=== PATIENT | male | born 1960 | race Caucasian/White ===

== ENCOUNTER 2023-08-28 08:30 | Outpatient (RCR) | payer BC, SELFPAY ==
[2023-08-14 09:05] VITALS: BP 148/92; PULSE 94; RESP 16; TEMP 36.1; O2SAT 99
[2023-08-14 10:28] VITALS: TEMP 36.2
[2023-08-14 10:45] VITALS: BP 153/85; PULSE 72; RESP 14; TEMP 36.6; O2SAT 98
[2023-08-14 11:30] VITALS: BP 147/88; PULSE 92; RESP 14; TEMP 35.9; O2SAT 100
[2023-08-14 12:30] VITALS: BP 153/84; PULSE 84; RESP 14; TEMP 36.3; O2SAT 99
[2023-08-14 12:59] VITALS: BP 150/93; PULSE 81; RESP 14; TEMP 36.5; O2SAT 98
[2023-08-28 08:48] VITALS: BP 155/91; PULSE 75; RESP 16; TEMP 36.2; O2SAT 100
[2023-08-28 09:29] VITALS: BP 155/91; PULSE 75; RESP 16; TEMP 36.2; O2SAT 100
[2023-08-28 09:49] VITALS: BP 133/73; PULSE 64; RESP 16; TEMP 36.6; O2SAT 98
[2023-08-28 10:34] VITALS: BP 147/75; PULSE 83; RESP 16; TEMP 36.4; O2SAT 98
[2023-08-28 11:00] VITALS: BP 130/80; PULSE 61; RESP 16; TEMP 36.4; O2SAT 99
[2023-08-28 11:34] VITALS: BP 159/78; PULSE 78; TEMP 36.3; O2SAT 99
== END 2024-02-09 23:59 | disposition home or self-care (01) ==
LOC: CCIC 08:30
PROVIDERS: PCP Family Medicine; Referring Provider Family Medicine; Visit Provider Clinical Nurse Specialist
DX: C18.7 Malignant neoplasm of sigmoid colon (principal)
CPT/HCPCS: 36415; 36430; 36591; 86850; 86900; 86901; 86922; 99211; P9016

== ENCOUNTER 2025-02-23 10:08 | Outpatient (RCR) | payer MEDICARE, MEDICAID, SELFPAY ==
[2025-02-17 11:07] VITALS: BP 118/74; PULSE 95; RESP 16; TEMP 36.8; O2SAT 99
[2025-02-17] MEDS: SODIUM CHLORIDE 0.9 % (FLUSH) 10 ML SYRINGE IVF (11:10)
[2025-02-17] MEDS: 0.9 % SODIUM CHLORIDE 250 ml IV (11:15)
[2025-02-17 11:29] VITALS: BP 113/75; PULSE 88; RESP 16; TEMP 36.8; O2SAT 99
[2025-02-17 11:59] VITALS: BP 114/73; PULSE 93; RESP 16; TEMP 36.6; O2SAT 99
[2025-02-17 12:37] VITALS: BP 128/77; PULSE 94; RESP 16; TEMP 36.2; O2SAT 98
[2025-02-17 13:15] VITALS: BP 118/75; PULSE 85; RESP 16; TEMP 36.9; O2SAT 99
[2025-02-17] MEDS: FUROSEMIDE 10 MG/ML inj 20 MG IV (14:07)
[2025-02-17 15:05] VITALS: BP 129/80; PULSE 85; RESP 16; TEMP 36.9; O2SAT 99
--- NOTE | 2025-02-21 11:15 | ONC.NURNOTE ---
Orders received from [facility] for patient to have peripheral blood cultures x2. Spoke with lab and they are able to do this for the patient. Written orders given to Mariah. RN called patient's SO Kim and advised her that they did not need an appointment for the lab, told her to check in at the main desk and tell them they are here for labs. Called Odalis HUERTAS at [facility] and updated her. Both Kim and Odalis agreeable to the plan.
== END 2025-05-09 23:59 | disposition home or self-care (01) ==
LOC: CCIC 10:08
PROVIDERS: PCP Family Medicine; Visit Provider Internal Medicine Hematology & Oncology
DX: C18.7 Malignant neoplasm of sigmoid colon (principal); D64.9 Anemia, unspecified
CPT/HCPCS: 36415; 36430; 86850; 86900; 86901; 86922; 87040; 96374; J1940; J7050; P9016

== ENCOUNTER 2025-04-09 11:58 | Emergency (ER) | payer MEDICARE, SELFPAY ==
[2025-04-09] VITALS (30 sets, daily range): BP systolic 105–119; BP diastolic 64–85; PULSE 78–95; RESP 14–24; TEMP 36.1; O2SAT 97–100; BMI 26.6
--- NOTE | 2025-04-09 12:00 | ED_ITS ---
HPI - General Adult General Date Seen: 04/09/25 Chief complaint: Weakness Stated complaint: diarrhea, dehydrated Time Seen by Provider: 04/09/25 12:00 History of Present Illness HPI narrative: 65-year-old male history of stage IV metastatic colon cancer (low records indicate liver and lung metastases) , ascites, history of C diff colitis in November 2024, chronic kidney disease, insomnia, and also multiple recent infections and episodes of bacteremia. He presents to the ER today by private car from home with his . He has confusion so history is obtained almost entirely from his and from a small extent from the patient. reports that he has known metastatic colon cancer with known Mets to his liver and lungs. He follows with [facility] in [place] for that care. He had been on multiple rounds of chemo. However since November he has had multiple hospitalizations and multiple infections. It sounds like at least 2 episodes of bacteremia which were thought to have been related to his ports (had 1 port removed and then had recurrent bacteremia so had a 2nd port removed). He has also developed ascites from his liver Mets and gets therapeutic paracenteses every couple of weeks. says that last time they took off 1.7 L and prior to that they took off 2.1 L. She is not aware of any history of SBP. He has not been on any antibiotics recently. It sounds like his oncologist has given him the advice that he probably has incurable colon cancer and oncology has advised against further rounds of chemo because his system is so weak and they have advised comfort care. However the patient and his children are not ready for him to pass away. They have sought alternative treatments and he is currently on ivermectin to treat his colon cancer. thinks that his last dose of chemo was in December, 3 months ago reports that he has had slowly progressive generalized weakness and sleep risk rest of confusion for about the past 5-7 days. He has not had any sweats or fevers. He does have a chronic cough but if anything his cough has been better this week than normal. No trouble breathing. No sore throat. He does have a generally poor appetite but has not been vomiting. thinks he has been having diarrhea this week but he generally does not show her his stools. He is able to tell me that he had, 2 small bits? of stool this morning. He says he does not think he is having diarrhea. He has not had any blood in his stool but does have a history of hemorrhoids with dry blood in the past. Patient thinks he has been urinating normally. notes that he has been eating and drinking less. He has been getting slowly weaker and more confused all week. This morning she was in the other room preparing some things when he got up out of his easy chair. He seemed disoriented and walked the wrong direction while he thought he was going to the bathroom. He then tripped and fell and landed with his right side against the foot rest of the easy chair. It sounds like he struck his right lateral rib cage. His does not think he hit his head. He is having right-sided pain since the fall. No trouble breathing. The patient is able to tell me that the pain is ?pretty bad? when I touch the area or when he moves but does not bother him when he holds still. He no anterior abdominal pain. No hip pain or leg pain. The patient is not on any anticoagulants. He had been on Xarelto in the past, apparently around the time when he had an operation for a perforated sigmoid mass. Unclear what the indication for the Xarelto was. Patient current med list includes venlafaxine, trazodone, potassium, iron supplements. He apparently had lab checks a few days ago at the [facility] because of his weakness and his hemoglobin was 9 which is around his baseline. He is not on any diuretics. He does have a history of poor kidney function apparently his recent creatinine was 1.6. He thinks his urination has been normal lately Related Data Home Medications ?Medication ?Instructions ?Recorded ?Confirmed potassium chloride 20 mEq 20 meq PO QDAY 06/05/22 02/17/25 tablet,extended release venlafaxine 75 mg capsule,extended 75 mg PO QAM 06/05/22 02/17/25 release 24 hr diphenoxylate-atropine 2.5 1 tab PO Q12H PRN 08/28/23 02/17/25 mg-0.025 mg tablet loperamide 2 mg capsule 2 - 4 mg PO Q3H PRN 08/28/23 02/17/25 iron,carbonyl 65 mg-vitamin C 125 1 tab PO QDAY 01/15/25 02/17/25 mg tablet,delayed release (Vitron-C) morphine 15 mg immediate release 15 mg PO Q3H PRN pain 01/15/25 02/17/25 tablet sodium bicarbonate 325 mg tablet 650 mg PO DAILY 01/15/25 02/17/25 trazodone 50 mg tablet 50 mg PO QHS 01/15/25 02/17/25 vancomycin 125 mg capsule 125 mg PO BID 01/15/25 02/17/25 ivermectin 6 mg tablet 60 mg PO 04/09/25 naltrexone 1.5 mg capsule 0.5 mg PO BID 04/09/25 04/09/25 Allergies Allergy/AdvReac Type Severity Reaction Status Date / Time No Known Drug Allergies [facility] Ver[facility] 02[facility]17[facility]25 10:32 [facility] Social History Smoking Status: Never smoker Do you use any of these nicotine containing products: None Second hand tobacco smoke exposure: No Exam Narrative: Exam Narrative: Constitutional: Appears well-developed and well-nourished. He is awake but his eyes are closed. He opens them when requested. GCS is 14. He follows simple commands appropriately and answer simple questions appropriately but seems a little bit confused with details of his history. HENT: Head: Atraumatic. Nose: Nose normal. Mouth/Throat: Oral mucosa is clear and moist not desiccated or cracked. no trismus. Poor dentition. Pharynx normal. Tonsils symmetric. No tonsillar enlargement, erythema, or exudate. Eyes: Conjunctivae pale. EOM normal. Pupils equal, round, and reactive to light. No scleral icterus. Neck: Normal range of motion. Neck supple. No tracheal deviation present. Cardiovascular: Normal rate, regular rhythm. No gallop. No friction rub. No murmur heard. Symmetric radial artery pulses Pulmonary/Chest: Effort normal. No stridor. No respiratory distress. No wheezes. No rales. No rhonchi . Right lateral tenderness. No chest wall crepitus. No bruising. Abdominal: Soft. Bowel sounds normal. Distended and dull to percussion with fluid wave. He has distended cutaneous vein superior to his umbilicus, likely related to portal hypertension. No mass. No tenderness. No rebound. No guarding. Musculoskeletal: RUE: Normal range of motion. No tenderness. No deformity LUE: Normal range of motion. No tenderness. No deformity RLE: Normal range of motion. 3+ pitting edema. No tenderness. No deformity LLE: Normal range of motion. 3+ pitting edema. No tenderness. No deformity Neurological: GCS is 14. He is awake but his eyes are closed unless he spoken to. He follows commands appropriately. No focal deficits.. Generalized weakness. CN II-VII intact. No sensory deficit. GCS eye subscore is 3. GCS verbal subscore is 5. GCS motor subscore is 6. Normal coordination Skin: Skin is warm and dry. Pale but not mottled or diaphoretic. No rash noted. No pallor. Normal capillary refill. Psychiatric: Drowsy. Limited Const: Vital Signs, click to edit/add: Vital Signs - 24 hr 04/09/25 12:07 04/09/25 12:10 04/09/25 12:30 Temperature 97.0 F L Pulse Rate 88 87 Pulse Rate [Right Pulse Oximeter] 78 Respiratory Rate 16 Blood Pressure 119/85 Blood Pressure [Ri ght Upper Arm] 119/85 Pulse Oximetry 98 97 98 [facility] 04/09/25 13:03 04/09/25 13:31 04/09/25 13:50 Temperature Pulse Rate 84 78 Pulse Rate [Right Pulse Oximeter] Respiratory Rate 14 Blood Pressure 118/68 118/69 Blood Pressure [Ri ght Upper Arm] Pulse Oximetry 99 100 [facility] 04/09/25 14:00 04/09/25 14:01 04/09/25 14:31 Temperature Pulse Rate 80 79 95 Pulse Rate [Right Pulse Oximeter] Respiratory Rate 24 24 Blood Pressure 110/66 119/73 Blood Pressure [Ri ght Upper Arm] Pulse Oximetry 99 99 99 [facility] 04/09/25 15:14 04/09/25 15:31 04/09/25 16:01 Temperature Pulse Rate 89 90 90 Pulse Rate [Right Pulse Oximeter] Respiratory Rate 23 22 23 Blood Pressure 107/65 108/64 113/68 Blood Pressure [Ri ght Upper Arm] Pulse Oximetry 99 98 99 [facility] Air 04/09/25 16:15 04/09/25 16:30 04/09/25 16:31 Temperature Pulse Rate 88 88 85 Pulse Rate [Right Pulse Oximeter] Respiratory Rate 24 22 Blood Pressure 106/74 Blood Pressure [Ri ght Upper Arm] Pulse Oximetry 99 98 99 Oxygen Delivery Me thod 04/09/25 16:45 04/09/25 17:00 04/09/25 17:01 Temperature Pulse Rate 86 85 84 Pulse Rate [Right Pulse Oximeter] Respiratory Rate 20 Blood Pressure 107/70 Blood Pressure [Ri ght Upper Arm] Pulse Oximetry 98 98 99 Oxygen Delivery Me thod 04/09/25 17:02 04/09/25 17:15 04/09/25 17:30 Temperature Pulse Rate 85 85 85 Pulse Rate [Right Pulse Oximeter] Respiratory Rate Blood Pressure Blood Pressure [Ri ght Upper Arm] Pulse Oximetry 98 98 99 Oxygen Delivery Me thod 04/09/25 17:31 04/09/25 17:45 04/09/25 18:00 Temperature Pulse Rate 83 85 82 Pulse Rate [Right Pulse Oximeter] Respiratory Rate Blood Pressure 105/68 Blood Pressure [Ri ght Upper Arm] Pulse Oximetry 99 98 99 Oxygen Delivery Me thod 04/09/25 18:01 04/09/25 18:02 04/09/25 18:15 Temperature Pulse Rate 85 84 83 Pulse Rate [Right Pulse Oximeter] Respiratory Rate 22 23 Blood Pressure 111/66 Blood Pressure [Ri ght Upper Arm] Pulse Oximetry 98 98 99 Oxygen Delivery Me thod 04/09/25 19:05 Temperature Pulse Rate 88 Pulse Rate [Right Pulse Oximeter] Respiratory Rate 20 Blood Pressure 113/71 Blood Pressure [Ri ght Upper Arm] Pulse Oximetry 100 Oxygen Delivery Me thod Course Course ED Course: Multiple bedside rechecks. Remains hemodynamically stable. Still pleasantly confused and drowsy but arousable. Reevaluation(s) Reevaluation #1: Recheck -[id number]. Updated patient and family. Finally discussed with hospitalist service at [facility] and they accepted the patient. Patient was able to get to the bathroom to urinate and may also be able to give us a stool sample. Remains hemodynamically stable. Reevaluation #2: Recheck -[id number]. Patient been assigned a bed at [facility]. EMS is arriving to transport. Remains hemodynamically stable. Vital Signs Vital signs: Initial Vital Signs Pulse Rate 88 04/09/25 12:07 Blood Pressure 119/85 04/09/25 12:07 Blood Pressure Mean 96 04/09/25 12:07 Pulse Oximetry 98 04/09/25 12:07 Vital Signs Pulse Rate 88 04/09/25 12:07 Blood Pressure 119/85 04/09/25 12:07 Pulse Oximetry 98 04/09/25 12:07 Temperature 97.0 F L 04/09/25 12:10 Pulse Rate 88 04/09/25 19:05 Respiratory Rate 20 04/09/25 19:05 Blood Pressure 113/71 04/09/25 19:05 Pulse Oximetry 100 04/09/25 19:05 Oxygen Delivery Method Room Air 04/09/25 16:01 Medications Administered Medications: Generic Name Dose Route Start Last Admin Trade Name Freq PRN Reason Stop Dose Admin Piperacillin Sod/Tazobactam 100 mls @ 200 mls/hr 04/09/25 13:30 04/09/25 14:25 Sod 4.5 gm/ Sodium Chloride IVPB Infused Q6H ANTHONY Infusion Discontinued Medications Generic Name Dose Route Start Last Admin Trade Name Freq PRN Reason Stop Dose Admin Sodium Chloride 1,000 mls @ 1,000 mls/hr 04/09/25 12:45 04/09/25 13:51 0.9 % Sodium Chloride 1000 Ml IV 04/09/25 13:44 Infused .Q1H ANTHONY Infusion Vancomycin/PEG/NADA/Lysine/Water 2 gm in 400 mls @ 200 mls/hr 04/09/25 13:28 04/09/25 16:45 Vancomycin 2 Gm/400 Ml IVPB 04/09/25 15:27 Infused ONCE ONE Infusion Protocol Lactated Ringer's 1,000 mls @ 1,000 mls/hr 04/09/25 13:31 04/09/25 14:55 Lactated Ringers 1000 Ml IV 04/09/25 14:30 Infused .Q1H ONE Infusion Lidocaine/Epinephrine 20 ml 04/09/25 16:46 04/09/25 17:34 Lidocaine 1%-Epi 1:100,000 INFILTRATI 04/09/25 16:47 20 ml ONCE ONE Administration Medical Decision Making MDM Narrative Medical decision making narrative: 65-year-old gentleman with a history of metastatic colon cancer. He has had previous surgery for perforated sigmoid tumor, has known Mets to his liver and lungs with known ascites. He has also had multiple episodes recently of infections and what describes as being possible bacteremia so currently has all of his IV access ports removed and is on on alternative treatment for his cancer (ivermectin). He is not on chemo since December. He presents with about a one-week history of progressive generalized weakness and progressive slow worsening confusion that got so bad to the point this morning that he was disoriented when he got up out of his chair, walked the wrong way and then had a ground level fall. 1. Trauma. Initially he described mostly having pain in his right lateral ribs and right flank from the fall. No hypoxia. Lung sounds were clear. No exam evidence for pneumothorax or hemothorax or tension pneumo. I ordered CT scan of his chest/abdomen/pelvis. However because of the patient's acute kidney injury and baseline chronic renal insufficiency, with the change that or to a noncontrast CT chest/abdomen/pelvis. By my review those images I do not see any acute traumatic injury such as rib fracture. He does have fluid around the liver and in the abdomen just which I think is more likely his chronic ascites rather than acute hemoperitoneum. Radiology concurs that there is no definite acute change. Because of the patient's confusion, I ordered head CT and C-spine CT. He initially denied hitting his head and then actually after CT does say that he thinks he probably did hit his head. CT imaging of the head ultimately is normal. C-spine CT is normal. He has confusion but no focal deficits to suggest a spinal cord injury. Blood pressure and pulse rate and hemodynamics are stable. 2. ID: Patient is not febrile and has no reported fever or sweating at home but does have a history of recent infections including a couple episodes of what sound like bacteremia and may be C diff. White count is 10.2. Does not meet clear SIRS criteria however given his medical complexity, we will start antibiotics for sepsis of unknown etiology. Zosyn and vancomycin administered here in the ER. Blood cultures are pending prior to antibiotics. Chest CT shows no evidence for pneumonia. Consider SBP. He is not having any abdominal pain or fever but with known ascites and acute altered sensorium, it is on the differential. After verbal and written consent we did perform a diagnostic paracentesis. Initial ascitic fluid cell counts are reassuring. PMN count less than 500 suggestive of the absence of SBP. 3. Hepatic. Has known liver Mets. LFTs today are abnormal with a total bilirubin of 2.4 and direct bilirubin of 1.9. Alkaline phosphatase is 553, AST 117, ALT 32. I do not have recent baseline LFTs. Most recent labs I can find were from . -three in the [facility] system. At that time alk-phos was 2 a 5, ALT 40, AST 49, and total bilirubin was 0.4. Suspect these are probably related to his known liver Mets. Lipase is abnormal at 3:38 a.m.. He has gallstones on the CT. These are apparently previously known. No evidence for acute cholecystitis based on his noncontrast CT. Ammonia level is 53. I do not have a baseline for comparison but certainly his nonfocal confusion and drowsiness could reflect hepatic encephalopathy. Will require lactulose, will hold off for now because inducing diarrhea during transport could makes EMS transport substantially more difficult.. 4. Renal. He does have an acute kidney injury. reports that his recent baseline creatinine was around 1.6. Today it is up to 2.2 with a BUN of 34. I do not see any evidence on CT scan of any obstructing kidney stones or post renal cause of kidney failure. Suspect this might be related to dehydration. 1 L IV saline and 1 L IV lactated Ringer's administer here in the ER. He does have a non-anion gap metabolic acidosis with a pH of 7.23 and a pCO2 of 29. Unclear etiology. Serum bicarb is low at 11. Is it possible this could reflect GI losses from diarrhea? Venous lactic is mildly elevated at 2.1. In discussion with the act tutor from the [facility] system he advises that we check on the patient's ivermectin dose because sometimes ivermectin can cause altered mental status and metabolic acidosis. It turns out that the patient is on ivermectin 40 mg every morning and 20 mg every evening 60mg po daily. This is a fairly high dose compared to typical treatment doses for parasitic infections. I had nursing discussed with [facility], who advised that there is no specific antidote for ivermectin toxicity. Supportive care and cessation of the medication for to wash out of his system would be the treatment. They have no specific knowledge about this current dose (60 mg per day for several weeks ) and whether not it would specifically cause the patient's symptoms. 5. Heme. He is not currently on chemo. White count is 10.1. Differential shows 87% neutrophils, 3% lymphocytes which could reflect a bacterial infection. Hemoglobin is 10.2 which actually is up from 's reported measurement of 9.0 in the [facility] a couple of days ago. Likely reflects hemoconcentration from dehydration. D/w intensivits at [facility] and they feel that the patient would be safe to go to the medical floor rather than in ICU. They would feel comfortable the patient going to [facility] After couple of hour delay discussed with Dhara BACH from [facility]. She accepts this patient to the hospitalist service on behalf of hospitalist Dr. Mcgee. Lab Data Labs: Lab Results 04/09/25 04/09/25 04/09/25 Range/Units 12:18 12:32 14:35 WBC 10.12 (4.50-11.00) K/uL RBC 3.43 L (4.30-5.90) m/uL Hgb 10.2 L (13.5-17.5) gm/dL Hct 32.2 L (37.0-53.0) % MCV 94 (80-100) fL MCH 30 (26-34) pg MCHC 32 (32-36) gm/dL RDW Coeff of Aiden 17.7 H (11.5-15.5) % Plt Count 137 L (140-440) K/uL Neut % (Auto) 87.0 H (42.0-72.0) % Lymph % (Auto) 3.7 L (20-44) % Mora % (Auto) 7.1 (0.0-11.0) % Eos % (Auto) 0.7 (0.0-7.0) % Baso % (Auto) 0.5 (0.0-3.0) % Neut # (Auto) 8.80 H (1.7-7.0) K/uL Lymph # (Auto) 0.40 L (0.90-2.90) K/uL Mora # (Auto) 0.70 (0.00-0.90) K/UL Eos # (Auto) 0.07 (0.00-0.50) K/uL Baso # (Auto) 0.05 (0.00-0.30) K/uL Abs Immat Gran (auto) 0.10 (0.00-0.30) K/uL Imm/Tot Granulo (auto) 1.0 % INR 1.51 H (0.91-1.10) VBG pH 7.238 L* (7.32-7.43) VBG pCO2 29 L (40-50) mmHG VBG pO2 35.6 (25-47) mmHG VBG HCO3 12 L (21-28) mmol/L Sodium 137 (135-149) mmol/L Potassium 4.0 (3.6-5.1) mmol/L Chloride 112 (96-114) mmol/L Carbon Dioxide 11 L (20-32) mmol/L Anion Gap 14 (7-15) mEq/L BUN 34 H (7-30) mg/dL Creatinine 2.2 H (0.5-1.5) mg/dL Estimated Creat Clear 30.21 Estimated GFR 32 ml/min Glucose 85 (60-115) mg/dL Lactate 2.1 H (0.5-1.9) mmol/L Calcium 8.8 (8.4-10.6) mg/dL Total Bilirubin 2.4 H (0.1-1.5) mg/dL Direct Bilirubin 1.9 H (0.0-0.5) mg/dL AST 117 H (12-35) U/L ALT 32 (4-50) U/L Alkaline Phosphatase 553 H (40-150) U/L Ammonia 53.0 H (13.1-30.0) umol/L Troponin I < 0.01 (0.01-0.04) ng/mL Total Protein 7.4 (6.0-8.3) g/dL Albumin 3.1 L (3.3-5.0) g/dL Lipase 338 H (23-300) U/L Urine Color Yellow (Yellow) Urine Appearance Clear (Clear) Urine pH 5.5 (5.0-8.5) Ur Specific Tabor 1.020 (1.000-1.030) Urine Protein 2+ A (Negative) Urine Glucose (UA) Negative (Negative) Urine Ketones Trace A (Negative) Urine Blood 2+ A (Negative) Urine Nitrite Negative (Negative) Urine Bilirubin 1+ A (Negative) Urine Urobilinogen 0.2 (0.2-1.0) Ur Leukocyte Esterase Negative (Negative) Urine RBC 10-25 A (0-2) Urine WBC 0-2 (0-5) Ur Squamous Epith Cells None (None-Few) Urine Bacteria None (None) Fluid Volume Fluid Color Fluid Appearance Fluid WBC Cells/uL Fluid RBC Cells/uL Fluid Polynuclear WBCs % Fluid Mononuclear WBCs % POC Creatinine 2.4 H (0.6-1.3) mg/dl Blood Type B Positive Antibody Screen NEGATIVE 04/09/25 Range/Units 15:00 WBC (4.50-11.00) K/uL RBC (4.30-5.90) m/uL Hgb (13.5-17.5) gm/dL Hct (37.0-53.0) % MCV (80-100) fL MCH (26-34) pg MCHC (32-36) gm/dL RDW Coeff of Aiden (11.5-15.5) % Plt Count (140-440) K/uL Neut % (Auto) (42.0-72.0) % Lymph % (Auto) (20-44) % Mora % (Auto) (0.0-11.0) % Eos % (Auto) (0.0-7.0) % Baso % (Auto) (0.0-3.0) % Neut # (Auto) (1.7-7.0) K/uL Lymph # (Auto) (0.90-2.90) K/uL Mora # (Auto) (0.00-0.90) K/UL Eos # (Auto) (0.00-0.50) K/uL Baso # (Auto) (0.00-0.30) K/uL Abs Immat Gran (auto) (0.00-0.30) K/uL Imm/Tot Granulo (auto) % INR (0.91-1.10) VBG pH (7.32-7.43) VBG pCO2 (40-50) mmHG VBG pO2 (25-47) mmHG VBG HCO3 (21-28) mmol/L Sodium (135-149) mmol/L Potassium (3.6-5.1) mmol/L Chloride (96-114) mmol/L Carbon Dioxide (20-32) mmol/L Anion Gap (7-15) mEq/L BUN (7-30) mg/dL Creatinine (0.5-1.5) mg/dL Estimated Creat Clear Estimated GFR ml/min Glucose (60-115) mg/dL Lactate (0.5-1.9) mmol/L Calcium (8.4-10.6) mg/dL Total Bilirubin (0.1-1.5) mg/dL Direct Bilirubin (0.0-0.5) mg/dL AST (12-35) U/L ALT (4-50) U/L Alkaline Phosphatase (40-150) U/L Ammonia (13.1-30.0) umol/L Troponin I (0.01-0.04) ng/mL Total Protein (6.0-8.3) g/dL Albumin (3.3-5.0) g/dL Lipase (23-300) U/L Urine Color (Yellow) Urine Appearance (Clear) Urine pH (5.0-8.5) Ur Specific Tabor (1.000-1.030) Urine Protein (Negative) Urine Glucose (UA) (Negative) Urine Ketones (Negative) Urine Blood (Negative) Urine Nitrite (Negative) Urine Bilirubin (Negative) Urine Urobilinogen (0.2-1.0) Ur Leukocyte Esterase (Negative) Urine RBC (0-2) Urine WBC (0-5) Ur Squamous Epith Cells (None-Few) Urine Bacteria (None) Fluid Volume 12 Fluid Color Colorless Fluid Appearance Clear Fluid WBC 106 Cells/uL Fluid RBC 1000 Cells/uL Fluid Polynuclear WBCs 13 % Fluid Mononuclear WBCs 87 % POC Creatinine (0.6-1.3) mg/dl Blood Type Antibody Screen Imaging Data CT scan - head: Attestation: I have reviewed the pertinent imaging results. My impression: No acute intracranial hemorrhage per my read Radiologist's impression: IMPRESSION: 1. No convincing evidence of acute intracranial hemorrhage. 2. Subtle 13 millimeter lesion right inferior medial cerebellum. A small mass lesion is suspected. Contrast-enhanced brain MRI would be useful for more complete evaluation. CT C spine: Attestation: I have reviewed the pertinent imaging results. Radiologist's impression: IMPRESSION: 1. No acute fracture or traumatic malalignment of the cervical spine. CT Chest/Ab/Pelvis: Attestation: I have reviewed the pertinent imaging results. My impression: No acute traumatic injury per my read Radiologist's impression: IMPRESSION: 1. No acute findings in the chest abdomen or pelvis. No acute fracture seen. 2. Extensive pulmonary metastatic disease and Liver disease without significant change 3. Small amount of ascites without significant change. 4. Portal Recanalized umbilical vein with splenomegaly probably reflecting hypertension. ECG Data Attestation: I personally reviewed and interpreted this ECG as follows: Interpretation: Normal sinus rhythm with some PVCs Rate: 85 NE: 144 QRS axis: Normal axis. No pathologic Q-waves. ST segment/T wave: No ST segment elevation or depression. QTc: 511. Prolonged QT Discharge Plan Discharge Clinical Impression: Acute alteration in mental status, Generalized weakness, Metabolic acidosis, Abnormal LFTs, Increased ammonia level, Acute kidney injury, Metastatic colon cancer to liver Patient Disposition: Xfer Other Prescriptions: No Action venlafaxine 75 mg capsule,extended release 24hr 75 mg PO QAM potassium chloride 20 mEq tablet extended release 20 meq PO QDAY morphine 15 mg tablet 15 mg PO Q3H PRN (Reason: pain) sodium bicarbonate 325 mg tablet 650 mg PO DAILY vancomycin 125 mg capsule 125 mg PO BID Vitron-C 65 mg iron- 125 mg tablet,delayed release (DR/EC) 1 tab PO QDAY trazodone 50 mg tablet 50 mg PO QHS loperamide 2 mg capsule 2 - 4 mg PO Q3H PRN diphenoxylate-atropine 2.5-0.025 mg tablet 1 tab PO Q12H PRN ivermectin 6 mg tablet 60 mg PO Rx Instructions: Pt states pt takes 40 mg in AM and 20 mg in PM. naltrexone 1.5 mg capsule 0.5 mg PO BID Rx Instructions: Pt states pt takes 0.5 mg in AM and 0.5 mg in PM. Stand Alone Forms: [facility] Info Instructions Procedures Paracentesis Pre procedure diagnosis: Altered mental status, ascites, eval for SBP Written consent by: guardian Site marking: site marked Verification/time out: correct patient Indication: Ascites Imaging guidance used?: Yes Procedure: diagnostic paracentesis Location: RLQ Bedside Ultrasound Used: yes, Ascites confirmed and location marked Preparation: sterile prep and drape Anesthesia: lidocaine 1% and with Epi Amount of anesthesia used (mL): 5 Amount of fluid obtained (mL): 50 Fluid: clear (Yellow transparent) Size of Needle Used: 18 (After sterile prep and drape we attempted the procedure using a thoracentesis catheter over needle. I managed to get into the peritoneal cavity by aspiration of fluid through the needle and then when we advanced the catheter were not able to get any further fluid. I think catheter became occluded) Post Procedure Exam: awake, alert (Awake but drowsy, similar to pre procedure.), normal BP, normal HR and normal SpO2 Estimated blood loss (if any): none Complications: none Patient Tolerated Procedure: well
--- NOTE | 2025-04-09 12:31 | CRLHL7_ITS ---
For Patients: As a result of the Cures Act, medical imaging exams and procedure reports are released immediately into your electronic medical record. You may view this report before your referring provider. If you have questions, please contact your health care provider. INDICATION: Ground level fall. TECHNIQUE: CT of the cervical spine without contrast. Coronal and sagittal reformats are included. COMPARISON: MRA neck from 11/30/2023. FINDINGS: Fractures and other acute findings: None. Hardware: None. Spinal alignment: Within normal limits. Significant cervical spondylosis: Scattered cervical spondylosis without CT visualized high-grade spinal canal/neural foraminal stenosis. Paraspinal soft tissues and imaged lungs: Within normal limits. IMPRESSION: 1. No acute fracture or traumatic malalignment of the cervical spine. Please note that all CT scans at this facility use dose modulation, iterative reconstruction, and/or weight-based dosing when appropriate to reduce radiation dose to as low as reasonably achievable. Dictated by Wes Todd MD @ 04/09/2025 2:12:59 PM (Electronically Signed)
--- NOTE | 2025-04-09 12:31 | CRLHL7_ITS ---
For Patients: As a result of the Century Cures Act, medical imaging exams and procedure reports are released immediately into your electronic medical record. You may view this report before your referring provider. If you have questions, please contact your health care provider. INDICATION: Ground level fall. Confusion. TECHNIQUE: CT of the head without contrast. Coronal and sagittal reformats are included. COMPARISON: Head CT from 11/29/2023. FINDINGS: Subtle 13 millimeter mildly hyperdense lesion within the right inferior medial cerebellar region, series 2, image 26. No significant mass effect. No hydrocephalus or extra-axial collections. White matter is within normal limits for age. No acute osseous abnormalities. Mastoid air cells and paranasal sinuses are clear. Normal soft tissues. IMPRESSION: 1. No convincing evidence of acute intracranial hemorrhage. 2. Subtle 13 millimeter lesion right inferior medial cerebellum. A small mass lesion is suspected. Contrast-enhanced brain MRI would be useful for more complete evaluation. Please note that all CT scans at this facility use dose modulation, iterative reconstruction, and/or weight-based dosing when appropriate to reduce radiation dose to as low as reasonably achievable. Dictated by Wes Todd MD @ 04/09/2025 2:09:06 PM (Electronically Signed)
[2025-04-09 12:41] LABS: Creatinine, Point-of-Care* 2.4 mg/dl (0.6-1.3)
[2025-04-09 12:45] LABS: Basophils Absolute Auto 0.05 K/uL (0.00-0.30); Basophils Percent Auto 0.5 % (0.0-3.0); Eosinophils Absolute Auto 0.07 K/uL (0.00-0.50); Eosinophils Percent Auto 0.7 % (0.0-7.0); Hematocrit* 32.2 % (37.0-53.0); Hemoglobin* 10.2 gm/dL (13.5-17.5); Lymphocytes Percent Auto 3.7 % (20-44); Mean Corpuscular HGB Conc 32 gm/dL (32-36); Mean Corpuscular Hemoglobin 30 pg (26-34); Mean Corpuscular Volume 94 fL (80-100); Monocytes Percent Auto 7.1 % (0.0-11.0); Platelet Count* 137 K/uL (140-440); RDW Coefficient of Variation % 17.7 % (11.5-15.5); Red Blood Count* 3.43 m/uL (4.30-5.90); White Blood Count* 10.12 K/uL (4.50-11.00)
[2025-04-09 12:48] LABS: Albumin* 3.1 g/dL (3.3-5.0); Chloride* 112 mmol/L (96-114); Lactate* 2.1 mmol/L (0.5-1.9); PCO2 VBG 29 mmHG (40-50); Slide Review Reflex No; Sodium* 137 mmol/L (135-149)
[2025-04-09 12:49] LABS: HCO3 VBG 12 mmol/L (21-28); PO2 VBG 35.6 mmHG (25-47)
[2025-04-09 12:50] LABS: Blood Urea Nitrogen* 34 mg/dL (7-30); Creatinine* 2.2 mg/dL (0.5-1.5); Est. Creatinine Clearance* 30.21; Estimated Glomerular Filt Rate 32 ml/min; pH VBG 7.238 (7.32-7.43)
[2025-04-09 12:51] LABS: Alanine Aminotransferase* 32 U/L (4-50); Alkaline Phosphatase* 553 U/L (40-150); Anion Gap 14 mEq/L (7-15); Aspartate Amino Transferase* 117 U/L (12-35); Bilirubin Direct* 1.9 mg/dL (0.0-0.5); Bilirubin Total* 2.4 mg/dL (0.1-1.5); Calcium* 8.8 mg/dL (8.4-10.6); Carbon Dioxide* 11 mmol/L (20-32); Glucose* 85 mg/dL (60-115); Lipase* 338 U/L (23-300); Total Protein* 7.4 g/dL (6.0-8.3)
[2025-04-09 12:53] LABS: INR 1.51 (0.91-1.10); Prothrombin Time 19.1 Seconds
[2025-04-09] MEDS: 0.9 % SODIUM CHLORIDE 1000 ml 1,000 ML IV (12:59)
[2025-04-09 13:08] LABS: Troponin I* < 0.01 ng/mL (0.01-0.04)
--- NOTE | 2025-04-09 13:26 | CRLHL7_ITS ---
For Patients: As a result of the Century Cures Act, medical imaging exams and procedure reports are released immediately into your electronic medical record. You may view this report before your referring provider. If you have questions, please contact your health care provider. INDICATION: Fall trauma TECHNIQUE: CT chest, abdomen and pelvis acquired without contrast. Multiplanar axial, coronal, and sagittal reformats are included. MIP images COMPARISON: CT 03/21/2025 FINDINGS: CHEST: Cardiovascular structures: Heart is enlarged. Coronary artery calcification. Mediastinum and coni: No mass or adenopathy. Lungs and pleura: Widespread pulmonary metastasis is not significantly changed no effusion seen. Chest wall and axilla: No mass or adenopathy. ABDOMEN AND PELVIS: Liver: Limited noncontrast assessment of the liver with diffuse liver lesions throughout suboptimally visualized no biliary dilatation is seen. Cholelithiasis. Pancreas: Unremarkable. Spleen: Mild splenomegaly measuring 14.5 cm. Adrenal glands: Right adrenal nodule unchanged Kidneys: Unremarkable. GI tract: Rectosigmoid anastomosis no bowel obstruction. Bowel anastomosis right lower quadrant Vascular structures: Abdominal aorta is normal in caliber. Recanalized umbilical vein. Lymph nodes: Unremarkable. Miscellaneous: Mild ascites Pelvic Organs: Enlarged prostate gland wall thickening urinary bladder incompletely distended. Bones: No suspicious bone lesions. No acute fracture seen. IMPRESSION: 1. No acute findings in the chest abdomen or pelvis. No acute fracture seen. 2. Extensive pulmonary metastatic disease and Liver disease without significant change 3. Small amount of ascites without significant change. 4. Portal Recanalized umbilical vein with splenomegaly probably reflecting hypertension. Please note that all CT scans at this facility use dose modulation, iterative reconstruction, and/or weight-based dosing when appropriate to reduce radiation dose to as low as reasonably achievable. Dictated by Selma Urbina MD @ 04/09/2025 2:49:34 PM (Electronically Signed)
[2025-04-09] MEDS: PIPERACILLIN/TAZOBACTAM 4.5 GM in 0.9 % SODIUM CHLORIDE Mini-bag 100 ML IVPB (13:51)
[2025-04-09] MEDS: LACTATED RINGERS 1000 ML 1,000 ML IV (13:52)
[2025-04-09] MEDS: VANCOMYCIN 2 GM/400 ML 2 GM/400 ML PIGGYBACK IVPB (14:41)
[2025-04-09 14:43] LABS: Appearance Urine Clear (Clear); Bilirubin Urine 1+ (Negative); Blood Urine 2+ (Negative); Color Urine Yellow (Yellow); Glucose Urine Negative (Negative); Ketones Urine Trace (Negative); Leukocyte Esterase Urine Negative (Negative); Nitrite Urine Negative (Negative); Protein Urine 2+ (Negative); Urobilinogen Urine 0.2 (0.2-1.0); pH Urine 5.5 (5.0-8.5)
[2025-04-09 15:12] LABS: WBC Urine 0-2 (0-5)
[2025-04-09 15:28] LABS: Mononuclear WBC Body Fluid* 87 %; Polynuclear WBC Body Fluid* 13 %; RBC, Body Fluid* 1000 Cells/uL; WBC, Body Fluid* 106 Cells/uL
[2025-04-09 15:32] LABS: BF Clarity* Clear; BF Color Colorless; BF Total Volume* 12
[2025-04-09] MEDS: LIDOCAINE 1%-EPI 1:100,000 20 ML INFILTRATI (17:34)
[2025-04-09 20:00] LABS: CDIFFEPI 027 PRESUMPTIVE NEGATIVE (Negative)
[2025-04-09 20:02] LABS: C.Difficile POSITIVE (Negative)
--- OUTSIDE RECORDS SUMMARY | 2025-04-10 17:25 | XMS_ITS ---
Author Name Interface, [id number] lity Address [address] [address] [facility] Address [address] [facility] [address] [address] Care Team Providers Care Tax Auditor Name Role Phone Dustin Jeffers Unavailable Unavailable Allergies and Adverse Reactions Medication/Group Name Reaction Severity Date No known allergies Plan Date Type Value 04/13/2025 APPOINTMENT LAB 15 MIN 04/13/2025 APPOINTMENT OV 20 MIN 04/06/2025 APPOINTMENT LAB 15 MIN 04/04/2025 APPOINTMENT OUTSIDE TEST 5 M IN 03/23/2025 APPOINTMENT OV 20 MIN 03/23/2025 APPOINTMENT LAB 15 MIN 03/21/2025 APPOINTMENT OUTSIDE TEST 5 M IN 02/25/2025 APPOINTMENT PUMP DISCONNECT 15 MIN 02/23/2025 APPOINTMENT LAB 15 MIN 02/23/2025 APPOINTMENT OV 20 MIN 02/23/2025 APPOINTMENT TREATMENT 3 HR 02/23/2025 APPOINTMENT PORT DRAW 15 MIN 02/18/2025 APPOINTMENT OV 20 MIN 02/07/2025 APPOINTMENT OUTSIDE TEST 5 M IN 02/04/2025 APPOINTMENT OUTSIDE TEST 5 M IN 02/04/2025 APPOINTMENT PUMP DISCONNECT 15 MIN 02/04/2025 APPOINTMENT OUTSIDE TEST 5 M IN 02/02/2025 APPOINTMENT TREATMENT 3 HR 02/02/2025 APPOINTMENT OV 30 MIN 02/02/2025 APPOINTMENT PORT DRAW 15 MIN 02/02/2025 APPOINTMENT OUTSIDE TEST 5 M IN 01/21/2025 APPOINTMENT OUTSIDE TEST 5 M IN 01/14/2025 APPOINTMENT PUMP DISCONNECT 15 MIN 01/12/2025 APPOINTMENT PORT DRAW 15 MIN 01/12/2025 APPOINTMENT TREATMENT 3 HR 01/12/2025 APPOINTMENT OV 30 MIN 01/03/2025 APPOINTMENT PORT DRAW 15 MIN 01/03/2025 APPOINTMENT OV 20 MIN 01/03/2025 APPOINTMENT PORT DRAW 15 MIN 12/31/2024 APPOINTMENT PUMP DISCONNECT 15 MIN 12/29/2024 APPOINTMENT HYDRATION 2 HR 12/29/2024 APPOINTMENT PORT DRAW 15 MIN 12/29/2024 APPOINTMENT OV 30 MIN 12/29/2024 APPOINTMENT PORT DRAW 15 MIN 12/29/2024 APPOINTMENT TREATMENT 4 HR 12/29/2024 APPOINTMENT OV 30 MIN 12/29/2024 APPOINTMENT PORT DRAW 15 MIN 12/28/2024 APPOINTMENT OUTSIDE TEST 5 M IN 12/22/2024 APPOINTMENT PORT DRAW 15 MIN 12/17/2024 APPOINTMENT PUMP DISCONNECT 15 MIN 12/15/2024 APPOINTMENT PORT DRAW 15 MIN 12/15/2024 APPOINTMENT OV 20 MIN 12/15/2024 APPOINTMENT TREATMENT 4 HR 12/03/2024 APPOINTMENT PUMP DISCONNECT 15 MIN 12/01/2024 APPOINTMENT TREATMENT 4 HR 12/01/2024 APPOINTMENT OV 30 MIN 12/01/2024 APPOINTMENT PORT DRAW 15 MIN 11/25/2024 APPOINTMENT PORT DRAW 15 MIN 11/25/2024 APPOINTMENT OV 30 MIN 11/25/2024 APPOINTMENT TREATMENT 2 HR 11/18/2024 APPOINTMENT PUMP DISCONNECT 15 MIN 11/16/2024 APPOINTMENT PORT DRAW 15 MIN 11/16/2024 APPOINTMENT TREATMENT 4 HR 11/16/2024 APPOINTMENT OV 30 MIN 11/11/2024 APPOINTMENT OV 20 MIN 11/11/2024 APPOINTMENT PORT DRAW 15 MIN 11/05/2024 APPOINTMENT INJECTION 15 MIN 11/03/2024 APPOINTMENT TREATMENT 4 HR 11/03/2024 APPOINTMENT OV 20 MIN 11/03/2024 APPOINTMENT PORT DRAW 15 MIN 10/29/2024 APPOINTMENT OUTSIDE TEST 5 M IN 10/22/2024 APPOINTMENT PUMP DISCONNECT 15 MIN 10/29/[address] chest w/o con trast 11/03/2024 LABORDER CBC w/ auto diff 11/03/2024 LABORDER CMP 11/03/2024 LABORDER CEA panel 11/03/2024 LABORDER Protein (dipstic k) panel 11/11/2024 LABORDER CBC w/ auto diff 11/11/2024 LABORDER CEA panel 11/11/2024 LABORDER CMP 11/16/2024 LABORDER Protein (dipstic k) panel 11/16/2024 LABORDER CBC w/ auto diff 11/16/2024 LABORDER CEA panel 11/16/2024 LABORDER CMP 11/25/2024 LABORDER CBC w/ auto diff 12/01/2024 LABORDER CBC w/ auto diff 12/01/2024 LABORDER CMP 12/01/2024 LABORDER CBC w/ auto diff 12/01/2024 LABORDER CMP 12/01/2024 LABORDER Protein (dipstic k) panel 12/01/2024 LABORDER Ferritin panel 12/01/2024 LABORDER Iron profile 12/01/2024 LABORDER CEA panel 12/15/2024 LABORDER CBC w/ auto diff 12/15/2024 LABORDER CMP 12/15/2024 LABORDER Protein (dipstic k) panel 12/15/2024 LABORDER CEA panel 12/17/2024 LABORDER Blood culture pa elis 12/17/2024 LABORDER Blood culture pa elis 12/17/2024 LABORDER Blood culture pa elis 12/17/2024 LABORDER Blood culture pa elis 12/22/2024 LABORDER CMP 12/22/2024 LABORDER CBC w/ auto diff 12/22/2024 LABORDER Urinalysis with Reflex Panel 12/27/[address] chest/abdomen /pelvis w/o contrast 12/29/2024 LABORDER CEA panel 12/29/2024 LABORDER Magnesium Panel 12/29/2024 LABORDER CMP 12/29/2024 LABORDER Urine culture pa elis 12/29/2024 LABORDER CBC w/ auto diff 12/29/2024 LABORDER CBC w/ auto diff 12/29/2024 LABORDER iSTAT Na+/K+/Cl- panel 12/29/2024 LABORDER Ferritin panel 12/29/2024 LABORDER Iron profile 01/03/2025 LABORDER CMP 01/03/2025 LABORDER CEA panel 01/03/2025 LABORDER CBC w/ auto diff 01/12/2025 LABORDER CBC w/ auto diff 01/12/2025 LABORDER Protein (dipstic k) panel 01/12/2025 LABORDER CEA panel 01/12/2025 LABORDER CMP 02/02/2025 LABORDER CBC w/ auto diff 02/02/2025 LABORDER Magnesium Panel 02/02/2025 LABORDER CMP 02/02/2025 LABORDER Protein (dipstic k) panel 02/02/2025 LABORDER CEA panel 02/07/2025 LABORDER Venous doppler u ltrasound of lower extremity, LT 02/18/2025 LABORDER MRI lumbar spine w/o contrast 02/23/2025 LABORDER Blood culture pa elis 02/23/2025 LABORDER CBC w/ auto diff 02/23/2025 LABORDER Magnesium Panel 02/23/2025 LABORDER CMP 02/23/2025 LABORDER Blood culture pa elis 02/23/2025 LABORDER Protein (dipstic k) panel 03/21/[address] chest/abdomen /pelvis w/ contrast 03/23/2025 LABORDER CEA panel 03/23/2025 LABORDER CBC w/ auto diff 03/23/2025 LABORDER Renal function p jeannine 03/23/2025 LABORDER CMP 04/06/2025 LABORDER Hgb Panel 04/13/2025 LABORDER CEA panel 04/13/2025 LABORDER CBC w/ auto diff 04/13/2025 LABORDER CMP Reason for Visit LAB 15 MIN Encounters Date Name 10/22/2024 Ascites 10/22/2024 Bacteremia 10/22/2024 Bleeding hemorrhoids (disorder) 10/22/2024 Bony pelvic pain (fi nding) 10/22/2024 Dehydration 10/22/2024 Low back pain 10/22/2024 Lower extremity larissa a 10/22/2024 Urinary frequency 10/22/2024 Weakness Immunizations Date Name Route Dose Instructions Refusal Reason Stat us Covid-19 vaccine (Moderna) Patient declined/rejected Not Administered Other Patient declined/rejected Not Administered Diagnostic Results Date Type Test Units Lower Limit Upper Limit Result Flag Comments Status Ordered By Specimen Source Lab Address 10/28 [facility] other lab See financial compliance officer d 11/01 [facility] other lab See financial compliance officer d 11/01 [facility] other lab See financial compliance officer d 11/01 [facility] other lab See financial compliance officer d 11/11 CMP Album in g/dL 3.5 5.0 2.8 Low FINAL Sekou Avalos * [facility] , [address] [facility] [id number] 0 11/11 CMP Alkal ine phosp hatas e U/L 36.0 125.0 268 High FINAL Sekou Avalos * [facility] , [address] [facility] [id number] 0 11/11 CMP ALT/S GPT U/L 0.0 49.0 18 FINAL Sekuo Avalos * [facility] , [address] [facility] [id number] 0 11/11 CMP AST/S GOT U/L 17.0 59.0 45 FINAL Sekou Avalos * [facility] , [address] [facility] [id number] 0 11/11 CMP BUN mg/dL 9.0 20.0 14.0 FINAL Sekou Avalos * [facility] , [address] [facility] [id number] 0 11/11 CMP Calci um mg/dL 8.4 10.2 8.1 Low FINAL Sekou Avalos * [facility] , [address] [facility] [id number] 0 11/11 CMP Chlor oj mmol/L 96.0 107.0 114 High FINAL Sekou Avalos * [facility] , [address] [facility] [id number] 0 11/11 CMP CO2 mmol/L 22.0 30.0 23 The expected total allowable error for CO2 is 5.6%. We have seen up to 10% differenc e in values if reported at the end of the 96 hour stability window. Please consider the clinical significa nce of a 2.0-2.5 mmol/L lower reported CO2 value if reported at the end of the 96 hour stability window. FINAL Sekou Avalos * [facility] , [address] [facility] [id number] 0 11/11 CMP Creat inine mg/dL 0.66 1.25 1.50 High FINAL Sekou Avalos * [facility] , [address] [facility] [id number] 0 11/11 CMP GFR estim ate ml/min /1.73m ^2 51.4 Low GFR is calculate d using the CKD-EPI equation. FINAL Sekou Avalos * [facility] , [address] [facility] [id number] 0 11/11 CMP Gluco se mg/dL 74.0 100.0 104 High FINAL Sekou Avalos * [facility] , [address] [facility] [id number] 0 11/11 CMP Potas sium mmol/L 3.5 5.1 3.6 FINAL Sekou Avalos * [facility] , [address] [facility] [id number] 0 11/11 CMP Sodiu m mmol/L 137.0 145.0 141 FINAL Sekou Avalos * [facility] , [address] [facility] [id number] 0 11/11 CMP Bilir ubin, total mg/dL 0.2 1.3 0.7 FINAL Sekou Avalos * [facility] , [address] [facility] [id number] 0 11/11 CMP Total prote in g/dL 6.3 8.2 6.5 FINAL Sekou Avalos * [facility] , [address] [facility] [id number] 0 11/11 CBC w/ auto diff WBC K/uL 3.0 8.9 6.3 FINAL [facility] , [address] [facility] [id number] 0 11/11 CBC w/ auto diff HGB g/dL 12.5 16.6 8.8 Low FINAL Sekou Avalos [place] [facility] [place] [facility] , [address] [place] [id number] 0 11/11 CBC w/ auto diff PLT K/uL 113.0 364.0 133 FINAL Sekou Avalos [place] [facility] [place] [facility] , [address] [place] [id number] 0 11/11 CBC w/ auto diff Samantha # (ANC) K/uL 1.6 6.6 4.6 FINAL Sekou Avalos [place] [facility] [place] [facility] , [address] [place] [id number] 0 11/11 CBC w/ auto diff Samantha % % 43.0 74.0 74.1 High FINAL Sekou Avalos [place] [facility] [place] [facility] , [address] [place] [id number] 0 11/11 CBC w/ auto diff IG % % 0.0 0.5 2.6 High FINAL Sekou Avalos [place] [facility] [place] [facility] , [address] [place] [id number] 0 11/11 CBC w/ auto diff IG # K/uL 0.0 0.03 0.16 High FINAL Sekou Avalos [place] [facility] [place] [facility] , [address] [place] [id number] 0 11/11 CBC w/ auto diff LY % % 14.0 41.0 7.7 Low FINAL Sekou Robbie [place] [facility] [place] [facility] , [address] [place] [id number] 0 11/11 CBC w/ auto diff MO % % 6.0 15.0 12.9 FINAL Sekou Robbie [place] [facility] [place] [facility] , [address] [place] [id number] 0 11/11 CBC w/ auto diff EO % % 0.0 7.0 0.5 FINAL Sekou Avalos [place] [facility] [place] [facility] , [address] [place] [id number] 0 11/11 CBC w/ auto diff BA % % 0.0 2.0 2.2 High FINAL Sekou Avalos [place] [facility] [place] [facility] , [address] [place] [id number] 0 11/11 CBC w/ auto diff LY # K/uL 0.4 3.6 0.5 FINAL Sekou Avalos [place] [facility] [place] [facility] , [address] [place] [id number] 0 11/11 CBC w/ auto diff MO # K/uL 0.2 1.3 0.8 FINAL Sekou Avalos [place] [facility] [place] [facility] , [address] [place] [id number] 0 11/11 CBC w/ auto diff EO # K/uL 0.0 0.6 0.0 FINAL Sekou Avalos [place] [facility] [place] [facility] , [address] [place] [id number] 0 11/11 CBC w/ auto diff BA # K/uL 0.0 0.2 0.1 FINAL Sekou Avalos [place] [facility] [place] [facility] , [address] [place] [id number] 0 11/11 CBC w/ auto diff NRBC % #/100W BC 0.0 0.2 0.0 FINAL Sekou Avalos [place] [facility] [place] [facility] , [address] [place] [id number] 0 11/11 CBC w/ auto diff RBC M/uL 4.2 5.6 2.86 Low FINAL Sekou Avalos [place] [facility] [place] [facility] , [address] [place] [id number] 0 11/11 CBC w/ auto diff HCT % 39.0 49.0 28.5 Low FINAL Sekou Avalos [place] [facility] [place] [facility] , [address] [place] [id number] 0 11/11 CBC w/ auto diff MCV fL 80.0 104.0 99.7 FINAL Sekou Avalos [place] [facility] [place] [facility] , [address] [place] [id number] 0 11/11 CBC w/ auto diff MCH pg 26.0 35.0 30.8 FINAL Sekou Avalos [place] [facility] [place] [facility] , [address] [place] [id number] 0 11/11 CBC w/ auto diff MCHC g/dL 30.0 35.0 30.9 FINAL Sekou Avalos [place] [facility] [place] [facility] , [address] [place] [id number] 0 11/11 CBC w/ auto diff MPV fL 9.5 13.4 10.2 FINAL Sekou Avalos [place] [facility] [place] [facility] , [address] [place] [id number] 0 11/11 CBC w/ auto diff RDW % 11.3 15.6 18.40 High FINAL Sekou Avalos [place] [facility] [place] [facility] , [address] [place] [id number] 0 11/11 CEA panel CEA ng/mL 0.0 3.0 951.00 Resulte d with diluted sample High Test performed at [facility] on a [facility] Immunoass ay Analyzer that uses an immunomet carroll immunoass ay technique . Patient testing should not be performed using multiple fritz burden due to analytica l variation seen between test fritz burden. FINAL Sekou Avalos * [facility] , [facility] [address] [id number] 0 11/16 CMP Album in g/dL 3.5 5.0 3.0 Low FINAL Pauline Philip * [facility] , [address] [facility] [address] [id number] 0 11/16 CMP Alkal ine phosp hatas e U/L 36.0 125.0 282 High FINAL Pauline Philip * [facility] , [address] [facility] [address] [id number] 0 11/16 CMP ALT/S GPT U/L 0.0 49.0 18 FINAL Pauline Cedrick * [facility] , [address] [id number] 0 11/16 CMP AST/S GOT U/L 17.0 59.0 51 FINAL Pauline Philip * [facility] , [address] [facility] [address] [id number] 0 11/16 CMP BUN mg/dL 9.0 20.0 14.0 FINAL Pauline Cedrick * [facility] , [address] [id number] 0 11/16 CMP Calci um mg/dL 8.4 10.2 8.1 Low FINAL Pauline Cedrick * [facility] , [address] [facility] [address] [id number] 0 11/16 CMP Chlor oj mmol/L 96.0 107.0 111 High FINAL Pauline Cedrick * [facility] , [facility] [address] [id number] 0 11/16 CMP CO2 mmol/L 22.0 30.0 23 The expected total allowable error for CO2 is 5.6%. We have seen up to 10% differenc e in values if reported at the end of the 96 hour stability window. Please consider the clinical significa nce of a 2.0-2.5 mmol/L lower reported CO2 value if reported at the end of the 96 hour stability window. FINAL Pauline Cedrick * [facility] , [address] [facility] [address] [facility] [id number] 0 11/16 CMP Creat inine mg/dL 0.66 1.25 1.60 High FINAL Pauline Cedrick * [facility] , [address] [id number] 0 11/16 CMP GFR estim ate ml/min /1.73m ^2 47.6 Low GFR is calculate d using the CKD-EPI equation. FINAL Pauline Cedrick * [facility] , [address] [facility] [address] [facility] [id number] 0 11/16 CMP Gluco se mg/dL 74.0 100.0 102 High FINAL Pauline Philip * [facility] , [address] [facility] [address] [id number] 0 11/16 CMP Potas sium mmol/L 3.5 5.1 3.5 FINAL Pauline Cedrick * [facility] , [address] [facility] [address] [facility] [id number] 0 11/16 CMP Sodiu m mmol/L 137.0 145.0 139 FINAL Pauline Cedrick * [facility] , [address] [facility] [address] [id number] 0 11/16 CMP Bilir ubin, total mg/dL 0.2 1.3 1.0 FINAL Pauline Cedrick * [place] [facility] [place] [facility] , [address] [place] [id number] 0 11/16 CMP Total prote in g/dL 6.3 8.2 6.8 FINAL Pauline Cedrick * [place] [facility] [place] [facility] , [address] [place] [id number] 0 11/16 CBC w/ auto diff WBC K/uL 3.0 8.9 6.4 FINAL Pauline Cedrick [place] [facility] [place] [facility] , [address] [place] [id number] 0 11/16 CBC w/ auto diff HGB g/dL 12.5 16.6 9.3 Low FINAL Pauline Cedrick [place] [facility] [place] [facility] , [address] [place] [id number] 0 11/16 CBC w/ auto diff PLT K/uL 113.0 364.0 105 Low FINAL Pauline Cedrick [place] [facility] [place] [facility] , [address] [place] [id number] 0 11/16 CBC w/ auto diff Samantha # (ANC) K/uL 1.6 6.6 4.8 FINAL Pauline Cedrick [place] [facility] [place] [facility] , [address] [place] [id number] 0 11/16 CBC w/ auto diff Samantha % % 43.0 74.0 74.5 High FINAL Pauline Cedrick [place] [facility] [place] [facility] , [address] [place] [id number] 0 11/16 CBC w/ auto diff IG % % 0.0 0.5 0.9 High FINAL Pauline Cedrick [place] [facility] [place] [facility] , [address] [place] [id number] 0 11/16 CBC w/ auto diff IG # K/uL 0.0 0.03 0.06 High FINAL Pauline Cedrick [place] [facility] [place] [facility] , [address] [address] [place] [id number] 0 11/16 CBC w/ auto diff LY % % 14.0 41.0 8.8 Low FINAL Pauline Cedrick [place] [facility] [place] [facility] , [address] [facility] [address] [place] [id number] 0 11/16 CBC w/ auto diff MO % % 6.0 15.0 13.3 FINAL Pauline Cedrick [place] [facility] [place] [facility] , [address] [facility] [address] [place] [id number] 0 11/16 CBC w/ auto diff EO % % 0.0 7.0 0.5 FINAL Pauline Cedrick [place] [facility] [place] [facility] , [address] [facility] [address] [place] [id number] 0 11/16 CBC w/ auto diff BA % % 0.0 2.0 2.0 FINAL Pauline Philip [place] [facility] [place] [facility] , [address] [facility] [address] [place] [id number] 0 11/16 CBC w/ auto diff LY # K/uL 0.4 3.6 0.6 FINAL Pauline Philip [place] [facility] [place] [facility] , [address] [place] [id number] 0 11/16 CBC w/ auto diff MO # K/uL 0.2 1.3 0.9 FINAL Pauline Cedrick [place] [facility] [place] [facility] , [address] [place] [id number] 0 11/16 CBC w/ auto diff EO # K/uL 0.0 0.6 0.0 FINAL Pauline Philip [place] [facility] [place] [facility] , [address] [place] [id number] 0 11/16 CBC w/ auto diff BA # K/uL 0.0 0.2 0.1 FINAL Pauline Philip [place] [facility] [place] [facility] , [address] [place] [id number] 0 11/16 CBC w/ auto diff NRBC % #/100W BC 0.0 0.2 0.0 FINAL Pauline Cedrick [place] [facility] [place] [facility] , [address] [place] [id number] 0 11/16 CBC w/ auto diff RBC M/uL 4.2 5.6 2.97 Low FINAL Pauline hPilip [place] [facility] [place] [facility] , [address] [place] [id number] 0 11/16 CBC w/ auto diff HCT % 39.0 49.0 29.4 Low FINAL Pauline Philip [place] [facility] [place] [facility] , [address] [place] [id number] 0 11/16 CBC w/ auto diff MCV fL 80.0 104.0 99.0 FINAL Pauline Philip [place] [facility] [place] [facility] , [address] [place] [id number] 0 11/16 CBC w/ auto diff MCH pg 26.0 35.0 31.3 FINAL Pauline Cedrick [place] [facility] [place] [facility] , [address] [place] [id number] 0 11/16 CBC w/ auto diff MCHC g/dL 30.0 35.0 31.6 FINAL Pauline Cedrick [place] [facility] [place] [facility] , [address] [place] [id number] 0 11/16 CBC w/ auto diff MPV fL 9.5 13.4 10.1 FINAL Pauline Philip [place] [facility] [place] [facility] , [address] [place] [id number] 0 11/16 CBC w/ auto diff RDW % 11.3 15.6 17.70 High FINAL Pauline Philip [place] [facility] [place] [facility] , [address] [place] [id number] 0 11/16 Prote in (dips tick) panel Prote in (ua) 1+ Abnor mal FINAL Sekou Avalos [place] [facility] [place] [facility] , [address] [place] [id number] 0 11/25 CBC WBC K/uL 3.0 8.9 0.4 Critica l hematol ogy result obtaine d Criti reginald Low FINAL Sekou Avalos [place] [facility] [place] [facility] , [address] [place] [id number] 0 11/25 CBC HGB g/dL 12.5 16.6 8.5 Low FINAL Sekou Avalos [place] [facility] [place] [facility] , [address] [place] [id number] 0 11/25 CBC PLT K/uL 113.0 364.0 27 Critica l hematol ogy result obtaine d Criti reginald Low FINAL Sekou Avalos [place] [facility] [place] [facility] , [address] [place] [id number] 0 11/25 CBC Plate let, immat ure, fract ion % 0.9 11.2 4.9 FINAL Sekou Avalos [place] [facility] [place] [facility] , [address] [place] [id number] 0 11/25 CBC RBC M/uL 4.2 5.6 2.74 Low FINAL Sekou Avalos [place] [facility] [place] [facility] , [address] [place] [id number] 0 11/25 CBC HCT % 39.0 49.0 25.9 Low FINAL Sekou Avalos [place] [facility] [place] [facility] , [address] [place] [id number] 0 11/25 CBC MCV fL 80.0 104.0 94.5 FINAL Sekou Avalos [place] [facility] [place] [facility] , [address] [place] [id number] 0 11/25 CBC MCH pg 26.0 35.0 31.0 FINAL Sekou Avalos [place] [facility] [place] [facility] , [address] [place] [id number] 0 11/25 CBC MCHC g/dL 30.0 35.0 32.8 FINAL Sekou Avalos [place] [facility] [place] [facility] , [address] [place] [id number] 0 11/25 CBC RDW % 11.3 15.6 15.60 FINAL Sekou Avalos [place] [facility] [place] [facility] , [address] [place] [id number] 0 11/25 CBC NRBC % #/100W BC 0.0 0.2 0.0 FINAL Sekou Avalos [place] [facility] [place] [facility] , [address] [place] [id number] 0 11/25 CBC Auto CBC comme nts Differe ntial cancell ed due to WBC count < 0.5 x 10^3/uL ; Slide review to follow FINAL Sekou Avalos [place] [facility] [place] [facility] , [address] [place] [id number] 0 11/25 CBC w/ auto diff WBC K/uL 3.0 8.9 0.4 Critica l hematol ogy result obtaine d Criti reginald Low FINAL Sekou Avalos [place] [facility] [place] [facility] , [address] [place] [id number] 0 11/25 CBC w/ auto diff HGB g/dL 12.5 16.6 8.5 Low FINAL Sekou Avalos [place] [facility] [place] [facility] , [address] [place] [id number] 0 11/25 CBC w/ auto diff PLT K/uL 113.0 364.0 27 Critica l hematol ogy result obtaine d Criti reginald Low FINAL Sekou Avalos [place] [facility] [place] [facility] , [address] [facility] [address] [place] [id number] 0 11/25 CBC w/ auto diff Plate let, immat ure, fract ion % 0.9 11.2 4.9 FINAL Sekou Avalos [place] [facility] [place] [facility] , [address] [place] [id number] 0 11/25 CBC w/ auto diff Samantha # (ANC) K/uL 1.6 6.6 0.1 Critica l hematol ogy result obtaine d Criti reginald Low FINAL Sekou Avalos [place] [facility] [place] [facility] , [address] [place] [id number] 0 11/25 CBC w/ auto diff Samantha % % 43.0 74.0 12.2 Low FINAL Sekou Avalos [place] [facility] [place] [facility] , [address] [place] [id number] 0 11/25 CBC w/ auto diff IG % % 0.0 0.5 0.0 FINAL Sekou Avalos [place] [facility] [place] [facility] , [address] [place] [id number] 0 11/25 CBC w/ auto diff IG # K/uL 0.0 0.03 0.00 FINAL Sekou Avalos [place] [place] [facility] , [address] [place] [id number] 0 11/25 CBC w/ auto diff LY % % 14.0 41.0 65.9 High FINAL Sek[facility] Avalos [place] [facility] , [address] [place] [id number] 0 11/25 CBC w/ auto diff MO % % 6.0 15.0 14.6 FINAL Sek[facility] Avalos [place] [facility] , [address] [place] [id number] 0 11/25 CBC w/ auto diff EO % % 0.0 7.0 4.9 FINAL Se[facility] Avalos [place] [facility] , [address] [place] [id number] 0 11/25 CBC w/ auto diff BA % % 0.0 2.0 2.4 High FINAL Se[facility] Avalos [place] [facility] , [address] [place] [id number] 0 11/25 CBC w/ auto diff LY # K/uL 0.4 3.6 0.3 Low FINAL Sek[facility] Avalos [place] [facility] , [address] [place] [id number] 0 11/25 CBC w/ auto diff MO # K/uL 0.2 1.3 0.1 Low FINAL Sek[facility] Avalos [place] [facility] , [address] [place] [id number] 0 11/25 CBC w/ auto diff EO # K/uL 0.0 0.6 0.0 FINAL Sek[facility] Avalos [place] [facility] , [address] [place] [id number] 0 11/25 CBC w/ auto diff BA # K/uL 0.0 0.2 0.0 FINAL Sek[facility] Avalos [place] [facility] , [address] [place] [id number] 0 11/25 CBC w/ auto diff NRBC % #/100W BC 0.0 0.2 0.0 FINAL Sek[facility] Avalos [place] [facility] , [address] [place] [id number] 0 11/25 CBC w/ auto diff RBC M/uL 4.2 5.6 2.74 Low FINAL Se[facility] Avalos [place] [facility] , [address] [place] [id number] 0 11/25 CBC w/ auto diff HCT % 39.0 49.0 25.9 Low FINAL Se[facility] Avalos [place] [facility] , [address] [place] [id number] 0 11/25 CBC w/ auto diff MCV fL 80.0 104.0 94.5 FINAL Sek[facility] Avalos [place] [facility] , [address] [place] [id number] 0 11/25 CBC w/ auto diff MCH pg 26.0 35.0 31.0 FINAL Sek[facility] Avalos [place] [facility] , [address] [place] [id number] 0 11/25 CBC w/ auto diff MCHC g/dL 30.0 35.0 32.8 FINAL Sek[facility] Avalos [place] [facility] , [address] [place] [id number] 0 11/25 CBC w/ auto diff MPV fL 9.5 13.4 ---- FINAL [facility] [place] [facility] , [address] [place] [id number] 0 11/25 CBC w/ auto diff RDW % 11.3 15.6 15.60 [facility] , [address] [place] [id number] 0 11/25 CBC w/ auto diff Auto CBC comme nts Slide review to follow [facility] , [address] [place] [facility] [id number] 0 11/25 Smear revie w panel CBC Smear revie w comme nts WBC <0.5 and blasts seen- no differe ntial perform edReact hair and Abnorma l Lymphs present Basophi lic Stippli ng Present Abnor mal [facility] , [address] [place] [id number] 0 11/25 [facility] other lab See financial compliance officer d 12/07 [facility] other lab See financial compliance officer d 12/15 CEA panel CEA ng/mL 0.0 3.0 1280.00 Resulte d with diluted sample High Test performed at [facility] on a [facility] Immunoass ay Analyzer that uses an immunomet carroll immunoass ay technique . Patient testing should not be performed using multiple fritz burden due to analytica l variation seen between test fritz burden. FINAL Pauline Philip * [facility] , [address] [facility] [id number] 0 12/15 CBC w/ auto diff WBC K/uL 3.0 8.9 15.2 High FINAL Pauline Cedrick [place] [facility] , [address] [place] [id number] 0 12/15 CBC w/ auto diff HGB g/dL 12.5 16.6 9.6 Low FINAL Pauline Cedrick [place] [facility] , [address] [place] [id number] 0 12/15 CBC w/ auto diff PLT K/uL 113.0 364.0 81 Low FINAL Pauline Cedrick [place] [facility] , [address] [place] [id number] 0 12/15 CBC w/ auto diff Samantha # (ANC) K/uL 1.6 6.6 12.5 High FINAL Pauline Cedrick [place] [facility] , [address] [place] [id number] 0 12/15 CBC w/ auto diff Samantha % % 43.0 74.0 82.6 High FINAL Pauline Cedrick [place] [facility] , [address] [place] [id number] 0 12/15 CBC w/ auto diff IG % % 0.0 0.5 0.7 High FINAL Pauline Cedrick [place] [facility] , [address] [place] [id number] 0 12/15 CBC w/ auto diff IG # K/uL 0.0 0.03 0.11 High FINAL Pauline Cedrick [place] [facility] , [address] [place] [id number] 0 12/15 CBC w/ auto diff LY % % 14.0 41.0 3.1 Low FINAL Pauline Cedrick [place] [facility] , [address] [place] [id number] 0 12/15 CBC w/ auto diff MO % % 6.0 15.0 12.9 FINAL Pauline Cedrick [place] [facility] , [address] [place] [id number] 0 12/15 CBC w/ auto diff EO % % 0.0 7.0 0.1 FINAL Pauline Cedrick [place] [facility] , [address] [place] [id number] 0 12/15 CBC w/ auto diff BA % % 0.0 2.0 0.6 FINAL Pauline Cedrick [place] [facility] , [address] [place] [id number] 0 12/15 CBC w/ auto diff LY # K/uL 0.4 3.6 0.5 FINAL Pauline Cedrick [place] [facility] , [address] [place] [id number] 0 12/15 CBC w/ auto diff MO # K/uL 0.2 1.3 2.0 High FINAL Pauline Cedrick [place] [facility] , [address] [place] [id number] 0 12/15 CBC w/ auto diff EO # K/uL 0.0 0.6 0.0 FINAL Pauline Cedrick [place] [facility] , [address] [place] [id number] 0 12/15 CBC w/ auto diff BA # K/uL 0.0 0.2 0.1 FINAL Pauline Cedrick [place] [facility] , [address] [place] [id number] 0 12/15 CBC w/ auto diff NRBC % #/100W BC 0.0 0.2 0.0 FINAL [facility] [place] [facility] , [address] [facility] [address] [place] [id number] 0 12/15 CBC w/ auto diff RBC M/uL 4.2 5.6 3.02 Low FINAL Pauline Cedrick [place] [facility] , [address] [facility] [address] [place] [id number] 0 12/15 CBC w/ auto diff HCT % 39.0 49.0 30.1 Low [facility] [place] [facility] , [address] [facility] [address] [place] [id number] 0 12/15 CBC w/ auto diff MCV fL 80.0 104.0 99.7 FINAL [facility] [place] [facility] , [address] [facility] [address] [place] [id number] 0 12/15 CBC w/ auto diff MCH pg 26.0 35.0 31.8 FINAL [facility] [place] [facility] , [address] [facility] [address] [place] [id number] 0 12/15 CBC w/ auto diff MCHC g/dL 30.0 35.0 31.9 FINAL Pauline Cedrick [place] [facility] , [address] [facility] [address] [place] [id number] 0 12/15 CBC w/ auto diff MPV fL 9.5 13.4 11.7 FINAL Pauline Cedrick [place] [facility] , [address] [facility] [address] [place] [id number] 0 12/15 CBC w/ auto diff RDW % 11.3 15.6 17.60 High FINAL Pauline Cedrick [place] [facility] , [address] [facility] [address] [place] [facility] [id number] 0 12/15 CMP Album in g/dL 3.5 5.0 2.9 Low FINAL Pauline Cedrick * [facility] , [address] [facility] [id number] 0 12/15 CMP Alkal ine phosp hatas e U/L 36.0 125.0 695 High FINAL Pauline Cedrick * [facility] , [address] [facility] [id number] 0 12/15 CMP ALT/S GPT U/L 0.0 49.0 19 FINAL Pauline Cedrick * [facility] , [address] [facility] [id number] 0 12/15 CMP AST/S GOT U/L 17.0 59.0 87 High FINAL Pauline Cedrick * [facility] , [address] [facility] [id number] 0 12/15 CMP BUN mg/dL 9.0 20.0 12.0 FINAL Pauline Cedrick * [facility] , [address] [facility] [id number] 0 12/15 CMP Calci um mg/dL 8.4 10.2 8.0 Low FINAL Pauline Cedrick * [facility] , [address] [facility] [id number] 0 12/15 CMP Chlor oj mmol/L 96.0 107.0 107 FINAL Pauline Cedrick * [facility] , [address] [facility] [id number] 0 12/15 CMP CO2 mmol/L 22.0 30.0 23 The expected total allowable error for CO2 is 5.6%. We have seen up to 10% differenc e in values if reported at the end of the 96 hour stability window. Please consider the clinical significa nce of a 2.0-2.5 mmol/L lower reported CO2 value if reported at the end of the 96 hour stability window. FINAL Pauline Philip * [facility] , [address] [facility] [id number] 0 12/15 CMP Creat inine mg/dL 0.66 1.25 1.20 FINAL Pauline Philip * [facility] , [address] [facility] [id number] 0 12/15 CMP GFR estim ate ml/min /1.73m ^2 67.1 GFR is calculate d using the CKD-EPI equation. FINAL Pauline Philip * [facility] , [address] [facility] [id number] 0 12/15 CMP Gluco se mg/dL 74.0 100.0 114 High FINAL Pauline Cedrick * [facility] , [address] [facility] [id number] 0 12/15 CMP Potas sium mmol/L 3.5 5.1 3.2 Low FINAL Pauline Cedrick * [facility] , [address] [facility] [id number] 0 12/15 CMP Sodiu m mmol/L 137.0 145.0 134 Low FINAL Pauline Cedrick * [facility] , [address] [facility] [id number] 0 12/15 CMP Bilir ubin, total mg/dL 0.2 1.3 2.0 High FINAL Pauline Cedrick * [facility] , [address] [facility] [id number] 0 12/15 CMP Total prote in g/dL 6.3 8.2 6.6 FINAL Pauline Philip * [facility] , [address] [facility] [id number] 0 12/17 Blood cultu re panel CULTU RE, BLOOD SEE NOTE CULTURE, BLOODMicr o Number: [id number] est Status: FinalSpec imen Source: BloodSpec imen Quality: AdequateR esult: No growth after 5 daysTRANS PORT MEDIA: Aerobic and anaerobic bottle received. FINAL Sekou BRUCEBBC [employer] [facility] [address] [place] [id number] 4 12/17 Blood cultu re panel CULTU RE, BLOOD SEE NOTE CULTURE, BLOODMicr o Number: [id number] est Status: FinalSpec imen Source: BloodSpec imen Quality: AdequateR esult: No growth after 5 daysTRANS PORT MEDIA: Aerobic and anaerobic bottle received. FINAL Sekou BRUCE, [employer] [facility] [address] [place] [id number] 4 12/22 Smear revie w panel CBC Smear revie w comme nts WBC <0.5 and blasts seen- no differe ntial perform edAbnor mal and Reactiv e Lymphs present Basophi lic Stippli ng Present Abnor mal [facility]AL [facility] , [address] [facility] [address] [facility] [id number] 0 12/22 CBC w/ auto diff WBC K/uL 3.0 8.9 0.2 Critica l hematol ogy result obtaine d Criti reginald Low FINAL Sekou Avalos [facility] , [address] [facility] [address] [facility] [id number] 0 12/22 CBC w/ auto diff HGB g/dL 12.5 16.6 6.9 Critica l hematol ogy result obtaine d Criti reginald Low FINAL Se[facility] Avalos [place] [facility] , [address] [place] [id number] 0 12/22 CBC w/ auto diff PLT K/uL 113.0 364.0 12 Critica l hematol ogy result obtaine d Criti reginald Low FINAL Sek[facility] Robbie [place] [facility] , [address] [place] [id number] 0 12/22 CBC w/ auto diff Plate let, immat ure, fract ion % 0.9 11.2 2.5 FINAL Sek[facility] Avalos [place] [facility] , [address] [place] [id number] 0 12/22 CBC w/ auto diff Samantha # (ANC) K/uL 1.6 6.6 0.0 Critica l hematol ogy result obtaine d Criti reginald Low FINAL [facility] Avalos [place] [facility] , [address] [place] [id number] 0 12/22 CBC w/ auto diff Samantha % % 43.0 74.0 10.0 Low FINAL Se[facility] Avalos [place] [facility] , [address] [place] [id number] 0 12/22 CBC w/ auto diff IG % % 0.0 0.5 0.0 FINAL Sek[facility] Avalos [place] [facility] , [address] [place] [id number] 0 12/22 CBC w/ auto diff IG # K/uL 0.0 0.03 0.00 FINAL Sek[facility] Avalos [place] [facility] , [address] [place] [id number] 0 12/22 CBC w/ auto diff LY % % 14.0 41.0 75.0 High FINAL Sek[facility] Robbie [place] [facility] , [address] [place] [id number] 0 12/22 CBC w/ auto diff MO % % 6.0 15.0 5.0 Low FINAL Se[facility] Avalos [place] [facility] , [address] [place] [id number] 0 12/22 CBC w/ auto diff EO % % 0.0 7.0 5.0 FINAL [facility] Avalos [place] [facility] , [address] [place] [id number] 0 12/22 CBC w/ auto diff BA % % 0.0 2.0 5.0 High FINAL Se[facility] Avalos [place] [facility] , [address] [place] [id number] 0 12/22 CBC w/ auto diff LY # K/uL 0.4 3.6 0.2 Low FINAL Sek[facility] Avalos [place] [facility] , [address] [place] [id number] 0 12/22 CBC w/ auto diff MO # K/uL 0.2 1.3 0.0 Low FINAL Sek[facility] Avalos [place] [facility] , [address] [place] [id number] 0 12/22 CBC w/ auto diff EO # K/uL 0.0 0.6 0.0 FINAL Sek[facility] Avalos [place] [facility] , [address] [place] [id number] 0 12/22 CBC w/ auto diff BA # K/uL 0.0 0.2 0.0 FINAL Sek[facility] Avalos [place] [facility] , [address] [place] [id number] 0 12/22 CBC w/ auto diff NRBC % #/100W BC 0.0 0.2 0.0 FINAL Sek[facility] Avalos [place] [facility] , [address] [place] [id number] 0 12/22 CBC w/ auto diff RBC M/uL 4.2 5.6 2.18 Low FINAL Sek[facility] Avalos [place] [facility] , [address] [place] [id number] 0 12/22 CBC w/ auto diff HCT % 39.0 49.0 22.0 Low FINAL Sek[facility] Avalos [place] [facility] , [address] [place] [id number] 0 12/22 CBC w/ auto diff MCV fL 80.0 104.0 100.9 FINAL Sek[facility] Avalos [place] [facility] , [address] [place] [id number] 0 12/22 CBC w/ auto diff MCH pg 26.0 35.0 31.7 FINAL Sek[facility] Avalos [place] [facility] , [address] [place] [id number] 0 12/22 CBC w/ auto diff MCHC g/dL 30.0 35.0 31.4 FINAL Sek[facility] Avalos [place] [facility] , [address] [place] [id number] 0 12/22 CBC w/ auto diff MPV fL 9.5 13.4 ---- FINAL Sekou Avalos [place] [facility] , [address] [place] [id number] 0 12/22 CBC w/ auto diff RDW % 11.3 15.6 16.50 High FINAL Sek[facility] Avalos [place] [facility] , [address] [place] [id number] 0 12/22 CBC w/ auto diff Auto CBC comme nts Slide review to follow FINAL [facility] , [address] [facility] [address] [place] [id number] 0 12/22 CMP Album in g/dL 3.5 5.0 2.6 Low FINAL Sekou Avalos * [facility] , [address] [facility] [id number] 0 12/22 CMP Alkal ine phosp hatas e U/L 36.0 125.0 402 High FINAL Sekou Avalos * [facility] , [address] [facility] [id number] 0 12/22 CMP ALT/S GPT U/L 0.0 49.0 29 FINAL Sekou Avalos * [facility] , [address] [facility] [id number] 0 12/22 CMP AST/S GOT U/L 17.0 59.0 40 FINAL Sekou Avalos * [facility] , [address] [facility] [id number] 0 12/22 CMP BUN mg/dL 9.0 20.0 32.0 High FINAL Sekou Avalos * [facility] , [address] [facility] [id number] 0 12/22 CMP Calci um mg/dL 8.4 10.2 8.1 Low FINAL Sekou Avalos * [facility] , [address] [facility] [id number] 0 12/22 CMP Chlor oj mmol/L 96.0 107.0 109 High FINAL Sekou Robbie * [facility] , [address] [facility] [id number] 0 12/22 CMP CO2 mmol/L 22.0 30.0 18 Low The expected total allowable error for CO2 is 5.6%. We have seen up to 10% differenc e in values if reported at the end of the 96 hour stability window. Please consider the clinical significa nce of a 2.0-2.5 mmol/L lower reported CO2 value if reported at the end of the 96 hour stability window. FINAL Sekou Avalos * [facility] , [address] [address] [facility] [facility] [address] [facility] [id number] 0 12/22 CMP Creat inine mg/dL 0.66 1.25 1.70 High FINAL Sekou Avalos * [facility] , [address] [facility] [facility] [address] [facility] [id number] 0 12/22 CMP GFR estim ate ml/min /1.73m ^2 44.2 Low GFR is calculate d using the CKD-EPI equation. FINAL Sekou Avalos * [facility] , [address] [facility] [facility] [address] [facility] [id number] 0 12/22 CMP Gluco se mg/dL 74.0 100.0 112 High FINAL Sekou Avalos * [facility] , [address] [facility] [id number] 0 12/22 CMP Potas sium mmol/L 3.5 5.1 4.5 FINAL Sekou Avalos * [facility] , [address] [facility] [id number] 0 12/22 CMP Sodiu m mmol/L 137.0 145.0 134 Low FINAL Sekou Avalos * [facility] , [address] [facility] [id number] 0 12/22 CMP Bilir ubin, total mg/dL 0.2 1.3 1.2 FINAL Sekou Avalos * [place] [facility] [place] [facility] , [address] [facility] [id number] 0 12/22 CMP Total prote in g/dL 6.3 8.2 5.8 Low FINAL Sekou Avalos * [place] [facility] [place] [facility] , [address] [facility] [id number] 0 12/22 UA Micro scopi c WBC (ua) 0.0 2.0 3-5 Abnor mal FINAL Pauline Cedrick [place] [facility] , [address] [facility] [id number] 0 12/22 UA Micro scopi c RBC (ua) 0.0 2.0 3-5 Abnor mal FINAL [facility] [place] [facility] , [address] [facility] [id number] 0 12/22 UA Micro scopi c Epith elial cells (ua) Moderat e 6-10 Abnor mal FINAL [facility] [place] [facility] , [address] [facility] [id number] 0 12/22 UA Micro scopi c Mucus (ua) Few Abnor mal FINAL Pauline Cedrick [place] [facility] , [address] [facility] [id number] 0 12/22 UA Micro scopi c Casts , urine 3-5 Abnor mal FINAL Pauline Cedrick [place] [facility] , [address] [facility] [id number] 0 12/22 UA Micro scopi c Cryst als (ua) None [facility]AL [facility] [place] [facility] , [address] [facility] [id number] 0 12/22 UA Micro scopi c UA comme nt 1 Micro Positiv e-Cultu re Ordered FINAL Pauline Cedrick [place] [facility] , [address] [place] [id number] 0 12/22 UA Micro scopi c Bacte milana (ua) Moderat e Abnor mal FINAL Pauline Cedrick [place] [facility] , [address] [place] [id number] 0 12/22 UA Micro scopi c Cast type, urine Hyaline Abnor mal FINAL Pauline Cedrick [place] [facility] , [address] [place] [id number] 0 12/22 Leuko cyte pam ase (ua), qual Negativ e FINAL Pauline Cedrick [place] [facility] , [address] [place] [id number] 0 12/22 UA comme nt 1 Dipstic k Positiv e-Micro scopic Ordered FINAL Pauline Cedrick [place] [facility] , [address] [place] [id number] 0 12/22 Color (ua) Yellow FINAL Pauline Cedrick [place] [facility] , [address] [place] [id number] 0 12/22 Appea alem (ua) Clear FINAL Pauline Cedrick [place] [facility] , [address] [place] [id number] 0 12/22 Gluco se (ua), qual Negativ e FINAL Pauline Cedrick [place] [facility] , [address] [place] [id number] 0 12/22 Bilir ubin (ua) Negativ e FINAL Pauline Cedrick [place] [facility] , [address] [place] [id number] 0 12/22 Urina lysis , aceto ne or keton e mónica s measu remen t Negativ e FINAL Pauline Cedrick [place] [facility] , [address] [place] [id number] 0 12/22 Speci fic gravi ty (ua) 1.005 1.02 1.020 FINAL Pauline Cedrick [place] [facility] , [address] [place] [id number] 0 12/22 Blood (ua) 2+-Mode rate Abnor mal FINAL Pauline Cedrick [place] [facility] , [address] [place] [id number] 0 12/22 pH (ua) 5.0 8.0 5.0 FINAL Pauline Cedrick [place] [facility] , [address] [place] [id number] 0 12/22 Prote in (ua) Trace FINAL Pauline Cedrick [place] [facility] , [address] [place] [id number] 0 12/22 Urobi linog en (ua) 0.2 1.0 0.2 FINAL Pauline Cedrick [place] [facility] , [address] [place] [id number] 0 12/22 Nitri te (ua) Negativ e FINAL Pauline Cedrick [place] [facility] , [address] [place] [id number] 0 12/22 Urine cultu re panel CULTU RE, URINE , ROUTI NE SEE NOTE Abnor mal CULTURE, URINE, 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 Number: [id number] est Status: FinalSpec imen Source: UrineSpec imen Quality: AdequateR esult: 10,000-49 ,000 CFU/mL of Enterobac ter ltuetsr52 ,000-49,0 00 CFU/mL of Escherich ia coliE.manav acae E.coli--- --------- ---- --------- -------IN T MARKIE INT MICAMOX/C LAVULANAT E R >=32 S <=2AMP/ARNETT LBACTAM * S <=2CEFAZO KRISTEN R >=64 1 NR <=4 2CEFEPI ME S <=0.12 S <=0.12CEF TAZIDIME S 4 S <=1CEFTRI AXONE * S <=0.25CIP ROFLOXACI N S <=0.06 S <=0.06GEN TAMICIN S <=1 S <=1IMIPEN EM S 0.5 S <=0.25LEV OFLOXACIN S <=0.12 S <=0.12MER OPENEM S <=0.25 S <=0.25NIT ROFURANTO IN I 64 S <=16PIP/T AZOBACTAM S 16 S <=4TRIMET HOPRIM/ARNETT LFA S <=20 S <=20S = Susceptib le I = Intermedi ate R = Resistant NS = Not susceptib leSDD = Susceptib le Dose Dependent * = Not Tested NR = Not Reported* *NN = See Therapy CommentsT HERAPY COMMENTSN ote 1:For uncomplic ated UTI caused by E. coli,K. pneumonia e or P. mirabilis : Cefazolin issuscept ible if MAKRIE <32 mcg/mL and predictss usceptibl e to the oral agents cefaclor, cefdinir, cefpodoxi me, cefprozil , cefuroxim e, cephalexi nand loracarbe f.Note 2:For infection s other than uncomplic ated UTIcaused by E. coli, K. pneumonia e or P. mirabilis :Cefazoli n is resistant if MARKIE >or = 8 mcg/mL.(D istinguis dorie susceptib le versus intermedi atefor isolates with MARKIE < or = 4 mcg/mL requiresa dditional testing.) FINAL Pauline BRUCE, [facility] [address] [facility] [id number] 12/22 [facility] other lab See financial compliance officer d 12/29 Maribel tin panel Maribel tin ng/mL 17.9 464.0 479.00 High FINAL Sekou Avalos * [facility] , [address] [facility] [address] [facility] [id number] 0 12/29 Magne sium, mg/dL mg/dL 1.6 2.3 1.8 FINAL Sekou Avalos * [facility] , [address] [facility] [address] [facility] [id number] 0 12/29 iSTAT Na+/K +/Cl- panel Sodiu m, iSTAT mmol/L 138.0 146.0 139 Reference range adjusted 0 with implement ation of I-Stat 8+ cartridge . FINAL Sekou Avalos [facility] , [address] [facility] [address] [facility] [id number] 0 12/29 iSTAT Na+/K +/Cl- panel Potas sium, iSTAT mmol/L 3.5 4.9 3.4 Low Reference range adjusted 0 with implement ation of I-Stat 8+ cartridge . FINAL Sekou Avalos [facility] , [address] [facility] [address] [facility] [id number] 0 12/29 iSTAT Na+/K +/Cl- panel Chlor oj, iSTAT mmol/L 98.0 109.0 109 Reference range adjusted 0 with implement ation of I-Stat 8+ cartridge . FINAL Sekou Avalos [place] [facility] [place] [facility] , [address] [place] [id number] 0 12/29 CBC w/ auto diff WBC K/uL 3.0 8.9 4.9 FINAL Sekou Avalos [place] [facility] [place] [facility] , [address] [place] [id number] 0 12/29 CBC w/ auto diff HGB g/dL 12.5 16.6 8.4 Low FINAL Sekou Avalos [place] [facility] [place] [facility] , [address] [place] [id number] 0 12/29 CBC w/ auto diff PLT K/uL 113.0 364.0 94 Low FINAL Sekou Avalos [place] [facility] [place] [facility] , [address] [place] [id number] 0 12/29 CBC w/ auto diff Samantha # (ANC) K/uL 1.6 6.6 3.2 FINAL Sekou Avalos [place] [facility] [place] [facility] , [address] [place] [id number] 0 12/29 CBC w/ auto diff Samantha % % 43.0 74.0 66.7 FINAL Sekou Avalos [place] [facility] [place] [facility] , [address] [place] [id number] 0 12/29 CBC w/ auto diff IG % % 0.0 0.5 9.0 High FINAL Sekou Avalos [place] [facility] [place] [facility] , [address] [place] [id number] 0 12/29 CBC w/ auto diff IG # K/uL 0.0 0.03 0.44 High FINAL Sekou Avalos [place] [facility] [place] [facility] , [address] [place] [id number] 0 12/29 CBC w/ auto diff LY % % 14.0 41.0 9.4 Low FINAL Sekou Avalos [place] [facility] [place] [facility] , [address] [place] [id number] 0 12/29 CBC w/ auto diff MO % % 6.0 15.0 12.7 FINAL Sekou Avalos [place] [facility] [place] [facility] , [address] [place] [id number] 0 12/29 CBC w/ auto diff EO % % 0.0 7.0 1.8 FINAL Sekou Avalos [place] [facility] [place] [facility] , [address] [place] [id number] 0 12/29 CBC w/ auto diff BA % % 0.0 2.0 0.4 FINAL Sekou Avalos [place] [facility] [place] [facility] , [address] [place] [id number] 0 12/29 CBC w/ auto diff LY # K/uL 0.4 3.6 0.5 FINAL Sekou Avalos [place] [facility] [place] [facility] , [address] [place] [id number] 0 12/29 CBC w/ auto diff MO # K/uL 0.2 1.3 0.6 FINAL Sekou Avalos [place] [facility] [place] [facility] , [address] [place] [id number] 0 12/29 CBC w/ auto diff EO # K/uL 0.0 0.6 0.1 FINAL Sekou Avalos [place] [facility] [place] [facility] , [address] [place] [id number] 0 12/29 CBC w/ auto diff BA # K/uL 0.0 0.2 0.0 FINAL Sekou Avalos [place] [facility] [place] [facility] , [address] [place] [id number] 0 12/29 CBC w/ auto diff NRBC % #/100W BC 0.0 0.2 0.0 FINAL Sekou Avalos [place] [facility] [place] [facility] , [address] [place] [id number] 0 12/29 CBC w/ auto diff RBC M/uL 4.2 5.6 2.64 Low FINAL Sekou Avalos [place] [facility] [place] [facility] , [address] [place] [id number] 0 12/29 CBC w/ auto diff HCT % 39.0 49.0 25.6 Low FINAL Sekou Avalos [place] [facility] [place] [facility] , [address] [place] [id number] 0 12/29 CBC w/ auto diff MCV fL 80.0 104.0 97.0 FINAL Sekou Avalos [place] [facility] [place] [facility] , [address] [place] [id number] 0 12/29 CBC w/ auto diff MCH pg 26.0 35.0 31.8 FINAL Sekou Avalos [place] [facility] [place] [facility] , [address] [place] [id number] 0 12/29 CBC w/ auto diff MCHC g/dL 30.0 35.0 32.8 FINAL Sekou Avalos [place] [facility] [place] [facility] , [address] [place] [id number] 0 12/29 CBC w/ auto diff MPV fL 9.5 13.4 11.2 FINAL Sekou Avalos [place] [facility] [place] [facility] , [address] [place] [id number] 0 12/29 CBC w/ auto diff RDW % 11.3 15.6 16.30 High FINAL [facility] , [address] [facility] [id number] 0 12/29 Iron profi le TIBC ug/dL 261.0 462.0 196 Low FINAL Sekou Robbie * [facility] , [address] [facility] [id number] 0 12/29 Iron profi le Iron ug/dL 49.0 181.0 47 Low FINAL Sekou Robbie * [facility] , [address] [id number] 0 12/29 Iron profi le Unbou nd iron capac ity ug/dL 75.0 410.0 149 FINAL Sekou Avalos * [facility] , [address] [id number] 0 12/29 Iron profi le Iron, % satur ation % 20.0 55.0 24 FINAL Sekou Avalos * [facility] , [address] [id number] 0 12/29 CMP Album in g/dL 3.5 5.0 2.6 Low FINAL Sekou Avalos * [facility] , [address] [facility] [id number] 0 12/29 CMP Alkal ine phosp hatas e U/L 36.0 125.0 387 High FINAL Sekou Avalos * [facility] , [address] [id number] 0 12/29 CMP ALT/S GPT U/L 0.0 49.0 16 FINAL Sekou Avalos * [facility] , [address] [id number] 0 12/29 CMP AST/S GOT U/L 17.0 59.0 25 FINAL Sekou Avalos * [facility] , [address] [facility] [address] [facility] [id number] 0 12/29 CMP BUN mg/dL 9.0 20.0 15.0 FINAL Sekou Avalos * [facility] , [address] [facility] [address] [facility] [id number] 0 12/29 CMP Calci um mg/dL 8.4 10.2 7.8 Low FINAL Sekou Avalos * [facility] , [facility]0 [facility] [address] [id number] 0 12/29 CMP Chlor oj mmol/L 96.0 107.0 114 High FINAL Sekou Avalos * [facility] , [facility]0 [facility] [address] [id number] 0 12/29 CMP CO2 mmol/L 22.0 30.0 16 Low The expected total allowable error for CO2 is 5.6%. We have seen up to 10% differenc e in values if reported at the end of the 96 hour stability window. Please consider the clinical significa nce of a 2.0-2.5 mmol/L lower reported CO2 value if reported at the end of the 96 hour stability window. FINAL Sekou Avalos * [facility] , [address] [facility] [address] [facility] [id number] 0 12/29 CMP Creat inine mg/dL 0.66 1.25 1.50 High FINAL Sekou Avalos * [facility] , [facility] [address] [id number] 0 12/29 CMP GFR estim ate ml/min /1.73m ^2 51.4 Low GFR is calculate d using the CKD-EPI equation. FINAL Sekou Avalos * [facility] , [facility] [address] [id number] 0 12/29 CMP Gluco se mg/dL 74.0 100.0 141 High FINAL Sekou Avalos * [facility] , [facility] [address] [id number] 0 12/29 CMP Potas sium mmol/L 3.5 5.1 3.3 Low FINAL Sekou Avalos * [facility] , [facility] [address] [id number] 0 12/29 CMP Sodiu m mmol/L 137.0 145.0 133 Low FINAL Sekou Avalos * [facility] , [facility] [address] [id number] 0 12/29 CMP Bilir ubin, total mg/dL 0.2 1.3 1.0 FINAL Sekou Avalos * [facility] , [address] [facility] [address] [id number] 0 12/29 CMP Total prote in g/dL 6.3 8.2 5.9 Low FINAL Sekou Avalos * [facility] , [facility] [address] [id number] 0 12/29 CEA panel CEA ng/mL 0.0 3.0 324.00 High Test performed at [facility] on a [facility] Immunoass ay Analyzer that uses an immunomet carroll immunoass ay technique . Patient testing should not be performed using multiple fritz burden due to analytica l variation seen between test fritz burden. FINAL Sekou Avalos * [facility] , [facility]0 [facility] 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 No further testing will beperform ed. If clinicall y indicated , recollect ionusing a method to minimize contamina tion, withpromp t transfer to Urine Culture Transport Tube,is recommend ed. FINAL Sekou Avalos [facility], [facility] [address] [facility] [id number] 4 01/03 CBC w/ auto diff WBC K/uL 3.0 8.9 11.4 High FINAL Sekou Avalos [place] [facility] [place] [facility] , [address] [place] [id number] 0 01/03 CBC w/ auto diff HGB g/dL 12.5 16.6 8.4 Low FINAL Sekou Avalos [place] [facility] [place] [facility] , [address] [place] [id number] 0 01/03 CBC w/ auto diff PLT K/uL 113.0 364.0 193 FINAL Sekou Avalos [place] [facility] [place] [facility] , [address] [place] [id number] 0 01/03 CBC w/ auto diff Samantha # (ANC) K/uL 1.6 6.6 8.8 High FINAL Sekou Avalos [place] [facility] [place] [facility] , [address] [place] [id number] 0 01/03 CBC w/ auto diff Samantha % % 43.0 74.0 77.7 High FINAL Sekou Avalos [place] [facility] [place] [facility] , [address] [place] [id number] 0 01/03 CBC w/ auto diff IG % % 0.0 0.5 7.6 High FINAL Sekou Avalos [place] [facility] [place] [facility] , [address] [place] [id number] 0 01/03 CBC w/ auto diff IG # K/uL 0.0 0.03 0.86 High FINAL Sekou Avalos [place] [facility] [place] [facility] , [address] [place] [id number] 0 01/03 CBC w/ auto diff LY % % 14.0 41.0 3.3 Low FINAL Sekou Avalos [place] [facility] [place] [facility] , [address] [place] [id number] 0 01/03 CBC w/ auto diff MO % % 6.0 15.0 10.2 FINAL Sekou Avalos [place] [facility] [place] [facility] , [address] [place] [id number] 0 01/03 CBC w/ auto diff EO % % 0.0 7.0 0.7 FINAL Sekou Avalos [place] [facility] [place] [facility] , [address] [place] [id number] 0 01/03 CBC w/ auto diff BA % % 0.0 2.0 0.5 FINAL Sekou Avalos [place] [facility] [place] [facility] , [address] [place] [id number] 0 01/03 CBC w/ auto diff LY # K/uL 0.4 3.6 0.4 FINAL Sekou Avalos [place] [facility] [place] [facility] , [address] [place] [id number] 0 01/03 CBC w/ auto diff MO # K/uL 0.2 1.3 1.2 FINAL Sekou Avalos [place] [facility] [place] [facility] , [address] [place] [id number] 0 01/03 CBC w/ auto diff EO # K/uL 0.0 0.6 0.1 FINAL Sekou Avalos [place] [facility] [place] [facility] , [address] [place] [id number] 0 01/03 CBC w/ auto diff BA # K/uL 0.0 0.2 0.1 FINAL Sekou Avalos [place] [facility] [place] [facility] , [address] [place] [id number] 0 01/03 CBC w/ auto diff NRBC % #/100W BC 0.0 0.2 0.0 FINAL Sekou Avalos [place] [facility] [place] [facility] , [address] [place] [id number] 0 01/03 CBC w/ auto diff RBC M/uL 4.2 5.6 2.72 Low FINAL Sekou Avalos [place] [facility] [place] [facility] , [address] [place] [id number] 0 01/03 CBC w/ auto diff HCT % 39.0 49.0 25.9 Low FINAL Sekou Avalos [place] [facility] [place] [facility] , [address] [place] [id number] 0 01/03 CBC w/ auto diff MCV fL 80.0 104.0 95.2 FINAL Sekou Avalos [place] [facility] [place] [facility] , [address] [place] [id number] 0 01/03 CBC w/ auto diff MCH pg 26.0 35.0 30.9 FINAL Sekou Avalos [place] [facility] [place] [facility] , [address] [place] [id number] 0 01/03 CBC w/ auto diff MCHC g/dL 30.0 35.0 32.4 FINAL Sekou Avalos [place] [facility] [place] [facility] , [address] [place] [id number] 0 01/03 CBC w/ auto diff MPV fL 9.5 13.4 9.6 FINAL Sekou Avalos [facility] , [address] [facility] [address] [facility] [id number] 0 01/03 CBC w/ auto diff RDW % 11.3 15.6 16.80 High FINAL Sekou Avalos [facility] , [address] [facility] [address] [facility] [id number] 0 01/03 CMP Album in g/dL 3.5 5.0 2.6 Low FINAL Sekou Avalos * [facility] , [address] [facility] [id number] 0 01/03 CMP Alkal ine phosp hatas e U/L 36.0 125.0 406 High FINAL Sekou Avalos * [facility] , [address] [facility] [id number] 0 01/03 CMP ALT/S GPT U/L 0.0 49.0 17 FINAL Sekou Avalos * [facility] , [address] [facility] [id number] 0 01/03 CMP AST/S GOT U/L 17.0 59.0 35 FINAL Sekou Avalos * [facility] , [address] [facility] [id number] 0 01/03 CMP BUN mg/dL 9.0 20.0 14.0 FINAL Sekou Avalos * [facility] , [address] [id number] 0 01/03 CMP Calci um mg/dL 8.4 10.2 7.9 Low FINAL Sekou Avalos * [facility] , [address] [facility] [id number] 0 01/03 CMP Chlor oj mmol/L 96.0 107.0 107 FINAL Sekou Avalos * [facility] , [facility]0 [facility] [address] [facility] [id number] 0 01/03 CMP CO2 mmol/L 22.0 30.0 17 Low The expected total allowable error for CO2 is 5.6%. We have seen up to 10% differenc e in values if reported at the end of the 96 hour stability window. Please consider the clinical significa nce of a 2.0-2.5 mmol/L lower reported CO2 value if reported at the end of the 96 hour stability window. FINAL Sekou Avalos * [facility] , [facility]0 [facility] [address] [id number] 0 01/03 CMP Creat inine mg/dL 0.66 1.25 1.30 High FINAL Sekou [facility] , [facility]0 [facility] [address] [id number] 0 01/03 CMP GFR estim ate ml/min /1.73m ^2 61.0 GFR is calculate d using the CKD-EPI equation. FINAL Sekou Avalos * [facility] , [facility]0 [facility] [address] [facility] [id number] 0 01/03 CMP Gluco se mg/dL 74.0 100.0 110 High FINAL Sekou Avalos * [facility] , [address] [facility] [address] [facility] [id number] 01/03 CMP Potas sium mmol/L 3.5 5.1 3.4 Low FINAL Sekou Avalos * [facility] , [facility] [address] [facility] [id number] 0 01/03 CMP Sodiu m mmol/L 137.0 145.0 135 Low FINAL Sekou Avalos * [place] [facility] [place] [facility] , [address] [facility] [id number] 0 01/03 CMP Bilir ubin, total mg/dL 0.2 1.3 1.1 FINAL Sekou Avalos * [facility] , [address] [facility] [id number] 0 01/03 CMP Total prote in g/dL 6.3 8.2 6.1 Low FINAL Sekou Robbie * [facility] , [address] [facility] [id number] 0 01/03 CEA panel CEA ng/mL 0.0 3.0 469.00 High Test performed at [facility] on a [facility] Immunoass ay Analyzer that uses an immunomet carroll immunoass ay technique . Patient testing should not be performed using multiple methodmalik burden due to analytica l variation seen between test methodmalik burden. FINAL Sekou Avalos * [facility] , [address] [facility] [address] [facility] [id number] 0 01/12 CMP Album in g/dL 3.5 5.0 2.7 Low FINAL Sekou Avalos * [facility] , [address] [facility] [address] [facility] [id number] 0 01/12 CMP Alkal ine phosp hatas e U/L 36.0 125.0 571 High FINAL Sekou Avalos * [facility] , [address] [facility] [id number] 0 01/12 CMP ALT/S GPT U/L 0.0 49.0 23 FINAL Sekou Avalos * [facility] , [address] [facility] [id number] 0 01/12 CMP AST/S GOT U/L 17.0 59.0 58 FINAL Sekou Avalos * [facility] , [address] [facility] [id number] 0 01/12 CMP BUN mg/dL 9.0 20.0 16.0 FINAL Sekou Avalos * [facility] , [address] [facility] [address] [facility] [id number] 0 01/12 CMP Calci um mg/dL 8.4 10.2 7.9 Low FINAL Sekou Avalos * [facility] , [address] [facility] [address] [facility] [id number] 0 01/12 CMP Chlor oj mmol/L 96.0 107.0 105 FINAL Sekou Avalos * [facility] , [address] [facility] [address] [facility] [id number] 0 01/12 CMP CO2 mmol/L 22.0 30.0 22 The expected total allowable error for CO2 is 5.6%. We have seen up to 10% differenc e in values if reported at the end of the 96 hour stability window. Please consider the clinical significa nce of a 2.0-2.5 mmol/L lower reported CO2 value if reported at the end of the 96 hour stability window. FINAL Sekou Avalos * [facility] , [address] [facility] [address] [facility] [id number] 0 01/12 CMP Creat inine mg/dL 0.66 1.25 1.70 High FINAL Sekou Avalos * [facility] , [address] [facility] [address] [facility] [id number] 0 01/12 CMP GFR estim ate ml/min /1.73m ^2 44.2 Low GFR is calculate d using the CKD-EPI equation. FINAL Sekou Avalos * [facility] , [address] [facility] [address] [facility] [id number] 0 01/12 CMP Gluco se mg/dL 74.0 100.0 123 High FINAL Sekou Avalos * [facility] , [address] [facility] [id number] 0 01/12 CMP Potas sium mmol/L 3.5 5.1 4.1 FINAL Sekou Avalos * [facility] , [address] [facility] [id number] 0 01/12 CMP Sodiu m mmol/L 137.0 145.0 135 Low FINAL Sekou Avalos * [facility] , [address] [facility] [id number] 0 01/12 CMP Bilir ubin, total mg/dL 0.2 1.3 1.1 FINAL Sekou Avalos * [facility] , [address] [facility] [id number] 0 01/12 CMP Total prote in g/dL 6.3 8.2 7.0 FINAL Sekou Avalos * [facility] , [address] [facility] [id number] 0 01/12 CBC w/ auto diff WBC K/uL 3.0 8.9 17.8 High FINAL Sekou Avalos [place] [facility] [place] [facility] , [address] [place] [id number] 0 01/12 CBC w/ auto diff HGB g/dL 12.5 16.6 8.8 Low FINAL Sekou Avalos [place] [facility] [place] [facility] , [address] [place] [id number] 0 01/12 CBC w/ auto diff PLT K/uL 113.0 364.0 140 FINAL Sekou Avalos [place] [facility] [place] [facility] , [address] [place] [id number] 0 01/12 CBC w/ auto diff Samantha # (ANC) K/uL 1.6 6.6 14.2 High FINAL Sekou Avalos [place] [facility] [place] [facility] , [address] [place] [id number] 0 01/12 CBC w/ auto diff Samantha % % 43.0 74.0 79.5 High FINAL Sekou Avalos [place] [facility] [place] [facility] , [address] [place] [id number] 0 01/12 CBC w/ auto diff IG % % 0.0 0.5 3.0 High FINAL Sekou Avalos [place] [facility] [place] [facility] , [address] [place] [id number] 0 01/12 CBC w/ auto diff IG # K/uL 0.0 0.03 0.53 High FINAL Sekou Avalos [place] [facility] [place] [facility] , [address] [place] [id number] 0 01/12 CBC w/ auto diff LY % % 14.0 41.0 4.4 Low FINAL Sekou Avalos [place] [facility] [place] [facility] , [address] [place] [id number] 0 01/12 CBC w/ auto diff MO % % 6.0 15.0 11.9 FINAL Sekou Avalos [place] [facility] [place] [facility] , [address] [place] [id number] 0 01/12 CBC w/ auto diff EO % % 0.0 7.0 0.1 FINAL Sekou Avalos [place] [facility] [place] [facility] , [address] [place] [id number] 0 01/12 CBC w/ auto diff BA % % 0.0 2.0 1.1 FINAL Sekou Avalos [place] [facility] [place] [facility] , [address] [place] [id number] 0 01/12 CBC w/ auto diff LY # K/uL 0.4 3.6 0.8 FINAL Sekou Avalos [place] [facility] [place] [facility] , [address] [place] [id number] 0 01/12 CBC w/ auto diff MO # K/uL 0.2 1.3 2.1 High FINAL Sekou Avalos [place] [facility] [place] [facility] , [address] [place] [id number] 0 01/12 CBC w/ auto diff EO # K/uL 0.0 0.6 0.0 FINAL Sekou Avalos [place] [facility] [place] [facility] , [address] [place] [id number] 0 01/12 CBC w/ auto diff BA # K/uL 0.0 0.2 0.2 FINAL Sekou Avalos [place] [facility] [place] [facility] , [address] [place] [id number] 0 01/12 CBC w/ auto diff NRBC % #/100W BC 0.0 0.2 0.0 FINAL Sekou Avalos [place] [facility] [place] [facility] , [address] [place] [id number] 0 01/12 CBC w/ auto diff RBC M/uL 4.2 5.6 2.96 Low FINAL Sekou Avalos [place] [facility] [place] [facility] , [address] [place] [id number] 0 01/12 CBC w/ auto diff HCT % 39.0 49.0 28.8 Low FINAL Sekou Avalos [place] [facility] [place] [facility] , [address] [place] [id number] 0 01/12 CBC w/ auto diff MCV fL 80.0 104.0 97.3 FINAL Sekou Avalos [place] [facility] [place] [facility] , [address] [place] [id number] 0 01/12 CBC w/ auto diff MCH pg 26.0 35.0 29.7 FINAL Sekou Avalos [place] Oncology , [address] [place] [id number] 0 01/12 CBC w/ auto diff MCHC g/dL 30.0 35.0 30.6 FINAL Sekou Avalos [place] [facility] , [address] [place] [id number] 0 01/12 CBC w/ auto diff MPV fL 9.5 13.4 11.0 FINAL Sekou Avalos [place] [facility] , [address] [place] [facility] [id number] 0 01/12 CBC w/ auto diff RDW % 11.3 15.6 16.00 High FINAL Sekou Avalos [place] [facility] , [address] [place] [facility] [id number] 0 01/12 CEA panel CEA ng/mL 0.0 3.0 928.00 Resulte d with diluted sample High Test performed at [facility] on a [facility] Immunoass ay Analyzer that uses an immunomet carroll immunoass ay technique . Patient testing should not be performed using multiple methodmalik burden due to analytica l variation seen between test methodmalik burden. FINAL Sekou Avalos * [facility] , [address] [facility] [id number] 0 01/12 Prote in (dips tick) panel Prote in (ua) 1+ Abnor mal FINAL Sekou Avalos [place] [facility] , [address] [place] [facility] [id number] 0 [facility] See financial compliance officer d 01/22 Misc other lab See financial compliance officer d 02/02 CMP Album in g/dL 3.5 5.0 2.6 Low FINAL Pauline Cedrick * [facility] , [address] [facility] [id number] 0 02/02 CMP Alkal ine phosp hatas e U/L 36.0 125.0 475 High FINAL Pauline Cedrick * [facility] , [address] [facility] [id number] 0 02/02 CMP ALT/S GPT U/L 0.0 49.0 17 FINAL Pauline Cedrick * [facility] , [address] [facility] [id number] 0 02/02 CMP AST/S GOT U/L 17.0 59.0 100 High FINAL Pauline Cedrick * [facility] , [address] [facility] [id number] 0 02/02 CMP BUN mg/dL 9.0 20.0 35.0 High FINAL Pauline Cedrick * [facility] , [address] [facility] [id number] 0 02/02 CMP Calci um mg/dL 8.4 10.2 7.7 Low FINAL Pauline Cedrick * [facility] , [address] [facility] [id number] 0 02/02 CMP Chlor oj mmol/L 96.0 107.0 105 FINAL Pauline Cedrick * [facility] , [address] [facility] [id number] 0 02/02 CMP CO2 mmol/L 22.0 30.0 22 The expected total allowable error for CO2 is 5.6%. We have seen up to 10% differenc e in values if reported at the end of the 96 hour stability window. Please consider the clinical significa nce of a 2.0-2.5 mmol/L lower reported CO2 value if reported at the end of the 96 hour stability window. FINAL Pauline Philip * [facility] , [address] [facility] [id number] 0 02/02 CMP Creat inine mg/dL 0.66 1.25 1.70 High FINAL Pauline Philip * [facility] , [address] [facility] [id number] 0 02/02 CMP GFR estim ate ml/min /1.73m ^2 44.2 Low GFR is calculate d using the CKD-EPI equation. FINAL Pauline Philip * [facility] , [address] [facility] [id number] 0 02/02 CMP Gluco se mg/dL 74.0 100.0 153 High FINAL Pauline Philip * [facility] , [address] [facility] [id number] 0 02/02 CMP Potas sium mmol/L 3.5 5.1 4.3 FINAL Pauline Philip * [facility] , [address] [facility] [id number] 0 02/02 CMP Sodiu m mmol/L 137.0 145.0 137 FINAL Pauline Philip * [facility] , [address] [facility] [id number] 0 02/02 CMP Bilir ubin, total mg/dL 0.2 1.3 0.6 FINAL Pauline Philip * [facility] , [address] [facility] [id number] 0 02/02 CMP Total prote in g/dL 6.3 8.2 6.6 FINAL Pauline Cedrick * [place] [facility] [place] [facility] , [address] [facility] [id number] 0 02/02 Magne sium, mg/dL mg/dL 1.6 2.3 1.9 FINAL Pauline Cedrick * [place] [facility] [place] [facility] , [address] [facility] [id number] 0 02/02 CBC w/ auto diff WBC K/uL 3.0 8.9 10.5 High FINAL Pauline Cedrick [place] [facility] , [address] [place] [id number] 0 02/02 CBC w/ auto diff HGB g/dL 12.5 16.6 8.8 Low FINAL Pauline Cedrick [place] [facility] , [address] [place] [id number] 0 02/02 CBC w/ auto diff PLT K/uL 113.0 364.0 146 FINAL Pauline Cedrick [place] [facility] , [address] [place] [id number] 0 02/02 CBC w/ auto diff Samantha # (ANC) K/uL 1.6 6.6 8.7 High FINAL Pauline Cedrick [place] [facility] , [address] [place] [id number] 0 02/02 CBC w/ auto diff Samantha % % 43.0 74.0 82.8 High FINAL Pauline Cedrick [place] [facility] , [address] [place] [id number] 0 02/02 CBC w/ auto diff IG % % 0.0 0.5 2.2 High FINAL Pauline Cedrick [place] [facility] , [address] [place] [id number] 0 02/02 CBC w/ auto diff IG # K/uL 0.0 0.03 0.23 High FINAL Pauline Cedrick [place] [facility] , [address] [place] [id number] 0 02/02 CBC w/ auto diff LY % % 14.0 41.0 3.9 Low FINAL Pauline Cedrick [place] [facility] , [address] [place] [id number] 0 02/02 CBC w/ auto diff MO % % 6.0 15.0 8.7 FINAL Pauline Cedrick [place] [facility] , [address] [place] [id number] 0 02/02 CBC w/ auto diff EO % % 0.0 7.0 1.7 FINAL Pauline Cedrick [place] [facility] , [address] [place] [id number] 0 02/02 CBC w/ auto diff BA % % 0.0 2.0 0.7 FINAL Pauline Cedrick [place] [facility] , [address] [place] [id number] 0 02/02 CBC w/ auto diff LY # K/uL 0.4 3.6 0.4 FINAL Pauline Cedrick [place] [facility] , [address] [place] [id number] 0 02/02 CBC w/ auto diff MO # K/uL 0.2 1.3 0.9 FINAL Pauline Cedrick [place] [facility] , [address] [place] [id number] 0 02/02 CBC w/ auto diff EO # K/uL 0.0 0.6 0.2 FINAL Pauline Cedrick [place] [facility] , [address] [facility] [address] [place] [id number] 0 02/02 CBC w/ auto diff BA # K/uL 0.0 0.2 0.1 FINAL Pauline Cedrick [place] [facility] , [address] [facility] [address] [place] [id number] 0 02/02 CBC w/ auto diff NRBC % #/100W BC 0.0 0.2 0.0 FINAL Pauline Cedrick [place] [facility] , [address] [facility] [address] [place] [id number] 0 02/02 CBC w/ auto diff RBC M/uL 4.2 5.6 2.81 Low FINAL Pauline Cedrick [place] [facility] , [address] [facility] [address] [place] [id number] 0 02/02 CBC w/ auto diff HCT % 39.0 49.0 28.4 Low FINAL Pauline Cedrick [place] [facility] , [address] [facility] [address] [place] [id number] 0 02/02 CBC w/ auto diff MCV fL 80.0 104.0 101.1 FINAL Pauline Cedrick [place] [facility] , [address] [facility] [address] [place] [id number] 0 02/02 CBC w/ auto diff MCH pg 26.0 35.0 31.3 FINAL Pauline Cedrick [place] [facility] , [address] [facility] [address] [place] [id number] 0 02/02 CBC w/ auto diff MCHC g/dL 30.0 35.0 31.0 FINAL Pauline Cedrick [place] [facility] , [address] [place] [id number] 0 02/02 CBC w/ auto diff MPV fL 9.5 13.4 10.6 [facility] , [address] [place] [id number] 0 02/02 CBC w/ auto diff RDW % 11.3 15.6 19.90 High [facility] , [address] [place] [id number] 0 02/02 CEA panel CEA ng/mL 0.0 3.0 1280.00 Resulte d with diluted sample High Test performed at [facility] on a [facility] Immunoass ay Analyzer that uses an immunomet carroll immunoass ay technique . Patient testing should not be performed using multiple methodmalik burden due to analytica l variation seen between test methodmalik burden. FINAL Pauline Philip * [facility] , [address] [facility] [id number] 0 02/02 Prote in (dips tick) panel Prote in (ua) 2+ Abnor mal FINAL Pauline Philip [facility] , [address] [place] [id number] 0 02/09 [facility] other lab See financial compliance officer d 02/15 [facility] other lab See financial compliance officer d 02/16 [facility] other lab See financial compliance officer d 02/23 [facility] other lab See financial compliance officer d 02/23 [facility] other lab See financial compliance officer d 02/23 [facility] other lab See financial compliance officer d 02/23 [facility] other lab See financial compliance officer d 02/23 [facility] other lab See financial compliance officer d 03/23 CEA panel CEA ng/mL 0.0 3.0 2640.00 Resulte d with diluted sample High Test performed at [facility] on a [employer]600 Immunoass ay Analyzer that uses an immunomet carroll immunoass ay technique . Patient testing should not be performed using multiple fritz burden due to analytica l variation seen between test fritz burden. FINAL Sekou Avalos * [facility] , [address] [facility] [id number] 0 03/23 Phosp horus panel Phosp horus mg/dL 2.5 4.5 4.4 FINAL Sekou Avalos * [facility] , [address] [facility] [id number] 0 03/23 CMP Album in g/dL 3.5 5.0 3.2 Low FINAL Sekou Avalos * [facility] , [address] [id number] 0 03/23 CMP Alkal ine phosp hatas e U/L 36.0 125.0 442 High FINAL Sekou Avalos * [facility] , [address] [facility] [id number] 0 03/23 CMP ALT/S GPT U/L 0.0 49.0 24 FINAL Sekou Avalos * [facility] , [address] [facility] [id number] 0 03/23 CMP AST/S GOT U/L 17.0 59.0 76 High FINAL Sekou Avalos * [facility] , [address] [facility] [id number] 0 03/23 CMP BUN mg/dL 9.0 20.0 28.0 High FINAL Sekou Avalos * [facility] , [address] [id number] 0 03/23 CMP Calci um mg/dL 8.4 10.2 8.3 Low FINAL Sekou Avalos * [facility] , [address] [facility] [id number] 0 03/23 CMP Chlor oj mmol/L 96.0 107.0 104 FINAL Sekou Avalos * [facility] , [address] [facility] [address] [facility] [id number] 0 03/23 CMP CO2 mmol/L 22.0 30.0 18 Low The expected total allowable error for CO2 is 5.6%. We have seen up to 10% differenc e in values if reported at the end of the 96 hour stability window. Please consider the clinical significa nce of a 2.0-2.5 mmol/L lower reported CO2 value if reported at the end of the 96 hour stability window. FINAL Sekou Avalos * [facility] , [address] [facility] [address] [facility] [id number] 0 03/23 CMP Creat inine mg/dL 0.66 1.25 2.00 High FINAL Sekou Avalos * [facility] , [address] [facility] [address] [facility] [id number] 0 03/23 CMP GFR estim ate ml/min /1.73m ^2 36.3 Low GFR is calculate d using the CKD-EPI equation. FINAL Sekou Avalos * [facility] , [address] [facility] [address] [id number] 0 03/23 CMP Gluco se mg/dL 74.0 100.0 160 High FINAL Sekou Avalos * [facility] , [address] [address] [facility] [id number] 0 03/23 CMP Potas sium mmol/L 3.5 5.1 4.2 FINAL Sekou Avalos * [facility] , [address] [facility] [address] [facility] [id number] 0 03/23 CMP Sodiu m mmol/L 137.0 145.0 136 Low FINAL Sekou Avalos * [place] [facility] [place] [facility] , [address] [facility] [place] [id number] 0 03/23 CMP Bilir ubin, total mg/dL 0.2 1.3 2.1 High FINAL Sekou Avalos * [place] [facility] [place] [facility] , [address] [facility] [place] [id number] 0 03/23 CMP Total prote in g/dL 6.3 8.2 7.4 FINAL Sekou Avalos * [place] [facility] [place] [facility] , [address] [facility] [place] [id number] 0 03/23 CBC w/ auto diff WBC K/uL 3.0 8.9 10.3 High FINAL Sekou Avalos [place] [facility] , [address] [place] [id number] 0 03/23 CBC w/ auto diff HGB g/dL 12.5 16.6 9.0 Low FINAL Sekou Avalos [place] [facility] , [address] [place] [id number] 0 03/23 CBC w/ auto diff PLT K/uL 113.0 364.0 120 FINAL Sekou Avalos [place] [facility] , [address] [place] [id number] 0 03/23 CBC w/ auto diff Samantha # (ANC) K/uL 1.6 6.6 9.0 High FINAL Sekou Avalos [place] [facility] , [address] [place] [id number] 0 03/23 CBC w/ auto diff Samantha % % 43.0 74.0 86.8 High FINAL Sekou Avalos [place] [facility] , [address] [place] [id number] 0 03/23 CBC w/ auto diff IG % % 0.0 0.5 0.9 High FINAL Sekou Avalos [place] [facility] , [address] [place] [id number] 0 03/23 CBC w/ auto diff IG # K/uL 0.0 0.03 0.09 High FINAL Sekou Avalos [place] [facility] , [address] [place] [id number] 0 03/23 CBC w/ auto diff LY % % 14.0 41.0 3.1 Low FINAL Sekou Avalos [place] [facility] , [address] [place] [id number] 0 03/23 CBC w/ auto diff MO % % 6.0 15.0 8.4 FINAL Sekou Avalos [place] [facility] , [address] [place] [id number] 0 03/23 CBC w/ auto diff EO % % 0.0 7.0 0.4 FINAL Sekou Avalos [place] [facility] , [address] [place] [id number] 0 03/23 CBC w/ auto diff BA % % 0.0 2.0 0.4 FINAL Sekou Avalos [place] [facility] , [address] [place] [id number] 0 03/23 CBC w/ auto diff LY # K/uL 0.4 3.6 0.3 Low FINAL Sekou Avalos [place] [facility] , [address] [place] [id number] 0 03/23 CBC w/ auto diff MO # K/uL 0.2 1.3 0.9 FINAL Sekou Avalos [place] [facility] , [address] [place] [id number] 0 03/23 CBC w/ auto diff EO # K/uL 0.0 0.6 0.0 FINAL Sekou Avalos [place] [facility] , [address] [place] [id number] 0 03/23 CBC w/ auto diff BA # K/uL 0.0 0.2 0.0 FINAL Sekou Avalos [place] [facility] , [address] [place] [id number] 0 03/23 CBC w/ auto diff NRBC % #/100W BC 0.0 0.2 0.0 FINAL Sekou Avalos [place] [facility] , [address] [place] [id number] 0 03/23 CBC w/ auto diff RBC M/uL 4.2 5.6 3.02 Low FINAL Sekou Avalos [place] [facility] , [address] [place] [id number] 0 03/23 CBC w/ auto diff HCT % 39.0 49.0 28.7 Low FINAL Sekou Avalos [place] [facility] , [address] [place] [id number] 0 03/23 CBC w/ auto diff MCV fL 80.0 104.0 95.0 FINAL Sekou Avalos [place] [facility] , [address] [place] [id number] 0 03/23 CBC w/ auto diff MCH pg 26.0 35.0 29.8 FINAL Sekou Avalos [place] [facility] , [address] [place] [id number] 0 04/30 /2025 CBC w/ auto diff MCHC g/dL 30.0 35.0 31.4 FINAL Sekou Avalos [place] [facility] , [address] [place] [id number] 0 03/23 CBC w/ auto diff MPV fL 9.5 13.4 10.8 FINAL Sekou Avalos [place] [facility] , [address] [place] [id number] 0 03/23 CBC w/ auto diff RDW % 11.3 15.6 17.00 High FINAL Sekou Avalos [place] [facility] , [address] [place] [id number] 0 04/06 HGB g/dL 12.5 16.6 9.6 Low FINAL Pauline Philip [place] [facility] , [address] [place] [id number] 0 Medications Date Name Route Dose Frequency Instructions Start Date End Date Status Sodium Bicarbonate Oral po 2.0 tablet Daily active Loperamide Oral PRN active 07/22 0.6 ML pegfilgrastim -apgf 10 MG/ML Prefilled Syringe [[employer]] subcutaneousl y 6.0 mg once Administer once per cycle at least 24 hours after and 14 days before chemotherapy. NOTE: This is [employer]. 2024 active 07/20 famotidine 10 MG/ML Injectable Solution intravenously 20.0 mg Re-initiate treatment only upon physician approval. 2024 active 07/20 leucovorin 50 MG Injection intravenously 800.0 mg once Dilute in NS or D5W. 2024 active 07/20 Palonosetron IV intravenously 0.25 mg once 2024 active 07/20 methylprednis olone 2000 MG Injection intravenously 125.0 mg Re-initiate treatment only upon physician approval. 2024 active 07/20 fluorouracil 50 MG/ML Injectable Solution via continuous infusion 3570.0 mg once TOTAL CIV CYCLE DOSE = 2400 mg/m2 CIV over 46 hours. Patient to be seen for a pump disconnect on Day 3. Refer to drug stability guidelines. 2024 active 07/20 atropine sulfate intravenously 0.4 mg once as needed for treatment of acute cholinergic reaction. Dosage not to exceed 1 mg in 24 hours. 2024 active 07/20 hydrocortison e 100 MG Injection intravenously 100.0 mg Re-initiate treatment only upon physician approval. 2024 active 07/20 diphenhydrami ne hydrochloride 0.5 MG/ML Injectable Solution intravenously 50.0 mg Re-initiate treatment only upon physician approval. 2024 active 07/20 18 ML aprepitant 7.2 MG/ML Injection intravenously 130.0 mg once Administer 30 minutes prior to chemotherapy. Do NOT dilute. Flush with NS before and after administration . 2024 active 07/20 dexamethasone phosphate 4 MG/ML Injectable Solution intravenously 10.0 mg once 2024 active 07/20 15 ML irinotecan hydrochloride 20 MG/ML Injection intravenously 170.0 mg once Dilute with 250 to 500 mL D5W or NS to a final concentration of 0.12 to 2.8 mg/mL. Irinotecan is an irritant. 2024 active 07/20 1 ML epinephrine 1 MG/ML Injection intramuscular ly 0.3 mg once Re-initiate treatment only upon physician approval. 2024 active 07/20 4 ML bevacizumab-b vzr 25 MG/ML Injection [Zirabev] intravenously 400.0 mg once Dilute with NS to a total volume of 100 mL. NOTE: This is [employer]. 2024 active 07/01 0.6 ML pegfilgrastim -apgf 10 MG/ML Prefilled Syringe [[employer]] subcutaneousl y 6.0 mg once Administer once per cycle at least 24 hours after and 14 days before chemotherapy. NOTE: This is [employer]. 2024 active 06/29 methylprednis olone 2000 MG Injection intravenously 125.0 mg Re-initiate treatment only upon physician approval. 2024 active 08/06 /2025 18 ML aprepitant 7.2 MG/ML Injection intravenously 130.0 mg once Administer 30 minutes prior to chemotherapy. Do NOT dilute. Flush with NS before and after administration . 2024 active 06/29 15 ML irinotecan hydrochloride 20 MG/ML Injection intravenously 170.0 mg once Dilute with 250 to 500 mL D5W or NS to a final concentration of 0.12 to 2.8 mg/mL. Irinotecan is an irritant. 2024 active 06/29 dexamethasone phosphate 4 MG/ML Injectable Solution intravenously 10.0 mg once 2024 active 06/29 4 ML bevacizumab-b vzr 25 MG/ML Injection [Zirabev] intravenously 400.0 mg once Dilute with NS to a total volume of 100 mL. NOTE: This is [employer]. 2024 active 06/29 fluorouracil 50 MG/ML Injectable Solution via continuous infusion 3570.0 mg once TOTAL CIV CYCLE DOSE = 2400 mg/m2 CIV over 46 hours. Patient to be seen for a pump disconnect on Day 3. Refer to drug stability guidelines. 2024 active 06/29 leucovorin 50 MG Injection intravenously 800.0 mg once Dilute in NS or D5W. 2024 active 06/29 1 ML epinephrine 1 MG/ML Injection intramuscular ly 0.3 mg once Re-initiate treatment only upon physician approval. 2024 active 06/29 Palonosetron IV intravenously 0.25 mg once 2024 active 06/29 famotidine 10 MG/ML Injectable Solution intravenously 20.0 mg Re-initiate treatment only upon physician approval. 2024 active 06/29 atropine sulfate intravenously 0.4 mg once as needed for treatment of acute cholinergic reaction. Dosage not to exceed 1 mg in 24 hours. 2024 active 06/29 diphenhydrami ne hydrochloride 0.5 MG/ML Injectable Solution intravenously 50.0 mg Re-initiate treatment only upon physician approval. 2024 active 06/29 hydrocortison e 100 MG Injection intravenously 100.0 mg Re-initiate treatment only upon physician approval. 2024 active 06/10 0.6 ML pegfilgrastim -apgf 10 MG/ML Prefilled Syringe [[employer]] subcutaneousl y 6.0 mg once Administer once per cycle at least 24 hours after and 14 days before chemotherapy. NOTE: This is [employer]. 2024 active 06/08 fluorouracil 50 MG/ML Injectable Solution via continuous infusion 3570.0 mg once TOTAL CIV CYCLE DOSE = 2400 mg/m2 CIV over 46 hours. Patient to be seen for a pump disconnect on Day 3. Refer to drug stability guidelines. 2024 active 06/08 Palonosetron IV intravenously 0.25 mg once 2024 active 06/08 dexamethasone phosphate 4 MG/ML Injectable Solution intravenously 10.0 mg once 2024 active 06/08 famotidine 10 MG/ML Injectable Solution intravenously 20.0 mg Re-initiate treatment only upon physician approval. 2024 active 06/08 leucovorin 50 MG Injection intravenously 800.0 mg once Dilute in NS or D5W. 2024 active 06/08 methylprednis olone 2000 MG Injection intravenously 125.0 mg Re-initiate treatment only upon physician approval. 2024 active 06/08 18 ML aprepitant 7.2 MG/ML Injection intravenously 130.0 mg once Administer 30 minutes prior to chemotherapy. Do NOT dilute. Flush with NS before and after administration . 2024 active 06/08 atropine sulfate intravenously 0.4 mg once as needed for treatment of acute cholinergic reaction. Dosage not to exceed 1 mg in 24 hours. 2024 active 06/08 4 ML bevacizumab-b vzr 25 MG/ML Injection [Zirabev] intravenously 400.0 mg once Dilute with NS to a total volume of 100 mL. NOTE: This is [employer]. 2024 active 06/08 diphenhydrami ne hydrochloride 0.5 MG/ML Injectable Solution intravenously 50.0 mg Re-initiate treatment only upon physician approval. 2024 active 06/08 15 ML irinotecan hydrochloride 20 MG/ML Injection intravenously 170.0 mg once Dilute with 250 to 500 mL D5W or NS to a final concentration of 0.12 to 2.8 mg/mL. Irinotecan is an irritant. 2024 active 06/08 1 ML epinephrine 1 MG/ML Injection intramuscular ly 0.3 mg once Re-initiate treatment only upon physician approval. 2024 active 06/08 hydrocortison e 100 MG Injection intravenously 100.0 mg Re-initiate treatment only upon physician approval. 2024 active 05/20 0.6 ML pegfilgrastim -apgf 10 MG/ML Prefilled Syringe [[employer]] subcutaneousl y 6.0 mg once Administer once per cycle at least 24 hours after and 14 days before chemotherapy. NOTE: This is [employer]. 2024 active 05/18 methylprednis olone 2000 MG Injection intravenously 125.0 mg Re-initiate treatment only upon physician approval. 2024 active 05/18 dexamethasone phosphate 4 MG/ML Injectable Solution intravenously 10.0 mg once 2024 active 05/18 hydrocortison e 100 MG Injection intravenously 100.0 mg Re-initiate treatment only upon physician approval. 2024 active 05/18 4 ML bevacizumab-b vzr 25 MG/ML Injection [Zirabev] intravenously 400.0 mg once Dilute with NS to a total volume of 100 mL. NOTE: This is Zirabev. 2024 active 05/18 leucovorin 50 MG Injection intravenously 800.0 mg once Dilute in NS or D5W. 2024 active 05/18 18 ML aprepitant 7.2 MG/ML Injection intravenously 130.0 mg once Administer 30 minutes prior to chemotherapy. Do NOT dilute. Flush with NS before and after administration . 2024 active 05/18 famotidine 10 MG/ML Injectable Solution intravenously 20.0 mg Re-initiate treatment only upon physician approval. 2024 active 05/18 Palonosetron IV intravenously 0.25 mg once 2024 active 05/18 15 ML irinotecan hydrochloride 20 MG/ML Injection intravenously 170.0 mg once Dilute with 250 to 500 mL D5W or NS to a final concentration of 0.12 to 2.8 mg/mL. Irinotecan is an irritant. 2024 active 05/18 atropine sulfate intravenously 0.4 mg once as needed for treatment of acute cholinergic reaction. Dosage not to exceed 1 mg in 24 hours. 2024 active 05/18 diphenhydrami ne hydrochloride 0.5 MG/ML Injectable Solution intravenously 50.0 mg Re-initiate treatment only upon physician approval. 2024 active 05/18 fluorouracil 50 MG/ML Injectable Solution via continuous infusion 3570.0 mg once TOTAL CIV CYCLE DOSE = 2400 mg/m2 CIV over 46 hours. Patient to be seen for a pump disconnect on Day 3. Refer to drug stability guidelines. 2024 active 05/18 1 ML epinephrine 1 MG/ML Injection intramuscular ly 0.3 mg once Re-initiate treatment only upon physician approval. 2024 active 04/29 0.6 ML pegfilgrastim -apgf 10 MG/ML Prefilled Syringe [[employer]] subcutaneousl y 6.0 mg once Administer once per cycle at least 24 hours after and 14 days before chemotherapy. NOTE: This is [employer]. 2024 active 04/27 diphenhydrami ne hydrochloride 0.5 MG/ML Injectable Solution intravenously 50.0 mg Re-initiate treatment only upon physician approval. 2024 active 04/27 18 ML aprepitant 7.2 MG/ML Injection intravenously 130.0 mg once Administer 30 minutes prior to chemotherapy. Do NOT dilute. Flush with NS before and after administration . 2024 active 04/27 atropine sulfate intravenously 0.4 mg once as needed for treatment of acute cholinergic reaction. Dosage not to exceed 1 mg in 24 hours. 2024 active 04/27 Palonosetron IV intravenously 0.25 mg once 2024 active 04/27 leucovorin 50 MG Injection intravenously 800.0 mg once Dilute in NS or D5W. 2024 active 04/27 1 ML epinephrine 1 MG/ML Injection intramuscular ly 0.3 mg once Re-initiate treatment only upon physician approval. 2024 active 04/27 15 ML irinotecan hydrochloride 20 MG/ML Injection intravenously 170.0 mg once Dilute with 250 to 500 mL D5W or NS to a final concentration of 0.12 to 2.8 mg/mL. Irinotecan is an irritant. 2024 active 04/27 famotidine 10 MG/ML Injectable Solution intravenously 20.0 mg Re-initiate treatment only upon physician approval. 2024 active 04/27 methylprednis olone 2000 MG Injection intravenously 125.0 mg Re-initiate treatment only upon physician approval. 2024 active 04/27 fluorouracil 50 MG/ML Injectable Solution via continuous infusion 3570.0 mg once TOTAL CIV CYCLE DOSE = 2400 mg/m2 CIV over 46 hours. Patient to be seen for a pump disconnect on Day 3. Refer to drug stability guidelines. 2024 active 04/27 hydrocortison e 100 MG Injection intravenously 100.0 mg Re-initiate treatment only upon physician approval. 2024 active 04/27 dexamethasone phosphate 4 MG/ML Injectable Solution intravenously 10.0 mg once 2024 active 04/27 4 ML bevacizumab-b vzr 25 MG/ML Injection [Zirabev] intravenously 400.0 mg once Dilute with NS to a total volume of 100 mL. NOTE: This is Zirabev. 2024 active 04/10 24 HR venlafaxine 150 MG Extended Release Oral Capsule 2024 active 04/08 0.6 ML pegfilgrastim -apgf 10 MG/ML Prefilled Syringe [[employer]] subcutaneousl y 6.0 mg once Administer once per cycle at least 24 hours after and 14 days before chemotherapy. NOTE: This is [employer]. 2024 active 04/06 fluorouracil 50 MG/ML Injectable Solution via continuous infusion 3570.0 mg once TOTAL CIV CYCLE DOSE = 2400 mg/m2 CIV over 46 hours. Patient to be seen for a pump disconnect on Day 3. Refer to drug stability guidelines. 2024 active 04/06 famotidine 10 MG/ML Injectable Solution intravenously 20.0 mg Re-initiate treatment only upon physician approval. 2024 active 04/06 15 ML irinotecan hydrochloride 20 MG/ML Injection intravenously 170.0 mg once Dilute with 250 to 500 mL D5W or NS to a final concentration of 0.12 to 2.8 mg/mL. Irinotecan is an irritant. 2024 active 04/06 methylprednis olone 2000 MG Injection intravenously 125.0 mg Re-initiate treatment only upon physician approval. 2024 active 04/06 leucovorin 50 MG Injection intravenously 800.0 mg once Dilute in NS or D5W. 2024 active 04/06 18 ML aprepitant 7.2 MG/ML Injection intravenously 130.0 mg once Administer 30 minutes prior to chemotherapy. Do NOT dilute. Flush with NS before and after administration . 2024 active 04/06 hydrocortison e 100 MG Injection intravenously 100.0 mg Re-initiate treatment only upon physician approval. 2024 active 04/06 Palonosetron IV intravenously 0.25 mg once 2024 active 04/06 dexamethasone phosphate 4 MG/ML Injectable Solution intravenously 10.0 mg once 2024 active 04/06 atropine sulfate intravenously 0.4 mg once as needed for treatment of acute cholinergic reaction. Dosage not to exceed 1 mg in 24 hours. 2024 active 04/06 diphenhydrami ne hydrochloride 0.5 MG/ML Injectable Solution intravenously 50.0 mg Re-initiate treatment only upon physician approval. 2024 active 04/06 4 ML bevacizumab-b vzr 25 MG/ML Injection [Zirabev] intravenously 400.0 mg once Dilute with NS to a total volume of 100 mL. NOTE: This is Zirabev. 2024 active 04/06 1 ML epinephrine 1 MG/ML Injection intramuscular ly 0.3 mg once Re-initiate treatment only upon physician approval. 2024 active 03/23 benzonatate 100 MG Oral Capsule orally 1.0 capsule 3 times per day 2024 active 03/23 codeine phosphate 2 MG/ML / guaifenesin 20 MG/ML Oral Solution orally 10.0 mL every 4 to 6 hours 2024 active 03/18 0.6 ML pegfilgrastim -apgf 10 MG/ML Prefilled Syringe [[employer]] subcutaneousl y 6.0 mg once Administer once per cycle at least 24 hours after and 14 days before chemotherapy. NOTE: This is [employer]. 2024 active 03/17 trazodone hydrochloride 50 MG Oral Tablet 2024 active 03/16 diphenhydrami ne hydrochloride 0.5 MG/ML Injectable Solution intravenously 50.0 mg Re-initiate treatment only upon physician approval. 2024 active 03/16 atropine sulfate intravenously 0.4 mg once as needed for treatment of acute cholinergic reaction. Dosage not to exceed 1 mg in 24 hours. 2024 active 03/16 dexamethasone phosphate 4 MG/ML Injectable Solution intravenously 10.0 mg once 2024 active 03/16 famotidine 10 MG/ML Injectable Solution intravenously 20.0 mg Re-initiate treatment only upon physician approval. 2024 active 03/16 leucovorin 50 MG Injection intravenously 800.0 mg once Dilute in NS or D5W. 2024 active 03/16 hydrocortison e 100 MG Injection intravenously 100.0 mg Re-initiate treatment only upon physician approval. 2024 active 03/16 1 ML epinephrine 1 MG/ML Injection intramuscular ly 0.3 mg once Re-initiate treatment only upon physician approval. 2024 active 03/16 fluorouracil 50 MG/ML Injectable Solution via continuous infusion 3570.0 mg once TOTAL CIV CYCLE DOSE = 2400 mg/m2 CIV over 46 hours. Patient to be seen for a pump disconnect on Day 3. Refer to drug stability guidelines. 2024 active 03/16 15 ML irinotecan hydrochloride 20 MG/ML Injection intravenously 170.0 mg once Dilute with 250 to 500 mL D5W or NS to a final concentration of 0.12 to 2.8 mg/mL. Irinotecan is an irritant. 2024 active 03/16 4 ML bevacizumab-b vzr 25 MG/ML Injection [Zirabev] intravenously 400.0 mg once Dilute with NS to a total volume of 100 mL. NOTE: This is Zirabev. 2024 active 03/16 methylprednis olone 2000 MG Injection intravenously 125.0 mg Re-initiate treatment only upon physician approval. 2024 active 03/16 Palonosetron IV intravenously 0.25 mg once 2024 active 03/16 18 ML aprepitant 7.2 MG/ML Injection intravenously 130.0 mg once Administer 30 minutes prior to chemotherapy. Do NOT dilute. Flush with NS before and after administration . 2024 active 03/09 furosemide 20 MG Oral Tablet 2024 active 03/09 potassium chloride 20 MEQ Extended Release Oral Tablet 2024 active 02/25 0.6 ML pegfilgrastim -apgf 10 MG/ML Prefilled Syringe [[employer]] subcutaneousl y 6.0 mg once Administer once per cycle at least 24 hours after and 14 days before chemotherapy. NOTE: This is [employer]. 2024 active 02/23 dexamethasone phosphate 4 MG/ML Injectable Solution intravenously 10.0 mg once 2024 active 02/23 Palonosetron IV intravenously 0.25 mg once 2024 active 02/23 18 ML aprepitant 7.2 MG/ML Injection intravenously 130.0 mg once Administer 30 minutes prior to chemotherapy. Do NOT dilute. Flush with NS before and after administration . 2024 active 02/23 methylprednis olone 2000 MG Injection intravenously 125.0 mg Re-initiate treatment only upon physician approval. 2024 active 02/23 15 ML irinotecan hydrochloride 20 MG/ML Injection intravenously 170.0 mg once Dilute with 250 to 500 mL D5W or NS to a final concentration of 0.12 to 2.8 mg/mL. Irinotecan is an irritant. 2024 active 02/23 leucovorin 50 MG Injection intravenously 800.0 mg once Dilute in NS or D5W. 2024 active 02/23 fluorouracil 50 MG/ML Injectable Solution via continuous infusion 3570.0 mg once TOTAL CIV CYCLE DOSE = 2400 mg/m2 CIV over 46 hours. Patient to be seen for a pump disconnect on Day 3. Refer to drug stability guidelines. 2024 active 02/23 1 ML epinephrine 1 MG/ML Injection intramuscular ly 0.3 mg once Re-initiate treatment only upon physician approval. 2024 active 02/23 4 ML bevacizumab-b vzr 25 MG/ML Injection [Zirabev] intravenously 400.0 mg once Dilute with NS to a total volume of 100 mL. NOTE: This is Zirabev. 2024 active 02/23 hydrocortison e 100 MG Injection intravenously 100.0 mg Re-initiate treatment only upon physician approval. 2024 active 02/23 diphenhydrami ne hydrochloride 0.5 MG/ML Injectable Solution intravenously 50.0 mg Re-initiate treatment only upon physician approval. 2024 active 02/23 famotidine 10 MG/ML Injectable Solution intravenously 20.0 mg Re-initiate treatment only upon physician approval. 2024 active 02/23 atropine sulfate intravenously 0.4 mg once as needed for treatment of acute cholinergic reaction. Dosage not to exceed 1 mg in 24 hours. 2024 active 02/18 atropine sulfate 0.025 MG / diphenoxylate hydrochloride 2.5 MG Oral Tablet orally 1.0 tablet Use as Directed 2024 active 02/07 furosemide 40 MG Oral Tablet [Lasix] orally 1.0 tablet daily 2024 active 02/04 furosemide 20 MG Oral Tablet [Lasix] orally 1.0 tablet daily 2024 active 01/14 lorazepam 1 MG Oral Tablet 2024 active 01/12 diphenhydrami ne hydrochloride 0.5 MG/ML Injectable Solution intravenously 50.0 mg Re-initiate treatment only upon physician approval. 2024 active 01/12 methylprednis olone 2000 MG Injection intravenously 125.0 mg Re-initiate treatment only upon physician approval. 2024 active 01/12 1 ML epinephrine 1 MG/ML Injection intramuscular ly 0.3 mg once Re-initiate treatment only upon physician approval. 2024 active 01/12 famotidine 10 MG/ML Injectable Solution intravenously 20.0 mg Re-initiate treatment only upon physician approval. 2024 active 01/12 hydrocortison e 100 MG Injection intravenously 100.0 mg Re-initiate treatment only upon physician approval. 2024 active 01/12 vancomycin 125 MG Oral Capsule orally 1.0 capsule 2 times per day 2024 active 01/12 potassium chloride 20 MEQ Extended Release Oral Tablet orally 1.0 tablet extended release every day 2024 active 01/10 trazodone hydrochloride 50 MG Oral Tablet 2024 active 01/07 morphine sulfate 15 MG Oral Tablet 2024 active 01/04 cyclobenzapri ne hydrochloride 5 MG Oral Tablet 2024 active 12/16 potassium chloride 20 MEQ Extended Release Oral Tablet orally 1.0 tablet extended release every day 2024 active 12/15 diphenhydrami ne hydrochloride 0.5 MG/ML Injectable Solution intravenously 50.0 mg Re-initiate treatment only upon physician approval. 2024 active 12/15 famotidine 10 MG/ML Injectable Solution intravenously 20.0 mg Re-initiate treatment only upon physician approval. 2024 active 12/15 hydrocortison e 100 MG Injection intravenously 100.0 mg Re-initiate treatment only upon physician approval. 2024 active 12/15 4 ML bevacizumab-b vzr 25 MG/ML Injection [Zirabev] intravenously 400.0 mg once Dilute with NS to a total volume of 100 mL. NOTE: This is Zirabev. 12/15 on hold 12/15 methylprednis olone 2000 MG Injection intravenously 125.0 mg Re-initiate treatment only upon physician approval. 2024 active 12/15 1 ML epinephrine 1 MG/ML Injection intramuscular ly 0.3 mg once Re-initiate treatment only upon physician approval. 2024 active 11/16 methylprednis olone 2000 MG Injection intravenously 125.0 mg Re-initiate treatment only upon physician approval. 2023 active 11/16 diphenhydrami ne hydrochloride 0.5 MG/ML Injectable Solution intravenously 50.0 mg Re-initiate treatment only upon physician approval. 2023 active 11/16 hydrocortison e 100 MG Injection intravenously 100.0 mg Re-initiate treatment only upon physician approval. 2023 active 11/16 1 ML epinephrine 1 MG/ML Injection intramuscular ly 0.3 mg once Re-initiate treatment only upon physician approval. 2023 active 11/16 atropine sulfate 0.025 MG / diphenoxylate hydrochloride 2.5 MG Oral Tablet orally 1.0 tablet Use as Directed 2023 active 11/16 famotidine 10 MG/ML Injectable Solution intravenously 20.0 mg Re-initiate treatment only upon physician approval. 2023 active 11/15 trazodone hydrochloride 50 MG Oral Tablet 2023 active 11/11 trazodone hydrochloride 50 MG Oral Tablet 2023 active 10/27 benzonatate 100 MG Oral Capsule orally 1.0 capsule 3 times per day 2023 active 10/20 famotidine 10 MG/ML Injectable Solution intravenously 20.0 mg Re-initiate treatment only upon physician approval. 2023 active 10/20 methylprednis olone 2000 MG Injection intravenously 125.0 mg Re-initiate treatment only upon physician approval. 2023 active 10/20 diphenhydrami ne hydrochloride 0.5 MG/ML Injectable Solution intravenously 50.0 mg Re-initiate treatment only upon physician approval. 2023 active 10/20 1 ML epinephrine 1 MG/ML Injection intramuscular ly 0.3 mg once Re-initiate treatment only upon physician approval. 2023 active 10/20 benzonatate 100 MG Oral Capsule orally 1.0 capsule 3 times per day 2023 active 10/20 hydrocortison e 100 MG Injection intravenously 100.0 mg Re-initiate treatment only upon physician approval. 2023 active 10/06 hydrocortison e 100 MG Injection intravenously 100.0 mg Re-initiate treatment only upon physician approval. 2023 active 10/06 diphenhydrami ne hydrochloride 0.5 MG/ML Injectable Solution intravenously 50.0 mg Re-initiate treatment only upon physician approval. 2023 active 10/06 methylprednis olone 2000 MG Injection intravenously 125.0 mg Re-initiate treatment only upon physician approval. 2023 active 10/06 famotidine 10 MG/ML Injectable Solution intravenously 20.0 mg Re-initiate treatment only upon physician approval. 2023 active 10/06 1 ML epinephrine 1 MG/ML Injection intramuscular ly 0.3 mg once Re-initiate treatment only upon physician approval. 2023 active 09/22 hydrocortison e 100 MG Injection intravenously 100.0 mg Re-initiate treatment only upon physician approval. 2023 active 09/22 methylprednis olone 2000 MG Injection intravenously 125.0 mg Re-initiate treatment only upon physician approval. 2023 active 09/22 1 ML epinephrine 1 MG/ML Injection intramuscular ly 0.3 mg once Re-initiate treatment only upon physician approval. 2023 active 09/22 famotidine 10 MG/ML Injectable Solution intravenously 20.0 mg Re-initiate treatment only upon physician approval. 2023 active 09/22 diphenhydrami ne hydrochloride 0.5 MG/ML Injectable Solution intravenously 50.0 mg Re-initiate treatment only upon physician approval. 2023 active 09/08 methylprednis olone 2000 MG Injection intravenously 125.0 mg Re-initiate treatment only upon physician approval. 2023 active 09/08 famotidine 10 MG/ML Injectable Solution intravenously 20.0 mg Re-initiate treatment only upon physician approval. 2023 active 09/08 codeine phosphate 2 MG/ML / guaifenesin 20 MG/ML Oral Solution orally 10.0 mL every 4 to 6 hours 2023 active 09/08 1 ML epinephrine 1 MG/ML Injection intramuscular ly 0.3 mg once Re-initiate treatment only upon physician approval. 2023 active 09/08 hydrocortison e 100 MG Injection intravenously 100.0 mg Re-initiate treatment only upon physician approval. 2023 active 09/08 diphenhydrami ne hydrochloride 0.5 MG/ML Injectable Solution intravenously 50.0 mg Re-initiate treatment only upon physician approval. 2023 active 09/06 trazodone hydrochloride 50 MG Oral Tablet 2023 active 08/25 hydrocortison e 100 MG Injection intravenously 100.0 mg Re-initiate treatment only upon physician approval. 2023 active 08/25 1 ML epinephrine 1 MG/ML Injection intramuscular ly 0.3 mg once Re-initiate treatment only upon physician approval. 2023 active 08/25 diphenhydrami ne hydrochloride 0.5 MG/ML Injectable Solution intravenously 50.0 mg Re-initiate treatment only upon physician approval. 2023 active 08/25 methylprednis olone 2000 MG Injection intravenously 125.0 mg Re-initiate treatment only upon physician approval. 2023 active 08/25 famotidine 10 MG/ML Injectable Solution intravenously 20.0 mg Re-initiate treatment only upon physician approval. 2023 active 08/11 famotidine 10 MG/ML Injectable Solution intravenously 20.0 mg Re-initiate treatment only upon physician approval. 2023 active 08/11 diphenhydrami ne hydrochloride 0.5 MG/ML Injectable Solution intravenously 50.0 mg Re-initiate treatment only upon physician approval. 2023 active 08/11 1 ML epinephrine 1 MG/ML Injection intramuscular ly 0.3 mg once Re-initiate treatment only upon physician approval. 2023 active 08/11 hydrocortison e 100 MG Injection intravenously 100.0 mg Re-initiate treatment only upon physician approval. 2023 active 08/11 methylprednis olone 2000 MG Injection intravenously 125.0 mg Re-initiate treatment only upon physician approval. 2023 active 07/28 diphenhydrami ne hydrochloride 0.5 MG/ML Injectable Solution intravenously 50.0 mg Re-initiate treatment only upon physician approval. 2023 active 07/28 hydrocortison e 100 MG Injection intravenously 100.0 mg Re-initiate treatment only upon physician approval. 2023 active 07/28 1 ML epinephrine 1 MG/ML Injection intramuscular ly 0.3 mg once Re-initiate treatment only upon physician approval. 2023 active 07/28 methylprednis olone 2000 MG Injection intravenously 125.0 mg Re-initiate treatment only upon physician approval. 2023 active 07/28 famotidine 10 MG/ML Injectable Solution intravenously 20.0 mg Re-initiate treatment only upon physician approval. 2023 active 07/14 1 ML epinephrine 1 MG/ML Injection intramuscular ly 0.3 mg once Re-initiate treatment only upon physician approval. 2023 active 07/14 hydrocortison e 100 MG Injection intravenously 100.0 mg Re-initiate treatment only upon physician approval. 2023 active 07/14 famotidine 10 MG/ML Injectable Solution intravenously 20.0 mg Re-initiate treatment only upon physician approval. 2023 active 07/14 methylprednis olone 2000 MG Injection intravenously 125.0 mg Re-initiate treatment only upon physician approval. 2023 active 07/14 diphenhydrami ne hydrochloride 0.5 MG/ML Injectable Solution intravenously 50.0 mg Re-initiate treatment only upon physician approval. 2023 active 06/30 hydrocortison e 100 MG Injection intravenously 100.0 mg Re-initiate treatment only upon physician approval. 2023 active 06/30 methylprednis olone 2000 MG Injection intravenously 125.0 mg Re-initiate treatment only upon physician approval. 2023 active 06/30 1 ML epinephrine 1 MG/ML Injection intramuscular ly 0.3 mg once Re-initiate treatment only upon physician approval. 2023 active 06/30 diphenhydrami ne hydrochloride 0.5 MG/ML Injectable Solution intravenously 50.0 mg Re-initiate treatment only upon physician approval. 2023 active 06/30 famotidine 10 MG/ML Injectable Solution intravenously 20.0 mg Re-initiate treatment only upon physician approval. 2023 active 06/16 hydrocortison e 100 MG Injection intravenously 100.0 mg Re-initiate treatment only upon physician approval. 2023 active 06/16 famotidine 10 MG/ML Injectable Solution intravenously 20.0 mg Re-initiate treatment only upon physician approval. 2023 active 06/16 1 ML epinephrine 1 MG/ML Injection intramuscular ly 0.3 mg once Re-initiate treatment only upon physician approval. 2023 active 06/16 methylprednis olone 2000 MG Injection intravenously 125.0 mg Re-initiate treatment only upon physician approval. 2023 active 06/16 diphenhydrami ne hydrochloride 0.5 MG/ML Injectable Solution intravenously 50.0 mg Re-initiate treatment only upon physician approval. 2023 active 06/02 famotidine 10 MG/ML Injectable Solution intravenously 20.0 mg Re-initiate treatment only upon physician approval. 2023 active 06/02 1 ML epinephrine 1 MG/ML Injection intramuscular ly 0.3 mg once Re-initiate treatment only upon physician approval. 2023 active 06/02 diphenhydrami ne hydrochloride 0.5 MG/ML Injectable Solution intravenously 50.0 mg Re-initiate treatment only upon physician approval. 2023 active 06/02 methylprednis olone 2000 MG Injection intravenously 125.0 mg Re-initiate treatment only upon physician approval. 2023 active 06/02 hydrocortison e 100 MG Injection intravenously 100.0 mg Re-initiate treatment only upon physician approval. 2023 active 05/19 1 ML epinephrine 1 MG/ML Injection intramuscular ly 0.3 mg once Re-initiate treatment only upon physician approval. 2023 active 05/19 diphenhydrami ne hydrochloride 0.5 MG/ML Injectable Solution intravenously 50.0 mg Re-initiate treatment only upon physician approval. 2023 active 05/19 famotidine 10 MG/ML Injectable Solution intravenously 20.0 mg Re-initiate treatment only upon physician approval. 2023 active 05/19 methylprednis olone 2000 MG Injection intravenously 125.0 mg Re-initiate treatment only upon physician approval. 2023 active 05/19 hydrocortison e 100 MG Injection intravenously 100.0 mg Re-initiate treatment only upon physician approval. 2023 active 05/05 hydrocortison e 100 MG Injection intravenously 100.0 mg Re-initiate treatment only upon physician approval. 2023 active 05/05 1 ML epinephrine 1 MG/ML Injection intramuscular ly 0.3 mg once Re-initiate treatment only upon physician approval. 2023 active 05/05 famotidine 10 MG/ML Injectable Solution intravenously 20.0 mg Re-initiate treatment only upon physician approval. 2023 active 05/05 4 ML bevacizumab-b vzr 25 MG/ML Injection [Zirabev] intravenously 400.0 mg once Dilute with NS to a total volume of 100 mL. NOTE: This is Zirabev. 2023 active 05/05 methylprednis olone 2000 MG Injection intravenously 125.0 mg Re-initiate treatment only upon physician approval. 2023 active 05/05 diphenhydrami ne hydrochloride 0.5 MG/ML Injectable Solution intravenously 50.0 mg Re-initiate treatment only upon physician approval. 2023 active 04/21 hydrocortison e 100 MG Injection intravenously 100.0 mg Re-initiate treatment only upon physician approval. 2023 active 04/21 diphenhydrami ne hydrochloride 0.5 MG/ML Injectable Solution intravenously 50.0 mg Re-initiate treatment only upon physician approval. 2023 active 04/21 famotidine 10 MG/ML Injectable Solution intravenously 20.0 mg Re-initiate treatment only upon physician approval. 2023 active 04/21 1 ML epinephrine 1 MG/ML Injection intramuscular ly 0.3 mg once Re-initiate treatment only upon physician approval. 2023 active 04/21 methylprednis olone 2000 MG Injection intravenously 125.0 mg Re-initiate treatment only upon physician approval. 2023 active 04/09 trazodone hydrochloride 50 MG Oral Tablet 2023 active 04/07 24 HR venlafaxine 150 MG Extended Release Oral Capsule 2023 active 04/07 hydrocortison e 100 MG Injection intravenously 100.0 mg Re-initiate treatment only upon physician approval. 2023 active 04/07 diphenhydrami ne hydrochloride 0.5 MG/ML Injectable Solution intravenously 50.0 mg Re-initiate treatment only upon physician approval. 2023 active 04/07 methylprednis olone 2000 MG Injection intravenously 125.0 mg Re-initiate treatment only upon physician approval. 2023 active 04/07 famotidine 10 MG/ML Injectable Solution intravenously 20.0 mg Re-initiate treatment only upon physician approval. 2023 active 04/07 1 ML epinephrine 1 MG/ML Injection intramuscular ly 0.3 mg once Re-initiate treatment only upon physician approval. 2023 active 03/24 1 ML epinephrine 1 MG/ML Injection intramuscular ly 0.3 mg once Re-initiate treatment only upon physician approval. 2023 active 03/24 diphenhydrami ne hydrochloride 0.5 MG/ML Injectable Solution intravenously 50.0 mg Re-initiate treatment only upon physician approval. 2023 active 03/24 hydrocortison e 100 MG Injection intravenously 100.0 mg Re-initiate treatment only upon physician approval. 2023 active 03/24 methylprednis olone 2000 MG Injection intravenously 125.0 mg Re-initiate treatment only upon physician approval. 2023 active 03/24 famotidine 10 MG/ML Injectable Solution intravenously 20.0 mg Re-initiate treatment only upon physician approval. 2023 active 03/10 diphenhydrami ne hydrochloride 0.5 MG/ML Injectable Solution intravenously 50.0 mg Re-initiate treatment only upon physician approval. 2023 active 03/10 methylprednis olone 2000 MG Injection intravenously 125.0 mg Re-initiate treatment only upon physician approval. 2023 active 03/10 1 ML epinephrine 1 MG/ML Injection intramuscular ly 0.3 mg once Re-initiate treatment only upon physician approval. 2023 active 03/10 4 ML bevacizumab-b vzr 25 MG/ML Injection [Zirabev] intravenously 400.0 mg once Dilute with NS to a total volume of 100 mL. NOTE: This is Zirabev. 03/10 on hold 03/10 famotidine 10 MG/ML Injectable Solution intravenously 20.0 mg Re-initiate treatment only upon physician approval. 2023 active 03/10 hydrocortison e 100 MG Injection intravenously 100.0 mg Re-initiate treatment only upon physician approval. 2023 active 02/17 methylprednis olone 2000 MG Injection intravenously 125.0 mg Re-initiate treatment only upon physician approval. 2023 active 02/17 1 ML epinephrine 1 MG/ML Injection intramuscular ly 0.3 mg once Re-initiate treatment only upon physician approval. 2023 active 02/17 famotidine 10 MG/ML Injectable Solution intravenously 20.0 mg Re-initiate treatment only upon physician approval. 2023 active 02/17 hydrocortison e 100 MG Injection intravenously 100.0 mg Re-initiate treatment only upon physician approval. 2023 active 02/17 diphenhydrami ne hydrochloride 0.5 MG/ML Injectable Solution intravenously 50.0 mg Re-initiate treatment only upon physician approval. 2023 active 02/03 methylprednis olone 2000 MG Injection intravenously 125.0 mg Re-initiate treatment only upon physician approval. 2023 active 02/03 diphenhydrami ne hydrochloride 0.5 MG/ML Injectable Solution intravenously 50.0 mg Re-initiate treatment only upon physician approval. 2023 active 02/03 hydrocortison e 100 MG Injection intravenously 100.0 mg Re-initiate treatment only upon physician approval. 2023 active 02/03 1 ML epinephrine 1 MG/ML Injection intramuscular ly 0.3 mg once Re-initiate treatment only upon physician approval. 2023 active 02/03 famotidine 10 MG/ML Injectable Solution intravenously 20.0 mg Re-initiate treatment only upon physician approval. 2023 active 01/21 methylprednis olone 2000 MG Injection intravenously 125.0 mg Re-initiate treatment only upon physician approval. 2023 active 01/21 1 ML epinephrine 1 MG/ML Injection intramuscular ly 0.3 mg once Re-initiate treatment only upon physician approval. 2023 active 01/21 hydrocortison e 100 MG Injection intravenously 100.0 mg Re-initiate treatment only upon physician approval. 2023 active 01/21 famotidine 10 MG/ML Injectable Solution intravenously 20.0 mg Re-initiate treatment only upon physician approval. 2023 active 01/21 diphenhydrami ne hydrochloride 0.5 MG/ML Injectable Solution intravenously 50.0 mg Re-initiate treatment only upon physician approval. 2023 active 01/07 methylprednis olone 2000 MG Injection intravenously 125.0 mg Re-initiate treatment only upon physician approval. 2023 active 01/07 hydrocortison e 100 MG Injection intravenously 100.0 mg Re-initiate treatment only upon physician approval. 2023 active 01/07 diphenhydrami ne hydrochloride 0.5 MG/ML Injectable Solution intravenously 50.0 mg Re-initiate treatment only upon physician approval. 2023 active 01/07 1 ML epinephrine 1 MG/ML Injection intramuscular ly 0.3 mg once Re-initiate treatment only upon physician approval. 2023 active 01/07 famotidine 10 MG/ML Injectable Solution intravenously 20.0 mg Re-initiate treatment only upon physician approval. 2023 active 12/17 famotidine 10 MG/ML Injectable Solution intravenously 20.0 mg Re-initiate treatment only upon physician approval. 2023 active 12/17 diphenhydrami ne hydrochloride 0.5 MG/ML Injectable Solution intravenously 50.0 mg Re-initiate treatment only upon physician approval. 2023 active 12/17 1 ML epinephrine 1 MG/ML Injection intramuscular ly 0.3 mg once Re-initiate treatment only upon physician approval. 2023 active 12/17 methylprednis olone 2000 MG Injection intravenously 125.0 mg Re-initiate treatment only upon physician approval. 2023 active 12/17 hydrocortison e 100 MG Injection intravenously 100.0 mg Re-initiate treatment only upon physician approval. 2023 active 12/03 diphenhydrami ne hydrochloride 0.5 MG/ML Injectable Solution intravenously 50.0 mg Re-initiate treatment only upon physician approval. 2023 active 12/03 1 ML epinephrine 1 MG/ML Injection intramuscular ly 0.3 mg once Re-initiate treatment only upon physician approval. 2023 active 12/03 methylprednis olone 2000 MG Injection intravenously 125.0 mg Re-initiate treatment only upon physician approval. 2023 active 12/03 hydrocortison e 100 MG Injection intravenously 100.0 mg Re-initiate treatment only upon physician approval. 2023 active 12/03 famotidine 10 MG/ML Injectable Solution intravenously 20.0 mg Re-initiate treatment only upon physician approval. 2023 active 11/19 methylprednis olone 2000 MG Injection intravenously 125.0 mg Re-initiate treatment only upon physician approval. 2022 active 11/19 famotidine 10 MG/ML Injectable Solution intravenously 20.0 mg Re-initiate treatment only upon physician approval. 2022 active 11/19 diphenhydrami ne hydrochloride 0.5 MG/ML Injectable Solution intravenously 50.0 mg Re-initiate treatment only upon physician approval. 2022 active 11/19 hydrocortison e 100 MG Injection intravenously 100.0 mg Re-initiate treatment only upon physician approval. 2022 active 11/19 1 ML epinephrine 1 MG/ML Injection intramuscular ly 0.3 mg once Re-initiate treatment only upon physician approval. 2022 active 11/05 diphenhydrami ne hydrochloride 0.5 MG/ML Injectable Solution intravenously 50.0 mg Re-initiate treatment only upon physician approval. 2022 active 11/05 famotidine 10 MG/ML Injectable Solution intravenously 20.0 mg Re-initiate treatment only upon physician approval. 2022 active 11/05 1 ML epinephrine 1 MG/ML Injection intramuscular ly 0.3 mg once Re-initiate treatment only upon physician approval. 2022 active 11/05 hydrocortison e 100 MG Injection intravenously 100.0 mg Re-initiate treatment only upon physician approval. 2022 active 11/05 methylprednis olone 2000 MG Injection intravenously 125.0 mg Re-initiate treatment only upon physician approval. 2022 active 10/31 atropine sulfate 0.025 MG / diphenoxylate hydrochloride 2.5 MG Oral Tablet orally 1.0 tablet Use as Directed 2022 active 10/22 hydrocortison e 100 MG Injection intravenously 100.0 mg Re-initiate treatment only upon physician approval. 2022 active 10/22 diphenhydrami ne hydrochloride 0.5 MG/ML Injectable Solution intravenously 50.0 mg Re-initiate treatment only upon physician approval. 2022 active 10/22 methylprednis olone 2000 MG Injection intravenously 125.0 mg Re-initiate treatment only upon physician approval. 2022 active 10/22 famotidine 10 MG/ML Injectable Solution intravenously 20.0 mg Re-initiate treatment only upon physician approval. 2022 active 10/22 1 ML epinephrine 1 MG/ML Injection intramuscular ly 0.3 mg once Re-initiate treatment only upon physician approval. 2022 active 10/08 methylprednis olone 2000 MG Injection intravenously 125.0 mg Re-initiate treatment only upon physician approval. 2022 active 10/08 1 ML epinephrine 1 MG/ML Injection intramuscular ly 0.3 mg once Re-initiate treatment only upon physician approval. 2022 active 10/08 hydrocortison e 100 MG Injection intravenously 100.0 mg Re-initiate treatment only upon physician approval. 2022 active 10/08 diphenhydrami ne hydrochloride 0.5 MG/ML Injectable Solution intravenously 50.0 mg Re-initiate treatment only upon physician approval. 2022 active 10/08 famotidine 10 MG/ML Injectable Solution intravenously 20.0 mg Re-initiate treatment only upon physician approval. 2022 active 09/24 famotidine 10 MG/ML Injectable Solution intravenously 20.0 mg Re-initiate treatment only upon physician approval. 2022 active 09/24 diphenhydrami ne hydrochloride 0.5 MG/ML Injectable Solution intravenously 50.0 mg Re-initiate treatment only upon physician approval. 2022 active 09/24 1 ML epinephrine 1 MG/ML Injection intramuscular ly 0.3 mg once Re-initiate treatment only upon physician approval. 2022 active 09/24 hydrocortison e 100 MG Injection intravenously 100.0 mg Re-initiate treatment only upon physician approval. 2022 active 09/24 methylprednis olone 2000 MG Injection intravenously 125.0 mg Re-initiate treatment only upon physician approval. 2022 active 09/10 methylprednis olone 2000 MG Injection intravenously 125.0 mg Re-initiate treatment only upon physician approval. 2022 active 09/10 diphenhydrami ne hydrochloride 0.5 MG/ML Injectable Solution intravenously 50.0 mg Re-initiate treatment only upon physician approval. 2022 active 09/10 1 ML epinephrine 1 MG/ML Injection intramuscular ly 0.3 mg once Re-initiate treatment only upon physician approval. 2022 active 09/10 hydrocortison e 100 MG Injection intravenously 100.0 mg Re-initiate treatment only upon physician approval. 2022 active 09/10 famotidine 10 MG/ML Injectable Solution intravenously 20.0 mg Re-initiate treatment only upon physician approval. 2022 active 08/28 ascorbic acid 125 MG / iron carbonyl 65 MG Delayed Release Oral Tablet [Vitron-C Reformulated May 2016] orally 1.0 tab daily 2022 active 08/27 atropine sulfate 0.025 MG / diphenoxylate hydrochloride 2.5 MG Oral Tablet orally 1.0 tablet Use as Directed 2022 active 08/27 methylprednis olone 2000 MG Injection intravenously 125.0 mg Re-initiate treatment only upon physician approval. 2022 active 08/27 diphenhydrami ne hydrochloride 0.5 MG/ML Injectable Solution intravenously 50.0 mg Re-initiate treatment only upon physician approval. 2022 active 08/27 hydrocortison e 100 MG Injection intravenously 100.0 mg Re-initiate treatment only upon physician approval. 2022 active 08/27 1 ML epinephrine 1 MG/ML Injection intramuscular ly 0.3 mg once Re-initiate treatment only upon physician approval. 2022 active 08/27 famotidine 10 MG/ML Injectable Solution intravenously 20.0 mg Re-initiate treatment only upon physician approval. 2022 active 08/22 atropine sulfate 0.025 MG / diphenoxylate hydrochloride 2.5 MG Oral Tablet orally 1.0 tablet Use as Directed 2022 active 08/08 famotidine 10 MG/ML Injectable Solution intravenously 20.0 mg Re-initiate treatment only upon physician approval. 2022 active 08/08 1 ML epinephrine 1 MG/ML Injection intramuscular ly 0.3 mg once Re-initiate treatment only upon physician approval. 2022 active 08/08 hydrocortison e 100 MG Injection intravenously 100.0 mg Re-initiate treatment only upon physician approval. 2022 active 08/08 methylprednis olone 2000 MG Injection intravenously 125.0 mg Re-initiate treatment only upon physician approval. 2022 active 08/08 diphenhydrami ne hydrochloride 0.5 MG/ML Injectable Solution intravenously 50.0 mg Re-initiate treatment only upon physician approval. 2022 active 06/25 methylprednis olone 2000 MG Injection intravenously 125.0 mg Re-initiate treatment only upon physician approval. 2022 active 06/25 diphenhydrami ne hydrochloride 0.5 MG/ML Injectable Solution intravenously 50.0 mg Re-initiate treatment only upon physician approval. 2022 active 06/25 hydrocortison e 100 MG Injection intravenously 100.0 mg Re-initiate treatment only upon physician approval. 2022 active 06/25 1 ML epinephrine 1 MG/ML Injection intramuscular ly 0.3 mg once Re-initiate treatment only upon physician approval. 2022 active 06/25 famotidine 10 MG/ML Injectable Solution intravenously 20.0 mg Re-initiate treatment only upon physician approval. 2022 active 06/16 atropine sulfate 0.025 MG / diphenoxylate hydrochloride 2.5 MG Oral Tablet orally 1.0 tablet Use as Directed 2022 active 06/04 hydrocortison e 100 MG Injection intravenously 100.0 mg Re-initiate treatment only upon physician approval. 2022 active 06/04 diphenhydrami ne hydrochloride 0.5 MG/ML Injectable Solution intravenously 50.0 mg Re-initiate treatment only upon physician approval. 2022 active 06/04 methylprednis olone 2000 MG Injection intravenously 125.0 mg Re-initiate treatment only upon physician approval. 2022 active 06/04 famotidine 10 MG/ML Injectable Solution intravenously 20.0 mg Re-initiate treatment only upon physician approval. 2022 active 06/04 1 ML epinephrine 1 MG/ML Injection intramuscular ly 0.3 mg once Re-initiate treatment only upon physician approval. 2022 active 05/14 hydrocortison e 100 MG Injection intravenously 100.0 mg Re-initiate treatment only upon physician approval. 2022 active 05/14 diphenhydrami ne hydrochloride 0.5 MG/ML Injectable Solution intravenously 50.0 mg Re-initiate treatment only upon physician approval. 2022 active 05/14 famotidine 10 MG/ML Injectable Solution intravenously 20.0 mg Re-initiate treatment only upon physician approval. 2022 active 05/14 1 ML epinephrine 1 MG/ML Injection intramuscular ly 0.3 mg once Re-initiate treatment only upon physician approval. 2022 active 05/14 methylprednis olone 2000 MG Injection intravenously 125.0 mg Re-initiate treatment only upon physician approval. 2022 active 04/25 0.6 ML pegfilgrastim -apgf 10 MG/ML Prefilled Syringe [Nyvepria] subcutaneousl y 6.0 mg once Administer once per cycle at least 24 hours after and 14 days before chemotherapy. NOTE: This is [employer]ve[employer]. 2022 active 04/24 hydrocortison e 100 MG Injection intravenously 100.0 mg Re-initiate treatment only upon physician approval. 2022 active 04/24 methylprednis olone 2000 MG Injection intravenously 125.0 mg Re-initiate treatment only upon physician approval. 2022 active 04/24 1 ML epinephrine 1 MG/ML Injection intramuscular ly 0.3 mg once Re-initiate treatment only upon physician approval. 2022 active 04/24 famotidine 10 MG/ML Injectable Solution intravenously 20.0 mg Re-initiate treatment only upon physician approval. 2022 active 04/24 diphenhydrami ne hydrochloride 0.5 MG/ML Injectable Solution intravenously 50.0 mg Re-initiate treatment only upon physician approval. 2022 active 04/02 1 ML epinephrine 1 MG/ML Injection intramuscular ly 0.3 mg once Re-initiate treatment only upon physician approval. 2022 active 04/02 methylprednis olone 2000 MG Injection intravenously 125.0 mg Re-initiate treatment only upon physician approval. 2022 active 04/02 hydrocortison e 100 MG Injection intravenously 100.0 mg Re-initiate treatment only upon physician approval. 2022 active 04/02 diphenhydrami ne hydrochloride 0.5 MG/ML Injectable Solution intravenously 50.0 mg Re-initiate treatment only upon physician approval. 2022 active 04/02 famotidine 10 MG/ML Injectable Solution intravenously 20.0 mg Re-initiate treatment only upon physician approval. 2022 active 03/19 hydrocortison e 25 MG/ML Topical Cream rectally 1.0 application 1 to 2 times per day 2022 active 03/05 methylprednis olone 2000 MG Injection intravenously 125.0 mg Re-initiate treatment only upon physician approval. 2022 active 03/05 leucovorin 50 MG Injection intravenously 800.0 mg once Mix in NS or D5W. Infuse concurrently via [employer]-site with Irinotecan. 03/05 on hold 03/05 hydrocortison e 100 MG Injection intravenously 100.0 mg Re-initiate treatment only upon physician approval. 2022 active 03/05 1 ML epinephrine 1 MG/ML Injection intramuscular ly 0.3 mg once Re-initiate treatment only upon physician approval. 2022 active 03/05 famotidine 10 MG/ML Injectable Solution intravenously 20.0 mg Re-initiate treatment only upon physician approval. 2022 active 03/05 diphenhydrami ne hydrochloride 0.5 MG/ML Injectable Solution intravenously 50.0 mg Re-initiate treatment only upon physician approval. 2022 active 02/19 1 ML epinephrine 1 MG/ML Injection intramuscular ly 0.3 mg once Re-initiate treatment only upon physician approval. 2022 active 02/19 methylprednis olone 2000 MG Injection intravenously 125.0 mg Re-initiate treatment only upon physician approval. 2022 active 02/19 diphenhydrami ne hydrochloride 0.5 MG/ML Injectable Solution intravenously 50.0 mg Re-initiate treatment only upon physician approval. 2022 active 02/19 famotidine 10 MG/ML Injectable Solution intravenously 20.0 mg Re-initiate treatment only upon physician approval. 2022 active 02/19 hydrocortison e 100 MG Injection intravenously 100.0 mg Re-initiate treatment only upon physician approval. 2022 active 02/05 1 ML epinephrine 1 MG/ML Injection intramuscular ly 0.3 mg once Re-initiate treatment only upon physician approval. 2022 active 02/05 diphenhydrami ne hydrochloride 0.5 MG/ML Injectable Solution intravenously 50.0 mg Re-initiate treatment only upon physician approval. 2022 active 02/05 famotidine 10 MG/ML Injectable Solution intravenously 20.0 mg Re-initiate treatment only upon physician approval. 2022 active 02/05 hydrocortison e 100 MG Injection intravenously 100.0 mg Re-initiate treatment only upon physician approval. 2022 active 02/05 methylprednis olone 2000 MG Injection intravenously 125.0 mg Re-initiate treatment only upon physician approval. 2022 active 01/22 famotidine 10 MG/ML Injectable Solution intravenously 20.0 mg Re-initiate treatment only upon physician approval. 2022 active 01/22 diphenhydrami ne hydrochloride 0.5 MG/ML Injectable Solution intravenously 50.0 mg Re-initiate treatment only upon physician approval. 2022 active 01/22 methylprednis olone 2000 MG Injection intravenously 125.0 mg Re-initiate treatment only upon physician approval. 2022 active 01/22 1 ML epinephrine 1 MG/ML Injection intramuscular ly 0.3 mg once Re-initiate treatment only upon physician approval. 2022 active 01/22 hydrocortison e 100 MG Injection intravenously 100.0 mg Re-initiate treatment only upon physician approval. 2022 active 01/08 diphenhydrami ne hydrochloride 0.5 MG/ML Injectable Solution intravenously 50.0 mg Re-initiate treatment only upon physician approval. 2022 active 01/08 1 ML epinephrine 1 MG/ML Injection intramuscular ly 0.3 mg once Re-initiate treatment only upon physician approval. 2022 active 01/08 methylprednis olone 2000 MG Injection intravenously 125.0 mg Re-initiate treatment only upon physician approval. 2022 active 01/08 famotidine 10 MG/ML Injectable Solution intravenously 20.0 mg Re-initiate treatment only upon physician approval. 2022 active 01/08 hydrocortison e 100 MG Injection intravenously 100.0 mg Re-initiate treatment only upon physician approval. 2022 active 12/11 hydrocortison e 100 MG Injection intravenously 100.0 mg Re-initiate treatment only upon physician approval. 2022 active 12/11 diphenhydrami ne hydrochloride 0.5 MG/ML Injectable Solution intravenously 50.0 mg Re-initiate treatment only upon physician approval. 2022 active 12/11 famotidine 10 MG/ML Injectable Solution intravenously 20.0 mg Re-initiate treatment only upon physician approval. 2022 active 12/11 1 ML epinephrine 1 MG/ML Injection intramuscular ly 0.3 mg once Re-initiate treatment only upon physician approval. 2022 active 12/11 methylprednis olone 2000 MG Injection intravenously 125.0 mg Re-initiate treatment only upon physician approval. 2022 active 12/11 atropine sulfate intravenously 0.4 mg once as needed for treatment of acute cholinergic reaction. Dosage not to exceed 1 mg in 24 hours. 2022 active 11/27 hydrocortison e 100 MG Injection intravenously 100.0 mg Re-initiate treatment only upon physician approval. 2022 active 11/27 methylprednis olone 2000 MG Injection intravenously 125.0 mg Re-initiate treatment only upon physician approval. 2022 active 11/27 famotidine 10 MG/ML Injectable Solution intravenously 20.0 mg Re-initiate treatment only upon physician approval. 2022 active 11/27 diphenhydrami ne hydrochloride 0.5 MG/ML Injectable Solution intravenously 50.0 mg Re-initiate treatment only upon physician approval. 2022 active 11/27 1 ML epinephrine 1 MG/ML Injection intramuscular ly 0.3 mg once Re-initiate treatment only upon physician approval. 2022 active 11/13 famotidine 10 MG/ML Injectable Solution intravenously 20.0 mg Re-initiate treatment only upon physician approval. 2021 active 11/13 diphenhydrami ne hydrochloride 0.5 MG/ML Injectable Solution intravenously 50.0 mg Re-initiate treatment only upon physician approval. 2021 active 11/13 methylprednis olone 2000 MG Injection intravenously 125.0 mg Re-initiate treatment only upon physician approval. 2021 active 11/13 1 ML epinephrine 1 MG/ML Injection intramuscular ly 0.3 mg once Re-initiate treatment only upon physician approval. 2021 active 11/13 hydrocortison e 100 MG Injection intravenously 100.0 mg Re-initiate treatment only upon physician approval. 2021 active 10/23 famotidine 10 MG/ML Injectable Solution intravenously 20.0 mg Re-initiate treatment only upon physician approval. 2021 active 10/23 1 ML epinephrine 1 MG/ML Injection intramuscular ly 0.3 mg once Re-initiate treatment only upon physician approval. 2021 active 10/23 methylprednis olone 2000 MG Injection intravenously 125.0 mg Re-initiate treatment only upon physician approval. 2021 active 10/23 diphenhydrami ne hydrochloride 0.5 MG/ML Injectable Solution intravenously 50.0 mg Re-initiate treatment only upon physician approval. 2021 active 10/23 hydrocortison e 100 MG Injection intravenously 100.0 mg Re-initiate treatment only upon physician approval. 2021 active 10/02 hydrocortison e 100 MG Injection intravenously 100.0 mg Re-initiate treatment only upon physician approval. 2021 active 10/02 diphenhydrami ne hydrochloride 0.5 MG/ML Injectable Solution intravenously 50.0 mg Re-initiate treatment only upon physician approval. 2021 active 10/02 famotidine 10 MG/ML Injectable Solution intravenously 20.0 mg Re-initiate treatment only upon physician approval. 2021 active 10/02 methylprednis olone 2000 MG Injection intravenously 125.0 mg Re-initiate treatment only upon physician approval. 2021 active 10/02 1 ML epinephrine 1 MG/ML Injection intramuscular ly 0.3 mg once Re-initiate treatment only upon physician approval. 2021 active 09/18 hydrocortison e 100 MG Injection intravenously 100.0 mg Re-initiate treatment only upon physician approval. 2021 active 09/18 diphenhydrami ne hydrochloride 0.5 MG/ML Injectable Solution intravenously 50.0 mg Re-initiate treatment only upon physician approval. 2021 active 09/18 1 ML epinephrine 1 MG/ML Injection intramuscular ly 0.3 mg once Re-initiate treatment only upon physician approval. 2021 active 09/18 famotidine 10 MG/ML Injectable Solution intravenously 20.0 mg Re-initiate treatment only upon physician approval. 2021 active 09/18 methylprednis olone 2000 MG Injection intravenously 125.0 mg Re-initiate treatment only upon physician approval. 2021 active 09/04 1 ML epinephrine 1 MG/ML Injection intramuscular ly 0.3 mg once Re-initiate treatment only upon physician approval. 2021 active 09/04 diphenhydrami ne hydrochloride 0.5 MG/ML Injectable Solution intravenously 50.0 mg Re-initiate treatment only upon physician approval. 2021 active 09/04 famotidine 10 MG/ML Injectable Solution intravenously 20.0 mg Re-initiate treatment only upon physician approval. 2021 active 09/04 hydrocortison e 100 MG Injection intravenously 100.0 mg Re-initiate treatment only upon physician approval. 2021 active 09/04 methylprednis olone 2000 MG Injection intravenously 125.0 mg Re-initiate treatment only upon physician approval. 2021 active 08/21 famotidine 10 MG/ML Injectable Solution intravenously 20.0 mg Re-initiate treatment only upon physician approval. 2021 active 08/21 methylprednis olone 2000 MG Injection intravenously 125.0 mg Re-initiate treatment only upon physician approval. 2021 active 08/21 diphenhydrami ne hydrochloride 0.5 MG/ML Injectable Solution intravenously 50.0 mg Re-initiate treatment only upon physician approval. 2021 active 08/21 hydrocortison e 100 MG Injection intravenously 100.0 mg Re-initiate treatment only upon physician approval. 2021 active 08/21 1 ML epinephrine 1 MG/ML Injection intramuscular ly 0.3 mg once Re-initiate treatment only upon physician approval. 2021 active 08/07 1 ML epinephrine 1 MG/ML Injection intramuscular ly 0.3 mg once Re-initiate treatment only upon physician approval. 2021 active 08/07 methylprednis olone 2000 MG Injection intravenously 125.0 mg Re-initiate treatment only upon physician approval. 2021 active 08/07 famotidine 10 MG/ML Injectable Solution intravenously 20.0 mg Re-initiate treatment only upon physician approval. 2021 active 08/07 diphenhydrami ne hydrochloride 0.5 MG/ML Injectable Solution intravenously 50.0 mg Re-initiate treatment only upon physician approval. 2021 active 08/07 hydrocortison e 100 MG Injection intravenously 100.0 mg Re-initiate treatment only upon physician approval. 2021 active 07/24 diphenhydrami ne hydrochloride 0.5 MG/ML Injectable Solution intravenously 50.0 mg Re-initiate treatment only upon physician approval. 2021 active 07/24 famotidine 10 MG/ML Injectable Solution intravenously 20.0 mg Re-initiate treatment only upon physician approval. 2021 active 07/24 hydrocortison e 100 MG Injection intravenously 100.0 mg Re-initiate treatment only upon physician approval. 2021 active 07/24 methylprednis olone 2000 MG Injection intravenously 125.0 mg Re-initiate treatment only upon physician approval. 2021 active 07/24 1 ML epinephrine 1 MG/ML Injection intramuscular ly 0.3 mg once Re-initiate treatment only upon physician approval. 2021 active 07/10 famotidine 10 MG/ML Injectable Solution intravenously 20.0 mg Re-initiate treatment only upon physician approval. 2021 active 07/10 hydrocortison e 100 MG Injection intravenously 100.0 mg Re-initiate treatment only upon physician approval. 2021 active 07/10 fluorouracil 50 MG/ML Injectable Solution intravenously 820.0 mg once 07/10 on hold 07/10 leucovorin 50 MG Injection intravenously 800.0 mg once Dilute in NS or D5W.Administer prior to Fluorouracil bolus. 07/10 on hold 07/10 methylprednis olone 2000 MG Injection intravenously 125.0 mg Re-initiate treatment only upon physician approval. 2021 active 07/10 diphenhydrami ne hydrochloride 0.5 MG/ML Injectable Solution intravenously 50.0 mg Re-initiate treatment only upon physician approval. 2021 active 07/10 1 ML epinephrine 1 MG/ML Injection intramuscular ly 0.3 mg once Re-initiate treatment only upon physician approval. 2021 active 07/05 famotidine 10 MG/ML Injectable Solution intravenously 20.0 mg Re-initiate treatment only upon physician approval. 2021 active 07/05 4 ML bevacizumab-b vzr 25 MG/ML Injection [Zirabev] intravenously 700.0 mg once Dilute with NS to a total volume of 100 mL. First infusion over 90 minutes. If first infusion is tolerated, administer second infusion over 60 minutes. If second infusion is tolerated, subsequent infusions may be administered over 30 minutes. Do not mix or administer with dextrose solution. NOTE: This is Zirabev. 2021 active 07/05 Solu-Medrol intravenously 125.0 mg Re-initiate treatment only upon physician approval. 2021 active 07/05 Solu-Cortef intravenously 100.0 mg Re-initiate treatment only upon physician approval. 2021 active 07/05 Diphenhydrami ne IV intravenously 50.0 mg Re-initiate treatment only upon physician approval. 2021 active 07/05 1 ML epinephrine 1 MG/ML Injection intramuscular ly 0.3 mg once Re-initiate treatment only upon physician approval. 2021 active 06/14 Diphenhydrami ne IV intravenously 50.0 mg Re-initiate treatment only upon physician approval. 2021 active 06/14 Solu-Medrol intravenously 125.0 mg Re-initiate treatment only upon physician approval. 2021 active 06/14 famotidine 10 MG/ML Injectable Solution intravenously 20.0 mg Re-initiate treatment only upon physician approval. 2021 active 06/14 Solu-Cortef intravenously 100.0 mg Re-initiate treatment only upon physician approval. 2021 active 06/14 1 ML epinephrine 1 MG/ML Injection intramuscular ly 0.3 mg once Re-initiate treatment only upon physician approval. 2021 active 05/24 Solu-Cortef intravenously 100.0 mg Re-initiate treatment only upon physician approval. 2021 active 05/24 famotidine 10 MG/ML Injectable Solution intravenously 20.0 mg Re-initiate treatment only upon physician approval. 2021 active 05/24 Diphenhydrami ne IV intravenously 50.0 mg Re-initiate treatment only upon physician approval. 2021 active 05/24 Solu-Medrol intravenously 125.0 mg Re-initiate treatment only upon physician approval. 2021 active 05/24 1 ML epinephrine 1 MG/ML Injection intramuscular ly 0.3 mg once Re-initiate treatment only upon physician approval. 2021 active 05/03 famotidine 10 MG/ML Injectable Solution intravenously 20.0 mg Re-initiate treatment only upon physician approval. 2021 active 05/03 Diphenhydrami ne IV intravenously 50.0 mg Re-initiate treatment only upon physician approval. 2021 active 05/03 1 ML epinephrine 1 MG/ML Injection intramuscular ly 0.3 mg once Re-initiate treatment only upon physician approval. 2021 active 05/03 Solu-Medrol intravenously 125.0 mg Re-initiate treatment only upon physician approval. 2021 active 05/03 Solu-Cortef intravenously 100.0 mg Re-initiate treatment only upon physician approval. 2021 active 04/12 Solu-Medrol intravenously 125.0 mg Re-initiate treatment only upon physician approval. 2021 active 04/12 Solu-Cortef intravenously 100.0 mg Re-initiate treatment only upon physician approval. 2021 active 04/12 1 ML epinephrine 1 MG/ML Injection intramuscular ly 0.3 mg once Re-initiate treatment only upon physician approval. 2021 active 04/12 famotidine 10 MG/ML Injectable Solution intravenously 20.0 mg Re-initiate treatment only upon physician approval. 2021 active 04/12 Diphenhydrami ne IV intravenously 50.0 mg Re-initiate treatment only upon physician approval. 2021 active 03/22 famotidine 10 MG/ML Injectable Solution intravenously 20.0 mg Re-initiate treatment only upon physician approval. 2021 active 03/22 1 ML epinephrine 1 MG/ML Injection intramuscular ly 0.3 mg once Re-initiate treatment only upon physician approval. 2021 active 03/22 Solu-Medrol intravenously 125.0 mg Re-initiate treatment only upon physician approval. 2021 active 03/22 Solu-Cortef intravenously 100.0 mg Re-initiate treatment only upon physician approval. 2021 active 03/22 Diphenhydrami ne IV intravenously 50.0 mg Re-initiate treatment only upon physician approval. 2021 active 03/01 Solu-Cortef intravenously 100.0 mg Re-initiate treatment only upon physician approval. 2021 active 03/01 1 ML epinephrine 1 MG/ML Injection intramuscular ly 0.3 mg once Re-initiate treatment only upon physician approval. 2021 active 03/01 Solu-Medrol intravenously 125.0 mg Re-initiate treatment only upon physician approval. 2021 active 03/01 famotidine 10 MG/ML Injectable Solution intravenously 20.0 mg Re-initiate treatment only upon physician approval. 2021 active 03/01 Diphenhydrami ne IV intravenously 50.0 mg Re-initiate treatment only upon physician approval. 2021 active 02/08 1 ML epinephrine 1 MG/ML Injection intramuscular ly 0.3 mg once Re-initiate treatment only upon physician approval. 2021 active 02/08 Solu-Medrol intravenously 125.0 mg Re-initiate treatment only upon physician approval. 2021 active 02/08 Diphenhydrami ne IV intravenously 50.0 mg Re-initiate treatment only upon physician approval. 2021 active 02/08 famotidine 10 MG/ML Injectable Solution intravenously 20.0 mg Re-initiate treatment only upon physician approval. 2021 active 02/08 Solu-Cortef intravenously 100.0 mg Re-initiate treatment only upon physician approval. 2021 active 01/18 famotidine 10 MG/ML Injectable Solution intravenously 20.0 mg Re-initiate treatment only upon physician approval. 2021 active 01/18 1 ML epinephrine 1 MG/ML Injection intramuscular ly 0.3 mg once Re-initiate treatment only upon physician approval. 2021 active 01/18 Solu-Cortef intravenously 100.0 mg Re-initiate treatment only upon physician approval. 2021 active 01/18 Solu-Medrol intravenously 125.0 mg Re-initiate treatment only upon physician approval. 2021 active 01/18 Diphenhydrami ne IV intravenously 50.0 mg Re-initiate treatment only upon physician approval. 2021 active 12/28 1 ML epinephrine 1 MG/ML Injection intramuscular ly 0.3 mg once Re-initiate treatment only upon physician approval. 2021 active 12/28 Diphenhydrami ne IV intravenously 50.0 mg Re-initiate treatment only upon physician approval. 2021 active 12/28 lorazepam 0.5 MG Oral Tablet orally 1.0 tablet every 4 hours 2021 active 12/28 famotidine 10 MG/ML Injectable Solution intravenously 20.0 mg Re-initiate treatment only upon physician approval. 2021 active 12/28 Solu-Cortef intravenously 100.0 mg Re-initiate treatment only upon physician approval. 2021 active 12/28 Solu-Medrol intravenously 125.0 mg Re-initiate treatment only upon physician approval. 2021 active 12/07 famotidine 10 MG/ML Injectable Solution intravenously 20.0 mg Re-initiate treatment only upon physician approval. 2021 active 12/07 Solu-Cortef intravenously 100.0 mg Re-initiate treatment only upon physician approval. 2021 active 12/07 Solu-Medrol intravenously 125.0 mg Re-initiate treatment only upon physician approval. 2021 active 12/07 1 ML epinephrine 1 MG/ML Injection intramuscular ly 0.3 mg once Re-initiate treatment only upon physician approval. 2021 active 12/07 Diphenhydrami ne IV intravenously 50.0 mg Re-initiate treatment only upon physician approval. 2021 active 10/24 diphenhydrami ne hydrochloride 0.5 MG/ML Injectable Solution intravenously 50.0 mg Re-initiate treatment only upon physician approval. 2020 active 10/24 1 ML epinephrine 1 MG/ML Injection intramuscular ly 0.3 mg once Re-initiate treatment only upon physician approval. 2020 active 10/24 famotidine 10 MG/ML Injectable Solution intravenously 20.0 mg Re-initiate treatment only upon physician approval. 2020 active 10/24 methylprednis olone 2000 MG Injection intravenously 125.0 mg Re-initiate treatment only upon physician approval. 2020 active 10/24 hydrocortison e 100 MG Injection intravenously 100.0 mg Re-initiate treatment only upon physician approval. 2020 active 10/10 diphenhydrami ne hydrochloride 0.5 MG/ML Injectable Solution intravenously 50.0 mg Re-initiate treatment only upon physician approval. 2020 active 10/10 methylprednis olone 2000 MG Injection intravenously 125.0 mg Re-initiate treatment only upon physician approval. 2020 active 10/10 influenza A virus A/[facility] 01/2020 (H3N2) antigen 0.03 MG/ML / influenza A virus A/[place] (H1N1) antigen 0.03 MG/ML / influenza B virus B/[place] antigen 0.03 MG/ML / influenza B virus B/ [id number]/ 2015 antigen 0.03 MG/ML Injectable Suspension [Flucelvax Quadrivalent [id number]] intramuscular ly 0.5 mL once as a single dose. 2020 active 10/10 famotidine 10 MG/ML Injectable Solution intravenously 20.0 mg Re-initiate treatment only upon physician approval. 2020 active 10/10 hydrocortison e 100 MG Injection intravenously 100.0 mg Re-initiate treatment only upon physician approval. 2020 active 10/10 1 ML epinephrine 1 MG/ML Injection intramuscular ly 0.3 mg once Re-initiate treatment only upon physician approval. 2020 active 09/26 1 ML epinephrine 1 MG/ML Injection intramuscular ly 0.3 mg once Re-initiate treatment only upon physician approval. 2020 active 09/26 hydrocortison e 100 MG Injection intravenously 100.0 mg Re-initiate treatment only upon physician approval. 2020 active 09/26 famotidine 10 MG/ML Injectable Solution intravenously 20.0 mg Re-initiate treatment only upon physician approval. 2020 active 09/26 methylprednis olone 2000 MG Injection intravenously 125.0 mg Re-initiate treatment only upon physician approval. 2020 active 09/26 diphenhydrami ne hydrochloride 0.5 MG/ML Injectable Solution intravenously 50.0 mg Re-initiate treatment only upon physician approval. 2020 active 09/12 methylprednis olone 2000 MG Injection intravenously 125.0 mg Re-initiate treatment only upon physician approval. 2020 active 09/12 1 ML epinephrine 1 MG/ML Injection intramuscular ly 0.3 mg once Re-initiate treatment only upon physician approval. 2020 active 09/12 hydrocortison e 100 MG Injection intravenously 100.0 mg Re-initiate treatment only upon physician approval. 2020 active 09/12 famotidine 10 MG/ML Injectable Solution intravenously 20.0 mg Re-initiate treatment only upon physician approval. 2020 active 09/12 diphenhydrami ne hydrochloride 0.5 MG/ML Injectable Solution intravenously 50.0 mg Re-initiate treatment only upon physician approval. 2020 active 08/29 hydrocortison e 100 MG Injection intravenously 100.0 mg Re-initiate treatment only upon physician approval. 2020 active 08/29 diphenhydrami ne hydrochloride 0.5 MG/ML Injectable Solution intravenously 50.0 mg Re-initiate treatment only upon physician approval. 2020 active 08/29 famotidine 10 MG/ML Injectable Solution intravenously 20.0 mg Re-initiate treatment only upon physician approval. 2020 active 08/29 methylprednis olone 2000 MG Injection intravenously 125.0 mg Re-initiate treatment only upon physician approval. 2020 active 08/29 1 ML epinephrine 1 MG/ML Injection intramuscular ly 0.3 mg once Re-initiate treatment only upon physician approval. 2020 active 08/15 diphenhydrami ne hydrochloride 0.5 MG/ML Injectable Solution intravenously 50.0 mg Re-initiate treatment only upon physician approval. 2020 active 08/15 1 ML epinephrine 1 MG/ML Injection intramuscular ly 0.3 mg once Re-initiate treatment only upon physician approval. 2020 active 08/15 hydrocortison e 100 MG Injection intravenously 100.0 mg Re-initiate treatment only upon physician approval. 2020 active 08/15 famotidine 10 MG/ML Injectable Solution intravenously 20.0 mg Re-initiate treatment only upon physician approval. 2020 active 08/15 methylprednis olone 2000 MG Injection intravenously 125.0 mg Re-initiate treatment only upon physician approval. 2020 active 08/01 diphenhydrami ne hydrochloride 0.5 MG/ML Injectable Solution intravenously 50.0 mg Re-initiate treatment only upon physician approval. 2020 active 08/01 hydrocortison e 100 MG Injection intravenously 100.0 mg Re-initiate treatment only upon physician approval. 2020 active 08/01 1 ML epinephrine 1 MG/ML Injection intramuscular ly 0.3 mg once Re-initiate treatment only upon physician approval. 2020 active 08/01 famotidine 10 MG/ML Injectable Solution intravenously 20.0 mg Re-initiate treatment only upon physician approval. 2020 active 08/01 methylprednis olone 2000 MG Injection intravenously 125.0 mg Re-initiate treatment only upon physician approval. 2020 active 07/18 1 ML epinephrine 1 MG/ML Injection intramuscular ly 0.3 mg once Re-initiate treatment only upon physician approval. 2020 active 07/18 methylprednis olone 2000 MG Injection intravenously 125.0 mg Re-initiate treatment only upon physician approval. 2020 active 07/18 famotidine 10 MG/ML Injectable Solution intravenously 20.0 mg Re-initiate treatment only upon physician approval. 2020 active 07/18 diphenhydrami ne hydrochloride 0.5 MG/ML Injectable Solution intravenously 50.0 mg Re-initiate treatment only upon physician approval. 2020 active 07/18 hydrocortison e 100 MG Injection intravenously 100.0 mg Re-initiate treatment only upon physician approval. 2020 active 07/04 diphenhydrami ne hydrochloride 0.5 MG/ML Injectable Solution intravenously 50.0 mg Re-initiate treatment only upon physician approval. 2020 active 07/04 methylprednis olone 2000 MG Injection intravenously 125.0 mg Re-initiate treatment only upon physician approval. 2020 active 07/04 famotidine 10 MG/ML Injectable Solution intravenously 20.0 mg Re-initiate treatment only upon physician approval. 2020 active 07/04 1 ML epinephrine 1 MG/ML Injection intramuscular ly 0.3 mg once Re-initiate treatment only upon physician approval. 2020 active 07/04 hydrocortison e 100 MG Injection intravenously 100.0 mg Re-initiate treatment only upon physician approval. 2020 active 06/20 diphenhydrami ne hydrochloride 0.5 MG/ML Injectable Solution intravenously 50.0 mg Re-initiate treatment only upon physician approval. 2020 active 06/20 1 ML epinephrine 1 MG/ML Injection intramuscular ly 0.3 mg once Re-initiate treatment only upon physician approval. 2020 active 06/20 methylprednis olone 2000 MG Injection intravenously 125.0 mg Re-initiate treatment only upon physician approval. 2020 active 06/20 famotidine 10 MG/ML Injectable Solution intravenously 20.0 mg Re-initiate treatment only upon physician approval. 2020 active 06/20 hydrocortison e 100 MG Injection intravenously 100.0 mg Re-initiate treatment only upon physician approval. 2020 active 06/20 chlorpromazin e hydrochloride 50 MG Oral Tablet orally 1.0 tablet 3 times per day 2020 active 06/06 methylprednis olone 2000 MG Injection intravenously 125.0 mg Re-initiate treatment only upon physician approval. 2020 active 06/06 famotidine 10 MG/ML Injectable Solution intravenously 20.0 mg Re-initiate treatment only upon physician approval. 2020 active 06/06 diphenhydrami ne hydrochloride 0.5 MG/ML Injectable Solution intravenously 50.0 mg Re-initiate treatment only upon physician approval. 2020 active 06/06 1 ML epinephrine 1 MG/ML Injection intramuscular ly 0.3 mg once Re-initiate treatment only upon physician approval. 2020 active 06/06 hydrocortison e 100 MG Injection intravenously 100.0 mg Re-initiate treatment only upon physician approval. 2020 active 05/23 lorazepam 0.5 MG Oral Tablet orally 1.0 tablet every 4 hours 2020 active Problems Diagnosis Status Date of Diagnosi s Neutropenia prevention Active Cancer with lung metastasis Active Cancer with lung metastasis Active Protein calorie malnutrition Active Abnormal weight loss (finding) Active Anemia of chronic disease Active Thrombocytopenia caused by drugs (disorder) Acti ve Neutropenia prevention Active Iron deficiency anemia (disorder) Active Drug-induced constipation (disorder) Active Anemia Active Chronic kidney disease Active Left knee pain Active Pancytopenia caused by antineoplastic chemothera py Active Proteinuria Active Abdominal pain (finding) Active Survivorship issues Active Colon cancer Active Secondary malignant neoplasm of liver (disorder) Active Colon cancer Active 05/09/2021 Cancer with lung metastasis Active Thrombocytopenia, acquired Active 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 Dry cough (finding) Active Weakness Active Lower extremity edema Active Low back pain Active Bleeding hemorrhoids (disorder) Active Dehydration Active Urinary frequency Active Bacteremia Active Bony pelvic pain (finding) Active Insomnia Active Anxiety Active Ascites Active DVT of superior mesenteric vein Active Diarrhea caused by drug (disorder) Active Lip lesion Active Drug-induced mucositis (disorder) Active Drug dermatitis Active Shingles Active Hypertension Active Vital Signs Date Type Value 10/22/2024 Body Temperature 97.90 10/22/2024 Heart Beat 99.00 10/22/2024 Respiratory Rate 18.00 10/22/2024 Oxygen Saturation 96.00 10/22/2024 BSA 1.97 10/22/2024 Pain Scale 0.00 10/22/2024 Weight 193.70 10/22/2024 Height 66.00 10/22/2024 BMI 31.26 10/22/2024 Intravascular Systolic 144 10/22/2024 Intravascular Diastolic 78 11/11/2024 BSA 1.96 11/11/2024 BMI 30.65 11/11/2024 Height 66.00 11/11/2024 Weight 189.90 11/11/2024 Pain Scale 0.00 11/11/2024 Intravascular Systolic 142 11/11/2024 Intravascular Diastolic 92 11/11/2024 Oxygen Saturation 99.00 11/11/2024 Respiratory Rate 16.00 11/11/2024 Body Temperature 96.90 11/11/2024 Heart Beat 85.00 11/16/2024 BMI 30.12 11/16/2024 Height 66.00 11/16/2024 Weight 186.60 11/16/2024 Pain Scale 0.00 11/16/2024 Respiratory Rate 16.00 11/16/2024 Oxygen Saturation 97.00 11/16/2024 BSA 1.94 11/16/2024 Body Temperature 98.10 11/16/2024 Heart Beat 97.00 11/16/2024 Intravascular Systolic 130 11/16/2024 Intravascular Diastolic 82 11/18/2024 Height 66.00 11/18/2024 Pain Scale 0.00 11/18/2024 Intravascular Systolic 144 11/18/2024 Intravascular Diastolic 87 11/18/2024 Oxygen Saturation 95.00 11/18/2024 Respiratory Rate 18.00 11/18/2024 Body Temperature 97.00 11/18/2024 Heart Beat 92.00 11/25/2024 BMI 27.34 11/25/2024 Height 66.00 11/25/2024 Weight 169.40 11/25/2024 Pain Scale 8.00 11/25/2024 BSA 1.86 11/25/2024 Oxygen Saturation 97.00 11/25/2024 Respiratory Rate 16.00 11/25/2024 Heart Beat 110.00 11/25/2024 Body Temperature 98.60 11/25/2024 Intravascular Systolic 110 11/25/2024 Intravascular Diastolic 64 12/15/2024 Body Temperature 97.40 12/15/2024 Heart Beat 105.00 12/15/2024 Respiratory Rate 16.00 12/15/2024 Oxygen Saturation 98.00 12/15/2024 Intravascular Systolic 162 12/15/2024 Intravascular Diastolic 98 12/15/2024 Pain Scale 2.00 12/15/2024 Weight 187.30 12/15/2024 Height 66.00 12/15/2024 BMI 30.23 12/15/2024 BSA 1.95 12/17/2024 Body Temperature 96.10 12/17/2024 Heart Beat 92.00 12/17/2024 Respiratory Rate 18.00 12/17/2024 Height 66.00 12/17/2024 Intravascular Systolic 132 12/17/2024 Intravascular Diastolic 79 12/17/2024 Pain Scale 0.00 12/17/2024 Oxygen Saturation 98.00 12/29/2024 Heart Beat 98.00 12/29/2024 Body Temperature 97.60 12/29/2024 BSA 1.89 12/29/2024 BMI 28.26 12/29/2024 Respiratory Rate 16.00 12/29/2024 Weight 175.10 12/29/2024 Pain Scale 0.00 12/29/2024 Intravascular Systolic 124 12/29/2024 Intravascular Diastolic 84 12/29/2024 Oxygen Saturation 96.00 12/29/2024 Height 66.00 01/03/2025 Heart Beat 106.00 01/03/2025 Body Temperature 97.50 01/03/2025 Oxygen Saturation 95.00 01/03/2025 Intravascular Systolic 132 01/03/2025 Intravascular Diastolic 82 01/03/2025 Pain Scale 4.00 01/03/2025 Weight 170.30 01/03/2025 Height 66.00 01/03/2025 Respiratory Rate 16.00 01/03/2025 BSA 1.87 01/03/2025 BMI 27.49 01/12/2025 BMI 27.76 01/12/2025 BSA 1.88 01/12/2025 Height 66.00 01/12/2025 Weight 172.00 01/12/2025 Pain Scale 2.00 01/12/2025 Intravascular Systolic 120 01/12/2025 Intravascular Diastolic 72 01/12/2025 Oxygen Saturation 96.00 01/12/2025 Body Temperature 96.40 01/12/2025 Heart Beat 102.00 01/14/2025 Body Temperature 96.10 01/14/2025 Heart Beat 105.00 01/14/2025 Respiratory Rate 16.00 01/14/2025 Oxygen Saturation 100.00 01/14/2025 Intravascular Systolic 135 01/14/2025 Intravascular Diastolic 79 01/14/2025 Pain Scale 5.00 01/14/2025 Height 66.00 02/02/2025 Body Temperature 97.50 02/02/2025 Heart Beat 51.00 02/02/2025 BSA 1.89 02/02/2025 BMI 28.16 02/02/2025 Height 66.00 02/02/2025 Weight 174.50 02/02/2025 Pain Scale 0.00 02/02/2025 Intravascular Systolic 118 02/02/2025 Intravascular Diastolic 84 02/02/2025 Oxygen Saturation 91.00 02/02/2025 Respiratory Rate 16.00 02/18/2025 Body Temperature 97.80 02/18/2025 BMI 28.18 02/18/2025 Height 66.00 02/18/2025 Weight 174.60 02/18/2025 BSA 1.89 02/18/2025 Intravascular Systolic 144 02/18/2025 Intravascular Diastolic 84 02/18/2025 Oxygen Saturation 96.00 02/18/2025 Respiratory Rate 16.00 02/18/2025 Heart Beat 103.00 02/18/2025 Pain Scale 0.00 03/23/2025 Body Temperature 97.40 03/23/2025 Heart Beat 106.00 03/23/2025 Respiratory Rate 16.00 03/23/2025 Oxygen Saturation 95.00 03/23/2025 BSA 1.84 03/23/2025 Pain Scale 0.00 03/23/2025 Weight 163.30 03/23/2025 Height 66.00 03/23/2025 BMI 26.36 03/23/2025 Intravascular Systolic 144 03/23/2025 Intravascular Diastolic 86
--- OUTSIDE RECORDS SUMMARY | 2025-04-10 17:25 | XMS_ITS ---
Author Name Interface, [id number] lity Address [address] [facility] [address] [address] [facility] Address [address] [facility] [address] [address] Care Team Providers Care Laborer Name Role Phone MelitonMarisel guzman Unavailable Unavailable Allergies and Adverse Reactions Medication/Group [...] 30 MIN 11/25/2024 APPOINTMENT TREATMENT 2 HR 11/25/2024 LABORDER CBC w/ auto diff 12/01/2024 [...] Visit LAB 15 MIN Encounters Date Name 11/25/2024 Ascites 11/25/2024 Bacteremia 11/25/2024 Bleeding hemorrhoids (disorder) 11/25/2024 Bony pelvic pain (fi nding) 11/25/2024 Colon cancer 11/25/2024 Dehydration 11/25/2024 Low back pain 11/25/2024 Lower extremity larissa a 11/25/2024 Urinary frequency 11/25/2024 Weakness Immunizations Date Name Route Dose Instructions Refusal Reason Stat us Covid-19 vaccine (Moderna) Patient declined/rejected Not Administered Other Patient declined/rejected Not Administered Diagnostic Results Date Type Test Units Lower Limit Upper Limit Result Flag Comments Status Ordered By Specimen Source Lab Address 11/25 CBC w/ auto diff WBC K/uL 3.0 8.9 0.4 Critica l hematol ogy result obtaine d Yawti reginald Low FINAL [facility] [place] [facility] , [address] [facility] [address] [facility] [id number] 0 11/25 CBC w/ auto diff HGB g/dL 12.5 16.6 8.5 Low [facility] [place] [facility] , [address] [facility] [address] [facility] [id number] 0 11/25 CBC w/ auto diff PLT K/uL 113.0 364.0 27 Critica l hematol ogy result obtaine d Fritz reginald Low [facility] , [address] [facility] [address] [facility] [id number] 0 11/25 CBC w/ auto diff Plate let, immat ure, fract ion % 0.9 11.2 4.9 [facility] [place] [facility] , [address] [facility] [address] [facility] [id number] 0 11/25 CBC w/ auto diff Samantha # (ANC) K/uL 1.6 6.6 0.1 Critica l hematol ogy result obtaine d Criti reginald Low [facility] [place] [facility] , [address] [facility] [address] [facility] [id number] 0 11/25 CBC w/ auto diff Samantha % % 43.0 74.0 12.2 Low FINAL [facility] Avalos [place] [facility] , [address] [place] [id number] 0 11/25 CBC w/ auto diff IG % % 0.0 0.5 0.0 FINAL [facility] Avalos [place] [facility] , [address] [place] [id number] 0 11/25 CBC w/ auto diff IG # K/uL 0.0 0.03 0.00 FINAL [facility] Avalos [place] [facility] , [address] [place] [id number] 0 11/25 CBC w/ auto diff LY % % 14.0 41.0 65.9 High FINAL [facility] Avalos [place] [facility] , [address] [place] [id number] 0 11/25 CBC w/ auto diff MO % % 6.0 15.0 14.6 FINAL [facility] Avalos [place] [facility] , [address] [place] [id number] 0 11/25 CBC w/ auto diff EO % % 0.0 7.0 4.9 FINAL [facility] A[facility]os [place] [facility] , [address] [place] [id number] 0 11/25 CBC w/ auto diff BA % % 0.0 2.0 2.4 High FINAL [facility] Avalos [place] [facility] , [address] [place] [id number] 0 11/25 CBC w/ auto diff LY # K/uL 0.4 3.6 0.3 Low FINAL [facility] Avalos [place] [facility] , [address] [place] [id number] 0 11/25 CBC w/ auto diff MO # K/uL 0.2 1.3 0.1 Low FINAL [facility] A[facility]os [place] [facility] , [address] [place] [id number] 0 11/25 CBC w/ auto diff EO # K/uL 0.0 0.6 0.0 FINAL [facility] Avalos [place] [facility] , [address] [place] [id number] 0 11/25 CBC w/ auto diff BA # K/uL 0.0 0.2 0.0 FINAL [facility] Avalos [place] [facility] , [address] [place] [id number] 0 11/25 CBC w/ auto diff NRBC % #/100W BC 0.0 0.2 0.0 FINAL [facility] Avalos [place] [facility] , [address] [place] [id number] 0 11/25 CBC w/ auto diff RBC M/uL 4.2 5.6 2.74 Low FINAL [facility] A[facility]os [place] [facility] , [address] [place] [id number] 0 11/25 CBC w/ auto diff HCT % 39.0 49.0 25.9 Low FINAL [facility] Avalos [place] [facility] , [address] [place] [id number] 0 11/25 CBC w/ auto diff MCV fL 80.0 104.0 94.5 FINAL [facility] Avalos [place] [facility] , [address] [place] [id number] 0 11/25 CBC w/ auto diff MCH pg 26.0 35.0 31.0 FINAL Se[facility] Avalos [place] [facility] , [address] [place] [id number] 0 11/25 CBC w/ auto diff MCHC g/dL 30.0 35.0 32.8 FINAL Se[facility] Avalos [place] [facility] , [address] [place] [id number] 0 11/25 CBC w/ auto diff MPV fL 9.5 13.4 ---- FINAL Se[facility] Avalos [place] [facility] , [address] [place] [id number] 0 11/25 CBC w/ auto diff RDW % 11.3 15.6 15.60 FINAL [facility] Avalos [place] [facility] , [address] [place] [id number] 0 11/25 CBC w/ auto diff Auto CBC comme nts Slide review to follow FINAL [facility] Avalos [place] [facility] , [address] [place] [id number] 0 11/25 Smear revie w panel CBC Smear revie w comme nts WBC <0.5 and blasts seen- no differe ntial perform edReact hair and Abnorma l Lymphs present Basophi lic Stippli ng Present Abnor mal FINAL [facility] A[facility]os [place] [facility] , [address] [place] [id number] 0 11/25 CBC WBC K/uL 3.0 8.9 0.4 Critica l hematol ogy result obtaine d Criti reginald Low FINAL [facility] [place] [facility] , [address] [place] [id number] 0 11/25 CBC HGB g/dL 12.5 16.6 8.5 Low FINAL [facility] A[facility]os [place] [facility] , [address] [place] [id number] 0 11/25 CBC PLT K/uL 113.0 364.0 27 Critica l hematol ogy result obtaine d Criti reginald Low FINAL [facility] [place] [facility] , [address] [place] [id number] 0 11/25 CBC Plate let, immat ure, fract ion % 0.9 11.2 4.9 FINAL [facility] A[facility]os [place] [facility] , [address] [place] [id number] 0 11/25 CBC RBC M/uL 4.2 5.6 2.74 Low FINAL [facility] A[facility] [place] [facility] , [address] [place] [id number] 0 11/25 CBC HCT % 39.0 49.0 25.9 Low FINAL [facility] Avalos [place] [facility] , [address] [place] [id number] 0 11/25 CBC MCV fL 80.0 104.0 94.5 FINAL [facility] Avalos [place] [facility] , [address] [place] [id number] 0 11/25 CBC MCH pg 26.0 35.0 31.0 FINAL [facility] A[facility]os [place] [facility] , [address] [place] [id number] 0 11/25 CBC MCHC g/dL 30.0 35.0 32.8 FINAL [facility] A[facility] [place] [facility] , [address] [place] [id number] 0 01/02 /2025 CBC RDW % 11.3 15.6 15.60 FINAL [facility] A[facility]os [place] [facility] , [address] [place] [id number] 0 11/25 CBC NRBC % #/100W BC 0.0 0.2 0.0 FINAL [facility] Avalos [place] [facility] , [address] [place] [id number] 0 11/25 CBC Auto CBC comme nts Differe ntial cancell ed due to WBC count < 0.5 x 10^3/uL ; Slide review to follow FINAL [facility] A[facility] [place] [facility] , [address] [place] [id number] 0 11/25 [facility] other lab See steel cutter d 12/07 [facility] lab See steel cutter d 12/15 CEA panel CEA ng/mL 0.0 3.0 1280.00 Resulte d with diluted sample High Test performed at [facility] on a Obsorb 7600 Immunoass ay Analyzer that uses an immunomet carroll immunoass ay technique . Patient testing should not be performed using multiple fritz burden due to analytica l variation seen between test fritz burden. FINAL Pauline Philip * [place] [facility] , [address] [facility] [id number] 0 12/15 CBC w/ auto diff WBC K/uL 3.0 8.9 15.2 High FINAL Pauline Philip [place] [facility] , [address] [place] [id number] 0 12/15 CBC w/ auto diff HGB g/dL 12.5 16.6 9.6 Low FINAL Pauline Philip [place] [facility] , [address] [place] [id number] 0 12/15 CBC w/ auto diff PLT K/uL 113.0 364.0 81 Low FINAL Pauline Cedrick [place] [facility] , [address] [place] [id number] 0 12/15 CBC w/ auto diff Samantha # (ANC) K/uL 1.6 6.6 12.5 High FINAL Pauline Cedrick [place] [facility] , [address] [place] [id number] 0 12/15 CBC w/ auto diff Samantha % % 43.0 74.0 82.6 High FINAL Pauline Cedrick [place] [facility] , [address] [place] [id number] 0 12/15 CBC w/ auto diff IG % % 0.0 0.5 0.7 High FINAL Pauline Cedrick [place] [facility] , [address] [place] [id number] 0 12/15 CBC w/ auto diff IG # K/uL 0.0 0.03 0.11 High FINAL Pauline Cedrick [place] [facility] , [address] [place] [id number] 0 12/15 CBC w/ auto diff LY % % 14.0 41.0 3.1 Low FINAL Pauline Cedrick [place] [facility] , [address] [place] [id number] 0 12/15 CBC w/ auto diff MO % % 6.0 15.0 12.9 FINAL Pauline Cedrick [place] [facility] , [address] [place] [id number] 0 12/15 CBC w/ auto diff EO % % 0.0 7.0 0.1 FINAL Pauline Cedrick [place] [facility] , [address] [place] [id number] 0 12/15 CBC w/ auto diff BA % % 0.0 2.0 0.6 FINAL Pauline Cedrick [place] [facility] , [address] [place] [id number] 0 12/15 CBC w/ auto diff LY # K/uL 0.4 3.6 0.5 FINAL Pauline Cedrick [place] [facility] , [address] [place] [id number] 0 12/15 CBC w/ auto diff MO # K/uL 0.2 1.3 2.0 High FINAL Pauline Cedrick [place] [facility] , [address] [place] [id number] 0 12/15 CBC w/ auto diff EO # K/uL 0.0 0.6 0.0 FINAL Pauline Cedrick [place] [facility] , [address] [place] [id number] 0 12/15 CBC w/ auto diff BA # K/uL 0.0 0.2 0.1 FINAL Pauline Cedrick [place] [facility] , [address] [place] [id number] 0 12/15 CBC w/ auto diff NRBC % #/100W BC 0.0 0.2 0.0 FINAL Pauline Cedrick [place] [facility] , [address] [place] [id number] 0 12/15 CBC w/ auto diff RBC M/uL 4.2 5.6 3.02 Low FINAL Pauline Cedrick [place] [facility] , [address] [place] [id number] 0 12/15 CBC w/ auto diff HCT % 39.0 49.0 30.1 Low FINAL Pauline Cedirck [place] [facility] , [address] [place] [id number] 0 12/15 CBC w/ auto diff MCV fL 80.0 104.0 99.7 FINAL Pauline Cedrick [place] [facility] , [address] [facility] [address] [place] [id number] 0 12/15 CBC w/ auto diff MCH pg 26.0 35.0 31.8 FINAL Pauline Cedrick [place] [facility] , [address] [facility] [address] [place] [id number] 0 12/15 CBC w/ auto diff MCHC g/dL 30.0 35.0 31.9 FINAL Pauline Cedrick [place] [facility] , [address] [facility] [address] [place] [id number] 0 12/15 CBC w/ auto diff MPV fL 9.5 13.4 11.7 FINAL Paulineabilio Philip [place] [facility] , [address] [facility] [address] [place] [id number] 0 12/15 CBC w/ auto diff RDW % 11.3 15.6 17.60 High FINAL Pauline Cedrick [place] [facility] , [address] [facility] [address] [place] [id number] 0 12/15 CMP Album in g/dL 3.5 5.0 2.9 Low FINAL Pauline Cedrick * [place] [facility] , [address] [facility] [id number] 0 12/15 CMP Alkal ine phosp hatas e U/L 36.0 125.0 695 High FINAL Pauline Cedrick * [place] [facility] , [address] [facility] [id number] 0 12/15 CMP ALT/S GPT U/L 0.0 49.0 19 FINAL Pauline Philip * [facility] , [address] [facility] [id number] 0 12/15 CMP AST/S GOT U/L 17.0 59.0 87 High FINAL Pauline Philip * [facility] , [address] [facility] [id number] 0 12/15 CMP BUN mg/dL 9.0 20.0 12.0 FINAL Pauline Philip * [facility] On[facility] , [address] [facility] [id number] 0 12/15 CMP Calci um mg/dL 8.4 10.2 8.0 Low FINAL Pauline Philip * [facility] , [address] [facility] [id number] 0 12/15 CMP Chlor oj mmol/L 96.0 107.0 107 FINAL Pauline Philip * [facility] , [address] [facility] [id number] 0 12/15 CMP CO2 mmol/L 22.0 30.0 [...] hour stability window. FINAL Pauline Philip * [facility] , [address] [facility] [id number] 0 12/15 CMP Creat inine mg/dL 0.66 1.25 1.20 FINAL Pauline Philip * [facility] , [address] [facility] [id number] 0 12/15 CMP GFR estim ate ml/min /1.73m ^2 67.1 GFR is calculate d using the CKD-EPI equation. FINAL Pauline Cedrick * [facility] , [address] [facility] [id number] 0 12/15 CMP Gluco se mg/dL 74.0 100.0 114 High FINAL Pauline Cedrick * [facility] , [address] [facility] [id number] 0 12/15 CMP Potas sium mmol/L 3.5 5.1 3.2 Low FINAL Pauline Cedrick * [facility] , [address] [facility] [id number] 0 12/15 CMP Sodiu m mmol/L 137.0 145.0 134 Low FINAL Pauline Cedrick * [facility] On[facility] , [address] [facility] [id number] 0 12/15 CMP Bilir ubin, total mg/dL 0.2 1.3 2.0 High FINAL Pauline Cedrick * [facility] , [address] [facility] [id number] 0 12/15 CMP Total prote in g/dL 6.3 8.2 6.6 FINAL Pauline Cedrick * [facility] On[facility] , [address] [facility] [id number] 0 12/17 Blood cultu re panel CULTU RE, BLOOD SEE NOTE CULTURE, BLOODMicr o Number: [id number] est Status: FinalSpec imen Source: BloodSpec imen Quality: AdequateR esult: No growth after 5 daysTRANS PORT MEDIA: Aerobic and anaerobic bottle received. FINAL Sek[facility] Avalos [facility] [address] [facility] [id number] 4 12/17 Blood cultu re panel CULTU RE, BLOOD SEE NOTE CULTURE, BLOODMicr o Number: [id number] est Status: FinalSpec imen Source: BloodSpec imen Quality: AdequateR esult: No growth after 5 daysTRANS PORT MEDIA: Aerobic and anaerobic bottle received. FINAL Sekou BRUCE [facility] [address] [facility] [place] [id number] 4 12/22 CBC w/ auto diff WBC K/uL 3.0 8.9 0.2 Critica l hematol ogy result obtaine d Criti reginald Low [facility] , [address] [facility] [address] [facility] [id number] 0 12/22 CBC w/ auto diff HGB g/dL 12.5 16.6 6.9 Critica l hematol ogy result obtaine d Criti reginald Low FINAL Sek[facility] Avalos [facility] On[facility] , [address] [facility] [address] [facility] [id number] 0 12/22 CBC w/ auto diff PLT K/uL 113.0 364.0 12 Critica l hematol ogy result obtaine d Criti reginald Low [facility] , [address] [facility] [address] [facility] [id number] 0 12/22 CBC w/ auto diff Plate let, immat ure, fract ion % 0.9 11.2 2.5 [facility] , [address] [facility] [address] [facility] [id number] 0 12/22 CBC w/ auto diff Samantha # (ANC) K/uL 1.6 6.6 0.0 Critica l hematol ogy result obtaine d Criti reginald Low FINAL [facility] Avalos [place] [facility] , [address] [place] [id number] 0 12/22 CBC w/ auto diff Samantha % % 43.0 74.0 10.0 Low FINAL Se[facility] Avalos [place] [facility] , [address] [place] [id number] 0 12/22 CBC w/ auto diff IG % % 0.0 0.5 0.0 FINAL Sek[facility] Avalos [place] [facility] , [address] [place] [id number] 0 12/22 CBC w/ auto diff IG # K/uL 0.0 0.03 0.00 FINAL Sek[facility] Avalos [place] [facility] , [address] [place] [id number] 0 12/22 CBC w/ auto diff LY % % 14.0 41.0 75.0 High FINAL eSkou Avalos [place] [facility] , [address] [place] [id number] 0 12/22 CBC w/ auto diff MO % % 6.0 15.0 5.0 Low FINAL Sek[facility] Avalos [place] [facility] , [address] [place] [id number] 0 12/22 CBC w/ auto diff EO % % 0.0 7.0 5.0 FINAL Sek[facility] Avalos [place] [facility] , [address] [place] [id number] 0 12/22 CBC w/ auto diff BA % % 0.0 2.0 5.0 High FINAL Sek[facility] Avalos [place] [facility] , [address] [place] [id number] 0 12/22 CBC w/ auto diff LY # K/uL 0.4 3.6 0.2 Low FINAL Sek[facility] Avalos [place] [facility] , [address] [place] [id number] 0 12/22 CBC w/ auto diff MO # K/uL 0.2 1.3 0.0 Low FINAL Sek[facility] Avalos [place] [facility] , [address] [place] [id number] 0 12/22 CBC w/ auto diff EO # K/uL 0.0 0.6 0.0 FINAL Sek[facility] Avalos [place] [facility] , [address] [place] [id number] 0 12/22 CBC w/ auto diff BA # K/uL 0.0 0.2 0.0 FINAL Sek[facility] Avalos [place] [facility] , [address] [place] [id number] 0 12/22 CBC w/ auto diff NRBC % #/100W BC 0.0 0.2 0.0 FINAL Sek[facility] Avalos [place] [facility] , [address] [place] [id number] 0 12/22 CBC w/ auto diff RBC M/uL 4.2 5.6 2.18 Low FINAL Sek[facility] Avalos [place] [facility] , [address] [place] [id number] 0 12/22 CBC w/ auto diff HCT % 39.0 49.0 22.0 Low FINAL Sek[facility] Avalos [place] [facility] , [address] [place] [id number] 0 12/22 CBC w/ auto diff MCV fL 80.0 104.0 100.9 FINAL Sekou Avalos [place] [facility] , [address] [place] [id number] 0 12/22 CBC w/ auto diff MCH pg 26.0 35.0 31.7 FINAL Sekou Avalos [place] [facility] , [address] [place] [id number] 0 12/22 CBC w/ auto diff MCHC g/dL 30.0 35.0 31.4 FINAL Sekou Avalos [place] [facility] , [address] [place] [id number] 0 12/22 CBC w/ auto diff MPV fL 9.5 13.4 ---- FINAL Sekou Avalos [place] [facility] , [address] [place] [id number] 0 12/22 CBC w/ auto diff RDW % 11.3 15.6 16.50 High FINAL Sekou Avalos [place] [facility] , [address] [place] [id number] 0 12/22 CBC w/ auto diff Auto CBC comme nts Slide review to follow FINAL Sekou Avalos [place] [facility] , [address] [place] [id number] 0 12/22 Smear revie w panel CBC Smear revie w comme nts WBC <0.5 and blasts seen- no differe ntial perform edAbnor mal and Reactiv e Lymphs present Basophi lic Stippli ng Present Abnor mal FINAL Sekou Avalos [place] [facility] , [address] [place] [id number] 0 12/22 CMP Album in g/dL 3.5 5.0 2.6 Low FINAL Sekou Avalos * [place] [facility] [place] [facility] , [address] [facility] [id number] 0 12/22 CMP Alkal ine phosp hatas e U/L 36.0 125.0 402 High FINAL Sekou Robbie * [facility] , [address] [facility] [id number] 0 12/22 CMP ALT/S GPT U/L 0.0 49.0 29 FINAL Sekou Avalos * [facility] On[facility] , [address] [facility] [id number] 0 12/22 CMP AST/S GOT U/L 17.0 59.0 40 FINAL Sekou Avalos * [facility] , [address] [facility] [id number] 0 12/22 CMP BUN mg/dL 9.0 20.0 32.0 High FINAL Sekou Avalos * [facility] , [address] [facility] [id number] 0 12/22 CMP Calci um mg/dL 8.4 10.2 8.1 Low FINAL Sekou Robbie * [facility] , [address] [facility] [address] [facility] [id number] 0 12/22 CMP Chlor oj mmol/L 96.0 107.0 109 High FINAL Sekou Avalos * [facility] , [address] [facility] [address] [facility] [id number] 0 12/22 CMP CO2 mmol/L 22.0 30.0 [...] hour stability window. FINAL Sekou Avalos * [facility] , [address] [facility] [id number] 0 12/22 CMP Creat inine mg/dL 0.66 1.25 1.70 High FINAL Sekou Avalos * [facility] , [address] [facility] [id number] 0 12/22 CMP GFR estim ate ml/min /1.73m ^2 44.2 Low GFR is calculate d using the CKD-EPI equation. FINAL Sekou Avalos * [facility] On[facility] , [address] [facility] [id number] 0 12/22 CMP Gluco se mg/dL 74.0 100.0 112 High FINAL Sekou Avalos * [facility] On[facility] , [address] [facility] [id number] 0 12/22 CMP Potas sium mmol/L 3.5 5.1 4.5 FINAL Sekou Avalos * [facility] , [address] [facility] [id number] 0 12/22 CMP Sodiu m mmol/L 137.0 145.0 134 Low FINAL Sekou Avalos * [facility] On[facility] , [address] [facility] [id number] 0 12/22 CMP Bilir ubin, total mg/dL 0.2 1.3 1.2 FINAL Sekou Robbie * [facility] , [address] [facility] [id number] 0 12/22 CMP Total prote in g/dL 6.3 8.2 5.8 Low FINAL Sekou Avalos * [facility] On[facility] , [address] 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 mirabilis : Cefazolin issuscept ible if MARKIE <32 mcg/mL and predictss usceptibl e to [...] 4 mcg/mL requiresa dditional testing.) FINAL Pauline Philip [facility], [facility] [address] [facility] [id number] 4 12/22 Leuko cyte pam ase (ua), qual Negativ e FINAL Pauline Philip [place] [facility] , [address] [place] [id number] 0 12/22 UA comme nt 1 Dipstic k Positiv e-Micro scopic Ordered FINAL Pauline Philip [place] [facility] , [address] [place] [id number] 0 12/22 Color (ua) Yellow FINAL Pauline Philip [place] [facility] , [address] [address] [place] [id number] 0 12/22 Appea alem (ua) Clear FINAL Pauline Philip [place] [facility] [place] [facility] , [address] [place] [id number] 0 12/22 Gluco se (ua), qual Negativ e FINAL Pauline Philip [place] [facility] [place] [facility] , [address] [place] [id number] 0 12/22 Bilir ubin (ua) Negativ e FINAL Pauline Philip [place] [facility] [place] [facility] , [address] [place] [id number] 0 12/22 Urina lysis , aceto ne or keton e mónica s measu remen t Negativ e FINAL Pauline Philip [place] [facility] , [address] [place] [id number] 0 12/22 Speci fic gravi ty (ua) 1.005 1.02 1.020 FINAL Pauline Philip [place] [facility] [place] [facility] , [address] [place] [id number] 0 12/22 Blood (ua) 2+-Mode rate Abnor mal FINAL Pauline Philip [place] [facility] [place] [facility] , [address] [place] [id number] 0 12/22 pH (ua) 5.0 8.0 5.0 FINAL Pauline Philip [place] [facility] [place] [facility] , [address] [place] [id number] 0 12/22 Prote in (ua) Trace FINAL Pauline Philip [place] [facility] , [address] [place] [id number] 0 12/22 Urobi linog en (ua) 0.2 1.0 0.2 FINAL Pauline Philip [place] [facility] , [address] [place] [id number] 0 12/22 Nitri te (ua) Negativ e FINAL Pauline Philip [place] [facility] , [address] [place] [id number] 0 12/22 UA Micro scopi c WBC (ua) 0.0 2.0 3-5 Abnor mal FINAL Pauline Philip [place] [facility] , [address] [place] [id number] 0 12/22 UA Micro scopi c RBC (ua) 0.0 2.0 3-5 Abnor mal FINAL Pauline Philip [place] [facility] [place] [facility] , [address] [place] [id number] 0 12/22 UA Micro scopi c Epith elial cells (ua) Moderat e 6-10 Abnor mal [facility] , [address] [place] [address] d [address] [facility] [id number] 0 12/22 UA Micro scopi c Mucus (ua) Few Abnor mal FINAL Pauline Philip [facility] Oncology , [address] [place] [address] d [address] [facility] [id number] 0 12/22 UA Micro scopi c Casts , urine 3-5 Abnor mal FINAL Pauline Philip [facility] Oncology , [address] [place] [address] d [address] [facility] [id number] 0 12/22 UA Micro scopi c Cryst als (ua) None FINAL Pauline Philip [facility] Oncology , [address] [place] [address] d [address] [facility] [id number] 0 12/22 UA Micro scopi c UA comme nt 1 Micro Positiv e-Cultu re Ordered FINAL Pauline Philip [facility] Oncology , [address] [place] [address] [address] [facility] [id number] 0 12/22 UA Micro scopi c Bacte milana (ua) Moderat e Abnor mal FINAL Pauline Philip [facility] Oncology , [address] [place] [address] d [address] [facility] [id number] 0 12/22 UA Micro scopi c Cast type, urine Hyaline Abnor mal FINAL Pauline Philip [facility] Oncology , [address] [place] [address] d [address] [facility] [id number] 12/22 Misc other lab See steel cutter d 12/29 CBC w/ auto diff WBC K/uL 3.0 8.9 4.9 FINAL Sekou Avalos [place] [facility] , [address] [place] [id number] 0 12/29 CBC w/ auto diff HGB g/dL 12.5 16.6 8.4 Low FINAL Sekou Avalos [place] [facility] , [address] [place] [id number] 0 12/29 CBC w/ auto diff PLT K/uL 113.0 364.0 94 Low FINAL Sekou Avalos [place] [facility] , [address] [place] [id number] 0 12/29 CBC w/ auto diff Samantha # (ANC) K/uL 1.6 6.6 3.2 FINAL Sekou Avalos [place] [facility] , [address] [place] [id number] 0 12/29 CBC w/ auto diff Samantha % % 43.0 74.0 66.7 FINAL Sekou Avalos [place] [facility] , [address] [place] [id number] 0 12/29 CBC w/ auto diff IG % % 0.0 0.5 9.0 High FINAL Sekou Avalos [place] [facility] , [address] [place] [id number] 0 12/29 CBC w/ auto diff IG # K/uL 0.0 0.03 0.44 High FINAL Sekou Avalos [place] [facility] , [address] [place] [id number] 0 12/29 CBC w/ auto diff LY % % 14.0 41.0 9.4 Low FINAL Sekou Avalos [place] [facility] , [address] [place] [id number] 0 12/29 CBC w/ auto diff MO % % 6.0 15.0 12.7 FINAL Sekou Avalos [place] [facility] , [address] [place] [id number] 0 12/29 CBC w/ auto diff EO % % 0.0 7.0 1.8 FINAL Sekou Avalos [place] [facility] , [address] [place] [id number] 0 12/29 CBC w/ auto diff BA % % 0.0 2.0 0.4 FINAL Sekou Avalos [place] [facility] , [address] [place] [id number] 0 12/29 CBC w/ auto diff LY # K/uL 0.4 3.6 0.5 FINAL Sekou Avalos [place] [facility] , [address] [place] [id number] 0 12/29 CBC w/ auto diff MO # K/uL 0.2 1.3 0.6 FINAL Sekou Avalos [place] [facility] , [address] [place] [id number] 0 12/29 CBC w/ auto diff EO # K/uL 0.0 0.6 0.1 FINAL Sekou Avalos [place] [facility] , [address] [place] [id number] 0 12/29 CBC w/ auto diff BA # K/uL 0.0 0.2 0.0 FINAL Sekou Avalos [place] [facility] , [address] [place] [id number] 0 12/29 CBC w/ auto diff NRBC % #/100W BC 0.0 0.2 0.0 FINAL Sekou Avalos [place] [facility] , [address] [place] [id number] 0 12/29 CBC w/ auto diff RBC M/uL 4.2 5.6 2.64 Low FINAL Sekou Avalos [place] [facility] , [address] [place] [id number] 0 12/29 CBC w/ auto diff HCT % 39.0 49.0 25.6 Low FINAL Sekou Avalos [place] [facility] , [address] [place] [id number] 0 12/29 CBC w/ auto diff MCV fL 80.0 104.0 97.0 FINAL Sekou Avalos [place] [facility] , [address] [place] [id number] 0 12/29 CBC w/ auto diff MCH pg 26.0 35.0 31.8 FINAL Sekou Avalos [place] [facility] , [address] [place] [id number] 0 12/29 CBC w/ auto diff MCHC g/dL 30.0 35.0 32.8 FINAL Sekou Avalos [place] [facility] , [address] [place] [id number] 0 12/29 CBC w/ auto diff MPV fL 9.5 13.4 11.2 FINAL Sekou Avalos [place] [facility] , [address] [place] [id number] 0 12/29 CBC w/ auto diff RDW % 11.3 15.6 16.30 High FINAL Sekou Avalos [place] [facility] , [address] [place] [id number] 0 12/29 CMP Album in g/dL 3.5 5.0 2.6 Low FINAL Sekou Robbie * [facility] On[facility] , [address] [facility] [address] [facility] [id number] 0 12/29 CMP Alkal ine phosp hatas e U/L 36.0 125.0 387 High FINAL Sekou Avalos * [facility] , [address] [facility] [address] [facility] [id number] 0 12/29 CMP ALT/S GPT U/L 0.0 49.0 16 FINAL Sekou Robbie * [facility] , [address] [facility] [address] [facility] [id number] 0 12/29 CMP AST/S GOT U/L 17.0 59.0 25 FINAL Skeou Avalos * [facility] , [address] [facility] [address] [facility] [id number] 0 12/29 CMP BUN mg/dL 9.0 20.0 15.0 FINAL Sekou Robbie * [facility] , [address] [facility] [id number] 0 12/29 CMP Calci um mg/dL 8.4 10.2 7.8 Low FINAL Sekou Avalos * [facility] , [address] [facility] [id number] 0 12/29 CMP Chlor oj mmol/L 96.0 107.0 114 High FINAL Sekou Robbie * [facility] , [address] [facility] [address] [facility] [id number] 0 12/29 CMP CO2 mmol/L 22.0 30.0 [...] hour stability window. FINAL Sekou Avalos * [facility] , [facility] [address] [id number] 0 12/29 CMP Creat inine mg/dL 0.66 1.25 1.50 High FINAL Sekou Avalos * [facility] , [facility] [address] [id number] 0 12/29 CMP GFR estim ate ml/min /1.73m ^2 51.4 Low GFR is calculate d using the CKD-EPI equation. FINAL Sekou Claire [facility] , [facility] [address] [id number] 0 12/29 CMP Gluco se mg/dL 74.0 100.0 141 High FINAL Sekou Claire [facility] , [facility] [address] [id number] 12/29 CMP Potas sium mmol/L 3.5 5.1 3.3 Low FINAL Sekou Avalos * [facility] , [facility]0 [facility] [address] [id number] 0 12/29 CMP Sodiu m mmol/L 137.0 145.0 133 Low FINAL Sekou Avalos * [facility] , [facility]0 [facility] [address] [id number] 0 12/29 CMP Bilir ubin, total mg/dL 0.2 1.3 1.0 FINAL Sekou Avalos * [facility] , [facility] [address] [id number] 0 12/29 CMP Total prote in g/dL 6.3 8.2 5.9 Low FINAL Sekou Avalos * [facility] On[facility] , [facility] [address] [id number] 0 12/29 Magne sium, mg/dL mg/dL 1.6 2.3 1.8 FINAL Sekou Avalos * [facility] On[facility] , [address] [facility] [address] [facility] [id number] 0 12/29 iSTAT Na+/K +/Cl- panel Sodiu m, iSTAT mmol/L 138.0 146.0 139 Reference range adjusted 0 with implement ation of I-Stat 8+ cartridge . FINAL Sekou Avalos [facility] Oncology , [address] [facility] [address] [facility] [id number] 0 12/29 iSTAT Na+/K +/Cl- panel Potas sium, iSTAT mmol/L 3.5 4.9 3.4 Low Reference range adjusted 0 with implement ation of I-Stat 8+ cartridge . FINAL Sekou Avalos [facility] Oncology , [address] [facility] [address] [facility] [id number] 0 12/29 iSTAT Na+/K +/Cl- panel Chlor oj, iSTAT mmol/L 98.0 109.0 109 Reference range adjusted 0 with implement ation of I-Stat 8+ cartridge . FINAL eSkou Avalos [facility] Oncology , [address] [facility] [address] [facility] [id number] 0 12/29 Iron profi le TIBC ug/dL 261.0 462.0 196 Low FINAL Sekuo Avalos * [facility] On[facility] , [address] [facility] [address] [facility] [id number] 0 12/29 Iron profi le Iron ug/dL 49.0 181.0 47 Low FINAL Sekou Avalos * [facility] On[facility] , [address] [facility] [id number] 0 12/29 Iron profi le Unbou nd iron capac ity ug/dL 75.0 410.0 149 FINAL Sekou Avalos * [facility] On[facility] , [address] [facility] [address] [facility] [id number] 0 12/29 Iron profi le Iron, % satur ation % 20.0 55.0 24 FINAL Sekou Avalos * [facility] Oncology , [address] [facility] [address] [facility] [id number] 0 12/29 CEA panel CEA ng/mL 0.0 3.0 324.00 High Test performed at [facility] on a Nimbus Discovery0 Immunoass ay Analyzer that uses an immunomet carroll immunoass ay technique . Patient testing should not be performed using multiple methodolo gies due to analytica l variation seen between test methodolo gies. 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 No further testing will beperform ed. If clinicall y indicated , recollect ionusing a method to minimize contamina tion, withpromp t transfer to Urine Culture Transport Tube,is recommend ed. FINAL Sekou Avalos [facility] [address] [facility] [id number] 4 01/03 CMP Album in g/dL 3.5 5.0 2.6 Low FINAL Sekou Avalos * [facility] Oncology , [address] [facility] [id number] 0 01/03 CMP Alkal ine phosp hatas e U/L 36.0 125.0 406 High FINAL Sekou Avalos * [facility] Oncology , [address] [facility] [id number] 0 01/03 CMP ALT/S GPT U/L 0.0 49.0 17 FINAL Sekou Avalos * [facility] Oncology , [address] [facility] [id number] 0 01/03 CMP AST/S GOT U/L 17.0 59.0 35 FINAL Sekou Avalos * [facility] Oncology , [address] [facility] [id number] 0 01/03 CMP BUN mg/dL 9.0 20.0 14.0 FINAL Sekou Avalos * [facility] Oncology , [address] [facility] [id number] 0 01/03 CMP Calci um mg/dL 8.4 10.2 7.9 Low FINAL Sekou Avalos * [facility] Oncology , [address] [facility] [id number] 0 01/03 CMP Chlor oj mmol/L 96.0 107.0 107 FINAL Sekou Avalos * [facility] Oncology , [address] [facility] [id number] 0 01/03 CMP CO2 mmol/L 22.0 30.0 [...] the 96 hour stability window. FINAL Sekou Robbie * [facility] On[facility] , [address] [facility] [address] [facility] [id number] 0 01/03 CMP Creat inine mg/dL 0.66 1.25 1.30 High FINAL Sekou Robbie * [facility] On[facility] , [address] [facility] [id number] 0 01/03 CMP GFR estim ate ml/min /1.73m ^2 61.0 GFR is calculate d using the CKD-EPI equation. FINAL Sekou Avalos * [facility] On[facility] , [address] [facility] [address] [facility] [id number] 0 01/03 CMP Gluco se mg/dL 74.0 100.0 110 High FINAL Sekou Avalos * [facility] , [address] [facility] [address] [facility] [id number] 0 01/03 CMP Potas sium mmol/L 3.5 5.1 3.4 Low FINAL Sekou Robbie * [facility] On[facility] , [address] [facility] [address] [facility] [id number] 0 01/03 CMP Sodiu m mmol/L 137.0 145.0 135 Low FINAL Sekou Avalos * [facility] On[facility] , [address] [facility] [id number] 0 01/03 CMP Bilir ubin, total mg/dL 0.2 1.3 1.1 FINAL Sekou Robbie * [facility] On[facility] , [address] [facility] [id number] 0 01/03 CMP Total prote in g/dL 6.3 8.2 6.1 Low FINAL Sekou Robbie * [facility] On[facility] , [address] [facility] [address] [facility] [id number] 0 01/03 CBC w/ auto diff WBC K/uL 3.0 8.9 11.4 High FINAL Sekou Robbie [place] [facility] , [address] [place] [id number] 0 01/03 CBC w/ auto diff HGB g/dL 12.5 16.6 8.4 Low FINAL Sekou Robbie [place] [facility] , [address] [place] [id number] 0 01/03 CBC w/ auto diff PLT K/uL 113.0 364.0 193 FINAL Sekou Robbie [place] [facility] , [address] [place] [id number] 0 01/03 CBC w/ auto diff Samantha # (ANC) K/uL 1.6 6.6 8.8 High FINAL Sekou Robbie [place] [facility] , [address] [place] [id number] 0 01/03 CBC w/ auto diff Samantha % % 43.0 74.0 77.7 High FINAL Sekou Robbie [place] [facility] , [address] [place] [id number] 0 01/03 CBC w/ auto diff IG % % 0.0 0.5 7.6 High FINAL Sekou Robbie [place] [facility] , [address] [place] [id number] 0 01/03 CBC w/ auto diff IG # K/uL 0.0 0.03 0.86 High FINAL Sekou Robbie [place] [facility] , [address] [place] [id number] 0 01/03 CBC w/ auto diff LY % % 14.0 41.0 3.3 Low FINAL Sekou Robbie [place] [facility] , [address] [place] [id number] 0 01/03 CBC w/ auto diff MO % % 6.0 15.0 10.2 FINAL Sekou Avalos [place] [facility] , [address] [place] [id number] 0 01/03 CBC w/ auto diff EO % % 0.0 7.0 0.7 FINAL Sekou Avalos [place] [facility] , [address] [place] [id number] 0 01/03 CBC w/ auto diff BA % % 0.0 2.0 0.5 FINAL Sekou Avalos [place] [facility] , [address] [place] [id number] 0 01/03 CBC w/ auto diff LY # K/uL 0.4 3.6 0.4 FINAL Sekou Avalos [place] [facility] , [address] [place] [id number] 0 01/03 CBC w/ auto diff MO # K/uL 0.2 1.3 1.2 FINAL Sekou Avalos [place] [facility] , [address] [place] [id number] 0 01/03 CBC w/ auto diff EO # K/uL 0.0 0.6 0.1 FINAL Sekou Avalos [place] [facility] , [address] [place] [id number] 0 01/03 CBC w/ auto diff BA # K/uL 0.0 0.2 0.1 FINAL Sekou Avalos [place] [facility] , [address] [place] [id number] 0 01/03 CBC w/ auto diff NRBC % #/100W BC 0.0 0.2 0.0 FINAL Sekou Avalos [place] [facility] , [address] [place] [id number] 0 01/03 CBC w/ auto diff RBC M/uL 4.2 5.6 2.72 Low FINAL Sekou Avalos [place] [facility] , [address] [place] [id number] 0 01/03 CBC w/ auto diff HCT % 39.0 49.0 25.9 Low FINAL Sekou Avalos [place] [facility] , [address] [place] [id number] 0 01/03 CBC w/ auto diff MCV fL 80.0 104.0 95.2 FINAL Sekou Avalos [place] [facility] , [address] [place] [id number] 0 01/03 CBC w/ auto diff MCH pg 26.0 35.0 30.9 FINAL Sekou Avalos [place] [facility] , [address] [place] [id number] 0 01/03 CBC w/ auto diff MCHC g/dL 30.0 35.0 32.4 FINAL Sekou Avalos [place] [facility] , [address] [place] [id number] 0 01/03 CBC w/ auto diff MPV fL 9.5 13.4 9.6 FINAL Sekou Avalos [place] [facility] , [address] [place] [id number] 0 01/03 CBC w/ auto diff RDW % 11.3 15.6 16.80 High FINAL Sekou Avalos [place] [facility] , [address] [facility] [id number] 0 01/03 CEA panel CEA ng/mL 0.0 3.0 469.00 High Test performed at [facility] on a Nimbus Discovery0 Immunoass ay Analyzer that uses an immunomet carroll immunoass ay technique . Patient testing should not be performed using multiple methodmalik burden due to analytica l variation seen between test methodmalik burden. FINAL Sekou Avalos * [facility] , [address] [facility] [id number] 0 01/12 CMP Album in g/dL 3.5 5.0 2.7 Low FINAL Sekou Avalos * [facility] , [address] [facility] [address] [facility] [id number] 0 01/12 CMP Alkal ine phosp hatas e U/L 36.0 125.0 571 High FINAL Sekou Avalos * [facility] , [address] [facility] [id number] 0 01/12 CMP ALT/S GPT U/L 0.0 49.0 23 FINAL Sekou Avalos * [facility] , [address] [facility] [id number] 0 01/12 CMP AST/S GOT U/L 17.0 59.0 58 FINAL Sekou Avalos * [facility] , [address] [facility] [id number] 0 01/12 CMP BUN mg/dL 9.0 20.0 16.0 FINAL Sekou Avalos * [facility] , [address] [id number] 0 01/12 CMP Calci um mg/dL 8.4 10.2 7.9 Low FINAL Sekou Avalos * [facility] , [address] [facility] [id number] 0 01/12 CMP Chlor oj mmol/L 96.0 107.0 105 FINAL Sekou Claire [facility] , [address] [facility] [address] [facility] [id number] 0 01/12 CMP CO2 mmol/L 22.0 30.0 [...] the 96 hour stability window. FINAL Sekou Claire [facility] , [address] [facility] [address] [id number] 0 01/12 CMP Creat inine mg/dL 0.66 1.25 1.70 High FINAL Sekou Claire [facility] , [address] [facility] [address] [id number] 0 01/12 CMP GFR estim ate ml/min /1.73m ^2 44.2 Low GFR is calculate d using the CKD-EPI equation. FINAL Sekou Claire [facility] , [facility]0 [facility] [address] [facility] [id number] 0 01/12 CMP Gluco se mg/dL 74.0 100.0 123 High FINAL Sekou Claire [facility] , [address] [facility] [address] [facility] [id number] 0 01/12 CMP Potas sium mmol/L 3.5 5.1 4.1 FINAL Sekou Claire [facility] , [address] [facility] [address] [id number] 0 01/12 CMP Sodiu m mmol/L 137.0 145.0 135 Low FINAL Sekou Avalos * [place] [facility] [place] [facility] , [address] [facility] [place] [id number] 0 01/12 CMP Bilir ubin, total mg/dL 0.2 1.3 1.1 FINAL Sekou Avalos * [place] [facility] [place] [facility] , [address] [facility] [place] [id number] 0 01/12 CMP Total prote in g/dL 6.3 8.2 7.0 FINAL Sekou Avalos * [place] [facility] [place] [facility] , [address] [facility] [place] [id number] 0 01/12 CBC w/ auto diff WBC K/uL 3.0 8.9 17.8 High FINAL Sekou Avalos [place] [facility] , [address] [place] [id number] 0 01/12 CBC w/ auto diff HGB g/dL 12.5 16.6 8.8 Low FINAL Sekou Avalos [place] [facility] , [address] [place] [id number] 0 01/12 CBC w/ auto diff PLT K/uL 113.0 364.0 140 FINAL Sekou Avalos [place] [facility] , [address] [place] [id number] 0 01/12 CBC w/ auto diff Samantha # (ANC) K/uL 1.6 6.6 14.2 High FINAL Sekou Avalos [place] [facility] , [address] [place] [id number] 0 01/12 CBC w/ auto diff Samantha % % 43.0 74.0 79.5 High FINAL Sekou Avalos [place] [facility] , [address] [place] [id number] 0 01/12 CBC w/ auto diff IG % % 0.0 0.5 3.0 High FINAL Sekou Avalos [place] [facility] , [address] [place] [id number] 0 01/12 CBC w/ auto diff IG # K/uL 0.0 0.03 0.53 High FINAL Sek[facility] Avalos [place] [facility] [place] [facility] , [address] [place] [id number] 0 01/12 CBC w/ auto diff LY % % 14.0 41.0 4.4 Low FINAL Sek[facility] Avalos [place] [facility] [place] [facility] , [address] [place] [id number] 0 01/12 CBC w/ auto diff MO % % 6.0 15.0 11.9 FINAL Sekou Avalos [place] [facility] [place] [facility] , [address] [place] [id number] 0 01/12 CBC w/ auto diff EO % % 0.0 7.0 0.1 FINAL Sekou Avalos [place] [facility] [place] [facility] , [address] [place] [id number] 0 01/12 CBC w/ auto diff BA % % 0.0 2.0 1.1 FINAL Sekou Avalos [place] [facility] [place] [facility] , [address] [place] [id number] 0 01/12 CBC w/ auto diff LY # K/uL 0.4 3.6 0.8 FINAL Sekou Avalos [place] [facility] [place] [facility] , [address] [place] [id number] 0 01/12 CBC w/ auto diff MO # K/uL 0.2 1.3 2.1 High FINAL Sekou Avalos [place] [facility] [place] [facility] , [address] [place] [id number] 0 01/12 CBC w/ auto diff EO # K/uL 0.0 0.6 0.0 FINAL Sekou Avalos [place] [facility] [place] [facility] , [address] [place] [id number] 0 01/12 CBC w/ auto diff BA # K/uL 0.0 0.2 0.2 FINAL Sekou Avalos [place] [facility] , [address] [place] [id number] 0 01/12 CBC w/ auto diff NRBC % #/100W BC 0.0 0.2 0.0 FINAL Sekou Avalos [place] [facility] [place] [facility] , [address] [place] [id number] 0 01/12 CBC w/ auto diff RBC M/uL 4.2 5.6 2.96 Low FINAL Sekou Avalos [place] [facility] [place] [facility] , [address] [place] [id number] 0 01/12 CBC w/ auto diff HCT % 39.0 49.0 28.8 Low FINAL Sekou Avalos [place] [facility] , [address] [place] [id number] 0 01/12 CBC w/ auto diff MCV fL 80.0 104.0 97.3 FINAL Sekou Avalos [place] [facility] [place] [facility] , [address] [place] [id number] 0 01/12 CBC w/ auto diff MCH pg 26.0 35.0 29.7 FINAL Sekou Avalos [place] [facility] , [address] [place] [id number] 0 02/19 /2025 CBC w/ auto diff MCHC g/dL 30.0 35.0 30.6 [facility] , [address] [place] [id number] 0 01/12 CBC w/ auto diff MPV fL 9.5 13.4 11.0 [facility] , [address] [facility] [id number] 0 01/12 CBC w/ auto diff RDW % 11.3 15.6 16.00 High [facility] , [address] [place] [id number] 0 01/12 CEA panel CEA ng/mL 0.0 3.0 928.00 Resulte d with diluted sample High Test performed at [facility] on a Nimbus Discovery0 Immunoass ay Analyzer that uses an immunomet carroll immunoass ay technique . Patient testing should not be performed using multiple methodolo gies due to analytica l variation seen between test methodmalik burden. FINAL Sekou Avalos * [facility] , [address] [facility] [id number] 0 01/12 Prote in (dips tick) panel Prote in (ua) 1+ Abnor mal FINAL [facility] , [address] [facility] [id number] 0 01/20 [facility] other lab See steel cutter d 01/22 [facility] other lab See steel cutter d 02/02 Magne sium, mg/dL mg/dL 1.6 2.3 1.9 FINAL Pauline Philip * [facility] , [address] [facility] [id number] 0 02/02 CMP Album in g/dL 3.5 5.0 2.6 Low FINAL Pauline Philip * [facility] , [address] [facility] [id number] 0 02/02 CMP Alkal ine phosp hatas e U/L 36.0 125.0 475 High FINAL Pauline Philip * [facility] , [address] [facility] [id number] 0 02/02 CMP ALT/S GPT U/L 0.0 49.0 17 FINAL Pauline Philip * [facility] , [address] [facility] [id number] 0 02/02 CMP AST/S GOT U/L 17.0 59.0 100 High FINAL Pauline Philip * [facility] , [address] [facility] [id number] 0 02/02 CMP BUN mg/dL 9.0 20.0 35.0 High FINAL Pauline Philip * [facility] On[facility] , [address] [facility] [id number] 0 02/02 CMP Calci um mg/dL 8.4 10.2 7.7 Low FINAL Pauline Philip * [facility] , [address] [facility] [id number] 0 02/02 CMP Chlor oj mmol/L 96.0 107.0 105 FINAL Pauline Philip * [facility] On[facility] , [address] [facility] [id number] 0 02/02 CMP CO2 mmol/L 22.0 30.0 [...] hour stability window. FINAL Pauline Cedrick * [facility] , [address] [facility] [id number] 0 02/02 CMP Creat inine mg/dL 0.66 1.25 1.70 High FINAL Pauline Cedrick * [facility] , [address] [facility] [id number] 0 02/02 CMP GFR estim ate ml/min /1.73m ^2 44.2 Low GFR is calculate d using the CKD-EPI equation. FINAL Pauline Cedrick * [facility] , [address] [facility] [id number] 0 02/02 CMP Gluco se mg/dL 74.0 100.0 153 High FINAL Pauline Cedrick * [facility] , [address] [facility] [id number] 0 02/02 CMP Potas sium mmol/L 3.5 5.1 4.3 FINAL Pauline Cedrick * [facility] , [address] [facility] [id number] 0 02/02 CMP Sodiu m mmol/L 137.0 145.0 137 FINAL Pauline Cedrick * [facility] , [address] [facility] [id number] 0 02/02 CMP Bilir ubin, total mg/dL 0.2 1.3 0.6 FINAL Pauline Cedrick * [facility] , [address] [facility] [id number] 0 02/02 CMP Total prote in g/dL 6.3 8.2 6.6 FINAL Pauline Cedrick * [facility] , [address] [facility] [id number] 0 02/02 CBC w/ auto diff WBC K/uL 3.0 8.9 10.5 High FINAL Pauline Cedrick [place] [facility] , [address] [place] [id number] 0 02/02 CBC w/ auto diff HGB g/dL 12.5 16.6 8.8 Low FINAL Pauline Cedrick [place] [facility] , [address] [place] [id number] 0 02/02 CBC w/ auto diff PLT K/uL 113.0 364.0 146 FINAL Pauline Cedrick [place] [facility] , [address] [facility] [address] [place] [id number] 0 02/02 CBC w/ auto diff Samantha # (ANC) K/uL 1.6 6.6 8.7 High FINAL Pauline Cedrick [place] [facility] , [address] [facility] [address] [place] [id number] 0 02/02 CBC w/ auto diff Samantha % % 43.0 74.0 82.8 High FINAL Pauline Cedrick [place] [facility] , [address] [facility] [address] [place] [id number] 0 02/02 CBC w/ auto diff IG % % 0.0 0.5 2.2 High FINAL Pauline Cedrick [place] [facility] , [address] [facility] [address] [place] [id number] 0 02/02 CBC w/ auto diff IG # K/uL 0.0 0.03 0.23 High FINAL Pauline Cedrick [place] [facility] , [address] [facility] [address] [place] [id number] 0 02/02 CBC w/ auto diff LY % % 14.0 41.0 3.9 Low FINAL Pauline Cedrick [place] [facility] , [address] [place] [id number] 0 02/02 CBC w/ auto diff MO % % 6.0 15.0 8.7 FINAL Pauline Philip [place] [facility] , [address] [place] [id number] 0 02/02 CBC w/ auto diff EO % % 0.0 7.0 1.7 FINAL Pauline Philip [place] [facility] , [address] [place] [id number] 0 02/02 CBC w/ auto diff BA % % 0.0 2.0 0.7 FINAL Pauline Philip [place] [facility] , [address] [place] [id number] 0 02/02 CBC w/ auto diff LY # K/uL 0.4 3.6 0.4 FINAL Pauline Philip [place] [facility] , [address] [place] [id number] 0 02/02 CBC w/ auto diff MO # K/uL 0.2 1.3 0.9 FINAL Pauline Philip [place] [facility] , [address] [place] [id number] 0 02/02 CBC w/ auto diff EO # K/uL 0.0 0.6 0.2 FINAL Pauline Philip [place] [facility] , [address] [place] [id number] 0 02/02 CBC w/ auto diff BA # K/uL 0.0 0.2 0.1 FINAL Pauline Philip [place] [facility] , [address] [place] [id number] 0 02/02 CBC w/ auto diff NRBC % #/100W BC 0.0 0.2 0.0 FINAL Pauline Cedrick [place] [facility] , [address] [facility] [address] [place] [id number] 0 02/02 CBC w/ auto diff RBC M/uL 4.2 5.6 2.81 Low FINAL Pauline Cedrick [place] [facility] , [address] [facility] [address] [place] [id number] 0 02/02 CBC w/ auto diff HCT % 39.0 49.0 28.4 Low FINAL Pauline Cedrick [place] [facility] , [address] [facility] [address] [place] [id number] 0 02/02 CBC w/ auto diff MCV fL 80.0 104.0 101.1 FINAL Pauline Cedrick [place] [facility] , [address] [facility] [address] [place] [id number] 0 02/02 CBC w/ auto diff MCH pg 26.0 35.0 31.3 FINAL Pauline Cedrick [place] [facility] , [address] [facility] [address] [place] [id number] 0 02/02 CBC w/ auto diff MCHC g/dL 30.0 35.0 31.0 FINAL Pauline Cedrick [place] [facility] , [address] [facility] [address] [place] [id number] 0 02/02 CBC w/ auto diff MPV fL 9.5 13.4 10.6 FINAL Pauline Cedrick [place] [facility] , [address] [facility] [address] [place] [id number] 0 02/02 CBC w/ auto diff RDW % 11.3 15.6 19.90 High FINAL Pauline Cedrick [place] [facility] , [address] [facility] [id number] 0 02/02 CEA panel CEA ng/mL 0.0 3.0 1280.00 Resulte d with diluted sample High Test performed at [facility] on a Vitros 7600 Immunoass ay Analyzer that uses an immunomet carroll immunoass ay technique . Patient testing should not be performed using multiple methodolo gies due to analytica l variation seen between test methodolo gies. FINAL Pauline Philip * [facility] , [address] [facility] [id number] 0 02/02 Prote in (dips tick) panel Prote in (ua) 2+ Abnor mal FINAL Pauline Philip [facility] On[facility] , [address] [facility] [id number] 0 02/09 Misc other lab See steel cutter d 02/15 Misc other lab See steel cutter d 02/16 Misc other lab See steel cutter d 02/23 Misc other lab See steel cutter d 02/23 Misc other lab See steel cutter d 02/23 Misc other lab See steel cutter d 02/23 Misc other lab See steel cutter d 02/23 Misc other lab See steel cutter d 03/23 Phosp horus panel Phosp horus mg/dL 2.5 4.5 4.4 FINAL Sekou Avalos * [facility] , [address] [facility] [id number] 0 03/23 CEA panel CEA ng/mL 0.0 3.0 2640.00 Resulte d with diluted sample High Test performed at [facility] on a Vitros 7600 Immunoass ay Analyzer that uses an immunomet carroll immunoass ay technique . Patient testing should not be performed using multiple methodolo gies due to analytica l variation seen between test methodolo gies. FINAL Sekou Avalos * [facility] , [address] [facility] [place] [id number] 0 03/23 CBC w/ auto diff WBC K/uL 3.0 8.9 10.3 High FINAL Sek[facility] Robbie [place] [facility] , [address] [place] [id number] 0 03/23 CBC w/ auto diff HGB g/dL 12.5 16.6 9.0 Low FINAL Sekou Robbie [place] [facility] , [address] [place] [id number] 0 03/23 CBC w/ auto diff PLT K/uL 113.0 364.0 120 FINAL Sekou Robbie [place] [facility] , [address] [place] [id number] 0 03/23 CBC w/ auto diff Samantha # (ANC) K/uL 1.6 6.6 9.0 High FINAL Sek[facility] Robbie [place] [facility] , [address] [place] [id number] 0 03/23 CBC w/ auto diff Samantha % % 43.0 74.0 86.8 High FINAL Sek[facility] Robbie [place] [facility] , [address] [place] [id number] 0 03/23 CBC w/ auto diff IG % % 0.0 0.5 0.9 High FINAL Sek[facility] Robbie [place] [facility] , [address] [place] [id number] 0 03/23 CBC w/ auto diff IG # K/uL 0.0 0.03 0.09 High FINAL Sek[facility] Robbie [place] [facility] , [address] [place] [id number] 0 03/23 CBC w/ auto diff LY % % 14.0 41.0 3.1 Low FINAL Sek[facility] Avalos [place] [facility] , [address] [place] [id number] 0 03/23 CBC w/ auto diff MO % % 6.0 15.0 8.4 FINAL Sek[facility] Avalos [place] [facility] , [address] [place] [id number] 0 03/23 CBC w/ auto diff EO % % 0.0 7.0 0.4 FINAL Sek[facility] Avalos [place] [facility] , [address] [place] [id number] 0 03/23 CBC w/ auto diff BA % % 0.0 2.0 0.4 FINAL Sek[facility] Avalos [place] [facility] , [address] [place] [id number] 0 03/23 CBC w/ auto diff LY # K/uL 0.4 3.6 0.3 Low FINAL Sek[facility] Avalos [place] [facility] , [address] [place] [id number] 0 03/23 CBC w/ auto diff MO # K/uL 0.2 1.3 0.9 FINAL Sekou Avalos [place] [facility] , [address] [place] [id number] 0 03/23 CBC w/ auto diff EO # K/uL 0.0 0.6 0.0 FINAL Sekou Avalos [place] [facility] , [address] [place] [id number] 0 03/23 CBC w/ auto diff BA # K/uL 0.0 0.2 0.0 FINAL Sekou Avalos [place] [facility] , [address] [place] [id number] 0 03/23 CBC w/ auto diff NRBC % #/100W BC 0.0 0.2 0.0 FINAL Sekou Avalos [place] [facility] , [address] [place] [id number] 0 03/23 CBC w/ auto diff RBC M/uL 4.2 5.6 3.02 Low FINAL Sekou Avalos [place] [facility] , [address] [place] [id number] 0 03/23 CBC w/ auto diff HCT % 39.0 49.0 28.7 Low FINAL Sekou Avalos [place] [facility] , [address] [place] [id number] 0 03/23 CBC w/ auto diff MCV fL 80.0 104.0 95.0 FINAL Sekou Avalos [place] [facility] , [address] [place] [id number] 0 03/23 CBC w/ auto diff MCH pg 26.0 35.0 29.8 FINAL Sekou Avalos [place] [facility] , [address] [place] [id number] 0 03/23 CBC w/ auto diff MCHC g/dL 30.0 35.0 31.4 FINAL Sekou Avalos [place] [facility] , [address] [place] [id number] 0 03/23 CBC w/ auto diff MPV fL 9.5 13.4 10.8 FINAL Sekou Avalos [place] [facility] , [address] [place] [id number] 0 03/23 CBC w/ auto diff RDW % 11.3 15.6 17.00 High FINAL Se[facility]os [facility] On[facility] , [address] [place] [id number] 0 03/23 CMP Album in g/dL 3.5 5.0 3.2 Low FINAL Sekou Avalos * [facility] , [address] [facility] [id number] 0 03/23 CMP Alkal ine phosp hatas e U/L 36.0 125.0 442 High FINAL Sekou Robbie * [facility] , [address] [facility] [id number] 0 03/23 CMP ALT/S GPT U/L 0.0 49.0 24 FINAL Sekou Robbie * [facility] , [address] [facility] [id number] 0 03/23 CMP AST/S GOT U/L 17.0 59.0 76 High FINAL Sekou Avalos * [facility] , [address] [facility] [id number] 0 03/23 CMP BUN mg/dL 9.0 20.0 28.0 High FINAL Sekou Avalos * [facility] , [address] [facility] [id number] 0 03/23 CMP Calci um mg/dL 8.4 10.2 8.3 Low FINAL Sekou Avalos * [facility] , [address] [facility] [id number] 0 03/23 CMP Chlor oj mmol/L 96.0 107.0 104 FINAL Sekou Robbie * [facility] , [address] [facility] [id number] 0 03/23 CMP CO2 mmol/L 22.0 30.0 [...] hour stability window. FINAL Sekou Avalos * [facility] , [address] [facility] [address] [facility] [id number] 0 03/23 CMP Creat inine mg/dL 0.66 1.25 2.00 High FINAL Sekou Avalos * [facility] , [address] [id number] 0 03/23 CMP GFR estim ate ml/min /1.73m ^2 36.3 Low GFR is calculate d using the CKD-EPI equation. FINAL Sekou Avalos * [facility] , [address] [facility] [id number] 0 03/23 CMP Gluco se mg/dL 74.0 100.0 160 High FINAL Sekou Avalos * [facility] , [address] [id number] 0 03/23 CMP Potas sium mmol/L 3.5 5.1 4.2 FINAL Sekou Avalos * [facility] , [address] [facility] [id number] 0 03/23 CMP Sodiu m mmol/L 137.0 145.0 136 Low FINAL Sekou Avalos * [facility] , [address] [facility] [id number] 0 03/23 CMP Bilir ubin, total mg/dL 0.2 1.3 2.1 High FINAL Sekou Avalos * [facility] , [address] [facility] [id number] 0 03/23 CMP Total prote in g/dL 6.3 8.2 7.4 FINAL Sekou Avalos * [facility] , [address] [facility] [id number] 0 04/06 HGB g/dL 12.5 16.6 9.6 Low FINAL Pauline Philip [facility] Oncology , [address] [facility] [id number] 0 Medications Date Name Route Dose Frequency [...] only upon physician approval. 2024 active 06/29 18 ML aprepitant 7.2 MG/ML Injection intravenously [...] approval. 2020 active 10/10 influenza A virus A/[facility]01/2020 (H3N2) antigen 0.03 MG/ML / influenza A virus A/[facility] (H1N1) antigen 0.03 MG/ML / influenza B virus B/Will antigen 0.03 MG/ML / influenza B virus B/ [id number] antigen 0.03 MG/ML Injectable Suspension [Flucelvax Quadrivalent [id number]] intramuscular ly 0.5 mL once as a [...] Hypertension Active Vital Signs Date Type Value 11/25/2024 Respiratory Rate 16.00 11/25/2024 Heart Beat 110.00 11/25/2024 Body Temperature 98.60 11/25/2024 Oxygen Saturation 97.00 11/25/2024 BSA 1.86 11/25/2024 Pain Scale 8.00 11/25/2024 Weight 169.40 11/25/2024 Height 66.00 11/25/2024 BMI 27.34 11/25/2024 Intravascular Systolic 110 11/25/2024 Intravascular Diastolic 64 12/15/2024 Respiratory Rate 16.00 12/15/2024 Heart Beat 105.00 12/15/2024 Body Temperature 97.40 12/15/2024 Oxygen Saturation 98.00 12/15/2024 BSA 1.95 12/15/2024 BMI 30.23 12/15/2024 Height 66.00 12/15/2024 Weight 187.30 12/15/2024 Pain Scale 2.00 12/15/2024 Intravascular Systolic 162 12/15/2024 Intravascular Diastolic 98 12/17/2024 Pain Scale 0.00 12/17/2024 Intravascular Systolic 132 12/17/2024 Intravascular Diastolic 79 12/17/2024 Oxygen Saturation 98.00 12/17/2024 Respiratory Rate 18.00 12/17/2024 Heart Beat 92.00 12/17/2024 Body Temperature 96.10 12/17/2024 Height 66.00 12/29/2024 Body Temperature 97.60 12/29/2024 Heart Beat 98.00 12/29/2024 Respiratory Rate 16.00 12/29/2024 Oxygen Saturation 96.00 12/29/2024 Intravascular Systolic 124 12/29/2024 Intravascular Diastolic 84 12/29/2024 Pain Scale 0.00 12/29/2024 Weight 175.10 12/29/2024 Height 66.00 12/29/2024 BMI 28.26 12/29/2024 BSA 1.89 01/03/2025 BSA 1.87 01/03/2025 Weight 170.30 01/03/2025 Pain Scale 4.00 01/03/2025 Intravascular Systolic 132 01/03/2025 Intravascular Diastolic 82 01/03/2025 Height 66.00 01/03/2025 Respiratory Rate 16.00 01/03/2025 Heart Beat 106.00 01/03/2025 Body Temperature 97.50 01/03/2025 BMI 27.49 01/03/2025 Oxygen Saturation 95.00 01/12/2025 BSA 1.88 01/12/2025 Body Temperature 96.40 01/12/2025 Heart Beat 102.00 01/12/2025 Oxygen Saturation 96.00 01/12/2025 Intravascular Systolic 120 01/12/2025 Intravascular Diastolic 72 01/12/2025 Pain Scale 2.00 01/12/2025 Weight 172.00 01/12/2025 Height 66.00 01/12/2025 BMI 27.76 01/14/2025 Body Temperature 96.10 01/14/2025 Height 66.00 01/14/2025 Pain Scale 5.00 01/14/2025 Intravascular Systolic 135 01/14/2025 Intravascular Diastolic 79 01/14/2025 Oxygen Saturation 100.00 01/14/2025 Respiratory Rate 16.00 01/14/2025 Heart Beat 105.00 02/02/2025 BSA 1.89 02/02/2025 BMI 28.16 02/02/2025 Height 66.00 02/02/2025 Weight 174.50 02/02/2025 Pain Scale 0.00 02/02/2025 Intravascular Systolic 118 02/02/2025 Intravascular Diastolic 84 02/02/2025 Oxygen Saturation 91.00 02/02/2025 Respiratory Rate 16.00 02/02/2025 Body Temperature 97.50 02/02/2025 Heart Beat 51.00 02/18/2025 Body Temperature 97.80 02/18/2025 Heart Beat 103.00 02/18/2025 Respiratory Rate 16.00 02/18/2025 Oxygen Saturation 96.00 02/18/2025 BSA 1.89 02/18/2025 Pain Scale 0.00 02/18/2025 Weight 174.60 02/18/2025 Height 66.00 02/18/2025 BMI 28.18 02/18/2025 Intravascular Systolic 144 02/18/2025 Intravascular Diastolic 84 03/23/2025 BMI 26.36 03/23/2025 Height 66.00 03/23/2025 Weight 163.30 03/23/2025 Pain Scale 0.00 03/23/2025 Intravascular Systolic 144 03/23/2025 Intravascular Diastolic 86 03/23/2025 Oxygen Saturation 95.00 03/23/2025 Respiratory Rate 16.00 03/23/2025 Heart Beat 106.00 03/23/2025 Body Temperature 97.40 03/23/2025 BSA 1.84 Notes Section * Med Onc Follow-up Note Patient Name: FABIANO KULKARNI Date Of : 1960 Today's Provider:?Marisel Coelho RN, DRAPERY AND UPHOLSTERY ESTIMATOR, MA, OCN Date of Service:?11/25/2024 Attending Physician:?Sekou Avalos (Hematology/Oncology) Referring Provider: ? HEMATOLOGY/ MEDICAL ONCOLOGY FOLLOW UP VISIT Reason for Visit 1. ??Here on interim basis with??incontinent diarrhea with hemorrhoidal bleeding, severe weight loss and fatigue??status post??cycle #2 of FOLFIRI and Zirabev with Fulphila for progressive metastaticcolon cancer. 2.?Aranesp per guidelines for treatment related anemia Assessment #1 Metastatic colon cancer ???Metastatic colon cancer with extensive liver and lung metastases therefore his cancer is not curable. The goal of treatment is to help him live as long as possible with the highest quality of life. ???His primary tumor had caused perforation with abscess formation, therefore he has undergone surgery to remove the primary tumor ???MMR proficient, and NATANAEL/BRAF wild type.?He responded very well to FOLFOX and Avastin, with radiographic response and significant declinein CEA.?? He had 12 cycles of FOLFOX and Avastin -He then progressed on 5-FU/Avastin maintenance -Treated with second line therapy??in the form of FOLFIRI and panitumumab.?? CEA decreased??since starting treatment. ??CT scan after 4 cycles and 8 cycles showed improvement. - De-escalated to irinotecan and panitumumab in early February 2023. - CT 06/2023 showed disease?? progression in the chest.?? CEA went up.?? He also tolerated treatmentpoorly in May/June 2023, with nausea, vomiting, and diarrhea resulting in frequent hospitalizations. - Tempus xT shows no new targetable mutation. -(08/08/2023???04/2024) Lonsurf and Zirabev (bevacizumab biosimilar).?? Tolerated relatively well -Due to continued rise in tumor marker and mild disease progression on CT scan, we discontinued Lonsurf and Avastin, and restarted FOLFOX and Avastin in late April 2024, which the patient previously responded to very well.?? -CT scan after 5 cycles of treatment showed??mild disease progression in the liver and lungs.? -CT scan after 9 cycles of treatment continued to show very mild disease progression in the liver and lungs. ??CEA??continues to slowly trend up ???(10/20/2024???present) palliative intent FOLFIRI with Zirabev and Fulphila - Had prolonged cytopenia and significant diarrhea after cycle 1.?? Also had neutropenic fever #2 Insomnia, chronic - On trazodone #3 Nonocclusive clot in the superior mesenteric vein ???Incidentally found in April 2022 - Resolved on CT 06/2022 - Xarelto DC'd in 05/2023 due to GI bleed #4 Peripheral neuropathy, due to oxaliplatin - He notes neuropathy only in fingertips and toes, tingling?? - Neuropathy slightly better after stopping oxaliplatin #5?? Anemia - Due to chemotherapy, chronic kidney disease, and underlying malignancy ???Ferritin 163 in 07/2024 #6?? Chronic kidney disease - Cr stable in 1.5-2 range #7 Proteinuria - Related to Avastin (Zirabev) ???Urine protein has been fluctuating between 1+ and 2+ #8 Hospitalization ???(10/28 - 11/01/2024)??hospitalized with neutropenic fevers, sepsis.?? Transfused with??PRBC and platelets.?? GI??reevaluation for diarrhea, treated with flagyl (last dose 11/14/24) #9 Hypertension ???(11/16/2024) during his recent hospitalization,??he was hypotensive, Norvasc was decreased to 2.5 mg daily, blood pressure has been well-controlled #10??pancytopenia???without fever - ANC 100, Plt 27K, Hgb 8.5 #11??incontinent diarrhea??with associated severe hemorrhoidal bleeding # 12 severe protein Calorie malnutrition?? -17lbs weight loss over 10 days Plan Discussion: Patient's case was reviewed with and Dr. Avalos today.?? Over the last 3 days he has had severe diarrhea having at least 4 incontinent liquid stools this morning. ??These have been associated with??significant hemorrhoidal bleeding.?? Patient is found to have 17 pound weight loss over the last 10 days.?? He has been in bed almost continuously over the last 24 hours.?? He has had??minimal oral intake over over the last 48 hours.?? Fabiano is found to be pancytopenic with ANC of 100.?? His hemoglobin is down about 1 g??over the last??week??and due to dehydration this might be falsely elevated.?? His platelets are only 27,000. ??Please note the severe pancytopenia is in spite of holding 5-FU bolus and dose reduction of irinotecan??with cycle #2.?? At this time the patient verbalizes need to report to the emergency room. ??We do agree with this plan. ??Our hope is that his counts will rebound quickly as he did receive Neulasta for bone marrow support. Per Dr. Avalos??going forward he will likely require significant further dose reduction of chemo likely 50% reduction??of irinotecan.?This decision will be deferred to Dr. Avalos at the time of follow up.?? It will be important that we begin discussing /considering palliative approach in light of extensive previous treatment and poor tolerance to therapy. ???5 minutes was spent in preparation ?35 minutes was spent [id number] with the patient ??? 10 minutes spent in documentation, discussion with MD and discussion with ED Advanced Care Planning Not discussed at this visit. Pain Scale on Today's Visit 8 Pain Plan on Today's Visit Date of Service: 11/25/2024 Pain Scale (0-10): 8 Pain Treatment Plan: No pain reported Comment: Smoking Status Smoking Tobacco : Never smoker; Smokeless Tobacco : Never used smokeless tobacco; Vaping : Never vaped Depression Screening Tool Status Was not screened Reason: Patient Refused; Screening Date: 10/06/2024 History of Present Illness Oncologic history: 1. The patient went to see his primary care physician for fatigue, generalized weakness, and unintentional weight loss in early April [address] scan of the chest, abdomen, and pelvis showed a tumor in the mid sigmoid colon with containedperforation and adjacent mesenteric abscess. He was also found to have liver and lung metastases. 3. Liver biopsy showed??metastatic moderately differentiated colorectal cancer 4. He underwent robotic assisted sigmoid colectomy with en bloc small bowel resection and primary anastomosis on May 10, 2021. This showed moderately differentiated adenocarcinoma in the sigmoid colon measuring 6.5 cm, with intact MMR proteins.?There was gross tumor perforation identified with mural abscess, and the radial margin of the resection was focally positive for malignancy. There wasmetastatic adenocarcinoma identified in 3 out of 14 resected lymph nodes.?? pT4b pN1b pM1a.?? BRAF/NATANAEL wild type 5. CEA?? - 978 (baseline) 6. Cycle #1 of FOLFOX and Avastin (Avastin held for cycle #1 due to surgery) on 06/06/2021 7.?? CT scan after 4 cycles of treatment showed shrinkage of liver and lung metastases. 8. CT scan after 8 cycles of treatment showed continued shrinkage of liver and lung metastases 9.?CT scan after 12 cycles showed relatively stable disease, but the lung metastases are becoming more cavitary, consistent with response.?? CEA down to 87 10.?De-escalated treatment to??capecitabine and Avastin??in early November 2021.?Later switched to 5-FU and Avastin due to concern for inadequate absorption of capecitabine. 11.??CT scan from October 09, 2022 showed mildly increased pulmonary and liver metastases comparedto April. ??CEA also up.?? Due to progression, changed treatment to FOLFIRI with panitumumab 12.??CT scan after 4 cycles and 8 cycles showed improvement. 13. Treatment was de-escalated to irinotecan and panitumumab in early February 2023 14.?? 06/11/2023 patient admitted to the hospital??with diarrhea, fatigue,??hematochezia, neutropenia, acute renal failure, and diarrhea.?? Sigmoidoscopy was performed??which revealed??large??externaland internal hemorrhoids??felt likely the cause of rectal bleeding??and exacerbated by low plateletcount on Xarelto. 15.?The patient was hospitalized again??in June 2023 for??nausea, vomiting, and diarrhea causing??acute on chronic kidney injury.?? These symptoms were thought to be??related to chemotherapy.?? CT CAP showed progression of lung metastases but improvement of liver metastases.?? CEA is up to 72 c/w disease progression. 16.?The patient took a short break from treatment, and??restarted systemic therapy in the form of??Lonsurf/Avastin 08/08/2023. 17.?? CT scan 10/31/2023 was initially compared to the previous scan from February. ??It was subsequently compared to his CTs from May and June that were done at [facility], showing mild disease progression in the liver and lungs. ??However, the comparison CT scans were done 1 to 2 months prior to starting Lonsurf/Avastin. 18.?We decided to keep the patient on Lonsurf and Avastin. ??CT 01/2024 showed stable findings compared to the previous CT from October 2023, despite rise in CEA. 19.?Due to continued rise in tumor marker and mild disease progression on CT scan, we discontinued Lonsurf and Avastin, and restarted FOLFOX and Avastin in late April 2024, which the patient previously responded to very well. ??He now has very little residual peripheral neuropathy 20.??(10/20/2024???present) palliative intent FOLFIRI with Zirabev and Fulphila Interval History Fabiano presents to the office??today for an interim visit. ??His contacted us with new concerns.?? Over the last 3 days Fabiano has developed significant incontinent diarrhea stools.?? He has had 4since 830 this morning. ??Some of this was incontinent. ??He is also having fairly frequent bleeding which again he believes is related to hemorrhoidal bleeding.?? He has been profoundly fatigued andweak. ??His reports that he spent the entire day in bed yesterday.?? He has not eaten over thelast??48 hours aside from very minimal amounts.?? He does note a significant weight loss over the last 10 days (17lbs). ??He also reports some generalized discomfort across the lower abdomen. ??This o ccurred after an abdominal exam. He denies??nausea and vomiting but does report lightheadedness. Fabiano also reports dry cough and SOB with activity. There is no chest pain. He took 1 lomotil this morning. He denies fever or chills but reports a desire to return to the hospital. Review of Systems Remaining 14 point comprehensive review of systems within normal limits. NCCN Distress Thermometer and Problem List were collected and documented in the patient chart.?? Remarkable symptoms and concerns were discussed with the patient.?? Any additional follow-up is indicated in the plan. Past Medical and Surgical History Unremarkable Current Medications Medication List Name Date Chlorpromazine Oral 06/20/2021 Codeine-Guaifenesin Oral Liquid 10 mg-10 0 mg/5 mL 09/08/2024 Hydrocortisone Rectal Cream 2.5 % 2022 Venlafaxine 04/07/2024 Vitron-C (Iron-Vitamin C) 08/28/2023 Flucelvax (Influenza Virus V accine IM Quad-Split (2yr & older) Cell Derived) 08/29/2021 Lorazepam Oral 12/28/2021 Diphenoxylate-Atropine Oral 2.5 mg-0.025 mg 11/16/2024 Trazodone 11/15/2024 Imodium A-D (Loperamide Oral) 03/05/2023 Sodium Bicarbonate Oral 10/22/2023 Benzonatate Oral 10/27/2024 Amlodipine 10/06/2024 Allergies No known medication allergies Family History No significant family history of malignancy Social History Patient is and lives with his in [place]. 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 No significant alcohol intake Vital Signs Blood pressure: 110/64, Pulse: 110, Temperature: 98.6 F, Respirations: 16, O2 sat: 97%, Pain Scale:8, Height: 66 in, Weight: 169.4 lb, BSA: 1.86, BMI: 27.34 kg/m2 Covid-19 vaccine ([employer]) (05/16/2021), Elsewhere; Covid-19 vaccine ([employer]) (04/07/2024), Patientdeclined/rejected; Flu vaccine - Adult (08/2020), Patient declined/rejected; Flu vaccine - Adult (2020), Patient declined/rejected; Flu vaccine - Adult (10/06/2024), Patient declined/rejected; Flu vaccine - Adult (09/10/2023), Patient declined/rejected; Flu vaccine - Adult (09/18/2022), Patient declined/rejected Performance Status ECOG or Karnofsky ECOG: Not recorded Karnofsky: 70% Cares for self, unable to carry on normal activity or to do active work. (Date: 11/25/2024) Physical Exam GENERAL: A&O x3. He appears thinner, pale, and chronically ill. HEENT:??Pupils are equal round reactive to light. ??Sclera nonicteric. ??Conjunctive are pale.?? Extraocular movement intact. LYMPH:??No palpable cervical, supraclavicular. or axillary lymphadenopathy. RESP:??No dyspnea with conversation??his lungs are clear to auscultation.? CARDIAC:??Regular??rate and rhythm.?? No murmurs or gallops noted.? ABDOMEN:??Abdomen does appear more distended, but is soft to palpation and nontender during the exam but reported tenderness aft in the lower quadrants after exam.?? No obvious palpable masses present.?No hepatosplenomegaly.? EXT: No edema BLEs. SKIN:??Some scattered bruising.?? No petechiae or rash noted.?? Port right chest without evidence for infection. NEURO:??Nonfocal??gait intact Genetics/Molecular/Biomarkers * Colon cancer ( Stage Date: Unknown, Stage BILLY HER-2/samantha Value-IHC: 0; MSI (Microsatellite Instability): Stable; KRAS Mutation: Wild type; RET gene mutation: Ordered: Result pending; KRAS gene: Wild type; POLE mutation: Unknown; HER-2/samantha Status:Unknown; NRAS Mutation: Wild type; POLD1 mutation: Unknown; BRAF Mutation: Wild type; MMR (MismatchRepair): Proficient; TRK gene: Unknown; HCC UPDATED IN CB ONLY 06/03/24 JAYME ) Additional Labs, Imaging, and Other Studies Lab Results CBC Lab Results 11/25/2024 11/16/2024 11/11/2024 11/01/2024 10/28/2010/20/2024 CBC WBC x 10^3/uL 0.4 Critical hematology result obtained (LL) 6.4 6.3 5.5 RBC x 10^6/uL 2.74 (L) 2.97 (L) 2.86 (L) 3.43 (L) NRBC % /100 wbc 0.0 0.0 0.0 0.0 HGB g/dL 8.5 (L) 9.3 (L) 8.8 (L) 10.6 (L) HCT % 25.9 (L) 29.4 (L) 28.5 (L) 33.3 (L) MCV fL 94.5 99.0 99.7 97.1 MCH pg 31.0 31.3 30.8 30.9 MCHC g/dL 32.8 31.6 30.9 31.8 RDW % 15.60 17.70 (H) 18.40 (H) 16.30 (H) PLT x 10^3/uL 27 Critical hematology result obtained (LL) 105 (L) 133 86 (L) MPV fL ---- 10.1 10.2 11.7 Platelet, immature, fraction % 4.9 Samantha % 12.2 (L) 74.5 (H) 74.1 (H) 70.1 LY % 65.9 (H) 8.8 (L) 7.7 (L) 7.8 (L) MO % 14.6 13.3 12.9 12.5 EO % 4.9 0.5 0.5 3.3 IG % 0.0 0.9 (H) 2.6 (H) 4.7 (H) Samantha # (ANC) x 10^3/uL 0.1 Critical hematology result obtained (LL) 4.8 4.6 3.9 BA % 2.4 (H) 2.0 2.2 (H) 1.6 MO # x 10^3/uL 0.1 (L) 0.9 0.8 0.7 EO # x 10^3/uL 0.0 0.0 0.0 0.2 BA # x 10^3/uL 0.0 0.1 0.1 0.1 IG # x 10^3/uL 0.00 0.06 (H) 0.16 (H) 0.26 (H) LY # x 10^3/uL 0.3 (L) 0.6 0.5 0.4 Auto CBC comments Slide review to follow Chemistries Lab Results 11/25/2024 11/16/2024 11/11/2024 11/01/2024 10/28/20 24 10/20/2024 Chemistries Glucose mg/dL 102 (H) 104 (H) 186 (H) BUN mg/dL 14.0 14.0 21.0 (H) Creatinine mg/dL 1.60 (H) 1.50 (H) 1.70 (H) Sodium mmol/L 139 141 139 Potassium mmol/L 3.5 3.6 3.7 Chloride mmol/L 111 (H) 114 (H) 112 (H) CO2 mmol/L 23 23 18 (L) Calcium mg/dL 8.1 (L) 8.1 (L) 8.2 (L) Albumin g/dL 3.0 (L) 2.8 (L) 3.2 (L) Total protein g/dL 6.8 6.5 7.0 Bilirubin, total mg/dL 1.0 0.7 0.8 Alkaline phosphatase U/L 282 (H) 268 (H) 400 (H) AST/SGOT U/L 51 45 79 (H) ALT/SGPT U/L 18 18 39 GFR estimate mL/min/1.73m2 47.6 (L) 51.4 (L) 44.2 (L) Tumor Markers Lab Results 11/25/2024 11/16/2024 11/11/2024 11/01/2024 10/28/2010/20/2024 Tumor Markers CEA ng/mL 951.00 Resulted with diluted sample (H) 1450.00 Resulted with diluted sample (H) ? 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
--- OUTSIDE RECORDS SUMMARY | 2025-04-10 17:25 | XMS_ITS | Encounter Summary ---
Author Organization [facility] Address [address] [place] [id number] Care Team Providers Care Guide Foreign Tour Name Role Phone [facility], [facility] Primary Care Pr ovider Unavailable Todd Gibson MD Primary Care Provider + [phone] Kathie Pinon Unavailable Unava ilable Irma Weiner RN Unavailable Unavailable Araceli Jones MD Unavailable Odalis Henderson RN Unavailable UnavailMirna Mendoza RN Unavailable Unavailable Jeff Bass MD Unavailable [phone] Mirna Cohn RN Unavailable Unavailable Encounter Details Date Type Department Care Team (Late st Contact Info) Description 05/26/2021 External Order Results [facility] [address] [place] [address] Outside, Provider Social History Tobacco Use Types Packs/Day Years Used Date Smoking Tobacco: Never Assessed Sex and Gender Information Value Date Recorded Sex Assigned at Not on file Legal Sex Male 1:35 PM CDT Gender Identity Not on file Sexual Orientation Not on file documented as of this encounter Plan of Treatment Upcoming Encounters Date Type Department Care Team (Late st Contact Info) Description 04/21/2025 9:[address] [facility] [address] [place] [address] Sekou Avalos MD [facility] [address] [place] [address] 05/05/2025 9:[address] [facility] [address] [place] [id number] Sekou Avalos MD [facility] [address] [place] [address] documented as of this encounter Procedures Procedure Name Priority Date/Time Associated Diagnosis Comments COVID-19 VIRUS (CORONAVIRUS) BY PCR (EXTERNAL RESULT) Routine 05/26/2021 10:13 AM CDT documented in this encounter Results * COVID-19 Virus (Coronavirus) by PCR (External Result) (05/26/2021 10:13 AM CDT) COVID-19 Virus by PCR (External Result) NEGATIVE NEGATIVE COVID-19 EXTERNAL RESULTS 05/26/2021 10:1 3 AM CDT Narrative VISHAL PFT - 06/06/2021 7:17 AM CDT Verified by Rivas Ivory on 06/06/2021. Performed by [facility] EMRT [address] [facility] [address] us Patient Reported LABORATORY Edited Result - Final VICKEYDEYANIRA PFT COVID-19 EXTERNAL RESULTS COVID-19 External Result Scanned into Patient Record by [facility] Refer to Result Comment/Narrative for [place] [address], [facility] documented in this encounter Visit Diagnoses Not on filedocumented in this encounter Additional Health Concerns Infection Onset Date Last Indicated Resolved Time Rule Out C-difficile 06/11/2023 06/11/2023 023 11:58 PM CDT Rule Out C-difficile 07/02/2023 07/03/2023 023 5:15 AM CDT Rule Out C-difficile 10/28/2024 10/29/2024 024 5:11 AM IT SUPPORT ANALYST Rule Out C-difficile 11/25/2024 11/25/2024 025 9:28 PM IT SUPPORT ANALYST Rule Out COVID-19 11/25/2024 11/25/2024 11/25/2024 6:21 PM IT SUPPORT ANALYST Rule Out C-difficile 11/25/2024 11/25/2024 025 1:45 AM IT SUPPORT ANALYST Rule Out C-difficile 12/22/2024 12/22/2024 025 7:05 PM IT SUPPORT ANALYST C-difficile 12/22/2024 12/22/2024 01/28/2025 11:4 1 PM IT SUPPORT ANALYST Rule Out C-difficile 04/09/2025 04/10/2025 025 1:09 PM CDT C-difficile 04/10/2025 04/10/2025 documented as of this encounter Care Teams Guide Foreign Tour Relationship Specialty Start Date End Date [facility], [facility] PCP - General 05/30/21 02/28/23 Todd Gibson MD [address] [place] [id number] PCP - General Family Medicine 06/11/23 Kathie Pinon [facility] Resource Team 12/01/24 12/02/24 Irma Weiner, ALEKSANDAR [facility] Resource Team 12/02/24 12/03/24 Araceli Jones MD [facility] [address] [place] [address] Home Infusion Following Provider Infectious Diseases 12/02/24 01/19/25 Odalis Henderson, RN [facility] Resource Team 12/14/24 12/14/24 Mirna Cohn, ALEKSANDAR [facility] Resource Team Nurse 01/20/25 01/21/25 Jeff Bass MD [facility] [address] [place] [address] Home Infusion Following Provider Infectious Diseases 01/20/25 Mirna Cohn, RN [facility] Resource Team Nurse 02/15/25 02/15/25 documented as of this encounter
--- OUTSIDE RECORDS SUMMARY | 2025-04-10 17:26 | XMS_ITS ---
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 difficile colitis 12/22/2024 Bacteremia 12/01/2024 Dehydration 11/25/2024 Thrombocytopenia 11/25/2024 Generalized weakness 11/25/2024 Acute colitis 11/25/2024 External hemorrhoids 10/28/2024 Neutropenic fever 10/28/2024 On antineoplastic chemotherapy 10/28/2024 Malignant neoplasm of colon, unspecified part of colon 10/28/2024 Hypomagnesemia 07/03/2023 Chemotherapy-induced neutropenia 07/03/2023 SAVANNA (acute kidney injury) 07/03/2023 Vomiting and diarrhea 07/03/2023 Right flank pain 06/11/2023 Pancytopenia 06/11/2023 Acute renal failure, unspecified acute renal anjum lure type 06/11/2023 Diarrhea, unspecified type 06/11/2023 Current Treatment and Therapy Plans No current plan information found. Other Current Plans Vascular Access Device Management - Adult* Plan Start Date:12/07/2024 Plan Provider:Fabiano Portillo MD Linked Problems Bacteremia Treatment Medications No medications scheduled. Past Treatment and Therapy Plans No past plan information found. Lifetime Dose Tracking * Chemical Lifetime Dose Automatic Entry Manual Entr y Total Air Kerma 19 mGy 19 mGy 0 mGy Fluoro Time 1.9 Minutes 1.9 Minutes 0 Minutes Radiation Lateral Plane 5 mGy 5 mGy 0 mG y
--- OUTSIDE RECORDS SUMMARY | 2025-04-10 17:26 | XMS_ITS | CCD ---
Author Name Interface, [id number] lity Address [address] [facility] [address] [address] [facility] On[facility] Address [address] [facility] [address] [address] Care Team Providers Care Hooker On Name Role Phone Sekou Avalos Unavailable Unavailable Allergies and Adverse Reactions Medication/Group Name Reaction Severity Date No known allergies Care Plan Date Type Value 04/13/2025 APPOINTMENT LAB 15 MIN 04/13/2025 APPOINTMENT OV 20 MIN 04/06/2025 APPOINTMENT LAB 15 MIN 04/04/2025 APPOINTMENT OUTSIDE TEST 5 M IN 03/23/2025 APPOINTMENT OV 20 MIN 03/23/2025 APPOINTMENT LAB 15 MIN 03/21/2025 APPOINTMENT OUTSIDE TEST 5 M IN 02/25/2025 APPOINTMENT PUMP DISCONNECT 15 MIN 02/23/2025 APPOINTMENT TREATMENT 3 HR 02/23/2025 APPOINTMENT LAB 15 MIN 02/23/2025 APPOINTMENT OV 20 MIN 02/23/2025 APPOINTMENT PORT DRAW 15 MIN 02/18/2025 APPOINTMENT OV 20 MIN 02/07/2025 APPOINTMENT OUTSIDE TEST 5 M IN 02/04/2025 APPOINTMENT OUTSIDE TEST 5 M IN 02/04/2025 APPOINTMENT OUTSIDE TEST 5 M IN 02/04/2025 APPOINTMENT PUMP DISCONNECT 15 MIN 02/02/2025 APPOINTMENT TREATMENT 3 HR 02/02/2025 APPOINTMENT PORT DRAW 15 MIN 02/02/2025 APPOINTMENT OUTSIDE TEST 5 M IN 02/02/2025 APPOINTMENT OV 30 MIN 01/21/2025 APPOINTMENT OUTSIDE TEST 5 M IN [...] APPOINTMENT PORT DRAW 15 MIN 12/29/2024 APPOINTMENT PORT DRAW 15 MIN 12/29/2024 APPOINTMENT OV 30 MIN 12/29/2024 APPOINTMENT PORT DRAW 15 MIN 12/29/2024 APPOINTMENT OV 30 MIN 12/29/2024 APPOINTMENT TREATMENT 4 HR 12/28/2024 APPOINTMENT OUTSIDE TEST 5 M IN 12/22/2024 APPOINTMENT PORT DRAW 15 MIN 12/17/2024 APPOINTMENT PUMP DISCONNECT 15 MIN 12/15/2024 APPOINTMENT PORT DRAW 15 MIN 12/15/2024 APPOINTMENT TREATMENT 4 HR 12/15/2024 APPOINTMENT OV 20 MIN 12/03/2024 APPOINTMENT PUMP DISCONNECT 15 MIN 12/01/2024 APPOINTMENT OV 30 MIN 12/01/2024 APPOINTMENT PORT DRAW 15 MIN 12/01/2024 APPOINTMENT TREATMENT 4 HR 11/25/2024 APPOINTMENT PORT DRAW 15 MIN 11/25/2024 APPOINTMENT OV 30 MIN 11/25/2024 APPOINTMENT TREATMENT 2 HR 11/18/2024 APPOINTMENT PUMP DISCONNECT 15 MIN 11/16/2024 APPOINTMENT TREATMENT 4 HR 11/16/2024 APPOINTMENT PORT DRAW 15 MIN 11/16/2024 APPOINTMENT OV 30 MIN 11/11/2024 APPOINTMENT PORT DRAW 15 MIN 11/11/2024 APPOINTMENT OV 20 MIN 11/05/2024 APPOINTMENT INJECTION 15 MIN 11/03/2024 APPOINTMENT OV 20 MIN 11/03/2024 APPOINTMENT PORT DRAW 15 MIN 11/03/2024 APPOINTMENT TREATMENT 4 HR 10/29/2024 APPOINTMENT OUTSIDE TEST 5 M IN 10/22/2024 APPOINTMENT PUMP DISCONNECT 15 MIN 10/20/2024 APPOINTMENT PORT DRAW 15 MIN 10/20/2024 APPOINTMENT TREATMENT 4 HR 10/20/2024 APPOINTMENT OV 30 MIN 10/08/2024 APPOINTMENT PUMP DISCONNECT 15 MIN 10/06/2024 APPOINTMENT PORT DRAW 15 MIN 10/06/2024 APPOINTMENT OV 20 MIN 10/06/2024 APPOINTMENT TREATMENT 4 HR 10/06/2024 APPOINTMENT PORT DRAW 15 MIN 09/24/2024 APPOINTMENT PUMP DISCONNECT 15 MIN 09/22/2024 APPOINTMENT OV 20 MIN 09/22/2024 APPOINTMENT PORT DRAW 15 MIN 09/22/2024 APPOINTMENT TREATMENT 3 HR 09/17/2024 APPOINTMENT OUTSIDE TEST 5 M IN 09/10/2024 APPOINTMENT PUMP DISCONNECT 15 MIN 09/08/2024 APPOINTMENT OV 30 MIN 09/08/2024 APPOINTMENT TREATMENT 3 HR 09/08/2024 APPOINTMENT PORT DRAW 15 MIN 08/27/2024 APPOINTMENT PUMP DISCONNECT 15 MIN 08/25/2024 APPOINTMENT TREATMENT 3 HR 08/25/2024 APPOINTMENT OV 30 MIN 08/25/2024 APPOINTMENT PORT DRAW 15 MIN 08/13/2024 APPOINTMENT PUMP DISCONNECT 15 MIN 08/11/2024 APPOINTMENT TREATMENT 3 HR 08/11/2024 APPOINTMENT OV 20 MIN 08/11/2024 APPOINTMENT PORT DRAW 15 MIN 07/30/2024 APPOINTMENT PUMP DISCONNECT 15 MIN 07/28/2024 APPOINTMENT OV 30 MIN 07/28/2024 APPOINTMENT TREATMENT 3 HR 07/28/2024 APPOINTMENT PORT DRAW 15 MIN 07/16/2024 APPOINTMENT PUMP DISCONNECT 15 MIN 07/14/2024 APPOINTMENT TREATMENT 3 HR 07/14/2024 APPOINTMENT OV 20 MIN 07/14/2024 APPOINTMENT PORT DRAW 15 MIN 07/02/2024 APPOINTMENT PUMP DISCONNECT 15 MIN 06/30/2024 APPOINTMENT PORT DRAW 15 MIN 06/30/2024 APPOINTMENT TREATMENT 3 HR 06/30/2024 APPOINTMENT OV 30 MIN 06/18/2024 APPOINTMENT PUMP DISCONNECT 15 MIN 06/16/2024 APPOINTMENT TREATMENT 4 HR 06/16/2024 APPOINTMENT OV 30 MIN 06/16/2024 APPOINTMENT PORT DRAW 15 MIN 06/04/2024 APPOINTMENT PUMP DISCONNECT 15 MIN 06/02/2024 APPOINTMENT OV 20 MIN 06/02/2024 APPOINTMENT PORT DRAW 15 MIN 06/02/2024 APPOINTMENT TREATMENT 4 HR 05/21/2024 APPOINTMENT PUMP DISCONNECT 15 MIN 05/19/2024 APPOINTMENT PORT DRAW 15 MIN 05/19/2024 APPOINTMENT OV 30 MIN 05/19/2024 APPOINTMENT TREATMENT 4 HR 05/05/2024 APPOINTMENT PORT DRAW 15 MIN 05/05/2024 APPOINTMENT OV 20 MIN 05/05/2024 APPOINTMENT TREATMENT 1 HR 04/29/2024 APPOINTMENT PORT DRAW 15 MIN 04/21/2024 APPOINTMENT TREATMENT 1 HR 06/20/2021 LABORDER Ferritin panel 06/20/2021 LABORDER Iron profile 06/20/2021 LABORDER CEA panel 07/04/[address] chest/abdomen /pelvis w/ IV contrast 07/20/2021 LABORDER CEA panel 05/24/[address] chest/abdomen /pelvis w/ IV contrast 02/19/[address] chest/abdomen /pelvis w/ IV contrast 03/19/2023 LABORDER Magnesium Panel 04/16/2023 LABORDER Venous doppler u ltrasound of lower extremity, unilateral 06/04/2023 LABORDER Ferritin panel 06/04/2023 LABORDER Iron profile 06/19/2023 LABORDER iSTAT creatinine panel 07/16/2023 LABORDER Tempus xF panel 07/16/2023 LABORDER Tempus xT panel 11/19/2023 LABORDER Ferritin panel 11/19/2023 LABORDER Iron profile 03/10/[address] chest/abdomen /pelvis w/o contrast 04/21/2024 LABORDER CBC w/ auto diff 04/29/2024 LABORDER CBC w/ auto diff 04/29/2024 LABORDER CEA panel 04/29/2024 LABORDER CMP 04/29/2024 LABORDER Iron profile 04/29/2024 LABORDER Ferritin panel 05/05/2024 LABORDER Protein (dipstic k) panel 05/05/2024 LABORDER Ferritin panel 05/05/2024 LABORDER CBC w/ auto diff 05/05/2024 LABORDER Iron profile 05/19/2024 LABORDER CBC w/ auto diff 05/19/2024 LABORDER CMP 06/02/2024 LABORDER CEA panel 06/02/2024 LABORDER Protein (dipstic k) panel 06/02/2024 LABORDER CMP 06/02/2024 LABORDER CBC w/ auto diff 06/16/2024 LABORDER CBC w/ auto diff 06/16/2024 LABORDER Protein (dipstic k) panel 06/16/2024 LABORDER CEA panel 06/16/2024 LABORDER CMP 06/30/2024 LABORDER Protein (dipstic k) panel 06/30/[address] chest/abdomen /pelvis w/o contrast 06/30/2024 LABORDER CMP 06/30/2024 LABORDER CBC w/ auto diff 07/14/2024 LABORDER Protein (dipstic k) panel 07/14/2024 LABORDER CBC w/ auto diff 07/14/2024 LABORDER CEA panel 07/14/2024 LABORDER CMP 07/28/2024 LABORDER CEA panel 07/28/2024 LABORDER CBC w/ auto diff 07/28/2024 LABORDER Protein (dipstic k) panel 07/28/2024 LABORDER CMP 07/28/2024 LABORDER CBC w/ auto diff 07/28/2024 LABORDER Protein (dipstic k) panel 07/28/2024 LABORDER CMP 07/30/2024 LABORDER Ferritin panel 08/11/2024 LABORDER CBC w/ auto diff 08/11/2024 LABORDER Iron profile 08/11/2024 LABORDER CEA panel 08/11/2024 LABORDER Protein (dipstic k) panel 08/11/2024 LABORDER CMP 08/25/2024 LABORDER CEA panel 08/25/2024 LABORDER CBC w/ auto diff 08/25/[address] chest/abdomen /pelvis w/o contrast 08/25/2024 LABORDER CMP 08/25/2024 LABORDER Protein (dipstic k) panel 09/08/2024 LABORDER CEA panel 09/08/2024 LABORDER CBC w/ auto diff 09/08/2024 LABORDER CEA panel 09/08/2024 LABORDER Protein (dipstic k) panel 09/08/2024 LABORDER Protein (dipstic k) panel 09/08/2024 LABORDER CMP 09/08/2024 LABORDER CBC w/ auto diff 09/08/2024 LABORDER CMP 09/22/2024 LABORDER Protein (dipstic k) panel 09/22/2024 LABORDER Ferritin panel 09/22/2024 LABORDER CEA panel 09/22/2024 LABORDER CMP 09/22/2024 LABORDER CBC w/ auto diff 09/22/2024 LABORDER Iron profile 10/06/2024 LABORDER Protein (dipstic k) panel 10/06/2024 LABORDER CMP 10/06/2024 LABORDER CEA panel 10/06/2024 LABORDER CBC w/ auto diff 10/20/2024 LABORDER CBC w/ auto diff 10/20/2024 LABORDER CMP 10/20/2024 LABORDER CEA panel 10/20/2024 LABORDER Protein (dipstic k) panel 10/29/[address] chest w/o con trast 11/03/2024 LABORDER CEA panel 11/03/2024 LABORDER CMP 11/03/2024 LABORDER Protein (dipstic k) panel 11/03/2024 LABORDER CBC w/ auto diff 11/11/2024 LABORDER CBC w/ auto diff 11/11/2024 LABORDER CEA panel 11/11/2024 LABORDER CMP 11/16/2024 LABORDER CMP 11/16/2024 LABORDER CEA panel 11/16/2024 LABORDER Protein (dipstic k) panel 11/16/2024 LABORDER CBC w/ auto diff 11/25/2024 LABORDER CBC w/ auto diff 12/01/2024 LABORDER Iron profile 12/01/2024 LABORDER Protein (dipstic k) panel 12/01/2024 LABORDER CMP 12/01/2024 LABORDER CBC w/ auto diff 12/01/2024 LABORDER CEA panel 12/01/2024 LABORDER Ferritin panel 12/01/2024 LABORDER CMP 12/01/2024 LABORDER CBC w/ auto diff 12/15/2024 LABORDER CEA panel 12/15/2024 LABORDER CBC w/ auto diff 12/15/2024 LABORDER CMP 12/15/2024 LABORDER Protein (dipstic k) panel 12/17/2024 LABORDER Blood culture pa elis 12/17/2024 LABORDER Blood culture pa elis 12/17/2024 LABORDER Blood culture pa elis 12/17/2024 LABORDER Blood culture pa elis 12/22/2024 LABORDER CMP 12/22/2024 LABORDER Urinalysis with Reflex Panel 12/22/2024 LABORDER CBC w/ auto diff 12/27/[address] chest/abdomen /pelvis w/o contrast 12/29/2024 LABORDER CBC w/ auto diff 12/29/2024 LABORDER Urine culture pa elis 12/29/2024 LABORDER Magnesium Panel 12/29/2024 LABORDER CEA panel 12/29/2024 LABORDER CMP 12/29/2024 LABORDER Iron profile 12/29/2024 LABORDER Ferritin panel 12/29/2024 LABORDER CBC w/ auto diff 12/29/2024 LABORDER iSTAT Na+/K+/Cl- panel 01/03/2025 LABORDER CMP 01/03/2025 LABORDER CEA panel 01/03/2025 LABORDER CBC w/ auto diff 01/12/2025 LABORDER CEA panel 01/12/2025 LABORDER CBC w/ auto diff 01/12/2025 LABORDER CMP 01/12/2025 LABORDER Protein (dipstic k) panel 02/02/2025 LABORDER CBC w/ auto diff 02/02/2025 LABORDER Magnesium Panel 02/02/2025 LABORDER Protein (dipstic k) panel 02/02/2025 LABORDER CEA panel 02/02/2025 LABORDER CMP 02/07/2025 LABORDER Venous doppler u ltrasound of lower extremity, LT 02/18/2025 LABORDER MRI lumbar spine w/o contrast 02/23/2025 LABORDER Protein (dipstic k) panel 02/23/2025 LABORDER CMP 02/23/2025 LABORDER Magnesium Panel 02/23/2025 LABORDER CBC w/ auto diff 02/23/2025 LABORDER Blood culture pa elis 02/23/2025 LABORDER Blood culture pa elis 03/21/[address] chest/abdomen /pelvis w/ contrast 03/23/2025 LABORDER CMP 03/23/2025 LABORDER CEA panel 03/23/2025 LABORDER Renal function p jeannine 03/23/2025 LABORDER CBC w/ auto diff 04/06/2025 LABORDER Hgb Panel 04/13/2025 LABORDER CEA panel 04/13/2025 LABORDER CMP 04/13/2025 LABORDER CBC w/ auto diff Reason for Visit LAB 15 MIN Encounters Date Name 04/13/2025 Colon cancer 04/13/2025 Colon cancer 04/06/2025 Secondary malignant neoplasm of liver (disorder) 04/06/2025 Cancer with lung met astasis 04/06/2025 Colon cancer 04/06/2025 Anemia 04/06/2025 Bleeding hemorrhoids (disorder) 04/04/2025 Colon cancer 03/23/2025 Colon cancer 03/23/2025 Colon cancer 03/21/2025 Colon cancer 04/13/2025 OV 20 MIN 04/13/2025 LAB 15 MIN 04/06/2025 LAB 15 MIN 04/04/2025 OUTSIDE TEST 5 MIN 03/23/2025 Colon cancer 03/23/2025 LAB 15 MIN 03/23/2025 Cancer with lung met astasis 03/23/2025 CIPN - Chemotherapy- induced peripheral neuropathy 03/23/2025 Cancer with lung met astasis 03/23/2025 Secondary malignant neoplasm of liver (disorder) 03/23/2025 Ascites 03/21/2025 OUTSIDE TEST 5 MIN Functional Status Date Name Score 02/02/2025 Karnofsky performance status 70 01/12/2025 Karnofsky performance status 70 12/29/2024 Karnofsky performance status 60 11/25/2024 Karnofsky performance status 70 11/16/2024 Karnofsky performance status 90 10/20/2024 Karnofsky performance status 90 09/08/2024 Karnofsky performance status 90 08/25/2024 Karnofsky performance status 90 07/30/2024 Karnofsky performance status 90 07/28/2024 Karnofsky performance status 90 06/30/2024 Karnofsky performance status 90 06/16/2024 Karnofsky performance status 90 06/04/2024 Karnofsky performance status 90 05/19/2024 Karnofsky performance status 90 04/07/2024 Karnofsky performance status 90 03/24/2024 Karnofsky performance status 90 03/10/2024 Karnofsky performance status 90 03/03/2024 Karnofsky performance status 90 02/18/2024 Karnofsky performance status 100 12/31/2023 Karnofsky performance status 80 12/17/2023 Karnofsky performance status 80 11/19/2023 Karnofsky performance status 80 10/08/2023 Karnofsky performance status 80 09/10/2023 Karnofsky performance status 80 08/08/2023 Karnofsky performance status 80 06/25/2023 Karnofsky performance status 80 06/19/2023 Karnofsky performance status 80 06/04/2023 Karnofsky performance status 80 05/14/2023 Karnofsky performance status 80 03/19/2023 Karnofsky performance status 80 02/19/2023 Karnofsky performance status 80 01/22/2023 Karnofsky performance status 80 11/06/2022 Karnofsky performance status 80 10/30/2022 Karnofsky performance status 80 10/25/2022 Karnofsky performance status 80 10/23/2022 Karnofsky performance status 80 10/02/2022 Karnofsky performance status 80 08/23/2022 Karnofsky performance status 80 08/21/2022 Karnofsky performance status 90 08/07/2022 Karnofsky performance status 90 07/24/2022 Karnofsky performance status 90 05/24/2022 Karnofsky performance status 90 05/03/2022 Karnofsky performance status 90 03/01/2022 Karnofsky performance status 90 01/18/2022 Karnofsky performance status 90 12/07/2021 Karnofsky performance status 90 10/26/2021 Karnofsky performance status 90 07/20/2021 Karnofsky performance status 90 07/18/2021 Karnofsky performance status 90 Immunizations Date Name Route Dose Instructions Refusal Reason Stat us Covid-19 vaccine (Moderna) Patient declined/rejected Not Administered Other Patient declined/rejected Not Administered Flu vaccine - Adult Patient declined/rejected Not Administered Diagnostic Results Date Type Test Units Lower Limit Upper Limit Result Flag Comments Status Ordered By Specimen Source Lab Address 03/23 Phosp horus panel Phosp horus mg/dL 2.5 4.5 4.4 FINAL Sekou Avalos * [facility] , [address] [facility] [id number] 0 12/22 CBC w/ auto diff Auto CBC comme nts Slide review to follow [facility] , [address] [facility] [facility] [facility] [id number] 0 12/22 CBC w/ auto diff Plate let, immat ure, fract ion % 0.9 11.2 2.5 [facility]AL [facility] , [address] [facility] [id number] 0 12/22 Smear revie w panel CBC Smear revie w comme nts WBC <0.5 and blasts seen- no differe ntial perform edAbnor mal and Reactiv e Lymphs present Basophi lic Stippli ng Present Abnor mal FINAL Sekou Avalos [place] [facility] [place] [facility] , [address] [place] [id number] 0 03/23 CBC w/ auto diff Samantha # (ANC) K/uL 1.6 6.6 9.0 High FINAL Sekou Avalos [place] [facility] [place] [facility] , [address] [place] [phone] 0 03/23 CBC w/ auto diff IG % % 0.0 0.5 0.9 High FINAL Sekou Avalos [place] [facility] [place] [facility] , [address] [place] [phone] 0 03/23 CBC w/ auto diff MO # K/uL 0.2 1.3 0.9 FINAL Sekou Avalos [place] [facility] [place] [facility] , [address] [place] [id number] 0 03/23 CBC w/ auto diff MCV fL 80.0 104.0 95.0 FINAL Sekou Avalos [place] [facility] [place] [facility] , [address] [place] [id number] 0 03/23 CBC w/ auto diff IG # K/uL 0.0 0.03 0.09 High FINAL Sekou Avalos [place] [facility] [place] [facility] , [address] [place] [phone] 0 03/23 CBC w/ auto diff MO % % 6.0 15.0 8.4 FINAL Sekou Avalos [place] [facility] [place] [facility] , [address] [place] [id number] 0 03/23 CBC w/ auto diff EO # K/uL 0.0 0.6 0.0 FINAL Sekou Avalos [place] [facility] [place] [facility] , [address] [place] [phone] 0 03/23 CBC w/ auto diff EO % % 0.0 7.0 0.4 FINAL Sekou Avalos [place] [facility] [place] [facility] , [address] [place] [phone] 0 03/23 CBC w/ auto diff RBC M/uL 4.2 5.6 3.02 Low FINAL Sekou Avalos [place] [facility] [place] [facility] , [address] [place] [id number] 0 03/23 CBC w/ auto diff MPV fL 9.5 13.4 10.8 FINAL Sekou Avalos [place] [facility] [place] [facility] , [address] [place] [id number] 0 03/23 CBC w/ auto diff BA % % 0.0 2.0 0.4 FINAL Sekou Avalos [place] [facility] [place] [facility] , [address] [place] [id number] 0 03/23 CBC w/ auto diff BA # K/uL 0.0 0.2 0.0 FINAL Sekou Avalos [place] [facility] [place] [facility] , [address] [place] [id number] 0 03/23 CBC w/ auto diff MCHC g/dL 30.0 35.0 31.4 FINAL Sekou Avalos [place] [facility] [place] [facility] , [address] [place] [id number] 0 03/23 CBC w/ auto diff HCT % 39.0 49.0 28.7 Low FINAL Sekou Avalos [place] [facility] [place] [facility] , [address] [place] [id number] 0 03/23 CBC w/ auto diff WBC K/uL 3.0 8.9 10.3 High FINAL Sekou Avalos [place] [facility] [place] [facility] , [address] [place] [id number] 0 03/23 CBC w/ auto diff PLT K/uL 113.0 364.0 120 FINAL Sekou Avalos [place] [facility] [place] [facility] , [address] [place] [phone] 0 03/23 CBC w/ auto diff RDW % 11.3 15.6 17.00 High FINAL Sekou Avalos [place] [facility] [place] [facility] , [address] [place] [phone] 0 03/23 CBC w/ auto diff LY % % 14.0 41.0 3.1 Low FINAL Sekou Avalos [place] [facility] [place] [facility] , [address] [place] [id number] 0 03/23 CBC w/ auto diff LY # K/uL 0.4 3.6 0.3 Low FINAL Sekou Avalos [place] [facility] [place] [facility] , [address] [place] [id number] 0 03/23 CBC w/ auto diff MCH pg 26.0 35.0 29.8 FINAL Sekou Avalos [place] [facility] [place] [facility] , [address] [place] [id number] 0 03/23 CBC w/ auto diff NRBC % #/100W BC 0.0 0.2 0.0 FINAL Sekou Avalos [place] [facility] [place] [facility] , [address] [place] [id number] 0 03/23 CBC w/ auto diff Samantha % % 43.0 74.0 86.8 High FINAL Sekou Avalos [place] [facility] [place] [facility] , [address] [facility] [id number] 0 12/29 Urine cultu re panel CULTU RE, URINE , ROUTI NE SEE NOTE CULTURE, URINE, ROUTINEMi [employer] consultant Number: [id number] est Status: FinalSpec imen Source: UrineSpec imen Quality: AdequateR esult: Less than 10,000 CFU/mL of single Gram negativeo rganism isolated. No further testing will beperform ed. If clinicall y indicated , recollect ionusing a method to minimize contamina tion, withpromp t transfer to Urine Culture Transport Tube,is recommend ed. FINAL Sekou Avalos [facility], [facility] [address] [facility] [id number] [phone] 12/29 Iron profi le Unbou nd iron capac ity ug/dL 75.0 410.0 149 FINAL Sekou Avalos * [facility] , [address] [id number] 0 12/29 Iron profi le Iron, % satur ation % 20.0 55.0 24 FINAL Sekou Avalos * [facility] , [address] [id number] 0 12/29 Iron profi le Iron ug/dL 49.0 181.0 47 Low FINAL Sekou Avalos * [facility] , [address] [id number] 0 12/29 Iron profi le TIBC ug/dL 261.0 462.0 196 Low FINAL Sekou Avalos * [facility] , [address] [id number] 0 02/02 Magne sium, mg/dL mg/dL 1.6 2.3 1.9 FINAL Pauline Philip * [facility] , [address] [id number] 0 03/23 CMP ALT/S GPT U/L 0.0 49.0 24 FINAL Sekou Robbie * [facility] , [address] [facility] [id number] 0 03/23 CMP Gluco se mg/dL 74.0 100.0 160 High FINAL Sekou Robbie * [facility] , [address] [facility] [id number] 0 03/23 CMP Total prote in g/dL 6.3 8.2 7.4 FINAL Sekou Robbie * [facility] , [address] [facility] [id number] 0 03/23 CMP AST/S GOT U/L 17.0 59.0 76 High FINAL Sekou Robbie * [facility] , [address] [id number] 0 03/23 CMP Bilir ubin, total mg/dL 0.2 1.3 2.1 High FINAL Sekou Robbie * [facility] , [address] [id number] 0 03/23 CMP Sodiu m mmol/L 137.0 145.0 136 Low FINAL Sekou Robbie * [facility] , [address] [facility] [id number] 0 03/23 CMP Alkal ine phosp hatas e U/L 36.0 125.0 442 High FINAL Sekou Robbie * [facility] , [address] [facility] [id number] 0 03/23 CMP Calci um mg/dL 8.4 10.2 8.3 Low FINAL Sekou Robbie * [facility] , [address] [facility] [id number] 0 03/23 CMP GFR estim ate ml/min /1.73m ^2 36.3 Low GFR is calculate d using the CKD-EPI equation. FINAL [facility] , [facility] [address] [id number] 0 03/23 CMP CO2 mmol/L 22.0 30.0 [...] 96 hour stability window. FINAL Se[facility] , [facility] [address] [id number] 0 03/23 CMP Chlor oj mmol/L 96.0 107.0 104 FINAL Sekou Claire [facility] , [facility] [address] [id number] 0 03/23 CMP BUN mg/dL 9.0 20.0 28.0 High FINAL Sekou Avalos * [facility] , [facility] [address] [id number] 0 03/23 CMP Creat inine mg/dL 0.66 1.25 2.00 High FINAL Sekou Claire [facility] , [facility] [address] [id number] 0 03/23 CMP Album in g/dL 3.5 5.0 3.2 Low FINAL Sekou Avalos * [facility] , [facility] [address] [id number] 0 03/23 CMP Potas sium mmol/L 3.5 5.1 4.2 FINAL Sekou Avalos * [facility] , [facility] [address] [id number] 0 12/17 Blood cultu re panel CULTU RE, BLOOD SEE NOTE CULTURE, BLOODMicr o Number: [id number] est Status: FinalSpec imen Source: BloodSpec imen Quality: AdequateR esult: No growth after 5 daysTRANS PORT MEDIA: Aerobic and anaerobic bottle received. FINAL Sekou Avalos [facility], [facility] [address] [facility] [id number] 4 02/02 Prote in (dips tick) panel Prote in (ua) 2+ Abnor mal [facility]AL [facility] [place] [facility] , [address] [facility] [phone] 0 12/22 UA Micro scopi c Mucus (ua) Few Abnor mal FINAL [facility] [place] [facility] , [address] [facility] [id number] 0 12/22 UA Micro scopi c Cast type, urine Hyaline Abnor mal FINAL [facility] [place] [facility] [place] [facility] [place] [facility] , [address] [facility] [id number] 12/22 UA Micro scopi c UA comme nt 1 Micro Positiv e-Cultu re Ordered FINAL Pauline Cedrick [place] [facility] , [address] [facility] [id number] 12/22 UA Micro scopi c Casts , urine 3-[address] [facility] [place] [facility] , [address] [facility] [id number] 12/22 UA Micro scopi c Cryst als (ua) None FINAL Pauline Philip [place] [facility] , [address] [facility] [id number] 12/22 UA Micro scopi c WBC (ua) 0.0 2.0 3-5 Abnor mal FINAL Pauline Cedrick [place] [facility] , [address] [place] [id number] 12/22 UA Micro scopi c Bacte milana (ua) Moderat e Abnor mal FINAL Pauline Cedrick [place] [facility] , [address] [place] [id number] 0 12/22 UA Micro scopi c RBC (ua) 0.0 2.0 3-5 Abnor mal FINAL Pauline Philip [place] [facility] , [address] [place] [id number] 12/22 UA Micro scopi c Epith elial cells (ua) Moderat e 6-10 Abnor mal FINAL Pauline Philip [place] [facility] , [address] [place] [id number] 0 02/23 [facility] [place] See pest control specialist d 12/29 iSTAT Na+/K +/Cl- panel Potas sium, iSTAT mmol/L 3.5 4.9 3.4 Low Reference range adjusted 0 with implement ation of I-Stat 8+ cartridge . FINAL Sekou Avalos [place] [facility] , [address] [place] [id number] 12/29 iSTAT Na+/K +/Cl- panel Sodiu m, iSTAT mmol/L 138.0 146.0 139 Reference range adjusted 0 with implement ation of I-Stat 8+ cartridge . FINAL Sekou Avalos [place] [facility] , [address] [place] [id number] 0 12/29 iSTAT Na+/K +/Cl- panel Chlor oj, iSTAT mmol/L 98.0 109.0 109 Reference range adjusted 0 with implement ation of I-Stat 8+ cartridge . FINAL Sekou Avalos [facility] , [address] [place] [facility] [id number] 12/29 Maribel tin panel Maribel tin ng/mL 17.9 464.0 479.00 High FINAL Sekou Avalos * [facility] Oncology , [address] [facility] [id number] 03/23 CEA panel CEA ng/mL 0.0 3.0 2640.00 Resulte d with diluted sample High Test performed at [facility] on a XO10 Immunoass ay Analyzer that uses an immunomet carroll immunoass ay technique . Patient testing should not be performed using multiple methodmalik burden due to analytica l variation seen between test methodmalik burden. FINAL Sekou Avalos * [facility] Oncology , [address] [facility] [place] [id number] 04/06 HGB g/dL 12.5 16.6 9.6 Low FINAL Pauline [facility] Oncology , [address] [place] [address] [address] [facility] [id number] 12/22 Bilir ubin (ua) Negativ e FINAL [facility] Oncology , [address] [place] [address] [address] [facility] [id number] 12/22 Urina lysis , aceto ne or keton e mónica s measu remen t Negativ e FINAL [facility] Oncology , [address] [place] [address] [address] [facility] [id number] 12/22 Leuko cyte pam ase (ua), qual Negativ e FINAL Pauline Cedrick [place] [facility] , [address] [place] [id number] 12/22 Color (ua) Yellow FINAL Pauline Philip [place] [facility] , [address] [place] [id number] 12/22 Speci fic gravi ty (ua) 1.005 1.02 1.020 FINAL Pauline Philip [place] [facility] , [address] [place] [id number] 12/22 Blood (ua) 2+-Mode rate Abnor mal FINAL Pauline Philip [place] [facility] , [address] [place] [id number] 12/22 Urobi linog en (ua) 0.2 1.0 0.2 FINAL Pauline Philip [place] , [address] [place] [id number] 12/22 pH (ua) 5.0 8.0 5.0 FINAL Pauline Philip [place] [facility] , [address] [place] [id number] 0 12/22 Nitri te (ua) Negativ e FINAL Pauline Philip [place] [facility] , [address] [place] [id number] 0 12/22 Gluco se (ua), qual Negativ e FINAL Pauline Philip [place] [facility] , [address] [place] [id number] 0 12/22 Appea alem (ua) Clear FINAL Pauline Philip [place] [facility] , [address] Maribel randolph [place] [id number] [phone] Medications Administered Date Name Route Dose Frequency Instructions Start Date End Date Status 2024 0.3 ML darbepoetin agustín 0.2 MG/ML Prefilled Syringe subcutaneously 300.0 mcg once 02/02 inactive 2024 0.6 ML pegfilgrastim-a pgf 10 MG/ML Prefilled Syringe [Nyvepria] subcutaneously 6.0 mg once Administer once per cycle at least 24 hours after and 14 days before chemotherapy. NOTE: This is [employer]. 01/14 inactive 2024 fluorouracil 50 MG/ML Injectable Solution via continuous infusion 3570. 0 mg once TOTAL CIV CYCLE DOSE = 2400 mg/m2 CIV over 46 hours. Patient to be seen for a pump disconnect on Day 3. Refer to drug stability guidelines. 01/14 inactive 2024 15 ML irinotecan hydrochloride 20 MG/ML Injection intravenously 170.0 mg once Dilute with 250 to 500 mL D5W or NS to a final concentration of 0.12 to 2.8 mg/mL. Irinotecan is an irritant. 01/12 inactive 2024 leucovorin 50 MG Injection intravenously 800.0 mg once Dilute in NS or D5W. 01/12 inactive 2024 atropine sulfate intravenously 0.4 mg once as needed for treatment of acute cholinergic reaction. Dosage not to exceed 1 mg in 24 hours. 01/12 inactive 2024 4 ML bevacizumab-bvz r 25 MG/ML Injection [Zirabev] intravenously 400.0 mg once Dilute with NS to a total volume of 100 mL. NOTE: This is Zirabev. 01/12 inactive 2024 18 ML aprepitant 7.2 MG/ML Injection intravenously 130.0 mg once Administer 30 minutes prior to chemotherapy. Do NOT dilute. Flush with NS before and after administration . 01/12 inactive 2024 dexamethasone phosphate 4 MG/ML Injectable Solution intravenously 10.0 mg once 01/12 inactive 2024 Palonosetron IV intravenously 0.25 mg once 01/12 inactive 2024 0.3 ML darbepoetin agustín 0.2 MG/ML Prefilled Syringe subcutaneously 300.0 mcg once 01/12 inactive 2024 dexamethasone phosphate 4 MG/ML Injectable Solution intravenously 10.0 mg once 12/29 inactive 2024 morphine sulfate intravenously 4.0 mg every 4 to 6 hours 12/29 inactive 2024 Sodium Chloride IV 0.9 % intravenously 1000. 0 mL once 12/29 inactive 2024 0.6 ML pegfilgrastim-a pgf 10 MG/ML Prefilled Syringe [N[employer]vepria] subcutaneously 6.0 mg once Administer once per cycle at least 24 hours after and 14 days before chemotherapy. NOTE: This is [employer]. 12/17 inactive 2024 fluorouracil 50 MG/ML Injectable Solution via continuous infusion 3570. 0 mg once TOTAL CIV CYCLE DOSE = 2400 mg/m2 CIV over 46 hours. Patient to be seen for a pump disconnect on Day 3. Refer to drug stability guidelines. 12/17 inactive 2024 leucovorin 50 MG Injection intravenously 800.0 mg once Dilute in NS or D5W. 12/15 inactive 2024 15 ML irinotecan hydrochloride 20 MG/ML Injection intravenously 170.0 mg once Dilute with 250 to 500 mL D5W or NS to a final concentration of 0.12 to 2.8 mg/mL. Irinotecan is an irritant. 12/15 inactive 2024 atropine sulfate intravenously 0.4 mg once as needed for treatment of acute cholinergic reaction. Dosage not to exceed 1 mg in 24 hours. 12/15 inactive 2024 dexamethasone phosphate 4 MG/ML Injectable Solution intravenously 10.0 mg once 12/15 inactive 2024 18 ML aprepitant 7.2 MG/ML Injection intravenously 130.0 mg once Administer 30 minutes prior to chemotherapy. Do NOT dilute. Flush with NS before and after administration . 12/15 inactive 2024 Palonosetron IV intravenously 0.25 mg once 12/15 inactive 2024 0.3 ML darbepoetin agustín 0.2 MG/ML Prefilled Syringe subcutaneously 300.0 mcg once 12/15 inactive 2023 0.6 ML pegfilgrastim-j mdb 10 MG/ML Prefilled Syringe [Fulphila] subcutaneously 6.0 mg once Administer once per cycle at least 24 hours after and 14 days before chemotherapy. NOTE: This is Fulphila. 11/18 inactive 2023 fluorouracil 50 MG/ML Injectable Solution via continuous infusion 4730. 0 mg once TOTAL CIV CYCLE DOSE = 2400 mg/m2 CIV over 46 hours. Patient to be seen for a pump disconnect on Day 3. Refer to drug stability guidelines. 11/18 inactive 2023 leucovorin 50 MG Injection intravenously 800.0 mg once Dilute in NS or D5W. 11/16 inactive 2023 15 ML irinotecan hydrochloride 20 MG/ML Injection intravenously 280.0 mg once Dilute with 250 to 500 mL D5W or NS to a final concentration of 0.12 to 2.8 mg/mL. Irinotecan is an irritant. 11/16 inactive 2023 atropine sulfate intravenously 0.4 mg once as needed for treatment of acute cholinergic reaction. Dosage not to exceed 1 mg in 24 hours. 11/16 inactive 2023 4 ML bevacizumab-bvz r 25 MG/ML Injection [Zirabev] intravenously 400.0 mg once Dilute with NS to a total volume of 100 mL. NOTE: This is Zirabev. 11/16 inactive 2023 dexamethasone phosphate 4 MG/ML Injectable Solution intravenously 10.0 mg once 11/16 inactive 2023 18 ML aprepitant 7.2 MG/ML Injection intravenously 130.0 mg once Administer 30 minutes prior to chemotherapy. Do NOT dilute. Flush with NS before and after administration . 11/16 inactive 2023 Palonosetron IV intravenously 0.25 mg once 11/16 inactive 2023 0.3 ML darbepoetin agustín 0.2 MG/ML Prefilled Syringe subcutaneously 300.0 mcg once 11/16 inactive 2023 0.6 ML pegfilgrastim-j mdb 10 MG/ML Prefilled Syringe [Fulphila] subcutaneously 6.0 mg once Administer once per cycle at least 24 hours after and 14 days before chemotherapy. NOTE: This is Fulphila. 10/22 inactive 2023 fluorouracil 50 MG/ML Injectable Solution via continuous infusion 4730. 0 mg once TOTAL CIV CYCLE DOSE = 2400 mg/m2 CIV over 46 hours. Patient to be seen for a pump disconnect on Day 3. Refer to drug stability guidelines. 10/22 inactive 2023 fluorouracil 50 MG/ML Injectable Solution intravenously 790.0 mg once 10/20 inactive 2023 leucovorin 50 MG Injection intravenously 800.0 mg once Dilute in NS or D5W. 10/20 inactive 2023 15 ML irinotecan hydrochloride 20 MG/ML Injection intravenously 350.0 mg once Dilute with 250 to 500 mL D5W or NS to a final concentration of 0.12 to 2.8 mg/mL. Irinotecan is an irritant. 10/20 inactive 2023 atropine sulfate intravenously 0.4 mg once as needed for treatment of acute cholinergic reaction. Dosage not to exceed 1 mg in 24 hours. 10/20 inactive 2023 4 ML bevacizumab-bvz r 25 MG/ML Injection [Zirabev] intravenously 400.0 mg once Dilute with NS to a total volume of 100 mL. NOTE: This is Zirabev. 10/20 inactive 2023 dexamethasone phosphate 4 MG/ML Injectable Solution intravenously 10.0 mg once 10/20 inactive 2023 18 ML aprepitant 7.2 MG/ML Injection intravenously 130.0 mg once Administer 30 minutes prior to chemotherapy. Do NOT dilute. Flush with NS before and after administration . 10/20 inactive 2023 Palonosetron IV intravenously 0.25 mg once 10/20 inactive 2023 0.6 ML pegfilgrastim-j mdb 10 MG/ML Prefilled Syringe [Fulphila] subcutaneously 6.0 mg once Administer once per cycle at least 24 hours after and 14 days before chemotherapy. NOTE: This is Fulphila. 10/08 inactive 2023 fluorouracil 50 MG/ML Injectable Solution via continuous infusion 4780. 0 mg TOTAL CIV CYCLE DOSE = 2400 mg/m2 CIV over 46 hours. Patient to be seen for a pump disconnect on Day 3. Refer to drug stability guidelines. 10/08 inactive 2023 leucovorin 50 MG Injection intravenously 800.0 mg once Dilute in NS or D5W. 10/06 inactive 2023 10 ML oxaliplatin 5 MG/ML Injection intravenously 145.0 mg once Not compatible with NS. Oxaliplatin is an irritant. 10/06 inactive 2023 16 ML bevacizumab-bvz r 25 MG/ML Injection [Zirabev] intravenously 450.0 mg once Dilute with NS to a total volume of 100 mL. NOTE: This is Zirabev. 10/06 inactive 2023 4.4 ML aprepitant 7.2 MG/ML Injection intravenously 130.0 mg once Administer 30 minutes prior to chemotherapy. Do NOT dilute. Flush with NS before and after administration . 10/06 inactive 2023 dexamethasone phosphate 4 MG/ML Injectable Solution intravenously 10.0 mg once 10/06 inactive 2023 Palonosetron IV intravenously 0.25 mg once 10/06 inactive 2023 0.6 ML pegfilgrastim-a pgf 10 MG/ML Prefilled Syringe [[employer]] subcutaneously 6.0 mg once Administer once per cycle at least 24 hours after and 14 days before chemotherapy. NOTE: This is [employer]. 09/24 inactive 2023 fluorouracil 50 MG/ML Injectable Solution via continuous infusion 4780. 0 mg TOTAL CIV CYCLE DOSE = 2400 mg/m2 CIV over 46 hours. Patient to be seen for a pump disconnect on Day 3. Refer to drug stability guidelines. 09/24 inactive 2023 10 ML oxaliplatin 5 MG/ML Injection intravenously 145.0 mg once Not compatible with NS. Oxaliplatin is an irritant. 09/22 inactive 2023 leucovorin 50 MG Injection intravenously 800.0 mg once Dilute in NS or D5W. 09/22 inactive 2023 16 ML bevacizumab-bvz r 25 MG/ML Injection [Zirabev] intravenously 450.0 mg once Dilute with NS to a total volume of 100 mL. NOTE: This is Zirabev. 09/22 inactive 2023 4.4 ML aprepitant 7.2 MG/ML Injection intravenously 130.0 mg once Administer 30 minutes prior to chemotherapy. Do NOT dilute. Flush with NS before and after administration . 09/22 inactive 2023 dexamethasone phosphate 4 MG/ML Injectable Solution intravenously 10.0 mg once 09/22 inactive 2023 Palonosetron IV intravenously 0.25 mg once 09/22 inactive 2023 0.6 ML pegfilgrastim-a pgf 10 MG/ML Prefilled Syringe [N[employer]ve[employer]a] subcutaneously 6.0 mg once Administer once per cycle at least 24 hours after and 14 days before chemotherapy. NOTE: This is [employer]. 09/10 inactive 2023 fluorouracil 50 MG/ML Injectable Solution via continuous infusion 4780. 0 mg TOTAL CIV CYCLE DOSE = 2400 mg/m2 CIV over 46 hours. Patient to be seen for a pump disconnect on Day 3. Refer to drug stability guidelines. 09/10 inactive 2023 10 ML oxaliplatin 5 MG/ML Injection intravenously 145.0 mg once Not compatible with NS. Oxaliplatin is an irritant. 09/08 inactive 2023 leucovorin 50 MG Injection intravenously 800.0 mg once Dilute in NS or D5W. 09/08 inactive 2023 16 ML bevacizumab-bvz r 25 MG/ML Injection [Zirabev] intravenously 450.0 mg once Dilute with NS to a total volume of 100 mL. NOTE: This is Zirabev. 09/08 inactive 2023 4.4 ML aprepitant 7.2 MG/ML Injection intravenously 130.0 mg once Administer 30 minutes prior to chemotherapy. Do NOT dilute. Flush with NS before and after administration . 09/08 inactive 2023 dexamethasone phosphate 4 MG/ML Injectable Solution intravenously 10.0 mg once 09/08 inactive 2023 Palonosetron IV intravenously 0.25 mg once 09/08 inactive 2023 0.6 ML pegfilgrastim-a pgf 10 MG/ML Prefilled Syringe [Nyvepria] subcutaneously 6.0 mg once Administer once per cycle at least 24 hours after and 14 days before chemotherapy. NOTE: This is [employer]. 08/27 inactive 2023 fluorouracil 50 MG/ML Injectable Solution via continuous infusion 4780. 0 mg TOTAL CIV CYCLE DOSE = 2400 mg/m2 CIV over 46 hours. Patient to be seen for a pump disconnect on Day 3. Refer to drug stability guidelines. 08/27 inactive 2023 leucovorin 50 MG Injection intravenously 800.0 mg once Dilute in NS or D5W. 08/25 inactive 2023 10 ML oxaliplatin 5 MG/ML Injection intravenously 145.0 mg once Not compatible with NS. Oxaliplatin is an irritant. 08/25 inactive 2023 16 ML bevacizumab-bvz r 25 MG/ML Injection [Zirabev] intravenously 450.0 mg once Dilute with NS to a total volume of 100 mL. NOTE: This is Zirabev. 08/25 inactive 2023 dexamethasone phosphate 4 MG/ML Injectable Solution intravenously 10.0 mg once 08/25 inactive 2023 4.4 ML aprepitant 7.2 MG/ML Injection intravenously 130.0 mg once Administer 30 minutes prior to chemotherapy. Do NOT dilute. Flush with NS before and after administration . 08/25 inactive 2023 Palonosetron IV intravenously 0.25 mg once 08/25 inactive 2023 0.3 ML darbepoetin agustín 0.2 MG/ML Prefilled Syringe subcutaneously 300.0 mcg once 08/25 inactive 2023 0.6 ML pegfilgrastim-a pgf 10 MG/ML Prefilled Syringe [N[employer]ve[employer]a] subcutaneously 6.0 mg once Administer once per cycle at least 24 hours after and 14 days before chemotherapy. NOTE: This is [employer]. 08/13 inactive 2023 fluorouracil 50 MG/ML Injectable Solution via continuous infusion 4780. 0 mg TOTAL CIV CYCLE DOSE = 2400 mg/m2 CIV over 46 hours. Patient to be seen for a pump disconnect on Day 3. Refer to drug stability guidelines. 08/13 inactive 2023 10 ML oxaliplatin 5 MG/ML Injection intravenously 145.0 mg once Not compatible with NS. Oxaliplatin is an irritant. 08/11 inactive 2023 leucovorin 50 MG Injection intravenously 800.0 mg once Dilute in NS or D5W. 08/11 inactive 2023 16 ML bevacizumab-bvz r 25 MG/ML Injection [Zirabev] intravenously 450.0 mg once Dilute with NS to a total volume of 100 mL. NOTE: This is Zirabev. 08/11 inactive 2023 dexamethasone phosphate 4 MG/ML Injectable Solution intravenously 10.0 mg once 08/11 inactive 2023 4.4 ML aprepitant 7.2 MG/ML Injection intravenously 130.0 mg once Administer 30 minutes prior to chemotherapy. Do NOT dilute. Flush with NS before and after administration . 08/11 inactive 2023 Palonosetron IV intravenously 0.25 mg once 08/11 inactive 2023 0.6 ML pegfilgrastim-a pgf 10 MG/ML Prefilled Syringe [N[employer]vepria] subcutaneously 6.0 mg once Administer once per cycle at least 24 hours after and 14 days before chemotherapy. NOTE: This is [employer]. 07/30 inactive 2023 fluorouracil 50 MG/ML Injectable Solution via continuous infusion 4780. 0 mg TOTAL CIV CYCLE DOSE = 2400 mg/m2 CIV over 46 hours. Patient to be seen for a pump disconnect on Day 3. Refer to drug stability guidelines. 07/30 inactive 2023 leucovorin 50 MG Injection intravenously 800.0 mg once Dilute in NS or D5W. 07/28 inactive 2023 10 ML oxaliplatin 5 MG/ML Injection intravenously 145.0 mg once Not compatible with NS. Oxaliplatin is an irritant. 07/28 inactive 2023 16 ML bevacizumab-bvz r 25 MG/ML Injection [Zirabev] intravenously 450.0 mg once Dilute with NS to a total volume of 100 mL. NOTE: This is Zirabev. 07/28 inactive 2023 4.4 ML aprepitant 7.2 MG/ML Injection intravenously 130.0 mg once Administer 30 minutes prior to chemotherapy. Do NOT dilute. Flush with NS before and after administration . 07/28 inactive 2023 dexamethasone phosphate 4 MG/ML Injectable Solution intravenously 10.0 mg once 07/28 inactive 2023 Palonosetron IV intravenously 0.25 mg once 07/28 inactive 2023 0.6 ML pegfilgrastim-a pgf 10 MG/ML Prefilled Syringe [Nyve[employer]a] subcutaneously 6.0 mg once Administer once per cycle at least 24 hours after and 14 days before chemotherapy. NOTE: This is [employer]. 07/16 inactive 2023 fluorouracil 50 MG/ML Injectable Solution via continuous infusion 4780. 0 mg TOTAL CIV CYCLE DOSE = 2400 mg/m2 CIV over 46 hours. Patient to be seen for a pump disconnect on Day 3. Refer to drug stability guidelines. 07/16 inactive 2023 leucovorin 50 MG Injection intravenously 800.0 mg once Dilute in NS or D5W. 07/14 inactive 2023 10 ML oxaliplatin 5 MG/ML Injection intravenously 145.0 mg once Not compatible with NS. Oxaliplatin is an irritant. 07/14 inactive 2023 16 ML bevacizumab-bvz r 25 MG/ML Injection [Zirabev] intravenously 450.0 mg once Dilute with NS to a total volume of 100 mL. NOTE: This is Zirabev. 07/14 inactive 2023 4.4 ML aprepitant 7.2 MG/ML Injection intravenously 130.0 mg once Administer 30 minutes prior to chemotherapy. Do NOT dilute. Flush with NS before and after administration . 07/14 inactive 2023 dexamethasone phosphate 4 MG/ML Injectable Solution intravenously 10.0 mg once 07/14 inactive 2023 Palonosetron IV intravenously 0.25 mg once 07/14 inactive 2023 0.6 ML pegfilgrastim-a pgf 10 MG/ML Prefilled Syringe [N[employer]ve[employer]a] subcutaneously 6.0 mg once Administer once per cycle at least 24 hours after and 14 days before chemotherapy. NOTE: This is [employer]. 07/02 inactive 2023 fluorouracil 50 MG/ML Injectable Solution via continuous infusion 4780. 0 mg TOTAL CIV CYCLE DOSE = 2400 mg/m2 CIV over 46 hours. Patient to be seen for a pump disconnect on Day 3. Refer to drug stability guidelines. 07/02 inactive 2023 10 ML oxaliplatin 5 MG/ML Injection intravenously 145.0 mg once Not compatible with NS. Oxaliplatin is an irritant. 06/30 inactive 2023 leucovorin 50 MG Injection intravenously 800.0 mg once Dilute in NS or D5W. 06/30 inactive 2023 16 ML bevacizumab-bvz r 25 MG/ML Injection [Zirabev] intravenously 450.0 mg once Dilute with NS to a total volume of 100 mL. NOTE: This is Zirabev. 06/30 inactive 2023 4.4 ML aprepitant 7.2 MG/ML Injection intravenously 130.0 mg once Administer 30 minutes prior to chemotherapy. Do NOT dilute. Flush with NS before and after administration . 06/30 inactive 2023 dexamethasone phosphate 4 MG/ML Injectable Solution intravenously 10.0 mg once 06/30 inactive 2023 Palonosetron IV intravenously 0.25 mg once 06/30 inactive 2023 0.6 ML pegfilgrastim-a pgf 10 MG/ML Prefilled Syringe [Nyvepria] subcutaneously 6.0 mg once Administer once per cycle at least 24 hours after and 14 days before chemotherapy. NOTE: This is [employer]. 06/18 inactive 2023 fluorouracil 50 MG/ML Injectable Solution via continuous infusion 4780. 0 mg TOTAL CIV CYCLE DOSE = 2400 mg/m2 CIV over 46 hours. Patient to be seen for a pump disconnect on Day 3. Refer to drug stability guidelines. 06/18 inactive 2023 leucovorin 50 MG Injection intravenously 800.0 mg once Dilute in NS or D5W. 06/16 inactive 2023 10 ML oxaliplatin 5 MG/ML Injection intravenously 145.0 mg once Not compatible with NS. Oxaliplatin is an irritant. 06/16 inactive 2023 16 ML bevacizumab-bvz r 25 MG/ML Injection [Zirabev] intravenously 450.0 mg once Dilute with NS to a total volume of 100 mL. NOTE: This is Zirabev. 06/16 inactive 2023 dexamethasone phosphate 4 MG/ML Injectable Solution intravenously 10.0 mg once 06/16 inactive 2023 4.4 ML aprepitant 7.2 MG/ML Injection intravenously 130.0 mg once Administer 30 minutes prior to chemotherapy. Do NOT dilute. Flush with NS before and after administration . 06/16 inactive 2023 Palonosetron IV intravenously 0.25 mg once 06/16 inactive 2023 0.6 ML pegfilgrastim-a pgf 10 MG/ML Prefilled Syringe [Nyvepria] subcutaneously 6.0 mg once Administer once per cycle at least 24 hours after and 14 days before chemotherapy. NOTE: This is [employer]. 06/04 inactive 2023 fluorouracil 50 MG/ML Injectable Solution via continuous infusion 4780. 0 mg TOTAL CIV CYCLE DOSE = 2400 mg/m2 CIV over 46 hours. Patient to be seen for a pump disconnect on Day 3. Refer to drug stability guidelines. 06/04 inactive 2023 10 ML oxaliplatin 5 MG/ML Injection intravenously 170.0 mg once Not compatible with NS. Oxaliplatin is an irritant. 06/02 inactive 2023 leucovorin 50 MG Injection intravenously 800.0 mg once Dilute in NS or D5W. 06/02 inactive 2023 16 ML bevacizumab-bvz r 25 MG/ML Injection [Zirabev] intravenously 450.0 mg once Dilute with NS to a total volume of 100 mL. NOTE: This is Zirabev. 06/02 inactive 2023 dexamethasone phosphate 4 MG/ML Injectable Solution intravenously 10.0 mg once 06/02 inactive 2023 4.4 ML aprepitant 7.2 MG/ML Injection intravenously 130.0 mg once Administer 30 minutes prior to chemotherapy. Do NOT dilute. Flush with NS before and after administration . 06/02 inactive 2023 Palonosetron IV intravenously 0.25 mg once 06/02 inactive 2023 0.6 ML pegfilgrastim-a pgf 10 MG/ML Prefilled Syringe [N[employer]ve[employer]a] subcutaneously 6.0 mg once Administer once per cycle at least 24 hours after and 14 days before chemotherapy. NOTE: This is [employer]. 05/21 inactive 2023 fluorouracil 50 MG/ML Injectable Solution via continuous infusion 4780. 0 mg TOTAL CIV CYCLE DOSE = 2400 mg/m2 CIV over 46 hours. Patient to be seen for a pump disconnect on Day 3. Refer to drug stability guidelines. 05/21 inactive 2023 fluorouracil 50 MG/ML Injectable Solution intravenously 800.0 mg once 05/19 inactive 2023 leucovorin 50 MG Injection intravenously 800.0 mg once Dilute in NS or D5W. 05/19 inactive 2023 10 ML oxaliplatin 5 MG/ML Injection intravenously 170.0 mg once Not compatible with NS. Oxaliplatin is an irritant. 05/19 inactive 2023 16 ML bevacizumab-bvz r 25 MG/ML Injection [Zirabev] intravenously 450.0 mg once Dilute with NS to a total volume of 100 mL. NOTE: This is Zirabev. 05/19 inactive 2023 dexamethasone phosphate 4 MG/ML Injectable Solution intravenously 10.0 mg once 05/19 inactive 2023 4.4 ML aprepitant 7.2 MG/ML Injection intravenously 130.0 mg once Administer 30 minutes prior to chemotherapy. Do NOT dilute. Flush with NS before and after administration . 05/19 inactive 2023 Palonosetron IV intravenously 0.25 mg once 05/19 inactive 2023 4 ML bevacizumab-bvz r 25 MG/ML Injection [Zirabev] intravenously 400.0 mg once Dilute with NS to a total volume of 100 mL. NOTE: This is Zirabev. 04/21 inactive 2023 0.3 ML darbepoetin agustín 0.2 MG/ML Prefilled Syringe subcutaneously 300.0 mcg once 04/21 inactive 2023 0.6 ML pegfilgrastim-c bqv 10 MG/ML Prefilled Syringe [Udenyca] subcutaneously 6.0 mg once Administer once per cycle at least 24 hours after and 14 days before chemotherapy. NOTE: This is Udenyca. 04/21 inactive Medications Date Name Route Dose Frequency Instructions Start Date End Date Status Cyclobenzapri ne Oral po daily inactive Enoxaparin Subcutaneous daily inactiv e Vancomycin Oral QID stopped Amlodipine Oral daily stopped Diphenoxylate -Atropine Oral 2.5 mg-0.025 mg PRN up to 4 times daily stopped Amlodipine Oral daily stopped Miscellaneous Drug prn stoof softener stopp ed Magnesium Chloride Oral Delayed Release daily inactive Sodium Bicarbonate Oral po 2.0 tablet Daily active Acetaminophen Oral po bid inactive Oxycodone Oral po every4 hours as needed stopped Amlodipine Oral 5.0 mg daily stopped Metronidazole Oral TID inactive Loperamide Oral PRN active 07/22 0.6 ML pegfilgrastim -apgf 10 MG/ML Prefilled Syringe [[facility]vepria] subcutaneously 6.0 mg once Administer once per cycle at least 24 hours after and 14 days before chemotherapy. NOTE: This is [employer]a. 2024 active 07/20 fluorouracil 50 MG/ML Injectable [...] mg in 24 hours. 2024 active 07/20 Palonosetron IV intravenously 0.25 mg once 2024 active 07/20 hydrocortison e 100 MG Injection intravenously 100.0 mg Re-initiate treatment only upon physician approval. 2024 active 07/20 methylprednis olone 2000 MG Injection intravenously 125.0 mg Re-initiate treatment only upon physician approval. 2024 active 07/20 famotidine 10 MG/ML Injectable Solution intravenously 20.0 mg Re-initiate treatment only upon physician approval. 2024 active 07/20 leucovorin 50 MG Injection intravenously 800.0 mg once Dilute in NS or D5W. 2024 active 07/20 dexamethasone phosphate 4 MG/ML Injectable Solution intravenously 10.0 mg once 2024 active 07/20 15 ML irinotecan hydrochloride 20 MG/ML Injection intravenously 170.0 mg once Dilute with 250 to 500 mL D5W or NS to a final concentration of 0.12 to 2.8 mg/mL. Irinotecan is an irritant. 2024 active 07/20 1 ML epinephrine 1 MG/ML Injection intramuscularl y 0.3 mg once Re-initiate treatment only upon physician approval. 2024 active 07/20 4 ML bevacizumab-b vzr 25 MG/ML Injection [Zirabev] intravenously 400.0 mg once Dilute with NS to a total volume of 100 mL. NOTE: This is Zirabev. 2024 active 07/20 18 ML aprepitant 7.2 MG/ML Injection intravenously 130.0 mg once Administer 30 minutes prior to chemotherapy. Do NOT dilute. Flush with NS before and after administration . 2024 active 07/20 diphenhydrami ne hydrochloride 0.5 MG/ML Injectable Solution intravenously 50.0 mg Re-initiate treatment only upon physician approval. 2024 active 07/01 0.6 ML pegfilgrastim -apgf 10 MG/ML Prefilled Syringe [[facility]ve[facility]a] subcutaneously 6.0 mg once Administer once per cycle at least 24 hours after and 14 days before chemotherapy. NOTE: This is [employer]. 2024 active 06/29 Palonosetron IV intravenously 0.25 mg once 2024 active 06/29 diphenhydrami ne hydrochloride 0.5 MG/ML Injectable Solution intravenously 50.0 mg Re-initiate treatment only upon physician approval. 2024 active 06/29 methylprednis olone 2000 MG Injection intravenously 125.0 mg Re-initiate treatment only upon physician approval. 2024 active 06/29 famotidine 10 MG/ML Injectable Solution intravenously 20.0 mg Re-initiate treatment only upon physician approval. 2024 active 06/29 fluorouracil 50 MG/ML Injectable Solution via continuous infusion 3570.0 mg once TOTAL CIV CYCLE DOSE = 2400 mg/m2 CIV over 46 hours. Patient to be seen for a pump disconnect on Day 3. Refer to drug stability guidelines. 2024 active 06/29 15 ML irinotecan hydrochloride 20 MG/ML Injection intravenously 170.0 mg once Dilute with 250 to 500 mL D5W or NS to a final concentration of 0.12 to 2.8 mg/mL. Irinotecan is an irritant. 2024 active 06/29 1 ML epinephrine 1 MG/ML Injection intramuscularl y 0.3 mg once Re-initiate treatment only upon physician approval. 2024 active 06/29 atropine sulfate intravenously 0.4 mg once as needed for treatment of acute cholinergic reaction. Dosage not to exceed 1 mg in 24 hours. 2024 active 06/29 18 ML aprepitant 7.2 MG/ML Injection intravenously 130.0 mg once Administer 30 minutes prior to chemotherapy. Do NOT dilute. Flush with NS before and after administration . 2024 active 06/29 dexamethasone phosphate 4 MG/ML Injectable Solution intravenously 10.0 mg once 2024 active 06/29 leucovorin 50 MG Injection intravenously 800.0 mg once Dilute in NS or D5W. 2024 active 06/29 hydrocortison e 100 MG Injection intravenously 100.0 mg Re-initiate treatment only upon physician approval. 2024 active 06/29 4 ML bevacizumab-b vzr 25 MG/ML Injection [Zirabev] intravenously 400.0 mg once Dilute with NS to a total volume of 100 mL. NOTE: This is Zirabev. 2024 active 06/10 0.6 ML pegfilgrastim -apgf 10 MG/ML Prefilled Syringe [[facility]vepria] subcutaneously 6.0 mg once Administer once per cycle at least 24 hours after and 14 days before chemotherapy. NOTE: This is [employer]. 2024 active 06/08 1 ML epinephrine 1 MG/ML Injection intramuscularl y 0.3 mg once Re-initiate treatment only upon physician approval. 2024 active 06/08 fluorouracil 50 MG/ML Injectable [...] intravenously 10.0 mg once 2024 active 06/08 diphenhydrami ne hydrochloride 0.5 MG/ML Injectable Solution intravenously 50.0 mg Re-initiate treatment only upon physician approval. 2024 active 06/08 4 ML bevacizumab-b vzr 25 MG/ML Injection [Zirabev] intravenously 400.0 mg once Dilute with NS to a total volume of 100 mL. NOTE: This is Zirabev. 2024 active 06/08 leucovorin 50 MG Injection intravenously 800.0 mg once Dilute in NS or D5W. 2024 active 06/08 hydrocortison e 100 MG Injection intravenously 100.0 mg Re-initiate treatment only upon physician approval. 2024 active 06/08 methylprednis olone 2000 MG [...] mg in 24 hours. 2024 active 06/08 famotidine 10 MG/ML Injectable Solution intravenously 20.0 mg Re-initiate treatment only upon physician approval. 2024 active 06/08 15 ML irinotecan hydrochloride 20 MG/ML Injection intravenously 170.0 mg once Dilute with 250 to 500 mL D5W or NS to a final concentration of 0.12 to 2.8 mg/mL. Irinotecan is an irritant. 2024 active 05/20 0.6 ML pegfilgrastim -apgf 10 MG/ML Prefilled Syringe [[facility]] subcutaneously 6.0 mg once Administer once per cycle at least 24 hours after and 14 days before chemotherapy. NOTE: This is [employer]. 2024 active 05/18 15 ML irinotecan hydrochloride 20 MG/ML Injection intravenously 170.0 mg once Dilute with 250 to 500 mL D5W or NS to a final concentration of 0.12 to 2.8 mg/mL. Irinotecan is an irritant. 2024 active 05/18 4 ML bevacizumab-b vzr [...] intravenously 0.25 mg once 2024 active 05/18 atropine sulfate intravenously 0.4 [...] 05/18 1 ML epinephrine 1 MG/ML Injection intramuscularl y 0.3 mg once Re-initiate treatment only upon physician approval. 2024 active 05/18 methylprednis olone 2000 MG Injection intravenously 125.0 mg Re-initiate treatment only upon physician approval. 2024 active 04/29 0.6 ML pegfilgrastim -apgf 10 MG/ML Prefilled Syringe [N[facility]vepria] subcutaneously 6.0 mg once Administer once per cycle at least 24 hours after and 14 days before chemotherapy. NOTE: This is [employer]. 2024 active 04/27 atropine sulfate intravenously 0.4 mg once as needed for treatment of acute cholinergic reaction. Dosage not to exceed 1 mg in 24 hours. 2024 active 04/27 famotidine 10 MG/ML Injectable Solution intravenously 20.0 mg Re-initiate treatment only upon physician approval. 2024 active 04/27 leucovorin 50 MG Injection intravenously 800.0 mg once Dilute in NS or D5W. 2024 active 04/27 4 ML bevacizumab-b vzr 25 MG/ML Injection [Zirabev] intravenously 400.0 mg once Dilute with NS to a total volume of 100 mL. NOTE: This is Zirabev. 2024 active 04/27 dexamethasone phosphate 4 MG/ML Injectable Solution intravenously 10.0 mg once 2024 active 04/27 Palonosetron IV intravenously 0.25 mg once 2024 active 04/27 1 ML epinephrine 1 MG/ML Injection intramuscularl y 0.3 mg once Re-initiate treatment only upon [...] only upon physician approval. 2024 active 04/27 diphenhydrami ne hydrochloride 0.5 MG/ML Injectable Solution intravenously 50.0 mg Re-initiate treatment only upon physician approval. 2024 active 04/27 15 ML irinotecan hydrochloride 20 MG/ML Injection intravenously 170.0 mg once Dilute with 250 to 500 mL D5W or NS to a final concentration of 0.12 to 2.8 mg/mL. Irinotecan is an irritant. 2024 active 04/27 18 ML aprepitant 7.2 MG/ML Injection intravenously 130.0 mg once Administer 30 minutes prior to chemotherapy. Do NOT dilute. Flush with NS before and after administration . 2024 active 04/10 24 HR venlafaxine 150 MG Extended Release Oral Capsule 2024 active 04/08 0.6 ML pegfilgrastim -apgf 10 MG/ML Prefilled Syringe [[facility]ve[employer]a] subcutaneously 6.0 mg once Administer once per cycle at least 24 hours after and 14 days before chemotherapy. NOTE: This is [employer]. 2024 active 04/06 methylprednis olone 2000 MG Injection intravenously 125.0 mg Re-initiate treatment only upon physician approval. 2024 active 04/06 leucovorin 50 MG Injection intravenously 800.0 mg once Dilute in NS or D5W. 2024 active 04/06 4 ML bevacizumab-b vzr 25 MG/ML Injection [Zirabev] intravenously 400.0 mg once Dilute with NS to a total volume of 100 mL. NOTE: This is Zirabev. 2024 active 04/06 1 ML epinephrine 1 MG/ML Injection intramuscularl y 0.3 mg once Re-initiate treatment only upon physician approval. 2024 active 04/06 diphenhydrami ne hydrochloride 0.5 MG/ML Injectable Solution intravenously 50.0 mg Re-initiate treatment only upon physician approval. 2024 active 04/06 18 ML aprepitant 7.2 [...] mg in 24 hours. 2024 active 04/06 fluorouracil 50 MG/ML Injectable [...] mg/mL. Irinotecan is an irritant. 2024 active 03/23 benzonatate 100 MG Oral Capsule orally 1.0 capsule 3 times per day 2024 active 03/23 codeine phosphate 2 MG/ML / guaifenesin 20 MG/ML Oral Solution orally 10.0 mL every 4 to 6 hours 2024 active 03/18 0.6 ML pegfilgrastim -apgf 10 MG/ML Prefilled Syringe [N[facility]vepria] subcutaneously 6.0 mg once Administer once per cycle at least 24 hours after and 14 days before chemotherapy. NOTE: This is [facility]. 2024 active 03/17 trazodone hydrochloride 50 MG Oral Tablet 2024 active 03/16 1 ML epinephrine 1 MG/ML Injection intramuscularl y 0.3 mg once Re-initiate treatment only upon physician approval. 2024 active 03/16 hydrocortison e 100 MG Injection intravenously 100.0 mg Re-initiate treatment only upon physician approval. 2024 active 03/16 leucovorin 50 MG Injection intravenously 800.0 mg once Dilute in NS or D5W. 2024 active 03/16 4 ML bevacizumab-b vzr 25 MG/ML Injection [Zirabev] intravenously 400.0 mg once Dilute with NS to a total volume of 100 mL. NOTE: This is Zirabev. 2024 active 03/16 15 ML irinotecan hydrochloride 20 MG/ML Injection intravenously 170.0 mg once Dilute with 250 to 500 mL D5W or NS to a final concentration of 0.12 to 2.8 mg/mL. Irinotecan is an irritant. 2024 active 03/16 fluorouracil 50 MG/ML Injectable Solution via continuous infusion 3570.0 mg once TOTAL CIV CYCLE DOSE = 2400 mg/m2 CIV over 46 hours. Patient to be seen for a pump disconnect on Day 3. Refer to drug stability guidelines. 2024 active 03/16 18 ML aprepitant 7.2 MG/ML Injection intravenously 130.0 mg once Administer 30 minutes prior to chemotherapy. Do NOT dilute. Flush with NS before and after administration . 2024 active 03/16 Palonosetron IV intravenously 0.25 mg once 2024 active 03/16 methylprednis olone 2000 MG Injection intravenously 125.0 mg Re-initiate treatment only upon physician approval. 2024 active 03/16 famotidine 10 MG/ML Injectable Solution intravenously 20.0 mg Re-initiate treatment only upon physician approval. 2024 active 03/16 dexamethasone phosphate 4 MG/ML Injectable Solution intravenously 10.0 mg once 2024 active 03/16 atropine sulfate intravenously 0.4 mg once as needed for treatment of acute cholinergic reaction. Dosage not to exceed 1 mg in 24 hours. 2024 active 03/16 diphenhydrami ne hydrochloride 0.5 MG/ML Injectable Solution intravenously 50.0 mg Re-initiate treatment only upon physician approval. 2024 active 03/09 furosemide 20 MG Oral Tablet 2024 active 03/09 potassium chloride 20 MEQ Extended Release Oral Tablet 2024 active 02/25 0.6 ML pegfilgrastim -apgf 10 MG/ML Prefilled Syringe [Nyvepria] subcutaneously 6.0 mg once Administer once per cycle at least 24 hours after and 14 days before chemotherapy. NOTE: This is [employer]. 2024 active 02/23 famotidine 10 MG/ML Injectable [...] only upon physician approval. 2024 active 02/23 fluorouracil 50 MG/ML Injectable Solution via continuous infusion 3570.0 mg once TOTAL CIV CYCLE DOSE = 2400 mg/m2 CIV over 46 hours. Patient to be seen for a pump disconnect on Day 3. Refer to drug stability guidelines. 2024 active 02/23 18 ML aprepitant 7.2 MG/ML Injection intravenously 130.0 mg once Administer 30 minutes prior to chemotherapy. Do NOT dilute. Flush with NS before and after administration . 2024 active 02/23 1 ML epinephrine 1 MG/ML Injection intramuscularl y 0.3 mg once Re-initiate treatment only upon physician approval. 2024 active 02/23 dexamethasone phosphate 4 MG/ML Injectable Solution intravenously 10.0 mg once 2024 active 02/23 15 ML irinotecan hydrochloride 20 MG/ML Injection intravenously 170.0 mg once Dilute with 250 to 500 mL D5W or NS to a final concentration of 0.12 to 2.8 mg/mL. Irinotecan is an irritant. 2024 active 02/23 methylprednis olone 2000 MG Injection intravenously 125.0 mg Re-initiate treatment only upon physician approval. 2024 active 02/23 atropine sulfate intravenously 0.4 mg once as needed for treatment of acute cholinergic reaction. Dosage not to exceed 1 mg in 24 hours. 2024 active 02/23 Palonosetron IV intravenously 0.25 mg once 2024 active 02/23 leucovorin 50 MG Injection intravenously 800.0 mg once Dilute in NS or D5W. 2024 active 02/18 atropine sulfate 0.025 MG / diphenoxylate hydrochloride 2.5 MG Oral Tablet orally 1.0 tablet Use as Directed 2024 active 02/07 furosemide 40 MG Oral Tablet [Lasix] orally 1.0 tablet daily 2024 active 02/04 furosemide 20 MG Oral Tablet [Lasix] orally 1.0 tablet daily 2024 active 01/14 lorazepam 1 MG Oral Tablet 2024 active 01/12 potassium chloride 20 MEQ Extended Release Oral Tablet orally 1.0 tablet extended release every day 2024 active 01/12 1 ML epinephrine 1 MG/ML Injection intramuscularl y 0.3 mg once Re-initiate treatment only upon physician approval. 2024 active 01/12 diphenhydrami ne hydrochloride 0.5 [...] 2 times per day 2024 active 01/12 methylprednis olone 2000 MG Injection intravenously 125.0 mg Re-initiate treatment only upon physician approval. 2024 active 01/10 trazodone hydrochloride 50 MG Oral Tablet 2024 active 01/07 morphine sulfate 15 MG Oral Tablet 2024 active 01/04 cyclobenzapri ne hydrochloride 5 MG Oral Tablet 2024 active 01/03 amlodipine 5 MG Oral Tablet 01/03 inactive 12/16 potassium chloride 20 MEQ Extended Release Oral Tablet orally 1.0 tablet extended release every day 2024 active 12/15 diphenhydrami ne hydrochloride 0.5 MG/ML Injectable Solution intravenously 50.0 mg Re-initiate treatment only upon physician approval. 2024 active 12/15 famotidine 10 MG/ML Injectable Solution intravenously 20.0 mg Re-initiate treatment only upon physician approval. 2024 active 12/15 1 ML epinephrine 1 MG/ML Injection intramuscularl y 0.3 mg once Re-initiate treatment only upon [...] only upon physician approval. 2024 active 11/16 atropine sulfate 0.025 MG / diphenoxylate hydrochloride 2.5 MG Oral Tablet orally 1.0 tablet Use as Directed 2023 active 11/16 1 ML epinephrine 1 MG/ML Injection intramuscularl y 0.3 mg once Re-initiate treatment only upon physician approval. 2023 active 11/16 methylprednis olone 2000 MG Injection intravenously 125.0 mg Re-initiate treatment only upon physician approval. 2023 active 11/16 diphenhydrami ne hydrochloride 0.5 MG/ML Injectable Solution intravenously 50.0 mg Re-initiate treatment only upon physician approval. 2023 active 11/16 hydrocortison e 100 MG Injection intravenously 100.0 mg Re-initiate treatment only upon physician approval. 2023 active 11/16 famotidine 10 MG/ML Injectable Solution intravenously 20.0 mg Re-initiate treatment only upon physician approval. 2023 active 11/15 trazodone hydrochloride 50 MG Oral Tablet 2023 active 11/11 trazodone hydrochloride 50 MG Oral Tablet 2023 active 10/27 levofloxacin 750 MG Oral Tablet orally 1.0 tablet every 2 days 10/27 inactive 10/27 benzonatate 100 MG Oral Capsule orally 1.0 capsule 3 times per day 2023 active 10/20 benzonatate 100 MG Oral Capsule orally 1.0 capsule 3 times per day 2023 active 10/20 1 ML epinephrine 1 MG/ML Injection intramuscularl y 0.3 mg once Re-initiate treatment only upon physician approval. 2023 active 10/20 diphenhydrami ne hydrochloride 0.5 MG/ML Injectable Solution intravenously 50.0 mg Re-initiate treatment only upon physician approval. 2023 active 10/20 hydrocortison e 100 MG Injection intravenously 100.0 mg Re-initiate treatment only upon physician approval. 2023 active 10/20 famotidine 10 MG/ML Injectable Solution intravenously 20.0 mg Re-initiate treatment only upon physician approval. 2023 active 10/20 methylprednis olone 2000 MG Injection intravenously 125.0 mg Re-initiate treatment only upon physician approval. 2023 active 10/06 methylprednis olone 2000 MG Injection intravenously 125.0 mg Re-initiate treatment only upon physician approval. 2023 active 10/06 1 ML epinephrine 1 MG/ML Injection intramuscularl y 0.3 mg once Re-initiate treatment only upon [...] only upon physician approval. 2023 active 10/06 amlodipine 5 MG Oral Tablet 10/06 inactive 09/22 1 ML epinephrine 1 MG/ML Injection intramuscularl y 0.3 mg once Re-initiate treatment only upon [...] 09/08 1 ML epinephrine 1 MG/ML Injection intramuscularl y 0.3 mg once Re-initiate treatment only upon [...] 50 MG Oral Tablet 2023 active 08/25 1 ML epinephrine 1 MG/ML Injection intramuscularl y 0.3 mg once Re-initiate treatment only upon physician approval. 2023 active 08/25 diphenhydrami ne hydrochloride 0.5 MG/ML Injectable Solution intravenously 50.0 mg Re-initiate treatment only upon physician approval. 2023 active 08/25 methylprednis olone 2000 MG Injection intravenously 125.0 mg Re-initiate treatment only upon physician approval. 2023 active 08/25 hydrocortison e 100 MG Injection intravenously 100.0 mg Re-initiate treatment only upon physician approval. 2023 active 08/25 famotidine 10 MG/ML Injectable Solution intravenously 20.0 mg Re-initiate treatment only upon physician approval. 2023 active 08/11 hydrocortison e 100 MG Injection intravenously 100.0 mg Re-initiate treatment only upon physician approval. 2023 active 08/11 1 ML epinephrine 1 MG/ML Injection intramuscularl y 0.3 mg once Re-initiate treatment only upon [...] 07/28 1 ML epinephrine 1 MG/ML Injection intramuscularl y 0.3 mg once Re-initiate treatment only upon [...] 07/14 1 ML epinephrine 1 MG/ML Injection intramuscularl y 0.3 mg once Re-initiate treatment only upon [...] 06/30 1 ML epinephrine 1 MG/ML Injection intramuscularl y 0.3 mg once Re-initiate treatment only upon [...] 06/16 1 ML epinephrine 1 MG/ML Injection intramuscularl y 0.3 mg once Re-initiate treatment only upon physician approval. 2023 active 06/04 amlodipine 5 MG Oral Tablet 06/04 inactive 06/02 1 ML epinephrine 1 MG/ML Injection intramuscularl y 0.3 mg once Re-initiate treatment only upon [...] only upon physician approval. 2023 active 05/19 amlodipine 5 MG Oral Tablet 05/19 inactive 05/19 hydrocortison e 100 MG Injection intravenously 100.0 mg Re-initiate treatment only upon physician approval. 2023 active 05/19 methylprednis olone 2000 MG Injection intravenously 125.0 mg Re-initiate treatment only upon physician approval. 2023 active 05/19 famotidine 10 MG/ML Injectable Solution intravenously 20.0 mg Re-initiate treatment only upon physician approval. 2023 active 05/19 1 ML epinephrine 1 MG/ML Injection intramuscularl y 0.3 mg once Re-initiate treatment only upon physician approval. 2023 active 05/19 diphenhydrami ne hydrochloride 0.5 MG/ML Injectable Solution intravenously 50.0 mg Re-initiate treatment only upon physician approval. 2023 active 05/05 methylprednis olone 2000 MG Injection intravenously 125.0 mg Re-initiate treatment only upon physician approval. 2023 active 05/05 1 ML epinephrine 1 MG/ML Injection intramuscularl y 0.3 mg once Re-initiate treatment only upon physician approval. 2023 active 05/05 4 ML bevacizumab-b vzr 25 MG/ML Injection [Zirabev] intravenously 400.0 mg once Dilute with NS to a total volume of 100 mL. NOTE: This is Zirabev. 2023 active 05/05 diphenhydrami ne hydrochloride 0.5 MG/ML Injectable Solution intravenously 50.0 mg Re-initiate treatment only upon physician approval. 2023 active 05/05 famotidine 10 MG/ML Injectable Solution intravenously 20.0 mg Re-initiate treatment only upon physician approval. 2023 active 05/05 hydrocortison e 100 MG Injection intravenously 100.0 mg Re-initiate treatment only upon physician approval. 2023 active 04/30 tipiracil 8.19 MG / trifluridine 20 MG Oral Tablet [Lonsurf] 04/30 inactive 04/21 1 ML epinephrine 1 MG/ML Injection intramuscularl y 0.3 mg once Re-initiate treatment only upon [...] treatment only upon physician approval. 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 Consider initiating treatment when hemoglobin is less than 10 g/dL. Consider discontinuing treatment if total hemoglobin rise is less than 1 g/dL after an 8-week escalation period or if chemotherapy course has been completed. See [facility] Management and Dose Titration Tool linked in references section for guidance on dose titration based on response. Ordered 05/05/2024 Physician Order RTC MD mary Avalos to review scans and treatment, Zirabev / Aranesp Ordered 05/19/2024 Physician Order RTC nurse for injection aranesp for Hgb <10 Ordered 05/19/2024 Physician Order RTC MD/CREAM SEPARATOR OPERATOR/Chemo FOLFOX and Avas tin Ordered 05/21/2024 Physician Order Established mina ent, minimal office visit Administered 05/21/2024 Physician Order RTC nurse for injection nyvepria and pump dc Ordered 06/02/2024 Physician Order RTC MD/CREAM SEPARATOR OPERATOR/Chemo Robbie / Peter lorena with FOLFOX / Zirabev Ordered 06/04/2024 Physician Order RTC nurse for injection [facility] and pump dc Ordered 06/16/2024 Physician Order RTC MD/CREAM SEPARATOR OPERATOR/Chemo Robbie carrillo with FOLFOX / Zirabev Ordered 06/18/2024 Physician Order RTC nurse for injection nyvepria and pump dc Ordered 06/30/[address] [facility]abdomen/[facility]vis [facility] [place] [facility] to 07[facility]14 f/u with Dr. Jha: metastatic colorectal cancer, assess response to treatment. Compare to CT from 01/29 and 04/30 Ordered 06/30/2024 Physician Order RTC MD/CREAM SEPARATOR OPERATOR/Chemo Robbie carrillo with FOLFOX / Zirabev Ordered 07/02/2024 Physician Order RTC nurse for injection nyvepria and pump dc Ordered 07/02/2024 Physician Order Established mina ent, minimal office visit Administered 07/14/2024 Physician Order RTC MD/CREAM SEPARATOR OPERATOR/Chemo FOLFOX / Zirabev and Aranesp Ordered 07/16/2024 Physician Order RTC nurse for injection nyvepria and pump dc Ordered 07/28/2024 Physician Order RTC MD mary Avalos to review scans and treatment, Zirabev / Aranesp Ordered 07/28/2024 Physician Order RTC MD/CREAM SEPARATOR OPERATOR/Chemo FOLFOX / Zirabev and Aranesp Ordered 07/30/2024 Physician Order RTC nurse for injection nyvepria and pump dc Ordered 08/11/2024 Physician Order RTC MD/CREAM SEPARATOR OPERATOR/Chemo FOLFOX / Zirabev and Aranesp Ordered 08/13/2024 Physician Order RTC nurse for injection nyvepria and pump dc Ordered 08/25/[address] chest/abdomen/pelvis w/o contrast [facility] prior to 09/22 f/u with Dr. Jha: metastatic colorectal cancer, assess response to treatment. Compare to CT from 04/30 and 07/19 Ordered 08/25/2024 Physician Order Dosing Guidance For chemotherapy-induced anemia, the recommended starting dose is 300 mcg every 3 weeks (or alternatively 200 mcg every 2 weeks or 2.25 mcg/kg weekly - see separate regimens). Consider initiating treatment when hemoglobin is less than 10 g/dL. Consider discontinuing treatment if total hemoglobin rise is less than 1 g/dL after an 8-week escalation period or if chemotherapy course has been completed. See [facility]AZMIN Management and Dose Titration Tool linked in references section for guidance on dose titration based on response. Ordered 08/25/2024 Physician Order RTC MD/CREAM SEPARATOR OPERATOR/Chemo FOLFOX / Zirabev and Aranesp Ordered 09/08/2024 Physician Order RTC MD/CREAM SEPARATOR OPERATOR/Chemo FOLFOX, Z irabev and Aranesp Ordered 09/08/2024 Physician Order RTC MD/CREAM SEPARATOR OPERATOR/Chemo FOLFOX / Zirabev and Aranesp Ordered 09/10/2024 Physician Order RTC nurse for injection nyvepria and pump dc Ordered 09/22/2024 Physician Order RTC MD infusion Avalos wit h FOLFOX / Zirabev and Aranesp; review scans Ordered 09/24/2024 Physician Order RTC nurse for injection nyvepria and pump dc Ordered 10/06/2024 Physician Order RTC MD/CREAM SEPARATOR OPERATOR/Chemo FOLFOX, Z irabev and Aranesp Ordered 10/20/2024 Physician Order RTC MD/CREAM SEPARATOR OPERATOR/Chemo FOLFOX, Z irabev and Aranesp Ordered 10/22/2024 Physician Order Established mina ent, minimal office visit Administered 10/22/2024 Physician Order RTC pump D/C Ordered 10/29/[address] chest w/o contrast Anjali luate ongoing severe [phone] Ordered 11/03/2024 Physician Order RTC MD/CREAM SEPARATOR OPERATOR/Chemo FOLFIRI and Zir abev D/C 11/05/2024 Physician Order RTC nurse for injection Fulphila and pump dc D/C 11/10/2024 Physician Order RTC MD/CREAM SEPARATOR OPERATOR/Chemo FOLFIRI and Zir abev D/C 11/11/2024 Physician Order RTC MD Ordered 11/16/2024 Physician Order Dosing Guidance For chemotherapy-induced anemia, the recommended starting dose is 300 mcg every 3 weeks (or alternatively 200 mcg every 2 weeks or 2.25 mcg/kg weekly - see separate regimens). Consider initiating treatment when hemoglobin is less than 10 g/dL. Consider discontinuing treatment if total hemoglobin rise is less than 1 g/dL after an 8-week escalation period or if chemotherapy course has been completed. See YAZMIN Management and Dose Titration Tool linked in references section for guidance on dose titration based on response. Ordered 11/16/2024 Physician Order RTC MD/CREAM SEPARATOR OPERATOR/Chemo FOLFIRI and Zir abev Ordered 11/18/2024 Physician Order RTC nurse for injection Fulphila and pump dc Ordered 11/25/2024 Physician Order RTC nurse for hydration Ordered 11/25/2024 Physician Order RTC CREAM SEPARATOR OPERATOR/PA Ordered 12/01/2024 Physician Order RTC MD/CREAM SEPARATOR OPERATOR/Chemo FOLFIRI and Zir abev Ordered 12/01/2024 Physician Order RTC MD/CREAM SEPARATOR OPERATOR/Chemo FOLFIRI, Zirabev and Aranesp Ordered 12/03/2024 Physician Order RTC nurse for injection Fulphila and pump dc Ordered 12/07/2024 Physician Order Port placement later this week or early next week Ordered 12/15/2024 Physician Order RTC MD/CREAM SEPARATOR OPERATOR/Chemo FOLFIRI, Zirabev and Aranesp Ordered 12/15/2024 Physician Order Dosing Guidance For chemotherapy-induced anemia, the recommended starting dose is 300 mcg every 3 weeks (or alternatively 200 mcg every 2 weeks or 2.25 mcg/kg weekly - see separate regimens). Consider initiating treatment when hemoglobin is less than 10 g/dL. Consider discontinuing treatment if total hemoglobin rise is less than 1 g/dL after an 8-week escalation period or if chemotherapy course has been completed. See YAZMIN Management and Dose Titration Tool linked in references section for guidance on dose titration based on response. Ordered 12/17/2024 Physician Order RTC nurse for injection Fulphila and pump dc Ordered 12/20/2024 Physician Order Chart check f/u blood culture O rdered 12/22/2024 Physician Order Chart check LFTs/Bilirubin Orde red 12/22/2024 Physician Order RTC CREAM SEPARATOR OPERATOR/PA Ordered 12/27/[address] chest/abdomen/pelvis w/o contrast metastatic colon cancer, assess response to treatment. Compare to previous CT Ordered 12/29/2024 Physician Order RTC MD/CREAM SEPARATOR OPERATOR/Chemo FOLFIRI, Zirabev and Aranesp Ordered 01/03/2025 Physician Order RTC MD labs on same day, scan prior Ordered 01/12/2025 Physician Order Dosing Guidance For chemotherapy-induced anemia, the recommended starting dose is 300 mcg every 3 weeks (or alternatively 200 mcg every 2 weeks or 2.25 mcg/kg weekly - see separate regimens). Consider initiating treatment when hemoglobin is less than 10 g/dL. Consider discontinuing treatment if total hemoglobin rise is less than 1 g/dL after an 8-week escalation period or if chemotherapy course has been completed. See YAZMIN Management and Dose Titration Tool linked in references section for guidance on dose titration based on response. Ordered 01/12/2025 Physician Order RTC MD/CREAM SEPARATOR OPERATOR/Chemo FOLFIRI, Zirabev and Aranesp Ordered 01/14/2025 Physician Order RTC nurse for injection Fulphila and pump dc Ordered 01/14/2025 Physician Order Established mina ent, minimal office visit Administered 02/02/2025 Physician Order Dosing Guidance For chemotherapy-induced anemia, the recommended starting dose is 300 mcg every 3 weeks (or alternatively 200 mcg every 2 weeks or 2.25 mcg/kg weekly - see separate regimens). Consider initiating treatment when hemoglobin is less than 10 g/dL. Consider discontinuing treatment if total hemoglobin rise is less than 1 g/dL after an 8-week escalation period or if chemotherapy course has been completed. See YAZMIN Management and Dose Titration Tool linked in references section for guidance on dose titration based on response. Ordered 02/02/2025 Physician Order Consultation requested Dr Itz Bernabe or partner, ID follow-up from hospital- admitted 01/15 with sever sepsis with MSSA bacteremia, discharged on IV antibiotics at home x 23 days Ordered 02/02/2025 Physician Order RTC MD/CREAM SEPARATOR OPERATOR/Chemo FOLFIRI / Zirabev and Aranesp Ordered 02/02/2025 Physician Order Advanced Care Planning pl ease coordinate ACP visit with Kiah when in the clinic for a Friday chemo visit Ordered 02/04/2025 Physician Order RTC nurse for injection Fulphila and pump dc Ordered 02/07/2025 Physician Order Venous doppler ultrasound of lower extremity, LT to r/o DVT d/t new onset on edema. Read and call prior to 5pm: [phone] and after 5pm: [phone] Ordered 02/16/2025 Physician Order Transfusion of p acked red blood cells (procedure) 1U PRBC transfusion for HGB 6.8 with 20mg IV Lasix post-transfusion Ordered 02/18/2025 Physician Order RTC MD Ordered 02/18/2025 Physician Order MRI lumbar spine w/o contrast [place] metastatic colon cancer with low back / sacral pain Ordered 02/23/2025 Physician Order RTC MD/CREAM SEPARATOR OPERATOR/Chemo FOLFIRI / Zirabev and Aranesp D/C 02/25/2025 Physician Order RTC nurse for injection Fulphila and pump dc D/C 02/25/2025 Physician Order Abdominal parace ntesis (procedure) therapeutic d/t abdominal discomfort from worsening ascites Without albumin unless they remove 5 liters or more of fluid. Ordered 03/21/[address] chest/abdomen/pelvis w/ contrast colon cancer staging Ordered 03/21/2025 Physician Order RTC MD Ordered 03/25/2025 Physician Order [facility] Standing ord er for ultrasound guided paracentesis, every 2 weeks and as needed. Therapeutic. Good for 6 months. Ordered 04/04/2025 Physician Order [facility] Ordered 04/13/2025 Physician Order RTC MD Ordered Social History Date Name Value 12/15/2024 Smoking Status Never smoker 01/03/2025 Smoking Status Never smoker 04/05/2025 Sex Male Vital Signs Date Type Value 03/23/2025 Height 66.00 03/23/2025 Weight 163.30 03/23/2025 Intravascular Systolic 144 03/23/2025 Intravascular Diastolic 86 03/23/2025 Respiratory Rate 16.00 03/23/2025 Heart Beat 106.00 03/23/2025 Body Temperature 97.40 03/23/2025 Pain Scale 0.00 03/23/2025 Oxygen Saturation 95.00 03/23/2025 BMI 26.36
--- OUTSIDE RECORDS SUMMARY | 2025-04-10 17:26 | XMS_ITS | Clinical Summary ---
Author Organization [facility] Address [address] [place] [id number] Care Team Providers Care Bee Robber Name Role Phone Todd Gibson MD Primary Care Provider [phone]- [phone] Peter Pandey RN Unavailable Unavailable Keila Marquez MD Unavailable [phone] Allergies No known active allergies Medications acetaminophen (TYLENOL EXTRA STRGTH) 500 mg tabletIndication s:Metastatic colorectal cancer (HC) Take 2 Tablets (1,000 mg) by mouth every 6 hours. Max acetaminophen dose: 4000mg in 24 hrs. 0 05/14/20 21 Active Ambien 10 mg tablet Take 1 Tablet by mouth. 09/10/20 23 Active iron,carbonyl-vi tamin C (Vitron-C) 65 mg iron- 125 mg Delayed-Release tablet Take by mouth. 08/28/20 23 Active diphenoxylate-at ropine, 2.5-0.025 mg, (LOMOTIL) 2.5-0.025 mg tablet Take 1 Tablet by mouth. 06/16/20 23 Active venlafaxine (EFFEXOR XR) 150 mg Extended-Release capsule Take by mouth. 06/04/20 23 Active LORazepam (ATIVAN) 0.5 mg tab Take 0.5 mg by mouth. Active sodium bicarbonate 325 mg tablet Patient unsure of dose - taking 2 pills every morning Active amLODIPine (NORVASC) 5 mg tabletIndication s:Essential hypertension Take 1 Tablet (5 mg) by mouth once daily. 90 Tablet 3 01/30/20 24 Active Active Problems Problem Noted Date Diagnosed Date Stage 3 chronic kidney disease 01/30/2024 Overview (01/30/2024): This started due to chemotherapy induced diarrhea and dehydration in June of 2023. Essential hypertension 01/30/2024 Malignant neoplasm metastati c to lung, unspecified laterality 01/30/2024 Acute postoperative pain Acute postoperative abdominal pain Perforated sigmoid colon Metastatic colorectal cancer Primary malignant neoplasm of lung metastatic to other site Nausea Encounters Date Type Department Care Team Description 03/21/2025 9:30 AM CDT Ancillary Procedure [facility] [address] [place] [address] 03/21/2025 Travel 02/18/2025 Transcribe Orders [facility] [place] [phone] Sekou Avalos MD 02/07/2025 11:15 AM CDT Ancillary Procedure [facility] [address] [place] [address] 02/07/2025 Travel 02/04/2025 Transcribe Orders [facility] [place] [phone] Sekou Avalos MD 01/24/2025 Telephone [facility] [address] [place] [address] Todd Gibson MD Referral (penitentiary orders) from Last 3 Months Immunizations Immunization Administration Dates Next Due COVID-19 vaccine (Adolfo-J&J) OMI MIMS Mumps 03/29/1977 Family History Medical History Relation Name Comments Cancer Father of cancer Relation Name Status Comments Father Social History Tobacco Use Types Packs/Day Years Used Date Smoking Tobacco: Never Smokeless Tobacco: Never Tobacco Cessation:Counseling Given: Yes Alcohol Use Standard Drinks/Week Comments Not Currently 0 (1 standard drink = 0.6 oz pur e alcohol) beer occ 1 per month Social Connections Answer Date Recorded Do you often feel lonely or isolated from those around you? 0 01/30/2024 Financial Resource Strain Answer Date R ecorded Difficulty of Paying Living Expenses 3 01/30/2024 Difficulty of Paying Living Expenses Not on file 01/30/2024 Food Insecurity Answer Date Recorded Do you worry your food will run out before you are able to buy more? 1 01/30/2024 Transportation Needs Answer Date Record ed Does lack of transportation keep you from medica l appointments? 1 01/30/2024 Does lack of transportation keep you from work, meetings or getting things that you need? 1 01/30/2024 Housing Stability Answer Date Recorded What is your housing situation today? 1 01/30/2024 Utilities Answer Date Recorded Do you have trouble paying f or utilities (for example, heat, electricity, water, phone)? 1 01/30/2024 Sex and Gender Information Value Date Recorded Sex Assigned at Not on file Legal Sex Male 5:25 AM PSYCHOLOGIST COUNSELING Gender Identity Not on file Sexual Orientation Not on file Obstetrics History Last Filed Vital Signs Vital Sign Reading Time Taken Comments Blood Pressure 136/79 01/30/2024 8:33 AM PSYCHOLOGIST COUNSELING Pulse 76 01/30/2024 8:30 AM PSYCHOLOGIST COUNSELING Temperature 36.9 C (98.4 F) 05/16/2021 8:44 AM CDT Respiratory Rate 18 05/14/2021 8:17 AM CDT Oxygen Saturation 99% 01/30/2024 8:30 AM PSYCHOLOGIST COUNSELING Inhaled Oxygen Concentration - - Weight 86.3 kg (190 lb 4.8 oz) 01/30/2024 8:30 A M PSYCHOLOGIST COUNSELING Height 167.6 cm (5' 6) 10/31/2023 9:10 AM PSYCHOLOGIST COUNSELING Body Mass Index 30.72 10/31/2023 9:10 AM PSYCHOLOGIST COUNSELING Plan of Treatment Health Maintenance Due Date Last Done Comments Tdap 1971 Depression screening for age 12+ 1972 HIV for age 15-65 1975 Hepatitis C screening for ag e 18-79 1978 Pneumococcal series for age 50+ (1 of 2 - PCV) 1979 Zoster (shingles) series for age 50+ (1 of 2) 1979 Tetanus booster 1980 Lipids for age 45-75 12/07/2018 12/07/2013 RSV vaccine for adults or (1 - Risk 60-74 years 1-dose series) 2020 COVID-19 vaccine series (2 - Adolfo risk series) 06/13/2021 05/16/2021 BMI (ht and wt on same day) for age 18+ 10/31/2024 10/31/2023, 05/16/2021 Influenza Vaccine (Season Ended) 2025 Colonoscopy through age 75 06/12/203306/12 (Verified in Care Everywhere or Patient Record) Procedures Procedure Name Priority Date/Time Associated Diagnosis Comments CT CHEST ABDOMEN PELVIS W Routine 03/21/2025 9:45 AM CDT Colon cancer (HC) US VENOUS LOWER EXTREMITY LEFT STAT 02/07/2025 11:25 AM CDT Colon cancer (HC) LIPID PANEL W REFLEX MEASURED LDL Routine 12/07/2013 10:26 AM PSYCHOLOGIST COUNSELING Screening, lipid from Last 3 Months or Most Recently Relevant to Health Maintenance Results * CT CHEST ABDOMEN PELVIS W (03/21/2025 9:45 AM CDT) Anatomical Region Laterality Modality Abdomen, Pelvis, AORTA, LIVER, SPLEEN, CHEST Computed Tomography 03/22/2025 11:3 0 AM CDT Addenda Addendum by Henri Devi MD on 03/29/2025 11:55 AM CDT INDICATION: Colon cancer TECHNIQUE: CT chest, abdomen and pelvis acquired with 100 mL Omnipaque 350 IV contrast. COMPARISON: 12/28/2024, 10/28/2024, 09/17/2024, 10/31/2023 chest abdomen pelvis CTs FINDINGS: CHEST: Cardiovascular structures: Mildly prominent heart size. Thoracic aorta and main pulmonary artery are normal in caliber. Coronary artery calcification. Mediastinum and coni: No mass or adenopathy. Lungs and pleura: Again innumerable bilateral pulmonary metastases have increased in size. Index right lower lobe mass measures 7.4 x 4.2 cm on image 89 of series 9 versus 6.9 x 3.1 cm. A left lower lobe mass on image 84 measures 5.3 x 3.6 cm versus 4.1 x 3.0 cm. Chest wall and axilla: Mild bilateral gynecomastia. No axillary adenopathy. Bones: No suspicious bone lesions. Unremarkable for age. ABDOMEN AND PELVIS: Liver: Extensive metastatic disease as before with similar dominant mass occupying majority of the superior right hepatic lobe and extending to the left. Increase in size of several inferior right hepatic lobe masses including a 4.4 x 4.1 cm mass on image 76 of series 11 was remeasured at 3.6 x 2.5 cm previously. A 4.8 x 3.0 cm inferior right hepatic lobe mass on image 70 previously measured 3.8 x 2.4 cm. Multiple cysts in the left hepatic lobe. Gallbladder and bile ducts: Cholelithiasis. Pancreas: Unremarkable. Spleen: Enlarged at 16.4 cm. Nonspecific low-density lesions including 13 mm anterior lateral spleen image 34 and 26 mm inferior spleen image 89 are new from 2022. Poor evaluation of the spleen on subsequent studies due to lack of IV contrast. Adrenal glands: Subtle right adrenal thickening is new from 09/17/2024. Kidneys: Small right renal lesion too small to characterize but unchanged from 10/31/2023 GI tract: Surgical anastomosis in the rectosigmoid and distal ileum. No evidence for obstruction. Vascular structures: Recanalized periumbilical vein esophageal varices compatible with portal hypertension. Lymph nodes: Unremarkable. Miscellaneous: Moderate ascites has progressed. Pelvic Organs: Enlarged prostate. Bones: No suspicious bone lesions. Unremarkable for age. IMPRESSION: 1. Progression of pulmonary and hepatic metastatic disease. 2. Subtle thickening of the right adrenal gland suspicious for metastases. 3. New splenic lesions are nonspecific but metastases are not excluded. 4. Increased ascites. 5. Portal hypertension with splenomegaly and esophageal varices. Please note that all CT scans at this facility use dose modulation, iterative reconstruction, and/or weight-based dosing when appropriate to reduce radiation dose to as low as reasonably achievable. Dictated by Henri Devi MD @ 03/22/2025 11:30:28 AM ----- ADDENDUM ----- FINDINGS: Comparison made to 02/09/2025 outside chest abdomen pelvis CT from [facility]. Bilateral pulmonary nodules and masses demonstrates slight interval growth on the current study. For example the 7.4 x 4.2 right lower lobe mass measures 7.2 x 4.0 cm on the outside study. The 5.3 x 3.6 cm left lower lobe mass measured 4.7 x 3.1 cm. Liver masses have also enlarged. The 4.4 x 4.1 cm right hepatic lobe mass measured 3.2 x 2.9 cm on the outside study. The 4.8 x 3.0 cm mass measured 4.5 x 2.4 cm. Moderate ascites is stable. Splenic lesions are stable. Right adrenal thickening is unchanged. Dictated by Henri Devi MD @ Mar 29 2025 11:47AM (Electronically Signed) Impressions 03/22/2025 11:30 AM CDT 1. Progression of pulmonary and hepatic metastatic disease. 2. Subtle thickening of the right adrenal gland suspicious for metastases. 3. New splenic lesions are nonspecific but metastases are not excluded. 4. Increased ascites. 5. Portal hypertension with splenomegaly and esophageal varices. Please note that all CT scans at this facility use dose modulation, iterative reconstruction, and/or weight-based dosing when appropriate to reduce radiation dose to as low as reasonably achievable. Dictated by Henri Devi MD @ 03/22/2025 11:30:28 AM (Electronically Signed) Narrative 03/22/2025 11:30 AM CDT For Patients: As a result of the Cures Act, medical imaging exams and procedure reports are released immediately into your electronic medical record. You may view this report before your referring provider. If you have questions, please contact your health care provider. INDICATION: Colon cancer TECHNIQUE: CT chest, abdomen and pelvis acquired with 100 mL Omnipaque 350 IV contrast. COMPARISON: 12/28/2024, 10/28/2024, 09/17/2024, 10/31/2023 chest abdomen pelvis CTs FINDINGS: CHEST: Cardiovascular structures: Mildly prominent heart size. Thoracic aorta and main pulmonary artery are normal in caliber. Coronary artery calcification. Mediastinum and coni: No mass or adenopathy. Lungs and pleura: Again innumerable bilateral pulmonary metastases have increased in size. Index right lower lobe mass measures 7.4 x 4.2 cm on image 89 of series 9 versus 6.9 x 3.1 cm. A left lower lobe mass on image 84 measures 5.3 x 3.6 cm versus 4.1 x 3.0 cm. Chest wall and axilla: Mild bilateral gynecomastia. No axillary adenopathy. Bones: No suspicious bone lesions. Unremarkable for age. ABDOMEN AND PELVIS: Liver: Extensive metastatic disease as before with similar dominant mass occupying majority of the superior right hepatic lobe and extending to the left. Increase in size of several inferior right hepatic lobe masses including a 4.4 x 4.1 cm mass on image 76 of series 11 was remeasured at 3.6 x 2.5 cm previously. A 4.8 x 3.0 cm inferior right hepatic lobe mass on image 70 previously measured 3.8 x 2.4 cm. Multiple cysts in the left hepatic lobe. Gallbladder and bile ducts: Cholelithiasis. Pancreas: Unremarkable. Spleen: Enlarged at 16.4 cm. Nonspecific low-density lesions including 13 mm anterior lateral spleen image 34 and 26 mm inferior spleen image 89 are new from 2022. Poor evaluation of the spleen on subsequent studies due to lack of IV contrast. Adrenal glands: Subtle right adrenal thickening is new from 09/17/2024. Kidneys: Small right renal lesion too small to characterize but unchanged from 10/31/2023 GI tract: Surgical anastomosis in the rectosigmoid and distal ileum. No evidence for obstruction. Vascular structures: Recanalized periumbilical vein esophageal varices compatible with portal hypertension. Lymph nodes: Unremarkable. Miscellaneous: Moderate ascites has progressed. Pelvic Organs: Enlarged prostate. Bones: No suspicious bone lesions. Unremarkable for age. Procedure Note Henri Devi MD - 03/22/2025 For Patients: As a result of the 21st Century Cures Act, medical imagingexams and procedure reports are released immediately into your electronicmedical record. You may view this report before your referring provider.If you have questions, please contact your health care provider. INDICATION: Colon cancer TECHNIQUE: CT chest, abdomen and pelvis acquired with 100 mL Omnipaque 350 IVcontrast. COMPARISON: 12/28/2024, 10/28/2024, 09/17/2024, 10/31/2023 chest abdomen pelvis CTs FINDINGS: CHEST: Cardiovascular structures: Mildly prominent heart size. Thoracic aorta andmain pulmonary artery are normal in caliber. Coronary arterycalcification. Mediastinum and coni: No mass or adenopathy. Lungs and pleura: Again innumerable bilateral pulmonary metastases haveincreased in size. Index right lower lobe mass measures 7.4 x 4.2 cm onimage 89 of series 9 versus 6.9 x 3.1 cm. A left lower lobe mass on image84 measures 5.3 x 3.6 cm versus 4.1 x 3.0 cm. Chest wall and axilla: Mild bilateral gynecomastia. No axillaryadenopathy. Bones: No suspicious bone lesions. Unremarkable for age. ABDOMEN AND PELVIS: Liver: Extensive metastatic disease as before with similar dominant massoccupying majority of the superior right hepatic lobe and extending to theleft. Increase in size of several inferior right hepatic lobe massesincluding a 4.4 x 4.1 cm mass on image 76 of series 11 was remeasured at3.6 x 2.5 cm previously. A 4.8 x 3.0 cm inferior right hepatic lobe dianne image 70 previously measured 3.8 x 2.4 cm. Multiple cysts in the lefthepatic lobe. Gallbladder and bile ducts: Cholelithiasis. Pancreas: Unremarkable. Spleen: Enlarged at 16.4 cm. Nonspecific low-density lesions including 13mm anterior lateral spleen image 34 and 26 mm inferior spleen image 89 arenew from 2022. Poor evaluation of the spleen on subsequent studies due tolack of IV contrast. Adrenal glands: Subtle right adrenal thickening is new from 09/17/2024. Kidneys: Small right renal lesion too small to characterize but unchangedfrom 10/31/2023 GI tract: Surgical anastomosis in the rectosigmoid and distal ileum. Noevidence for obstruction. Vascular structures: Recanalized periumbilical vein esophageal varicescompatible with portal hypertension. Lymph nodes: Unremarkable. Miscellaneous: Moderate ascites has progressed. Pelvic Organs: Enlarged prostate. Bones: No suspicious bone lesions. Unremarkable for age. IMPRESSION: 1. Progression of pulmonary and hepatic metastatic disease. 2. Subtle thickening of the right adrenal gland suspicious for metastases. 3. New splenic lesions are nonspecific but metastases are not excluded. 4. Increased ascites. 5. Portal hypertension with splenomegaly and esophageal varices. Please note that all CT scans at this facility use dose modulation,iterative reconstruction, and/or weight-based dosing when appropriate toreduce radiation dose to as low as reasonably achievable. Dictated by Henri Devi MD @ 03/22/2025 11:30:28 AM (Electronically Signed) us Sekou Avalos MD CT Edited Resul t - Final * US VENOUS LOWER EXTREMITY LEFT (02/07/2025 11:25 AM CDT) Anatomical Region Laterality Modality LEGS, LEG L, Abdomen Ultrasound 02/07/2025 11:3 6 AM CDT Impressions 02/07/2025 11:36 AM CDT No evidence of deep vein thrombosis within the left lower extremity. Incidental popliteal cyst. Dictated by Corby Hayes MD @ 02/07/2025 11:36:36 AM (Electronically Signed) Narrative 02/07/2025 11:36 AM CDT For Patients: As a result of the Cures Act, medical imaging exams and procedure reports are released immediately into your electronic medical record. You may view this report before your referring provider. If you have questions, please contact your health care provider. INDICATION: Colon cancer COMPARISON: 05/16/2021 TECHNIQUE: A compression venous ultrasound exam was performed of the left lower extremity using ruelas-scale imaging, color Doppler and spectral Doppler analysis. FINDINGS: Sonographic imaging of the left lower extremity demonstrates normal compressibility and color Doppler venous blood flow within the common femoral vein, deep femoral vein, and the proximal greater saphenous vein. Within the thigh, the femoral vein is patent and compressible. At a lower level, the popliteal and posterior tibial veins also show normal compressibility and color Doppler venous blood flow. Limited imaging of the contralateral groin demonstrates a normal spectral waveform and color Doppler venous blood flow within the right common femoral vein. Left popliteal cyst is present measuring 2.7 x 0.7 x 2.1 cm. Procedure Note Corby Hayes MD - 02/07/2025 For Patients: As a result of the Cures Act, medical imagingexams and procedure reports are released immediately into your electronicmedical record. You may view this report before your referring provider.If you have questions, please contact your health care provider. INDICATION: Colon cancer COMPARISON: 05/16/2021 TECHNIQUE: A compression venous ultrasound exam was performed of the left lowerextremity using ruelas-scale imaging, color Doppler and spectral Doppleranalysis. FINDINGS: Sonographic imaging of the left lower extremity demonstrates normalcompressibility and color Doppler venous blood flow within the commonfemoral vein, deep femoral vein, and the proximal greater saphenous vein.Within the thigh, the femoral vein is patent and compressible. At a lowerlevel, the popliteal and posterior tibial veins also show normalcompressibility and color Doppler venous blood flow. Limited imaging of the contralateral groin demonstrates a normal spectralwaveform and color Doppler venous blood flow within the right commonfemoral vein. Left popliteal cyst is present measuring 2.7 x 0.7 x 2.1 cm. IMPRESSION: No evidence of deep vein thrombosis within the left lower extremity.Incidental popliteal cyst. Dictated by Corby Hayes MD @ 02/07/2025 11:36:36 AM (Electronically Signed) us Sekou Avalos MD US Final Result * (ABNORMAL) LIPID PANEL W REFLEX MEASURED LDL (12/07/2013 10:26 AM PSYCHOLOGIST COUNSELING) CHOLESTEROL,TOTAL 198 100 - 199 mg/dL 12/07/2013 11:02 AM [facility] TRIGLYCERIDES 251(H) <150 mg/dL 12/07/2013 11:02 AM [facility] HDL CHOLESTEROL 49 >40 mg/dL 4 11:02 AM [facility] NON-HDL CHOLESTEROL 149(H) <145 mg/dl 12/07/2013 11:02 AM [facility] CHOL/HDL RATIO 4.04 <4.50 12/07/2013 11:02 AM [facility] LDL CHOLESTEROL 99 <=130 mg/dL 12/07/2013 11:02 AM [facility] PATIENT STATUS NON-FASTI NG 12/07/2013 11:02 AM [facility] Blood specimen (specimen) BLOOD SPECIMEN / Unknown Venipuncture / Unknown 12/07/2013 10:26 AM [facility] 12/07/2013 10:26 AM [facility] us Terra Anderson MD CHEMISTRY Final Result [facility] [address] [place] [address] from Last 3 Months or Most Recently Relevant to Health Maintenance Insurance MEDICARE [place] ONLY MEDICARE PART A HB ONLY MEDICARE PART B HB ONLY Member Subscriber Plan / Payer ( fective 2024-Present) Name:Fabiano Ham Member ID:[id number] Relation to Subscriber:Self Name:Fabiano Ham Subscriber ID:[id number] Payer ID:Not on file Group ID:Not on file Type:Not on file Address: ATTN: CLAIMS [id number] Advance Directives * Full Code (Latest Code Status on File) Date Activated Date Inactivated Comments 05/10/2021 8:06 AM 05/14/2021 3:55 PM Question Answer Comments Code Status Discussion: Not Discussed Care Teams Bee Robber Relationship Specialty Start Date End Date Todd Gibson MD [address] [place] [address] PCP - General 08/22/09 Peter Pandey RN [address] [place] [address] Nurse Navigator Registered Nurse 05/04/21 Keila Marquez MD [address] [place] [address] Surgery - Colon and Rectal 05/04/21
--- OUTSIDE RECORDS SUMMARY | 2025-04-10 17:26 | XMS_ITS ---
Author Name Interface, [id number] lity Address [address] [place] [address] [address] [address] Organization [facility] Address [address] [address] Care Team Providers Care Commercial Title Examiner Name Role Phone Sekou Avalos Unavailable Unavailable Allergies and Adverse Reactions Medication/Group Name Reaction Severity Date No known allergies Plan Date Type Value 03/23/2025 APPOINTMENT OV 20 MIN 03/23/2025 APPOINTMENT LAB 15 MIN 03/23/2025 LABORDER CEA panel 03/23/2025 LABORDER CBC w/ auto diff 03/23/2025 LABORDER Renal function p jeannine 03/23/2025 LABORDER CMP Reason for Visit LAB 15 MIN Encounters Date Name 03/23/2025 Ascites 03/23/2025 CIPN - Chemotherapy- induced peripheral neuropathy 03/23/2025 Cancer with lung met astasis 03/23/2025 Cancer with lung met astasis 03/23/2025 Colon cancer 03/23/2025 Secondary malignant neoplasm of liver (disorder) Diagnostic Results Date Type Test Units Lower Limit Upper Limit Result Flag Comments Status Ordered By Specimen Source Lab Address 03/23 CEA panel CEA ng/mL 0.0 3.0 2640.00 Resulte d with diluted sample High Test performed at [facility] on a Appcore0 Immunoass ay Analyzer that uses an immunomet carroll immunoass ay technique . Patient testing should not be performed using multiple methodmalik burden due to analytica l variation seen between test methodmalik burden. FINAL Sekou Avalos * [facility] , [address] [facility] [id number] 0 03/23 Phosp horus panel Phosp horus mg/dL 2.5 4.5 4.4 FINAL Sekou Avalos * [facility] , [address] [facility] [id number] 0 03/23 CMP Album in g/dL 3.5 5.0 3.2 Low FINAL Sekou Avalos * [facility] , [address] [place] [facility] [id number] 0 03/23 CMP Alkal ine phosp hatas e U/L 36.0 125.0 442 High FINAL Sekou Avalos * [facility] , [address] [place] [facility] [id number] 0 03/23 CMP ALT/S GPT U/L 0.0 49.0 24 FINAL Sekou Avalos * [facility] , [address] [facility] [id number] 0 03/23 CMP AST/S GOT U/L 17.0 59.0 76 High FINAL Sekou Avalos * [facility] , [address] [facility] [id number] 03/23 CMP BUN mg/dL 9.0 20.0 28.0 High FINAL Sekou Avalos * [facility] , [address] [place] [facility] [id number] 0 03/23 CMP Calci um mg/dL 8.4 10.2 8.3 Low FINAL Sekou Avalos * [facility] , [address] [facility] [id number] 0 03/23 CMP Chlor oj mmol/L 96.0 107.0 104 FINAL Sekou Avalos * [facility] , [address] [facility] [id number] 0 03/23 CMP CO2 mmol/L 22.0 30.0 [...] hour stability window. FINAL Sekou Avalos * [facility] , [address] [facility] [address] [facility] [address] [place] [facility] [id number] 0 03/23 CMP Creat inine mg/dL 0.66 1.25 2.00 High FINAL Sekou Avalos * [facility] , [address] [facility] [address] [place] [facility] [id number] 0 03/23 CMP GFR estim ate ml/min /1.73m ^2 36.3 Low GFR is calculate d using the CKD-EPI equation. FINAL Sekou Avalos * [facility] , [address] [facility] [address] [place] [facility] [id number] 0 03/23 CMP Gluco se mg/dL 74.0 100.0 160 High FINAL Sekou Avalos * [facility] , [address] [facility] [id number] 0 03/23 CMP Potas sium mmol/L 3.5 5.1 4.2 FINAL Sekou Avalos * [facility] , [address] [facility] [address] [facility] [id number] 0 03/23 CMP Sodiu m mmol/L 137.0 145.0 136 Low FINAL Sekou Avalos * [facility] , [address] [place] [facility] [id number] 0 03/23 CMP Bilir ubin, total mg/dL 0.2 1.3 2.1 High FINAL Sekou Avalos * [facility] , [address] [facility] [address] [place] [facility] [id number] 0 03/23 CMP Total prote in g/dL 6.3 8.2 7.4 FINAL Sekou Avalos * [facility] [place] [facility] , [address] [place] [id number] 0 03/23 CBC w/ auto diff WBC K/uL 3.0 8.9 10.3 High FINAL Sekou Avalos [place] [facility] [place] [facility] , [address] [place] [id number] 0 03/23 CBC w/ auto diff HGB g/dL 12.5 16.6 9.0 Low FINAL Sekou Avalos [place] [facility] [place] [facility] , [address] [place] [id number] 0 03/23 CBC w/ auto diff PLT K/uL 113.0 364.0 120 FINAL Sekou Avalos [place] [facility] [place] [facility] , [address] [place] [id number] 0 03/23 CBC w/ auto diff Samantha # (ANC) K/uL 1.6 6.6 9.0 High FINAL Sekou Avalos [place] [facility] [place] [facility] , [address] [place] [id number] 0 03/23 CBC w/ auto diff Samantha % % 43.0 74.0 86.8 High FINAL Sekou Avalos [place] [facility] , [address] [place] [id number] 0 03/23 CBC w/ auto diff IG % % 0.0 0.5 0.9 High FINAL Sekou Avalos [place] [facility] [place] [facility] , [address] [place] [id number] 0 03/23 CBC w/ auto diff IG # K/uL 0.0 0.03 0.09 High FINAL Sekou Avalos [place] [facility] [place] [facility] , [address] [place] [id number] 0 03/23 CBC w/ auto diff LY % % 14.0 41.0 3.1 Low FINAL Sekou Avalos [place] [facility] , [address] [place] [id number] 0 03/23 CBC w/ auto diff MO % % 6.0 15.0 8.4 FINAL Sekou Avalos [place] [facility] , [address] [place] [id number] 0 03/23 CBC w/ auto diff EO % % 0.0 7.0 0.4 FINAL Sekou Avalos [place] [facility] [place] [facility] , [address] [place] [id number] 0 03/23 CBC w/ auto diff BA % % 0.0 2.0 0.4 FINAL Sekou Avalos [place] [facility] , [address] [place] [id number] 0 03/23 CBC w/ auto diff LY # K/uL 0.4 3.6 0.3 Low FINAL Sekou Avalos [place] [facility] , [address] [place] [id number] 0 03/23 CBC w/ auto diff MO # K/uL 0.2 1.3 0.9 FINAL Sekou Avalos [place] [facility] [place] [facility] , [address] [place] [id number] 0 03/23 CBC w/ auto diff EO # K/uL 0.0 0.6 0.0 FINAL Sekou Avalos [place] [facility] [place] [facility] , [address] [place] [id number] 0 03/23 CBC w/ auto diff BA # K/uL 0.0 0.2 0.0 FINAL Sekou Avalos [place] [facility] , [address] [place] [id number] 0 03/23 CBC w/ auto diff NRBC % #/100W BC 0.0 0.2 0.0 FINAL Sekou Avalos [place] [facility] , [address] [place] [id number] 0 03/23 CBC w/ auto diff RBC M/uL 4.2 5.6 3.02 Low FINAL Sekou Avalos [place] [facility] , [address] [place] [id number] 0 03/23 CBC w/ auto diff HCT % 39.0 49.0 28.7 Low FINAL Sekou Avalos [place] [facility] , [address] [place] [id number] 0 03/23 CBC w/ auto diff MCV fL 80.0 104.0 95.0 FINAL Sekou Avalos [place] [facility] , [address] [place] [id number] 0 03/23 CBC w/ auto diff MCH pg 26.0 35.0 29.8 FINAL Sekou Avalos [place] [facility] , [address] [place] [id number] 0 03/23 CBC w/ auto diff MCHC g/dL 30.0 35.0 31.4 FINAL Sekou Avalos [place] [facility] , [address] [place] [id number] 0 03/23 CBC w/ auto diff MPV fL 9.5 13.4 10.8 FINAL Sekou Avalos [place] [facility] , [address] [place] [id number] 0 03/23 CBC w/ auto diff RDW % 11.3 15.6 17.00 High [facility] , [address] [place] [id number] 0 Medications Date Name Route Dose Frequency [...] treatment only upon physician approval. 2022 active 05/10 /2023 1 ML epinephrine 1 MG/ML Injection intramuscular [...] approval. 2020 active 10/10 influenza A virus A/[facility]01/2020 (H3N2) antigen 0.03 MG/ML / influenza A virus A/[facility] (H1N1) antigen 0.03 MG/ML / influenza B virus B/[place] antigen 0.03 MG/ML / influenza B virus B// [id number] antigen 0.03 MG/ML Injectable Suspension [Flucelvax Quadrivalent ] intramuscular ly 0.5 mL once as a [...] Drug dermatitis Active Shingles Active Hypertension Active Notes Section * Med Onc Follow-up Note Patient Name: SHERLYN KULKARNI Date Of : 1960 Today's Provider:?Sekou Avalos MD Date of Service:?03/23/2025 Attending Physician:?Sekou Avalos (Hematology/Oncology) Referring Provider: ? HEMATOLOGY/ MEDICAL ONCOLOGY FOLLOW UP VISIT Reason for Visit Metastatic colon cancer Assessment #1 Metastatic colon cancer ???Metastatic colon cancer with extensive liver and lung metastases. The goal of treatment is to help him live as long as possible with the highest quality of life. ???His primary tumor has been removed ???MMR proficient, and NATANAEL/BRAF wild type.? - Tempus panel from 2022 showed no targetable mutation. - His disease has??now progressed on FOLFOX and Avastin and Lonsurf/Avastin.?Recent CT scan showed??mild disease progression on FOLFIRI and Avastin, but??he has only been receiving treatment every4 weeks or so, and he has been off??chemotherapy for the past 6 weeks due to recent hospitalization for MSSA bacteremia.?FOLFIRI has been poorly tolerated with??delayed recovery??of blood counts??and diarrhea. -Functional status has??declined over the past??few months due to frequent hospitalizations - CT shows??disease progression in the lungs and liver, as expected since the patient has been off treatment for the past??2 months #2 Insomnia, chronic - On trazodone #3 Nonocclusive clot in the superior mesenteric vein ???Incidentally found in April 2022 - Resolved on CT 06/2022 - Xarelto DC'd in 05/2023 due to GI bleed #4 Peripheral neuropathy, due to oxaliplatin - He notes neuropathy only in fingertips and toes, tingling?? - Neuropathy much better after stopping oxaliplatin #5?? Anemia - Due to chemotherapy, chronic kidney disease, hemorroidal bleeding, and underlying malignancy #6?? Chronic kidney disease - Cr stable in 1.5-2 range #7 Recent MSSA bacteremia?? - Completed antibiotics #8 Recent C diff colitis - Related to antibiotics #9 Hemorrhoidal bleeding ???Associated with??diarrhea and thrombocytopenia - Almost every time his platelet count decreases after chemotherapy, he would have??hemorrhoidal bleeding -Benefited from banding in 2022 #10?? Back pain ?MRI of the low back: L3, L5 stenosis with nerve root??impingement. ??Right psoas muscle edema/inflammation. #11 Cough - Due to metastatic disease in the lungs #12 Poor appetite - Cancer related.?? Ascites contributing Plan 1.?? We had another long discussion today about goals of care. ??His functional status has declinedsignificantly over the past??few months due to??frequent hospitalizations and cancer treatment. ??Even though his cancer has not technically progressed on FOLFIRI/FOLFOX and panitumumab, I am not sure how well he will be able to tolerate these treatments and these treatments are also not very likely to work after progression on FOLFOX/FOLFIRI and Avastin.?? 2.?? We discussed hospice vs. resuming chemo with FOLFOX and panitumumab.?? He is undecided and would like to have more time to think about it 3.?? Return to see me in 2 weeks 4.?? Paracentesis MEENA and schedule paracentesis every 2 weeks for now 5.?Refilled??codeine/guaifenesin??and prescribed??Tessalon Perles??for cough Advanced Care Planning Not discussed at this visit. Pain Scale on Today's Visit 0 Pain Plan on Today's Visit Date of Service: 03/23/2025 Pain Scale (0-10): 0 Pain Treatment Plan: Comment: Smoking Status Smoking Tobacco : Never smoker; Smokeless Tobacco : Never used smokeless tobacco; Vaping : Never vaped Depression Screening Tool Status Was screened; Outcome positive: Yes; Screening Date: 01/03/2025; Screening Tool: Patient Health Questionnaire (PHQ9); Total depression score: 13 History of Present Illness Oncologic history: 1. [...] May and June that were done at [place], showing mild disease progression in the liver [...] palliative intent FOLFIRI with Zirabev and Fulphila 21.?? Cycle 2 and cycle 3 were both delayed by 2 weeks due to hospitalization for infectious complications 22.?(12/22/2024)??admitted to the hospital with diarrhea and rectal bleeding, found to have C. difficile??infection??and platelet count 12,000 23.?The patient was??admitted to the hospital again for severe sepsis with MSSA bacteremia??in late December 2024. ??He was discharged on January 22, with IV antibiotics.?? PORT was removed. Interval History Since I last saw the patient a month ago, he has developed??more cough??and shortness of breath on exertion.?? He has at least 1 intense coughing spell per day.?? Has occasional post-tussive emesis.?No nausea.?? Appetite is about the same.?? Lost 10 lbs over the past month.?He tells me his appetite is usually better??for several days after paracentesis. ??Last paracentesis was done 4 weeksago.?? Abdomen is getting distended again.?? No diarrhea.?? 2-3 formed stools per day.? Review of Systems Remaining 14 point comprehensive review of systems within normal limits. NCCN Distress Thermometer and Problem List were collected and documented in the patient chart.?? Remarkable symptoms and concerns were discussed with the patient.?? Any additional follow-up is indicated in the plan. Past Medical and Surgical History Unremarkable Current Medications Medication List Name Date Vancomycin Oral 01/12/2025 Vitron-C (Iron-Vitamin C) 08/28/2023 Sodium Bicarbonate Oral 10/22/2023 Lasix (Furosemide Oral) 02/07/2025 Imodium A-D (Loperamide Oral) 03/05/2023 Benzonatate Oral 03/23/2025 Potassium Chloride Oral ER Tab 5 Flucelvax (Influenza Virus V accine IM Quad-Split (2yr & older) Cell Derived) 08/29/2021 Chlorpromazine Oral 06/20/2021 Diphenoxylate-Atropine Oral 2.5 mg-0.025 mg 02/18/2025 Furosemide 03/09/2025 Lorazepam Oral 01/14/2025 Venlafaxine 04/07/2024 Cyclobenzaprine Oral 01/04/2025 Hydrocortisone Rectal Cream 2.5 % 2022 Potassium Chloride 03/09/2025 Trazodone 03/17/2025 Codeine-Guaifenesin Oral Liquid 10 mg-10 0 mg/5 mL 03/23/2025 Morphine Oral 01/07/2025 Allergies No known medication allergies Family History No significant family history of malignancy Social History Patient is and lives with his in [place]. 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 No significant alcohol intake Vital Signs Blood pressure: 144/86, R arm, Regular, Pulse: 106, Temperature: 97.4 F, Respirations: 16, O2 sat: 95%, At Rest, Room Air, Pain Scale: 0, Height: 66 in, Weight: 163.3 lb, BSA: 1.84, BMI: 26.36 kg/m2 Covid (01/03/2025), Patient declined/rejected; Covid-19 vaccine (Adolfo) (05/16/2021), Elsewhere; Covid-19 vaccine (Moderna) (02/18/2025), Patient declined/rejected; Covid-19 vaccine (Pfizer) (04/07/2024), Patient declined/rejected; Flu vaccine - Adult (08/2020), Patient declined/rejected; Flu vaccine - Adult (09/18/2022), Patient declined/rejected; Flu vaccine - Adult (10/06/2024), Patient declined/rejected; Flu vaccine - Adult (09/10/2023), Patient declined/rejected; Flu vaccine - Adult (2020), Patient declined/rejected Performance Status ECOG or Karnofsky ECOG: Not recorded Karnofsky: 70% Cares for self, unable to carry on normal activity or to do active work. (Date: 02/02/2025) Physical Exam General: Awake, alert, and oriented. ??ECOG PS 1 Skin: ??No bruising or skin rash noted. Eyes: ?? Sclera anicteric. ?? Mouth: ??Moist mucous membranes without ulceration Lymphatics: No palpable lymphadenopathy Heart: Regular rate and rhythm. ??No murmurs Lungs: Clear Abdomen: ??Soft, nontender. ??Moderately distended with ascites. Extremities: ??1+ edema Genetics/Molecular/Biomarkers * Colon cancer ( Stage Date: Unknown, Stage BILLY (T4b, N1b, pM1a) Date of Dx:05/09/2021 Extent of Disease: Evidence of metastatic disease; Disease State: Progressivedisease; HER-2/samantha Value-IHC: 0; MSI (Microsatellite Instability): Stable; POLE mutation: Unknown; POLD1 mutation: Unknown; HER-2/samantha Status: Unknown; KRAS Mutation: Wild type; RET gene mutation: Ordered: Result pending; KRAS gene: Wild type; NRAS Mutation: Wild type; BRAF Mutation: Wild type; Histopathologic Type: Adenocarcinoma; MMR (Mismatch Repair): Proficient; TRK gene: Unknown; HCC UPDATED IN CB ONLY 06/03/24 JAYME Hcc Updated in CB only 01/19/2025 AMohammed BROADCAST METEOROLOGIST ) Additional Labs, Imaging, and Other Studies Lab Results CBC Lab Results 03/23/2025 02/23/2025 02/16/2025 02/15/2025 02/10/2002/02/2025 CBC WBC x 10^3/uL 10.3 (H) 10.5 (H) RBC x 10^6/uL 3.02 (L) 2.81 (L) NRBC % /100 wbc 0.0 0.0 HGB g/dL 9.0 (L) 8.8 (L) HCT % 28.7 (L) 28.4 (L) MCV fL 95.0 101.1 MCH pg 29.8 31.3 MCHC g/dL 31.4 31.0 RDW % 17.00 (H) 19.90 (H) PLT x 10^3/uL 120 146 MPV fL 10.8 10.6 Samantha % 86.8 (H) 82.8 (H) LY % 3.1 (L) 3.9 (L) MO % 8.4 8.7 EO % 0.4 1.7 IG % 0.9 (H) 2.2 (H) Samantha # (ANC) x 10^3/uL 9.0 (H) 8.7 (H) BA % 0.4 0.7 MO # x 10^3/uL 0.9 0.9 EO # x 10^3/uL 0.0 0.2 BA # x 10^3/uL 0.0 0.1 IG # x 10^3/uL 0.09 (H) 0.23 (H) LY # x 10^3/uL 0.3 (L) 0.4 Chemistries Lab Results 03/23/2025 02/23/2025 02/16/2025 02/15/2025 02/10/2002/02/2025 Chemistries Glucose mg/dL 153 (H) BUN mg/dL 35.0 (H) Creatinine mg/dL 1.70 (H) Sodium mmol/L 137 Potassium mmol/L 4.3 Chloride mmol/L 105 CO2 mmol/L 22 Calcium mg/dL 7.7 (L) Albumin g/dL 2.6 (L) Total protein g/dL 6.6 Bilirubin, total mg/dL 0.6 Alkaline phosphatase U/L 475 (H) AST/SGOT U/L 100 (H) ALT/SGPT U/L 17 GFR estimate mL/min/1.73m2 44.2 (L) Magnesium, mg/dL 1.9 Tumor Markers Lab Results 03/23/2025 02/23/2025 02/16/2025 02/15/2025 02/10/2002/02/2025 Tumor Markers CEA ng/mL 1280.00 Result ed with diluted sample (H) ? Lab Results 03/23/2025 02/23/2025 02/16/2025 02/15/2025 02/10/2002/02/2025 Anemia Labs Surveys/Consents/Other Discussions Sekou Avalos MD CC: FAX Deejay Bob DO Electronically signed by Sekou Avalos MD 03/23/2025 11:11 CDT
--- OUTSIDE RECORDS SUMMARY | 2025-04-10 17:27 | XMS_ITS | Clinical Summary ---
Author Organization [facility] Address [address] [place] [id number] Care Team Providers Care Black Pickler Name Role Phone Todd Gibson MD Primary Care Provider [phone] Jeff Bass MD Unavailable [phone] Allergies No known active allergies Medications venlafaxine (EFFEXOR XR) 150 MG 24 hr capsule Take 150 mg by mouth At Bedtime Suspended Elemental iron 65 mg Vitamin C 125 mg (VITRON C) 65-125 MG TABS tablet Take 1 tablet by mouth daily. Suspended traZODone (DESYREL) 50 MG tablet Take 50 mg by mouth at bedtime. Suspended sodium bicarbonate 325 MG tablet Take 650 mg by mouth every morning. Suspended guaiFENesin-code ine (ROBITUSSIN AC) 100-10 MG/5ML solution Take 10 mLs by mouth every 4 hours as needed for cough. Suspended chlorproMAZINE (THORAZINE) 50 MG tablet Take 50 mg by mouth 3 times daily as needed for other or nausea (hiccups). Suspended potassium chloride ER (K-TAB) 20 MEQ CR tablet Take 20 mEq by mouth daily. 5 Suspended acetaminophen (TYLENOL) 325 MG tabletIndication s:C. difficile colitis Take 2 tablets (650 mg) by mouth every 4 hours as needed for mild pain or other (and adjunct with moderate or severe pain or per patient request). 5 Suspended cyclobenzaprine (FLEXERIL) 5 MG tablet Take 1-2 tablets by mouth every 12 hours as needed for muscle spasms. 5 Suspended LORazepam (ATIVAN) 1 MG tablet Take 1 mg by mouth daily as needed. 5 Suspended morphine (MSIR) 15 MG IR tablet Take 15 mg by mouth See Admin Instructions . Every 3 hours PRN 5 Suspended benzonatate (TESSALON) 100 MG capsule Take 100 mg by mouth 2 times daily. Suspended IVERMECTIN PO Take 60 mg by mouth daily. Suspended NALTREXONE HCL PO Take 1 mg by mouth daily. Suspended Active Problems Problem Noted Date Diagnosed Date [...] lure type 06/11/2023 Diarrhea, unspecified type 06/11/2023 Encounters Date Type Department Care Team Description 04/09/2025 8:11 PM CDT - Present Hospital Encounter [facility] [address] [facility] [address] [place] [phone] Krzysztof Lovelace MD Lawson, Michael J, MD 04/09/2025 Telephone [facility] Services - General Medicine & Pediatrics [facility] [place] [address] Dhara Knox PA-C 03/29/2025 10:42 AM CDT - 03/29/2025 11:59 PM CDT Hospital Encounter [facility] Imaging [address] [place] [phone] Sekou Avalos MD Cancer of sigmoid colon (H); Ascites; Secondary malignant neoplasm of liver (H) Discharge Disposition: Home or Self Care 03/29/2025 Travel 02/21/2025 10:09 AM CDT - 02/21/2025 11:59 PM CDT Hospital Encounter [facility] Imaging [address] [place] [address] Pauline Philip, Rafita Pierce MD Pancytopenia (H) (Primary Dx); Cancer of sigmoid colon (H) Discharge Disposition: Home or Self Care 02/21/2025 Travel 02/11/2025 Home Infusion [facility] [address] [place] [phone] Virginia German [facility] 02/09/2025 7:30 PM CDT Ancillary Procedure [facility] [address] [place] [address] Dhara Waters MD 02/09/2025 5:25 PM CDT - 02/10/2025 2:17 AM CDT Emergency [facility] Emergency Dept [address] [place] [address] Dhara Waters MD GogoGiles levi MD Malignant ascites (H) (Primary Dx); Anemia, unspecified type; Malignant neoplasm of colon, unspecified part of colon (H); Leukocytosis, unspecified type Discharge Disposition: Home or Self Care 02/09/2025 Travel 02/04/2025 Home Infusion [facility] [address] [place] [address] [phone] Juanito Waters [facility] Bacteremia (Primary Dx) 01/23/2025 Home Infusion [facility] [address] [place] [phone] Marychuy Eli [facility] 01/22/2025 Plan of Care Documentation [facility] [address] [place] [phone] 01/22/2025 Home Infusion [facility] [address] [place] [phone] Mirna Cohn RN 01/20/2025 Home Infusion [facility] [address] [place] [phone] Mirna Cohn RN Bacteremia (Primary Dx) 2025 5:05 PM DOOR PULLER - 01/22/2025 2:28 PM DOOR PULLER Hospital Encounter [facility] [address] [facility] Surgical [address] [place] [phone] Francis Abbott MD Cabrera, Jesus F, MD Bacteremia (Primary Dx); Malignant neoplasm of colon, unspecified part of colon (H); On antineoplastic chemotherapy; Leukocytosis, unspecified type; Odynophagia Discharge Disposition: Home or Self Care 2025 Travel from Last 3 Months Social History Tobacco Use Types Packs/Day Years Used Date Smoking Tobacco: Never Smokeless Tobacco: Never Tobacco Cessation:Counseling Given: Not Answered Alcohol Use Standard Drinks/Week Comments Never 0 (1 standard drink = 0.6 oz pur e alcohol) Adolescent Education Answer Date Record ed Getting School Help Needed Not on file 08/16 Food Insecurity Answer Date Recorded Within the past 12 months, d id you worry that your food would run out before you got money to buy more? No 04/09/2025 Within the past 12 months, d id the food you bought just not last and you didn t have money to get more? No 04/09/2025 Housing Stability Answer Date Recorded Do you have housing? (Jennain g is defined as stable permanent housing and does not include staying outside in a car, in a tent, in an abandoned building, in an overnight residential, or couch-surfing.) Yes 04/09/2025 Are you worried about losing your housing? No 04/09/2025 Financial Resource Strain Answer Date R ecorded Within the past 12 months, h ave you or your family members you live with been unable to get utilities (heat, electricity) when it was really needed? No 04/09/2025 Transportation Needs Answer Date Record ed Within the past 12 months, h as lack of transportation kept you from medical appointments, getting your medicines, non-medical meetings or appointments, work, or from getting things that you need? No 04/09/2025 Interpersonal Safety Answer Date Record ed Do you feel physically and e motionally safe where you currently live? Yes 04/09/2025 Within the past 12 months, h ave you been hit, slapped, kicked or otherwise physically hurt by someone? No 04/09/2025 Within the past 12 months, h ave you been humiliated or emotionally abused in other ways by your partner or ex-partner? No 04/09/2025 Sex and Gender Information Value Date Recorded Sex Assigned at Not on file Legal Sex Male 1:35 PM CDT Gender Identity Not on file Sexual Orientation Not on file Last Filed Vital Signs Vital Sign Reading Time Taken Comments Blood Pressure 100/63 04/10/2025 4:41 PM CDT Pulse 95 04/10/2025 4:41 PM CDT Temperature 36.6 C (97.8 F) 04/10/2025 4:41 PM CDT Respiratory Rate 16 04/10/2025 4:41 PM CDT Oxygen Saturation 99% 04/10/2025 4:41 PM CDT Inhaled Oxygen Concentration - - Weight 74.5 kg (164 lb 3.9 oz) 04/10/2025 4:41 P M CDT Height 167.6 cm (5' 6) 02/09/2025 5:17 PM CDT Body Mass Index 26.51 02/09/2025 5:17 PM CDT Plan of Treatment Upcoming Encounters Date Type Department Care Team (Late st Contact Info) Description 04/21/2025 9:30 AM CDT Appointment [facility] [address] [place] [phone] Sekou Avalos MD [facility] [address] [place] [address] 05/05/2025 9:30 AM CDT Appointment [facility] [address] [place] [phone] Sekou Avalos MD [facility] [address] [facility] [address] [place] [address] Health Maintenance Due Date Last Done Comments ADVANCE CARE PLANNING 1960 ANNUAL REVIEW OF HM ORDERS 1960 CT COLONOGRAPHY 1960 FIT 1960 sDNA (Cologuard) 1960 HIV SCREENING 1975 HEPATITIS C SCREENING 1978 Pneumococcal Vaccine: 50+ Years (1 of 2 - PCV) 1979 ZOSTER IMMUNIZATION (1 of 2) 1979 LIPID 2000 RSV VACCINE (1 - Risk 60-74 years 1-dose series) 2020 COVID-19 Vaccine (2 - Adolfo risk series) 06/13/2021 05/16/2021 PHQ-2 (once per calendar year) 2024 FALL RISK ASSESSMENT 2025 MEDICARE ANNUAL WELLNESS VISIT 2025 INFLUENZA VACCINE (Season Ended) 2025 BMP 04/10/2026 04/10/2025, 03/24, 02/09/2025, Additional history exists DIABETES SCREENING 04/10/2028 04/10/2025, 0 04/09/2025, 02/09/2025, Additional history exists FLEX SIG 06/12/2028 06/12/2023 DTAP/TDAP/TD IMMUNIZATION (2 - Td or Tdap) 07/19/2031 07/19/2021 COLONOSCOPY 06/12/2033 06/12/2023 COLORECTAL CANCER SCREENING 06/12/2033 HPV IMMUNIZATION Aged Out No longer e ligible based on patient's age to complete this topic MENINGITIS IMMUNIZATION Aged Out No l onger eligible based on patient's age to complete this topic Medical Devices Implanted Type Area Bug Trimmer Device Identifier Shelf Expiration Date Model / Serial / Lot Port-05/30/2021 Implanted:2020 by Chelle Diggs MD (Quantity not on file) Explanted:Qty: 1 on 11/28/2024 Port Chest / / [id number] Explanted Type Area Bug Trimmer Device Identifier Shelf Expiration Date Model / Serial / Lot Smart Port- Implanted:Qty : 1 on 12/10/2024 by Raquel Hurtado DO Explanted:Qty : 1 on 01/18/2025 by Rafita Solis MD Port Left: Chest Wall [facility] [id number] 08/23/2027 / / [id number] Procedures * The patient is currently admitted. The information in this section might not be complete until the patient is discharged. Procedure Name Priority Date/Time Associated Diagnosis Comments ROUTINE UA WITH MICROSCOPIC REFLEX TO CULTURE Routine 04/10/2025 12:22 PM CDT C. DIFFICILE ANTIGEN AND TOXINS A/B BY ENZYME IMMUNOASSAY Routine 04/10/2025 9:45 AM CDT C. DIFFICILE TOXIN B PCR WITH REFLEX TO C. DIFFICILE EIA Routine 04/10/2025 9:45 AM CDT PHOSPHORUS Add-On 04/10/2025 8:39 AM CDT MAGNESIUM Add-On 04/10/2025 8:39 AM CDT HEPATIC FUNCTION PANEL Routine 8:39 AM CDT CBC WITH PLATELETS Routine 04/10/2025 8: 39 AM CDT BASIC METABOLIC PANEL Routine 04/10/2025 8:39 AM CDT BLOOD CULTURE STAT 04/10/2025 12:10 AM CDT BLOOD GAS VENOUS STAT 04/10/2025 12:1 0 AM CDT BLOOD CULTURE STAT 04/09/2025 10:55 PM CDT AMMONIA Routine 04/09/2025 10:55 PM CDT LACTIC ACID WHOLE BLOOD Routine 04/09/2025 10:55 PM CDT HEPATIC FUNCTION PANEL Routine 10:55 PM CDT CBC WITH PLATELETS Routine 04/09/2025 10 :55 PM CDT BASIC METABOLIC PANEL Routine 04/09/2025 10:55 PM CDT US PARACENTESIS WITHOUT ALBUMIN Routine 03/29/2025 11:31 AM CDT Cancer of sigmoid colon (H) Ascites Secondary malignant neoplasm of liver (H) US PARACENTESIS WITHOUT ALBUMIN Routine 02/21/2025 12:06 PM CDT Cancer of sigmoid colon (H) INR STAT 02/21/2025 10:49 AM CDT Pancytopenia (H) CBC WITH PLATELETS & DIFFERENTIAL Routine 02/15/2025 11:20 AM CDT Bacteremia CBC WITH PLATELETS AND DIFFERENTIAL Routine 02/15/2025 11:20 AM CDT Bacteremia CREATININE Routine 02/15/2025 11:20 AM CDT Bacteremia AST Routine 02/15/2025 11:20 AM CDT Bacteremia LACTIC ACID WHOLE BLOOD STAT 02/09/2025 11:00 PM CDT TRANSFUSE RED BLOOD CELLS (UNIT) STAT 02/09/2025 10:[address] CHEST/ABDOMEN/PELVIS W CONTRAST STAT 02/09/2025 10:44 PM CDT CELL COUNT WITH DIFFERENTIAL FLUID STAT 02/09/2025 9:32 PM CDT AEROBIC BACTERIAL CULTURE ROUTINE STAT 02/09/2025 9:32 PM CDT DIFERENTIAL BODY FLUID STAT 9:32 PM CDT CELL COUNT BODY FLUID STAT 02/09/2025 9:32 PM CDT ALBUMIN FLUID STAT 02/09/2025 9:32 PM CDT PROTEIN FLUID STAT 02/09/2025 9:32 PM CDT POC US ABDOMEN LIMITED STAT 7:26 PM CDT ABO/RH TYPE AND SCREEN STAT 6:32 PM CDT CBC WITH PLATELETS & DIFFERENTIAL STAT 02/09/2025 6:32 PM CDT BLOOD CULTURE STAT 02/09/2025 6:32 PM CDT BLOOD CULTURE STAT 02/09/2025 6:32 PM CDT TYPE AND SCREEN, ADULT STAT 6:32 PM CDT ALBUMIN LEVEL Add-On 02/09/2025 6:32 PM CDT RBC AND PLATELET MORPHOLOGY STAT 02/09/2025 6:32 PM CDT CBC WITH PLATELETS AND DIFFERENTIAL STAT 02/09/2025 6:32 PM CDT INR STAT 02/09/2025 6:32 PM CDT HEPATIC FUNCTION PANEL STAT 6:32 PM CDT BASIC METABOLIC PANEL STAT 02/09/2025 6:32 PM CDT LACTIC ACID WHOLE BLOOD WITH 1X REPEAT IN 2 HR WHEN >2 STAT 02/09/2025 6:32 PM CDT PREPARE RED BLOOD CELLS (UNIT) STAT 02/09/2025 6:27 PM CDT CBC WITH PLATELETS & DIFFERENTIAL Routine 02/08/2025 11:00 AM CDT Bacteremia RBC AND PLATELET MORPHOLOGY Routine 02/08/2025 11:00 AM CDT Bacteremia CBC WITH PLATELETS AND DIFFERENTIAL Routine 02/08/2025 11:00 AM CDT Bacteremia CREATININE Routine 02/08/2025 11:00 AM CDT Bacteremia AST Routine 02/08/2025 11:00 AM CDT Bacteremia CBC WITH PLATELETS & DIFFERENTIAL Routine 02/01/2025 11:25 AM CDT Bacteremia CBC WITH PLATELETS AND DIFFERENTIAL Routine 02/01/2025 11:25 AM CDT Bacteremia EOSINOPHIL SMEAR Routine 02/01/2025 11:2 5 AM CDT Bacteremia ROUTINE UA WITH MICROSCOPIC Routine 02/01/2025 11:25 AM CDT Bacteremia AST Routine 02/01/2025 11:25 AM CDT Bacteremia BASIC METABOLIC PANEL Routine 02/01/2025 11:25 AM CDT Bacteremia BASIC METABOLIC PANEL STAT 01/28/2025 1:40 PM DOOR PULLER Bacteremia CREATININE Routine 01/28/2025 1:40 PM DOOR PULLER Bacteremia CBC WITH PLATELETS & DIFFERENTIAL Routine 01/25/2025 11:56 AM DOOR PULLER Bacteremia CBC WITH PLATELETS AND DIFFERENTIAL Routine 01/25/2025 11:56 AM DOOR PULLER Bacteremia CREATININE Routine 01/25/2025 11:56 AM DOOR PULLER Bacteremia AST Routine 01/25/2025 11:56 AM DOOR PULLER Bacteremia CBC WITH PLATELETS & DIFFERENTIAL Timed 01/22/2025 7:53 AM DOOR PULLER ABO/RH TYPE AND SCREEN STAT 7:53 AM DOOR PULLER TYPE AND SCREEN, ADULT STAT 7:53 AM DOOR PULLER MANUAL DIFFERENTIAL Timed 01/22/2025 7 :53 AM DOOR PULLER CBC WITH PLATELETS AND DIFFERENTIAL Timed 01/22/2025 7:53 AM DOOR PULLER BASIC METABOLIC PANEL Timed 01/22/2025 7:53 AM DOOR PULLER PREPARE RED BLOOD CELLS (UNIT) Routine 01/22/2025 7:29 AM DOOR PULLER CBC WITH PLATELETS & DIFFERENTIAL Routine 01/22/2025 6:40 AM DOOR PULLER MAGNESIUM Add-On 01/22/2025 6:40 AM DOOR PULLER RBC AND PLATELET MORPHOLOGY Routine 01/22/2025 6:40 AM DOOR PULLER CBC WITH PLATELETS AND DIFFERENTIAL Routine 01/22/2025 6:40 AM DOOR PULLER BASIC METABOLIC PANEL Routine 01/22/2025 6:40 AM DOOR PULLER TRANSFUSE RED BLOOD CELLS (UNIT) Routine 01/21/2025 9:03 AM DOOR PULLER PREPARE RED BLOOD CELLS (UNIT) Routine 01/21/2025 7:19 AM DOOR PULLER PREPARE RED BLOOD CELLS (UNIT) Routine 01/21/2025 6:43 AM DOOR PULLER CBC WITH PLATELETS & DIFFERENTIAL Routine 01/21/2025 6:02 AM DOOR PULLER PHOSPHORUS Add-On 01/21/2025 6:02 AM DOOR PULLER RBC AND PLATELET MORPHOLOGY Routine 01/21/2025 6:02 AM DOOR PULLER CBC WITH PLATELETS AND DIFFERENTIAL Routine 01/21/2025 6:02 AM DOOR PULLER BASIC METABOLIC PANEL Routine 01/21/2025 6:02 AM DOOR PULLER TRANSFUSE PHERESED PLATELETS (UNIT) Routine 01/20/2025 5:34 PM DOOR PULLER MIDLINE SINGLE LUMEN PLACEMENT Routine 01/20/2025 4:18 PM DOOR PULLER PREPARE PHERESED PLATELETS (UNIT) Routine 01/20/2025 11:27 AM DOOR PULLER CBC WITH PLATELETS & DIFFERENTIAL Routine 01/20/2025 8:28 AM DOOR PULLER MANUAL DIFFERENTIAL Routine 01/20/2025 8 :28 AM DOOR PULLER CBC WITH PLATELETS AND DIFFERENTIAL Routine 01/20/2025 8:28 AM DOOR PULLER BASIC METABOLIC PANEL Routine 01/20/2025 8:28 AM DOOR PULLER GLUCOSE BY METER Routine 01/20/2025 2:10 AM DOOR PULLER MR LUMBAR SPINE W/O CONTRAST Routine 01/19/2025 9:54 PM DOOR PULLER ECHO COMPLETE Routine 01/19/2025 11:19 AM DOOR PULLER BLOOD CULTURE STAT 01/19/2025 7:45 AM DOOR PULLER CBC WITH PLATELETS & DIFFERENTIAL Routine 01/19/2025 7:36 AM DOOR PULLER BLOOD CULTURE STAT 01/19/2025 7:36 AM DOOR PULLER RBC AND PLATELET MORPHOLOGY Routine 01/19/2025 7:36 AM DOOR PULLER CBC WITH PLATELETS AND DIFFERENTIAL Routine 01/19/2025 7:36 AM DOOR PULLER BASIC METABOLIC PANEL Routine 01/19/2025 7:36 AM DOOR PULLER TRANSFUSE RED BLOOD CELLS (UNIT) Routine 01/18/2025 12:15 PM DOOR PULLER ABO/RH TYPE AND SCREEN STAT 10:15 AM DOOR PULLER TYPE AND SCREEN, ADULT STAT 10:15 AM DOOR PULLER PREPARE RED BLOOD CELLS (UNIT) Routine 01/18/2025 9:15 AM DOOR PULLER IR PORT REMOVAL LEFT Routine 01/18/2025 8:51 AM DOOR PULLER ANAEROBIC BACTERIAL CULTURE ROUTINE Routine 01/18/2025 8:43 AM DOOR PULLER AEROBIC BACTERIAL CULTURE ROUTINE Routine 01/18/2025 8:43 AM DOOR PULLER RBC AND PLATELET MORPHOLOGY Routine 01/18/2025 6:34 AM DOOR PULLER BASIC METABOLIC PANEL Routine 01/18/2025 6:34 AM DOOR PULLER CBC WITH PLATELETS Routine 01/18/2025 6: 34 AM DOOR PULLER BLOOD CULTURE STAT 01/17/2025 10:58 AM DOOR PULLER BLOOD CULTURE STAT 01/17/2025 10:53 AM DOOR PULLER IONIZED CALCIUM Routine 01/17/2025 6:09 AM DOOR PULLER LACTIC ACID WHOLE BLOOD Routine 01/17/2025 6:09 AM DOOR PULLER CBC WITH PLATELETS Routine 01/17/2025 6: 09 AM DOOR PULLER BASIC METABOLIC PANEL Routine 01/17/2025 6:09 AM DOOR PULLER XR CHEST 2 VIEWS Routine 01/16/2025 1:41 PM DOOR PULLER CBC WITH PLATELETS & DIFFERENTIAL Routine 01/16/2025 6:22 AM DOOR PULLER MANUAL DIFFERENTIAL Routine 01/16/2025 6 :22 AM DOOR PULLER CBC WITH PLATELETS AND DIFFERENTIAL Routine 01/16/2025 6:22 AM DOOR PULLER BASIC METABOLIC PANEL Routine 01/16/2025 6:22 AM DOOR PULLER URINE CULTURE STAT 2025 7:48 PM DOOR PULLER LACTIC ACID WHOLE BLOOD STAT 2025 7:48 PM DOOR PULLER ROUTINE UA WITH MICROSCOPIC REFLEX TO CULTURE STAT 2025 7:[address] SOFT TISSUE NECK W CONTRAST STAT 2025 6:[address] HEAD W/O CONTRAST STAT 2025 6:13 PM DOOR PULLER VERIGENE GP PANEL Routine 2025 5:3 6 PM DOOR PULLER BLOOD CULTURE STAT 2025 5:36 PM DOOR PULLER BLOOD CULTURE STAT 2025 5:36 PM DOOR PULLER CBC WITH PLATELETS & DIFFERENTIAL STAT 2025 5:32 PM DOOR PULLER MANUAL DIFFERENTIAL STAT 2025 5 :32 PM DOOR PULLER CBC WITH PLATELETS AND DIFFERENTIAL STAT 2025 5:32 PM DOOR PULLER PROCALCITONIN STAT 2025 5:32 PM DOOR PULLER MAGNESIUM STAT 2025 5:32 PM DOOR PULLER LIPASE STAT 2025 5:32 PM DOOR PULLER HEPATIC FUNCTION PANEL STAT 5:32 PM DOOR PULLER BASIC METABOLIC PANEL STAT 2025 5:32 PM DOOR PULLER LACTIC ACID WHOLE BLOOD WITH 1X REPEAT IN 2 HR WHEN >2 STAT 2025 5:32 PM DOOR PULLER EXTRA GREEN TOP (LITHIUM HEPARIN) ON ICE STAT 2025 5:32 PM DOOR PULLER EXTRA PURPLE TOP TUBE STAT 2025 5:32 PM DOOR PULLER EXTRA RED TOP TUBE STAT 2025 5: 32 PM DOOR PULLER EXTRA BLUE TOP TUBE STAT 2025 5 :32 PM DOOR PULLER EXTRA TUBE STAT 2025 5:32 PM DOOR PULLER COLONOSCOPY Routine 06/12/2023 11:50 AM CDT from Last 3 Months or Most Recently Relevant to Health Maintenance Results * (ABNORMAL) UA with Microscopic reflex to Culture (04/10/2025 12:22 PM CDT) Only the most recent of2 resultswithin the time period is included. Color Urine Yellow Colorless, Straw, Light Yellow, Yellow 04/10/2025 12:58 PM CDT [facility] Appearance Urine Slightly Cloudy(A) Clear 04/10/2025 12:58 PM CDT [facility] Glucose Urine Negative Negative mg/dL 04/10/2025 12:58 PM CDT [facility] Bilirubin Urine Negative Negative 12:58 PM CDT [facility] Ketones Urine Trace(A) Negative mg/dL 04/10/2025 12:58 PM CDT [facility] Specific [place] Urine 1.020 1.003 - 1.035 04/10/2025 12:58 PM CDT [facility] Blood Urine Small(A) Negative 04/10/2025 12:58 PM CDT [facility] pH Urine 5.0 5.0 - 7.0 04/10/2025 12:58 PM CDT [facility] Protein Albumin Urine 20(A) Negative mg/dL 04/10/2025 12:58 PM CDT [facility] Urobilinogen Urine Normal Normal mg/dL 04/10/2025 12:58 PM CDT [facility] Nitrite Urine Negative Negative 04/10/2025 12:58 PM CDT [facility] Leukocyte Esterase Urine Negative Negative 04/10/2025 12:58 PM CDT [facility] Bacteria Urine Few(A) None Seen /HPF 04/10/2025 12:58 PM CDT [facility] Mucus Urine Present(A) None Seen /LPF 04/10/2025 12:58 PM CDT [facility] Amorphous Crystals Urine Few(A) None Seen /HPF 04/10/2025 12:58 PM CDT [facility] RBC Urine 7(H) <=2 /HPF 04/10/2025 12:58 PM CDT [facility] WBC Urine 3 <=5 /HPF 04/10/2025 12:58 PM CDT [facility] Urine URINE SPECIMEN OBTAINED BY CLEAN CATCH PROCEDURE / Unknown Non-blood Collection / Unknown 04/10/2025 12:22 PM CDT 04/10/2025 12:37 PM CDT Narrative [facility] - 04/10/2025 12:58 PM CDT Urine Culture not indicated us Sherlyn Portillo MD LAB - URINE ORDERABLES Fi nal Result LABORATORY [facility] Acute Care Lab [address] Lab (1st floor, no room number) [place] [address] * (ABNORMAL) C. difficile Antigen and Toxins A/B by Enzyme Immunoassay (04/10/2025 9:45 AM CDT) C. difficile GDH Antigen Positive(A) Negative MARKIE 04/10/2025 2:11 PM CDT [facility] C. difficile Toxin Negative Negative MARKIE 04/10/2025 2:11 PM CDT [facility] Stool RECTAL CONTENTS / Unknown Non-blood Collection / Unknown 04/10/2025 9:45 AM CDT 04/10/2025 9:48 AM CDT Narrative [facility] - 04/10/2025 2:11 PM CDT C. difficile GDH antigen detected and C. difficile toxin not detected by enzyme immunoassay. These results indicate the organism is present and the toxin is absent or below the limit of detection. Results must be interpreted based on clinical findings. us Dell Mckay MD LAB - MICRO GENERAL ORDERABL ES Final Result [facility] Inf. Diseases Diag. Lab [address] [facility] [place] [address], [facility] * (ABNORMAL) C. difficile Toxin B PCR with reflex to C. difficile EIA (04/10/2025 9:45 AM CDT) C Difficile Toxin B by PCR Positive( A) Negative 04/10/2025 1:09 PM CDT [facility] Comment: The C. difficile PCR test detects the presence of C. difficile but does not definitively establish active C. difficile infection. Patients with a positive C. difficile PCR result will receive reflex GDH/toxin immunoassay testing. The presence of C. difficile Toxin A/B in a symptomatic patient suggests infection. A positive C. difficile PCR with a negative C. difficile Toxin A/B (with or without the GDH antigen) suggests colonization with C. difficile and other causes of diarrhea should be considered. If ongoing clinical suspicion for CDI, consider empiric treatment and ID and/or GI consultation. Reflex EIA comment 04/10/2025 1:09 PM CDT [facility] Comment:Positive C. difficil e Toxin B PCR results will reflexively order a C. difficile Antigen and Toxins A/B enzyme immunoassay (EIA) with the same specimen/same date of collection as the current test. Please refer to those testing results, which will be contained in a separate report. Stool RECTAL CONTENTS / Unknown Non-blood Collection / Unknown 04/10/2025 9:45 AM CDT 04/10/2025 9:48 AM CDT Narrative [facility] - 04/10/2025 1:09 PM CDT The Cepheid Xpert C. difficile Assay, performed on the [employer], is a qualitative in vitro diagnostic test for rapid detection of toxin B gene sequences from unformed (liquid or soft) stool specimens collected from patients suspected of having Clostridioides difficile infection (CDI). The test utilizes automated real-time polymerase chain reaction (PCR) to detect toxin gene sequences associated with toxin producing C. difficile. The Xpert C. difficile Assay is intended as an aid in the diagnosis of CDI. Dell Mckay MD LAB - MICRO GENERAL ORDERABL ES Final Result [facility] Inf. Diseases Diag. Lab [address] [facility] [place] [address] * Phosphorus (04/10/2025 8:39 AM CDT) Only the most recent of2 resultswithin the time period is included. Phosphorus 3.9 2.5 - 4.5 mg/dL 04/10/2025 2:02 PM CDT LABORATORY Blood STRUCTURE OF RIGHT UPPER LIMB / Unknown Venipuncture / Unknown 04/10/2025 8:39 AM CDT 04/10/2025 8:47 AM CDT Sherlyn Portillo MD LAB - BLOOD ORDERABLES Fi nal Result Performing Organization Address City/[facility]/ZIP Co de Phone Number [facility] Acute Care Lab [address] Lab (1st floor, no room number) [place] [address] * Magnesium (04/10/2025 8:39 AM CDT) Only the most recent of3 resultswithin the time period is included. Magnesium 1.8 1.7 - 2.3 mg/dL 04/10/2025 2:02 PM CDT LABORATORY Blood STRUCTURE OF RIGHT UPPER LIMB / Unknown Venipuncture / Unknown 04/10/2025 8:39 AM CDT 04/10/2025 8:47 AM CDT Sherlyn Portillo MD LAB - BLOOD ORDERABLES Fi nal Result [facility] Acute Care Lab [address] Lab (1st floor, no room number) [place] [address] * (ABNORMAL) Hepatic panel (04/10/2025 8:39 AM CDT) Only the most recent of4 resultswithin the time period is included. Protein Total 6.1(L) 6.4 - 8.3 g/dL 04/10/2025 9:10 AM CDT LABORATORY Albumin 2.3(L) 3.5 - 5.2 g/dL 04/10/2025 9:10 AM CDT LABORATORY Bilirubin Total 1.7(H) <=1.2 mg/dL 04/10/2025 9:10 AM CDT LABORATORY Alkaline Phosphatase 424(H) 40 - 150 U/L 04/10/2025 9:10 AM CDT LABORATORY AST 121(H) 0 - 45 U/L 04/10/2025 9:10 AM CDT LABORATORY ALT 23 0 - 70 U/L 04/10/2025 9:10 AM CDT LABORATORY Bilirubin Direct 1.23(H) 0.00 - 0.30 mg/dL 04/10/2025 9:10 AM CDT LABORATORY Comment:As of 25, refer ence ranges and trending lines may vary depending on the testing location. Blood STRUCTURE OF RIGHT UPPER LIMB / Unknown Venipuncture / Unknown 04/10/2025 8:39 AM CDT 04/10/2025 8:47 AM CDT us Dell Mckay MD LAB - BLOOD ORDERABLES Final Result LABORATORY [facility] [address] Lab (1st floor, no room number) [place] [address], [facility] * (ABNORMAL) Basic metabolic panel (04/10/2025 8:39 AM CDT) Only the most recent of14 resultswithin the time period is included. Sodium 137 135 - 145 mmol/L 04/10/2025 9:10 AM CDT LABORATORY Potassium 3.9 3.4 - 5.3 mmol/L 04/10/2025 9:10 AM CDT LABORATORY Chloride 110(H) 98 - 107 mmol/L 04/10/2025 9:10 AM CDT LABORATORY Carbon Dioxide (CO2) 12(L) 22 - 29 mmol/L 04/10/2025 9:10 AM CDT LABORATORY Anion Gap 15 7 - 15 mmol/L 04/10/2025 9:10 AM CDT [facility] LABORATORY Urea Nitrogen 34.2(H) 8.0 - 23.0 mg/dL 04/10/2025 9:10 AM CDT RH LABORATORY Creatinine 2.13(H) 0.67 - 1.17 mg/dL 04/10/2025 9:10 AM CDT [facility] LABORATORY GFR Estimate 34(L) >60 mL/min/1.7 3m2 04/10/2025 9:10 AM CDT [facility] LABORATORY Comment:eGFR calculated us2020 CKD-EPI equation. Calcium 8.0(L) 8.8 - 10.4 mg/dL 04/10/2025 9:10 AM CDT LABORATORY Glucose 87 70 - 99 mg/dL 04/10/2025 9:10 AM CDT LABORATORY Blood STRUCTURE OF RIGHT UPPER LIMB / Unknown Venipuncture / Unknown 04/10/2025 8:39 AM CDT 04/10/2025 8:47 AM CDT Dell Mckay MD LAB - BLOOD ORDERABLES Final Result LABORATORY [facility] [address] Lab (1st floor, no room number) [place] [address] * (ABNORMAL) CBC with platelets (04/10/2025 8:39 AM CDT) Only the most recent of4 resultswithin the time period is included. WBC Count 9.9 4.0 - 11.0 10e3/uL 04/10/2025 8:49 AM CDT [facility] LABORATORY RBC Count 3.15(L) 4.40 - 5.90 10e6/uL 04/10/2025 8:49 AM CDT [facility] LABORATORY Hemoglobin 9.5(L) 13.3 - 17.7 g/dL 04/10/2025 8:49 AM CDT [facility] LABORATORY Hematocrit 28.7(L) 40.0 - 53.0 % 04/10/2025 8:49 AM CDT RH LABORATORY MCV 91 78 - 100 fL 04/10/2025 8:49 AM CDT RH LABORATORY MCH 30.2 26.5 - 33.0 pg 04/10/2025 8:49 AM CDT [facility] LABORATORY MCHC 33.1 31.5 - 36.5 g/dL 04/10/2025 8:49 AM CDT [facility] LABORATORY RDW 17.9(H) 10.0 - 15.0 % 04/10/2025 8:49 AM CDT [facility] LABORATORY Platelet Count 109(L) 150 - 450 10e3/uL 04/10/2025 8:49 AM CDT RH LABORATORY Blood STRUCTURE OF RIGHT UPPER LIMB / Unknown Venipuncture / Unknown 04/10/2025 8:39 AM CDT 04/10/2025 8:47 AM CDT us Dell Mckay MD LAB - BLOOD ORDERABLES Final Result [facility] LABORATORY [facility] [address] Lab (1st floor, no room number) [place] [address], [facility] * (ABNORMAL) Blood gas venous (04/10/2025 12:10 AM CDT) pH Venous 7.21(L) 7.32 - 7.43 04/10/2025 12:23 AM CDT [facility] LABORATORY pCO2 Venous 31(L) 40 - 50 mm Hg 04/10/2025 12:23 AM CDT [facility] LABORATORY pO2 Venous 24(L) 25 - 47 mm Hg 04/10/2025 12:23 AM CDT [facility] LABORATORY Bicarbonate Venous 12(L) 21 - 28 mmol/L 04/10/2025 12:23 AM CDT [facility] LABORATORY Base Excess/Deficit Venous -14.4(L) -3.0 - 3.0 mmol/L 04/10/2025 12:23 AM CDT [facility] LABORATORY FIO2 0 MARKIE 04/10/2025 12:23 AM CDT [facility] LAB[facility]ORY Oxyhemoglobin Venous 37(L) 70 - 75 % 04/10/2025 12:23 AM CDT [facility] LAB[facility]ORY O2 Sat, Venous 37.2(L) 70.0 - 75.0 % 04/10/2025 12:23 AM CDT [facility] LAB[facility]ATORY Blood, venous STRUCTURE OF RIGHT UPPER LIMB / Unknown Venipuncture / Unknown 04/10/2025 12:10 AM CDT 04/10/2025 12:13 AM CDT Narrative LABORATORY - 04/10/2025 12:23 AM CDT In healthy individuals, oxyhemoglobin (O2Hb) and oxygen saturation (SO2) are approximately equal. In the presence of dyshemoglobins, oxyhemoglobin can be considerably lower than oxygen saturation. Vicenta Jackson MD LAB - BLOOD ORDERABLES Final Res ult Performing Organization Address City/[facility]/ZIP Co de Phone Number [facility] [address] Lab (1st floor, no room number) [place] [id number] * (ABNORMAL) Lactic acid whole blood (04/09/2025 10:55 PM CDT) Only the most recent of4 resultswithin the time period is included. Lactic Acid 2.4(H) 0.7 - 2.0 mmol/L 04/09/2025 11:09 PM CDT LABORATORY Blood STRUCTURE OF RIGHT HAND / Unknown Venipuncture / Unknown 04/09/2025 10:55 PM CDT 04/09/2025 11:06 PM CDT Dell Mckay MD LAB - BLOOD ORDERABLES Final Result Performing Organization Address [facility] Co de Phone Number [facility] [address] Lab (1st floor, no room number) [place] [address] * (ABNORMAL) Ammonia (04/09/2025 10:55 PM CDT) Ammonia 70(H) 16 - 60 umol/L 04/09/2025 11:27 PM CDT LABORATORY Blood STRUCTURE OF RIGHT HAND / Unknown Venipuncture / Unknown 04/09/2025 10:55 PM CDT 04/09/2025 11:06 PM CDT Dell Mckay MD LAB - BLOOD ORDERABLES Final Result Performing Organization Address City/[facility]/ZIP Co de Phone Number [facility] [address] [facility] Lab (1st floor, no room number) [place] [address], [facility] * US Paracentesis without Albumin (03/29/2025 11:31 AM CDT) Only the most recent of2 resultswithin the time period is included. Anatomical Region Laterality Modality Abdomen/Pelvis Ultrasound 03/29/2025 11:3 1 AM CDT Impressions 03/29/2025 4:10 PM CDT IMPRESSION: 1. Status post ultrasound-guided paracentesis. Reference CPT Code: 86446 Narrative 03/29/2025 4:10 PM CDT EXAM: 1. PARACENTESIS 2. ULTRASOUND GUIDANCE LOCATION: [facility] DATE: 03/29/2025 INDICATION: Ascites. PROCEDURE: Informed consent obtained. Time out performed. The abdomen was prepped and draped in a sterile fashion. 10 mL of 1% lidocaine was infused into local soft tissues. A 5 [place] catheter system was introduced into the abdominal ascites under ultrasound guidance. 2.1 liters of clear fluid were removed and sent to lab if requested. Patient tolerated procedure well. Ultrasound imaging was obtained and placed in the patient's permanent medical record. Procedure Note Rafita Solis MD - 03/29/2025 EXAM: 1. PARACENTESIS 2. ULTRASOUND GUIDANCE LOCATION: [facility] DATE: 03/29/2025 INDICATION: Ascites. PROCEDURE: Informed consent obtained. Time out performed. The abdomen wasprepped and draped in a sterile fashion. 10 mL of 1% lidocaine was infusedinto local soft tissues. A 5 [place] catheter system was introduced intothe abdominal ascites under ultrasound guidance. 2.1 liters of clear fluid were removed and sent to lab if requested. Patient tolerated procedure well. Ultrasound imaging was obtained and placed in the patient's permanentmedical record. IMPRESSION: 1. Status post ultrasound-guided paracentesis. Reference CPT Code: 89097 us Sekou Avalos MD IMG US ORDERABLES Final Resu lt * (ABNORMAL) INR (02/21/2025 10:49 AM CDT) Only the most recent of2 resultswithin the time period is included. INR 1.72(H) 0.85 - 1.15 02/21/2025 11:39 AM CDT RH LABORATORY Blood BLOOD SPECIMEN / Unknown IVAD (Port) / Unknown 02/21/2025 10:49 AM CDT 02/21/2025 10:51 AM CDT Rafita Solis MD LAB - BLOOD ORDERABLES Final Result RH LABORATORY [facility] [address] Lab (1st floor, no room number) [place] [address], [facility] * (ABNORMAL) CBC with platelets and differential (02/15/2025 11:20 AM CDT) Only the most recent of12 resultswithin the time period is included. WBC Count 9.7 4.0 - 11.0 10e3/uL 02/15/2025 2:37 PM CDT RH LABORATORY RBC Count 2.19(L) 4.40 - 5.90 10e6/uL 02/15/2025 2:37 PM CDT RH LABORATORY Hemoglobin 6.8(LL) 13.3 - 17.7 g/dL 02/15/2025 2:37 PM CDT RH LABORATORY Hematocrit 22.5(L) 40.0 - 53.0 % 02/15/2025 2:37 PM CDT RH LABORATORY MCV 103(H) 78 - 100 fL 02/15/2025 2:37 PM CDT RH LABORATORY MCH 31.1 26.5 - 33.0 pg 02/15/2025 2:37 PM CDT RH LABORATORY MCHC 30.2(L) 31.5 - 36.5 g/dL 02/15/2025 2:37 PM CDT RH LABORATORY RDW 20.3(H) 10.0 - 15.0 % 02/15/2025 2:37 PM CDT RH LABORATORY Platelet Count 114(L) 150 - 450 10e3/uL 02/15/2025 2:37 PM CDT [facility] LAB[facility]ATORY % Neutrophils 84 % 02/15/2025 2:37 PM CDT [facility] LAB[facility] % Lymphocytes 4 % 02/15/2025 2:37 PM CDT [facility] LAB[facility] % Monocytes 8 % 02/15/2025 2:37 PM CDT [facility] % Eosinophils 1 % 02/15/2025 2:37 PM CDT [facility] LAB[facility] % Basophils 1 % 02/15/2025 2:37 PM CDT [facility] LAB[facility] % Immature Granulocytes 3 % 02/15/2025 2:37 PM CDT RH LABORATORY NRBCs per 100 WBC 0 <1 /100 025 2:37 PM CDT RH LABORATORY Absolute Neutrophils 8.2 1.6 - 8.3 10e3/uL 02/15/2025 2:37 PM CDT RH LABORATORY Absolute Lymphocytes 0.4(L) 0.8 - 5.3 10e3/uL 02/15/2025 2:37 PM CDT RH LABORATORY Absolute Monocytes 0.8 0.0 - 1.3 10e3/uL 02/15/2025 2:37 PM CDT RH LABORATORY Absolute Eosinophils 0.1 0.0 - 0.7 10e3/uL 02/15/2025 2:37 PM CDT RH LABORATORY Absolute Basophils 0.1 0.0 - 0.2 10e3/uL 02/15/2025 2:37 PM CDT RH LABORATORY Absolute Immature Granulocytes 0.2 <=0.4 10e3/uL 02/15/2025 2:37 PM CDT RH LABORATORY Absolute NRBCs 0.0 10e3/uL 02/15/2025 2:37 PM CDT RH LABORATORY Blood BLOOD SPECIMEN / Unknown Client Draw / Unknown 02/15/2025 11:20 AM CDT 02/15/2025 2:27 PM CDT us Jeff Bass MD LAB - BLOOD ORDERABLES Final Re sult RH LABORATORY [facility] [address] [facility] Lab (1st floor, no room number) [place] [address], [facility] * (ABNORMAL) Creatinine (02/15/2025 11:20 AM CDT) Only the most recent of4 resultswithin the time period is included. Creatinine 1.30(H) 0.67 - 1.17 mg/dL 02/15/2025 2:49 PM CDT RH LABORATORY GFR Estimate 61 >60 mL/min/1.7 3m2 02/15/2025 2:49 PM CDT RH LABORATORY Comment:eGFR calculated usin 2020 CKD-EPI equation. Blood BLOOD SPECIMEN / Unknown Client Draw / Unknown 02/15/2025 11:20 AM CDT 02/15/2025 2:27 PM CDT Jeff Bass MD LAB - BLOOD ORDERABLES Final Re sult [facility] [address] Lab (1st floor, no room number) [place] [address] * AST (02/15/2025 11:20 AM CDT) Only the most recent of4 resultswithin the time period is included. AST 45 0 - 45 U/L 02/15/2025 2:4 9 PM CDT LABORATORY Blood BLOOD SPECIMEN / Unknown Client Draw / Unknown 02/15/2025 11:20 AM CDT 02/15/2025 2:27 PM CDT Jeff Bass MD LAB - BLOOD ORDERABLES Final Re sult Performing Organization Address City/[facility]/ZIP Co de Phone Number [facility] [address] Lab (1st floor, no room number) [place] [address] * Transfuse red blood cells (unit) (02/10/2025 1:23 AM CDT) Only the most recent of3 resultswithin the time period is included. Dhara Waters MD BLOOD TRANSFUSION ORDER [place] Final Result * CT Chest/Abdomen/Pelvis w Contrast (02/09/2025 10:44 PM CDT) Anatomical Region Laterality Modality Abdomen/Pelvis, Chest, SUBRA D CT BODY, UMP CT CHEST, UMP CT ABDOMEN PELVIS, RAD CT Computed Tomography 02/09/2025 10:4 4 PM CDT Impressions 02/09/2025 11:19 PM CDT IMPRESSION: 1. Numerous bilateral pulmonary metastases, some with central cavitation, slightly worsened as compared to 10/28/2024 exam. 2. Extensive hepatic metastases, predominantly of the right hepatic lobe, slightly worsened as compared to 11/25/2024 exam. 3. Small to moderate volume ascites, new as compared to 11/25/2024 exam. 4. Splenomegaly and recanalized periumbilical vein, suggesting portal hypertension. 5. Cholelithiasis without CT evidence of acute cholecystitis. 6. 2 cm right adrenal nodule, indeterminate, could be metastatic. Narrative 02/09/2025 11:19 PM CDT EXAM: CT CHEST/ABDOMEN/PELVIS W CONTRAST LOCATION: [facility] DATE/TIME: 02/09/2025 10:44 PM CDT INDICATION: Productive cough, left lower quadrant tenderness, elevating WBC despite being on 3 weeks outpatient IV Ancef for sepsis bacteremia. COMPARISON: CT chest, abdomen and pelvis on 10/28/2024. TECHNIQUE: CT scan of the chest, abdomen, and pelvis was performed after the injection of 90 mL Isovue 370 intravenously. Multiplanar reformats were obtained. Dose reduction techniques were used. FINDINGS: MEDIASTINUM/AXILLAE: Mild cardiomegaly. No significant pericardial effusion. No significant mediastinal or hilar lymphadenopathy. LUNGS AND PLEURA: No significant pleural effusion or pneumothorax. Numerous bilateral pulmonary metastases, some with central cavitation, slightly worsened as compared to 10/28/2024 exam. CORONARY ARTERY CALCIFICATION: Extensive ABDOMEN/PELVIS: HEPATOBILIARY: Extensive hepatic metastases most prominent in the right hepatic lobe, slightly increased as compared to 11/25/2024 exam. Multiple calcified gallstones. PANCREAS: No main pancreatic ductal dilatation or definite solid pancreatic mass. SPLEEN: The spleen is enlarged measuring 15.5 cm in craniocaudal dimension. Hypodense cystic focus at the lower pole of the spleen, could represent splenic cyst/pseudocyst. ADRENAL GLANDS: 2.0 x 1.1 cm right adrenal nodule, indeterminate, could be metastatic. KIDNEYS/BLADDER: No radiodense kidney/ureteral stones or hydronephrosis in either kidney. Mild diffuse urinary bladder wall thickening, nonspecific, can be seen with underdistention versus chronic cystitis. BOWEL: No abnormally dilated bowel loops. Moderate amount of stool in the colon. PERITONEUM: Small to moderate volume ascites, new as compared to 11/25/2024 exam. No free peritoneal or portal venous gas. PELVIC ORGANS: The prostate gland is enlarged measuring 5.1 cm in diameter with scattered areas of prostatic calcification. VASCULATURE: Scattered atherosclerotic vascular calcification of the abdominal aorta and iliac arteries. Recanalized periumbilical vein. LYMPH NODES: No significant abdominopelvic lymphadenopathy. MUSCULOSKELETAL: Multilevel degenerative changes of the spine. Procedure Note Niko Atkinson MD - 02/09/2025 EXAM: CT CHEST/ABDOMEN/PELVIS W CONTRAST LOCATION: [facility] DATE/TIME: 02/09/2025 10:44 PM CDT INDICATION: Productive cough, left lower quadrant tenderness, elevatingWBC despite being on 3 weeks outpatient IV Ancef for sepsis bacteremia. COMPARISON: CT chest, abdomen and pelvis on 10/28/2024. TECHNIQUE: CT scan of the chest, abdomen, and pelvis was performed afterthe injection of 90 mL Isovue 370 intravenously. Multiplanar reformatswere obtained. Dose reduction techniques were used. FINDINGS: MEDIASTINUM/AXILLAE: Mild cardiomegaly. No significant pericardialeffusion. No significant mediastinal or hilar lymphadenopathy. LUNGS AND PLEURA: No significant pleural effusion or pneumothorax.Numerous bilateral pulmonary metastases, some with central cavitation,slightly worsened as compared to 10/28/2024 exam. CORONARY ARTERY CALCIFICATION: Extensive ABDOMEN/PELVIS: HEPATOBILIARY: Extensive hepatic metastases most prominent in the righthepatic lobe, slightly increased as compared to 11/25/2024 exam. Multiplecalcified gallstones. PANCREAS: No main pancreatic ductal dilatation or definite solidpancreatic mass. SPLEEN: The spleen is enlarged measuring 15.5 cm in craniocaudaldimension. Hypodense cystic focus at the lower pole of the spleen, couldrepresent splenic cyst/pseudocyst. ADRENAL GLANDS: 2.0 x 1.1 cm right adrenal nodule, indeterminate, could bemetastatic. KIDNEYS/BLADDER: No radiodense kidney/ureteral stones or hydronephrosis ineither kidney. Mild diffuse urinary bladder wall thickening, nonspecific,can be seen with underdistention versus chronic cystitis. BOWEL: No abnormally dilated bowel loops. Moderate amount of stool in thecolon. PERITONEUM: Small to moderate volume ascites, new as compared to 11/25/2024exam. No free peritoneal or portal venous gas. PELVIC ORGANS: The prostate gland is enlarged measuring 5.1 cm in diameterwith scattered areas of prostatic calcification. VASCULATURE: Scattered atherosclerotic vascular calcification of theabdominal aorta and iliac arteries. Recanalized periumbilical vein. LYMPH NODES: No significant abdominopelvic lymphadenopathy. MUSCULOSKELETAL: Multilevel degenerative changes of the spine. IMPRESSION: 1. Numerous bilateral pulmonary metastases, some with central cavitation,slightly worsened as compared to 10/28/2024 exam. 2. Extensive hepatic metastases, predominantly of the right hepatic lobe,slightly worsened as compared to 11/25/2024 exam. 3. Small to moderate volume ascites, new as compared to 11/25/2024 exam. 4. Splenomegaly and recanalized periumbilical vein, suggesting portalhypertension. 5. Cholelithiasis without CT evidence of acute cholecystitis. 6. 2 cm right adrenal nodule, indeterminate, could be metastatic. Dhara Waters MD IMG CT ORDERABLES Final Result * Differential Body Fluid (02/09/2025 9:32 PM CDT) Pathologist [facility] % Neutrophils 3 % MARKIE 02/10/2025 12:09 AM CDT [facility] % Lymphocytes 17 % MARKIE 02/10/2025 12:09 AM CDT [facility] % Monocyte/Macroph ages 75 % MARKIE 02/10/2025 12:09 AM CDT [facility] % Lining Cells 5 % MARKIE 02/10/2025 12:09 AM CDT LABORATORY Absolute Neutrophils, Body Fluid 3.8 /uL [facility] 02/10/2025 12:09 AM CDT [facility] LABORATORY Ascites Fluid ABDOMEN / Unknown Non-blood Collection / Unknown 02/09/2025 9:32 PM CDT 02/09/2025 9:40 PM CDT Narrative LABORATORY - 02/10/2025 12:09 AM CDT No reference ranges have been established. This result should be interpreted in the context of the patient's clinical condition and compared to simultaneous measurement in the patient's blood. Dhara Waters MD LAB - BODY FLUIDS ORDER [place] Final Result Performing Organization Address [facility]/ZIP Co de Phone Number [facility] [address] [facility] Lab (1st floor, no room number) [place] [address] * Cell Count Body Fluid (02/09/2025 9:32 PM CDT) Color Yellow Colorless, Yellow MARKIE 02/10/2025 12:09 AM CDT [facility] LAB[facility] Clarity Clear Clear MARKIE 02/10/2025 12:09 AM CDT [facility] LAB[facility] Cell Count Fluid Source Paracentesis 02/10/2025 12:09 AM CDT [facility] LAB[facility] Total Nucleated Cells 128 /uL MARKIE 02/10/2025 12:09 AM CDT [facility] LAB[facility] Ascites Fluid ABDOMEN / Unknown Non-blood Collection / Unknown 02/09/2025 9:32 PM CDT 02/09/2025 9:40 PM CDT Narrative LABORATORY - 02/10/2025 12:09 AM CDT No reference ranges have been established. This result should be interpreted in the context of the patient's clinical condition and compared to simultaneous measurement in the patient's blood. Dhara Waters MD LAB - BODY FLUIDS ORDER [place] Final Result Performing Organization Address [facility] Co de Phone Number [facility] [address] [facility], no room number) [place] [address] * Ascites Fluid Aerobic Bacterial Culture Routine With Gram Stain (02/09/2025 9:32 PM CDT) Only the most recent of2 resultswithin the time period is included. Culture No Growth 02/15/2025 6:17 AM CDT [facility] Gram Stain Result No organisms seen 02/15/2025 6:17 AM CDT [facility] Gram Stain Result 2+ WBC seen 02/15/2025 6:17 AM CDT [facility] Ascites Fluid ABDOMEN / Unknown Non-blood Collection / Unknown 02/09/2025 9:32 PM CDT 02/09/2025 9:40 PM CDT Narrative [facility] - 02/15/2025 6:17 AM CDT Gram Stain quantification of host cells and microbiological organisms was done on a cytocentrifuged preparation. Dhara Waters MD LAB - MICRO GENERAL ORD ERABLES Final Result [facility] Inf. Diseases Diag. Lab [address] [facility] [place] [address], [facility] * Protein fluid (02/09/2025 9:32 PM CDT) Protein Fluid Source Paracentesis 02/09/2025 11:01 PM CDT [facility] Protein Total Fluid 0.9 g/dL 02/09/2025 11:01 PM CDT [facility] Ascites Fluid ABDOMEN / Unknown Non-blood Collection / Unknown 02/09/2025 9:32 PM CDT 02/09/2025 9:40 PM CDT Narrative [facility] - 02/09/2025 11:01 PM CDT No reference ranges have been established. This result should be interpreted in the context of the patient's clinical condition and compared to simultaneous measurement in the patient's blood. This is a lab developed test. It has not been cleared or approved by the FDA. FDA clearance is not required for clinical use. Dhara Waters MD LAB - BODY FLUIDS ORDER [place] Final Result Performing Organization Address City/[facility]/ZIP Co de Phone Number LABORATORY [facility] [address] Lab (1st floor, no room number) [place] [address] * Albumin fluid (02/09/2025 9:32 PM CDT) Albumin Fluid Source Paracentesis 02/09/2025 11:01 PM CDT [facility] Albumin fluid 0.5 g/dL 02/09/2025 11:01 PM CDT [facility] Ascites Fluid ABDOMEN / Unknown Non-blood Collection / Unknown 02/09/2025 9:32 PM CDT 02/09/2025 9:40 PM CDT Narrative [facility] - 02/09/2025 11:01 PM CDT No reference ranges have been established. This result should be interpreted in the context of the patient's clinical condition and compared to simultaneous measurement in the patient's blood. This is a lab developed test. It has not been cleared or approved by the FDA. FDA clearance is not required for clinical use. Result [facility] Dhara Waters MD LAB - BODY FLUIDS ORDER [place] Final Result LABORATORY [facility] [address] Lab (1st floor, no room number) [place] [address], [facility] * POC US ABDOMEN LIMITED (02/09/2025 7:26 PM CDT) Anatomical Region Laterality Modality Other Impressions 02/09/2025 7:26 PM CDT Point of care abdominal ultrasound for paracentesis PROCEDURE: PERFORMED BY: Dr. Dhara Waters MD INDICATIONS/SYMPTOM: Ascites, elevated WBC count PROBE: Low frequency convex probe BODY LOCATION: The ultrasound was performed in the RLQ abdominal area FINDINGS: appropriate fluid pocket c/w ascites INTERPRETATION: successful diagnotic paracentesis IMAGE DOCUMENTATION: Images were archived to PACs system. Result [facility] Dhara Waters MD IMG POCUS Final R esult * (ABNORMAL) Lactic Acid Whole Blood w/ 1x repeat in 2 hrs when >2 (02/09/2025 6:32 PM CDT) Only the most recent of2 resultswithin the time period is included. Lactic Acid, Initial 2.7(H) 0.7 - 2.0 mmol/L 02/09/2025 6:46 PM CDT LABORATORY Blood STRUCTURE OF LEFT UPPER LIMB / Unknown Venipuncture / Unknown 02/09/2025 6:32 PM CDT 02/09/2025 6:43 PM CDT Result [facility] Dhara Waters MD LAB - BLOOD ORDERABLES Final Result LABORATORY [facility] [address] [employer] Lab (1st floor, no room number) [place] [id number] * (ABNORMAL) RBC and Platelet Morphology (02/09/2025 6:32 PM CDT) Only the most recent of6 resultswithin the time period is included. RBC Morphology Confirmed RBC Indices 02/09/2025 8:02 PM CDT [facility] Platelet Assessment Automated Count Confirmed. Platelet morphology is normal. Automated Count Confirmed. Platelet morphology is normal. MARKIE 02/09/2025 8:02 PM CDT [facility] Polychromasia Slight(A) None Seen MARKIE 02/09/2025 8:02 PM CDT [facility] Blood STRUCTURE OF LEFT UPPER LIMB / Unknown Venipuncture / Unknown 02/09/2025 6:32 PM CDT 02/09/2025 6:43 PM CDT Dhara Waters MD LAB - BLOOD ORDERABLES Final Result Performing Organization Address [facility]/ZIP Co de Phone Number [facility] Acute Care Lab [address] (1st floor, no room number) [place] [id number] [place] [address] * Adult Type and Screen (02/09/2025 6:32 PM CDT) Only the most recent of3 resultswithin the time period is included. Pathologist [facility] ABO/RH(D) B POS 02/09/2025 5:55 PM CDT RH BLOOD BANK Antibody Screen Negative Negative 02/09/2025 5:55 PM CDT RH BLOOD BANK SPECIMEN EXPIRATION DATE [id number] 02/09/2025 5:55 PM CDT RH BLOOD BANK Blood STRUCTURE OF LEFT UPPER LIMB / Unknown Venipuncture / Unknown 02/09/2025 6:32 PM CDT 02/09/2025 6:43 PM CDT Dhara Waters MD LAB - BLOOD BANK TEST O RDER Edited Result - Final BLOOD BANK [address] [place] [address], [facility] * Blood Culture Arm, Right (02/09/2025 6:32 PM CDT) Only the most recent of8 resultswithin the time period is included. Pathologist [facility] Culture No Growth 02/14/2025 8:17 PM CDT [facility] Blood STRUCTURE OF RIGHT UPPER LIMB / Unknown Venipuncture / Unknown 02/09/2025 6:32 PM CDT 02/09/2025 6:42 PM CDT Dhara Waters MD LAB - MICRO GENERAL ORD ERABLES Final Result [facility] Inf. Diseases Diag. Lab [address] [facility], [address] [place] [address] * (ABNORMAL) Albumin level (02/09/2025 6:32 PM CDT) [facility] Albumin 2.5(L) 3.5 - 5.2 g/dL 02/09/2025 8:15 PM CDT RH LABORATORY Blood STRUCTURE OF LEFT UPPER LIMB / Unknown Venipuncture / Unknown 02/09/2025 6:32 PM CDT 02/09/2025 6:43 PM CDT Dhara Waters MD LAB - BLOOD ORDERABLES Final Result LABORATORY [facility] Acute Care [facility] [address] [facility] (1st floor, no room number) [place] [address], [facility] * Prepare red blood cells (unit) (02/09/2025 6:27 PM CDT) Only the most recent of3 resultswithin the time period is included. [facility] Blood Component Type Red Blood Cells RH BLOOD BANK Product Code [id number] RH BLOO D BANK Unit Status Transfused RH BLOO D BANK Unit Number [id number] RH B LOOD BANK CROSSMATCH Compatible RH BLOOD BANK CODING SYSTEM [id number] RH BLO OD BANK ISSUE DATE AND TIME [id number] RH BLOOD BANK UNIT ABO/RH B+ RH BLOOD BANK UNIT TYPE ISBT 7300 RH BL OOD BANK 02/09/2025 6:27 PM CDT us Dhara Waters MD BLOOD BANK PRODUCT ORDE ORENSTAS Final Result RH BLOOD BANK [address] [place] [address], [facility] * (ABNORMAL) UA with Microscopic (02/01/2025 11:25 AM CDT) Color Urine Yellow Colorless, Straw, Light Yellow, Yellow 02/01/2025 2:32 PM CDT RH LABORATORY Appearance Urine Slightly Cloudy(A) Clear 02/01/2025 2:32 PM CDT RH LABORATORY Glucose Urine Negative Negative mg/dL 02/01/2025 2:32 PM CDT RH LABORATORY Bilirubin Urine Negative Negative 2:32 PM CDT RH LABORATORY Ketones Urine Trace(A) Negative mg/dL 02/01/2025 2:32 PM CDT RH LABORATORY Specific [place] Urine 1.020 1.003 - 1.035 02/01/2025 2:32 PM CDT RH LABORATORY Blood Urine Large(A) Negative 02/01/2025 2:32 PM CDT RH LABORATORY pH Urine 5.5 5.0 - 7.0 02/01/2025 2:32 PM CDT RH LABORATORY Protein Albumin Urine 100(A) Negative mg/dL 02/01/2025 2:32 PM CDT RH LABORATORY Urobilinogen Urine Normal Normal, 2.0 mg/dL 02/01/2025 2:32 PM CDT RH LABORATORY Nitrite Urine Negative Negative 02/01/2025 2:32 PM CDT RH LABORATORY Leukocyte Esterase Urine Negative Negative 02/01/2025 2:32 PM CDT RH LABORATORY Bacteria Urine Few(A) None Seen /HPF 02/01/2025 2:32 PM CDT RH LABORATORY Mucus Urine Present(A) None Seen /LPF 02/01/2025 2:32 PM CDT RH LABORATORY Amorphous Crystals Urine Few(A) None Seen /HPF 02/01/2025 2:32 PM CDT [facility] LABORATORY RBC Urine 27(H) <=2 /HPF 02/01/2025 2:32 PM CDT RH LABORATORY WBC Urine 8(H) <=5 /HPF 02/01/2025 2:32 PM CDT RH LABORATORY Squamous Epithelials Urine <1 <=1 /HPF 02/01/2025 2:32 PM CDT RH LABORATORY Cellular Casts Urine 2(H) None Seen /LPF 02/01/2025 2:32 PM CDT RH LABORATORY Hyaline Casts Urine 20(H) <=2 /LPF 02/01/2025 2:32 PM CDT RH LABORATORY Granular Casts Urine 12(H) None Seen /LPF 02/01/2025 2:32 PM CDT RH LABORATORY Urine MID-STREAM URINE SPECIMEN / Unknown Non-blood Collection / Unknown 02/01/2025 11:25 AM CDT 02/01/2025 1:29 PM CDT us Jeff Bass MD LAB - URINE ORDERABLES Final Re sult LABORATORY [facility] Acute Care Lab [address] Lab (1st floor, no room number) [place] [address] * Eosinophil smear (02/01/2025 11:25 AM CDT) Eosinophil Smear, non-blood No Eosinophils seen No WBC Seen, No Eosinophils seen, <1% eosinophils seen, 1-10% eosinophils seen, 10-25% Eosinophils Seen MARKIE 02/01/2025 6:39 PM CDT [facility] Eosinophil Smear Specimen Type Urine MARKIE 02/01/2025 6:39 PM CDT [facility] LAB[facility] Mucus MID-STREAM URINE SPECIMEN / Unknown Non-blood Collection / Unknown 02/01/2025 11:25 AM CDT 02/01/2025 1:29 PM CDT us Jeff Bass MD LAB - BODY FLUIDS ORDERABLES Fi nal Result [facility] LABORATORY [facility] [address], [address] [place] [address] * (ABNORMAL) Manual Differential (01/22/2025 7:53 AM DOOR PULLER) Only the most recent of4 resultswithin the time period is included. % Neutrophils 48 % MARKIE 01/22/2025 9:03 AM DOOR PULLER RH LABORATORY % Lymphocytes 28 % MARKIE 01/22/2025 9:03 AM DOOR PULLER RH LABORATORY % Monocytes 17 % MARKIE 01/22/2025 9:03 AM DOOR PULLER RH LABORATORY % Eosinophils 5 % MARKIE 01/22/2025 9:03 AM DOOR PULLER RH LABORATORY % Basophils 0 % MARKIE 01/22/2025 9:03 AM DOOR PULLER [facility] LABORATORY % Metamyelocytes 1 % MARKIE 01/22/2025 9:03 AM DOOR PULLER RH LABORATORY % Myelocytes 1 % MARKIE 01/22/2025 9:03 AM DOOR PULLER RH LABORATORY Absolute Neutrophils 0.5(L) 1.6 - 8.3 10e3/uL MARKIE 01/22/2025 9:03 AM DOOR PULLER RH LABORATORY Absolute Lymphocytes 0.3(L) 0.8 - 5.3 10e3/uL MARKIE 01/22/2025 9:03 AM DOOR PULLER [facility] LABORATORY Absolute Monocytes 0.2 0.0 - 1.3 10e3/uL MARKIE 01/22/2025 9:03 AM DOOR PULLER [facility] LABORATORY Absolute Eosinophils 0.1 0.0 - 0.7 10e3/uL MARKIE 01/22/2025 9:03 AM DOOR PULLER RH LABORATORY Absolute Basophils 0.0 0.0 - 0.2 10e3/uL MARKIE 01/22/2025 9:03 AM DOOR PULLER RH LABORATORY Absolute Metamyelocytes 0.0 <=0.0 10e3/uL MARKIE 01/22/2025 9:03 AM DOOR PULLER RH LABORATORY Absolute Myelocytes 0.0 <=0.0 10e3/uL MARKIE 01/22/2025 9:03 AM DOOR PULLER RH LABORATORY NRBCs per 100 WBC 3 % MARKIE 01/22/2025 9:03 AM DOOR PULLER RH LABORATORY Absolute NRBCs 0.0 10e3/uL MARKIE 01/22/2025 9:03 AM DOOR PULLER RH LABORATORY RBC Morphology Confirmed RBC Indices MARKIE 01/22/2025 9:03 AM DOOR PULLER RH LABORATORY Platelet Assessment Automated Count Confirmed. Platelet morphology is normal. Automated Count Confirmed. Platelet morphology is normal. MARKIE 01/22/2025 9:03 AM DOOR PULLER RH LABORATORY Elliptocytes Slight(A) None Seen MARKIE 01/22/2025 9:03 AM DOOR PULLER [facility] LABORATORY Reactive Lymphocytes Present(A) None Seen [facility] 01/22/2025 9:03 AM DOOR PULLER RH LABORATORY Teardrop Cells Slight(A) None Seen [facility] 01/22/2025 9:03 AM DOOR PULLER RH LABORATORY Toxic Neutrophils Present(A) None Seen [facility] 01/22/2025 9:03 AM DOOR PULLER RH LABORATORY Blood STRUCTURE OF LEFT UPPER LIMB / Unknown Venipuncture / Unknown 01/22/2025 7:53 AM DOOR PULLER 01/22/2025 7:57 AM DOOR PULLER us Doc Booker MD LAB - BLOOD ORDERABLES Fi nal Result LABORATORY [facility] Acute Care Lab [address] Lab (1st floor, no room number) [place] [address] * Transfuse pheresed platelets (unit) (01/20/2025 8:53 PM DOOR PULLER) us Doc Booker MD BLOOD TRANSFUSION ORDERAB LES Final Result * Single Lumen Midline Placement (01/20/2025 4:18 PM DOOR PULLER) Narrative Haim Sims RN - 01/20/2025 4:18 PM DOOR PULLER Haim Sims RN 01/20/2025 4:26 PM [facility] Single Lumen Midline Placement Date/Time: 01/20/2025 4:18 PM Performed by: Haim Sims RN Authorized by: Doc Booker MD Indications: vascular access UNIVERSAL PROTOCOL Site Marked: Yes Prior Images Obtained and Reviewed: Yes Required items: Required blood products, implants, devices and special equipment available Patient identity confirmed: Verbally with patient, arm band and hospital-assigned identification number NA - No sedation, light sedation, or local anesthesia Confirmation Checklist: Patient's identity using two indicators, relevant allergies, procedure was appropriate and matched the consent or emergent situation and correct equipment/implants were available Time out: Immediately prior to the procedure a time out was called Lynden Protocol: the Joint Commission [place] Protocol was followed Preparation: Patient was prepped and draped in usual sterile fashion ANESTHESIA Anesthesia: Local infiltration Local Anesthetic: Lidocaine 1% without epinephrine Anesthetic Total (mL): 2 SEDATION Patient Sedated: No Preparation: skin prepped with ChloraPrep Skin prep agent: skin prep agent completely dried prior to procedure Sterile barriers: maximum sterile barriers were used: cap, mask, sterile gown, sterile gloves, and large sterile sheet Hand hygiene: hand hygiene performed prior to central venous catheter insertion Type of line used: Power PICC and PICC Catheter type: single lumen Lumen type: non-valved Catheter size: 4 Fr Brand: Bard Lot number: [id number] Placement method: venipuncture, MST and ultrasound Number of attempts: 1 Difficulty threading catheter: no Successful placement: yes Orientation: right Catheter to Vein (%): 25 Location: basilic vein (5.2mm) Tip Location: distal to axillary vein Arm circumference: adults 10 cm Extremity circumference: 27 Visible catheter length: 2 Total catheter length: 13 Dressing and securement: alcohol impregnated caps, blood removed, dressing applied, sterile dressing applied, subcutaneous anchor securement system, securement device, site cleansed, thrombin hemostasis patch applied and blood cleaned with CHG Post procedure assessment: blood return through all ports and free fluid flow PROCEDURE Midline ok to use, Alexandru HUERTAS informed Patient Tolerance: Patient tolerated the procedure well with no immediate complications Doc Booker MD PROCEDURE/MINOR SURGICAL ORDERABLES Final Result * Prepare pheresed platelets (unit) (01/20/2025 11:27 AM DOOR PULLER) Blood Component Type Platelets RH BLOOD BANK Product Code [id number] RH BLOO D BANK Unit Status Transfused RH BLOO D BANK Unit Number [id number] RH B LOOD BANK CODING SYSTEM [id number] RH BLO OD BANK ISSUE DATE AND TIME [id number] RH BLOOD BANK UNIT ABO/RH A+ RH BLOOD BANK UNIT TYPE ISBT 6200 RH BLOOD BANK 01/20/2025 11:2 7 AM DOOR PULLER us Doc Booker MD BLOOD BANK PRODUCT ORDERA BLES Final Result RH BLOOD BANK [address] [place] [address], [facility] * (ABNORMAL) Glucose by meter (01/20/2025 2:10 AM DOOR PULLER) [facility] Signature GLUCOSE BY METER POCT 118(H) 70 - 99 mg/dL 01/20/2025 2:16 AM DOOR PULLER LABORATORY POC Blood, Capillary BLOOD SPECIMEN / Unknown 01/20/2025 2:10 AM DOOR PULLER 01/20/2025 2:16 AM DOOR PULLER us Anurag Dockery MD LAB - BEAKER POCT Final Resul t LABORATORY [facility] Acute Care Lab [address] [facility] Lab (1st floor, no room number) [place] [address] * MR Lumbar Spine w/o Contrast (01/19/2025 9:54 PM DOOR PULLER) Anatomical Region Laterality Modality Spine, SUBRAD MR NEURO, UMP MR SPINE, RAD MR Magnetic Resonance 01/19/2025 9:54 PM DOOR PULLER Impressions 01/20/2025 12:20 AM DOOR PULLER IMPRESSION: 1. No osseous metastatic disease identified. 2. Mild presacral edema/inflammation. Right psoas muscle at L3 and L4 edema/inflammation. Bilateral paraspinal muscles patchy edema/inflammation. 3. Multilevel spondylosis described above. 4. No critical thecal sac stenosis. 5. L3-L4: Moderate bilateral foraminal stenosis. Disc material contacts the exiting bilateral L3 nerve roots. 6. L4-L5: Moderate to severe right foraminal stenosis. 7. L5-S1: Severe left foraminal stenosis. Moderate to severe right foraminal stenosis. Disc osteophyte ridge mildly compresses the exiting right L5 nerve root. Narrative 01/20/2025 12:20 AM DOOR PULLER EXAM: MR LUMBAR SPINE W/O CONTRAST LOCATION: [facility] DATE: 01/19/2025 INDICATION: persistent low back pain. History of metastatic colon cancer. COMPARISON: CT abdomen pelvis 11/25/2024 TECHNIQUE: Routine Lumbar Spine MRI without IV contrast. FINDINGS: Nomenclature is based on 5 lumbar type vertebral bodies. Normal vertebral body heights. No concerning bone marrow lesions. Normal distal spinal cord and cauda equina with conus medullaris at L2. Unremarkable visualized bony pelvis. No significant subluxations. Mild presacral edema/inflammation. Right psoas muscle at L3 and L4 edema/inflammation. Bilateral paraspinal muscles patchy edema/inflammation. Thoracolumbar mild dextro scoliosis. Multilevel degenerative disc disease. Several levels demonstrate mild degenerative type II Modic changes. Multilevel facet arthropathy worse within the lower lumbar spine. Bilateral SI degenerative joint disease. T10-T11: Partially visualized bulge. No significant thecal sac stenosis. Neuroforamina not well visualized. T11-T12: Mild bulge. No significant thecal sac stenosis. No significant neural foraminal stenosis. T12-L1: Mild bulge. No significant thecal sac stenosis. No significant neural foraminal stenosis. L1-L2: No significant bulge or posterior disc protrusion. No significant thecal sac stenosis. No significant neural foraminal stenosis. L2-L3: Bulge. Small left foraminal protrusion. Moderate facet hypertrophy. Moderate thecal sac stenosis. Moderate left foraminal stenosis. Minimal right foraminal stenosis. L3-L4: Bulge with bilateral foraminal extension. Facet hypertrophy. Mild to moderate thecal sac stenosis. Moderate bilateral foraminal stenosis. Disc material contacts the exiting bilateral L3 nerve roots. L4-L5: Bulge with bilateral foraminal extension. Small right foraminal protrusion. Facet hypertrophy. Mild thecal sac stenosis. Mild left foraminal stenosis. Moderate to severe right foraminal stenosis. L5-S1: Bulge with bilateral foraminal extension. Facet hypertrophy. No significant thecal sac stenosis. Severe left foraminal stenosis. Moderate to severe right foraminal stenosis. Disc osteophyte ridge mildly compresses the exiting right L5 nerve root. EXTRASPINAL FINDINGS: Liver demonstrates multiple prominent lesions redemonstrated from CT abdomen pelvis 11/25/2024. Splenomegaly. Inferior spleen lesion measuring 2.3 cm, nonspecific. Gallbladder stones. Ascites. Procedure Note Juan David Ross MD - 01/20/2025 EXAM: MR LUMBAR SPINE W/O CONTRAST LOCATION: [facility] DATE: 01/19/2025 INDICATION: persistent low back pain. History of metastatic coloncancer. COMPARISON: CT abdomen pelvis 11/25/2024 TECHNIQUE: Routine Lumbar Spine MRI without IV contrast. FINDINGS: Nomenclature is based on 5 lumbar type vertebral bodies. Normal vertebralbody heights. No concerning bone marrow lesions. Normal distal spinalcord and cauda equina with conus medullaris at L2. Unremarkablevisualized bony pelvis. No significant subluxations. Mild presacral edema/inflammation. Right psoas muscle at L3 and N4zdkee/inflammation. Bilateral paraspinal muscles patchyedema/inflammation. Thoracolumbar mild dextro scoliosis. Multilevel degenerative disc disease.Several levels demonstrate mild degenerative type II Modic changes.Multilevel facet arthropathy worse within the lower lumbar spine.Bilateral SI degenerative joint disease. T10-T11: Partially visualized bulge. No significant thecal sac stenosis.Neuroforamina not well visualized. T11-T12: Mild bulge. No significant thecal sac stenosis. No significantneural foraminal stenosis. T12-L1: Mild bulge. No significant thecal sac stenosis. No significantneural foraminal stenosis. L1-L2: No significant bulge or posterior disc protrusion. No significantthecal sac stenosis. No significant neural foraminal stenosis. L2-L3: Bulge. Small left foraminal protrusion. Moderate facet hypertrophy.Moderate thecal sac stenosis. Moderate left foraminal stenosis. Minimalright foraminal stenosis. L3-L4: Bulge with bilateral foraminal extension. Facet hypertrophy. Mildto moderate thecal sac stenosis. Moderate bilateral foraminal stenosis.Disc material contacts the exiting bilateral L3 nerve roots. L4-L5: Bulge with bilateral foraminal extension. Small right foraminalprotrusion. Facet hypertrophy. Mild thecal sac stenosis. Mild leftforaminal stenosis. Moderate to severe right foraminal stenosis. L5-S1: Bulge with bilateral foraminal extension. Facet hypertrophy. Nosignificant thecal sac stenosis. Severe left foraminal stenosis. Moderateto severe right foraminal stenosis. Disc osteophyte ridge mildlycompresses the exiting right L5 nerve root. EXTRASPINAL FINDINGS: Liver demonstrates multiple prominent lesions redemonstrated from CTabdomen pelvis 11/25/2024. Splenomegaly. Inferior spleen lesion measuring2.3 cm, nonspecific. Gallbladder stones. Ascites. IMPRESSION: 1. No osseous metastatic disease identified. 2. Mild presacral edema/inflammation. Right psoas muscle at L3 and V1oudiw/inflammation. Bilateral paraspinal muscles patchyedema/inflammation. 3. Multilevel spondylosis described above. 4. No critical thecal sac stenosis. 5. L3-L4: Moderate bilateral foraminal stenosis. Disc material contactsthe exiting bilateral L3 nerve roots. 6. L4-L5: Moderate to severe right foraminal stenosis. 7. L5-S1: Severe left foraminal stenosis. Moderate to severe rightforaminal stenosis. Disc osteophyte ridge mildly compresses the exitingright L5 nerve root. us Sekou Avalos MD IMG MRI ORDERABLES Final Res ult * ECHO COMPLETE (01/19/2025 11:19 AM DOOR PULLER) Anatomical Region Laterality Modality Echocardiography 01/19/2025 10:5 5 AM DOOR PULLER Narrative 01/19/2025 2:13 PM DOOR PULLER [id number]^CRYSTAL^DOC^GIL [facility] Echocardiography Laboratory [address] [place] [address] Name: SHERLYN KULKARNI : 1960 Study Date: 01/19/2025 10:55 AM Age: 65 yrs Gender: Male Patient Location: [facility] Reason For Study: Endocarditis Ordering Physician: DOC BOOKER Referring Physician: Todd Gibson Performed By: Renetta Curtis RDCS BSA: 1.9 m2 Height: 66 in Weight: 171 lb HR: 96 BP: 139/82 mmHg Procedure Echocardiogram with two-dimensional, color and spectral Doppler. Interpretation Summary No vegetations seen. Compared to prior study, there is no significant change. Left Ventricle The left ventricle is normal in structure, function and size. Left ventricular diastolic function is normal. Right Ventricle The right ventricle is normal in structure, function and size. Atria Normal left atrial size. Right atrial size is normal. Mitral Valve The mitral valve is normal in structure and function. There is trace mitral regurgitation. Tricuspid Valve Normal tricuspid valve. Aortic Valve The aortic valve is normal in structure and function. Pulmonic Valve Normal pulmonic valve. Vessels Aortic root dilatation is present. The aortic root is normal size. Pericardium There is no pericardial effusion. MMode/2D Measurements & Calculations IVSd: 0.88 cm LVIDd: 4.7 cm LVIDs: 3.3 cm LVPWd: 1.0 cm IVC diam: 1.6 cm FS: 29.8 % LV mass(C)d: 149.0 grams LV mass(C)dI: 79.6 grams/m2 Ao root diam: 4.1 cm Ao root diam index Ht(cm/m): 2.4 Ao root diam index BSA (cm/m2): 2.2 LA Volume (BP): 47.3 ml LA Volume Index (BP): 25.3 ml/m2 RV Base: 3.8 cm RWT: 0.43 Doppler Measurements & Calculations MV E max daniela: 64.5 cm/sec MV A max daniela: 89.2 cm/sec MV E/A: 0.72 MV max P.9 mmHg MV mean P.7 mmHg MV V2 VTI: 16.0 cm MV dec time: 0.31 sec PA acc time: 0.11 sec E/E' av.7 Lateral E/e': 6.4 Medial E/e': 9.0 Report approved by: Juan David Molina MD on 01/19/2025 02:13 PM Procedure Note Juan David Molina MD - 01/19/2025 [id number]^CRYSTAL^DOC^GIL [facility] Echocardiography Laboratory [address] [place] [address] Name: SHERLYN KULKARNI : 1960 Study Date: 01/19/2025 10:55 AM Age: 65 yrs Gender: Male Patient Location: [facility] Reason For Study: Endocarditis Ordering Physician: DOC BOOKER Referring Physician: Todd Gibson Performed By: Renetta Curtis RDCS BSA: 1.9 m2 Height: 66 in Weight: 171 lb HR: 96 BP: 139/82 mmHg Procedure Echocardiogram with two-dimensional, color and spectral Doppler. Interpretation Summary No vegetations seen. Compared to prior study, there is no significantchange. Left Ventricle The left ventricle is normal in structure, function and size. Leftventricular diastolic function is normal. Right Ventricle The right ventricle is normal in structure, function and size. Atria Normal left atrial size. Right atrial size is normal. Mitral Valve The mitral valve is normal in structure and function. There is tracemitral regurgitation. Tricuspid Valve Normal tricuspid valve. Aortic Valve The aortic valve is normal in structure and function. Pulmonic Valve Normal pulmonic valve. Vessels Aortic root dilatation is present. The aortic root is normal size. Pericardium There is no pericardial effusion. MMode/2D Measurements & Calculations IVSd: 0.88 cm LVIDd: 4.7 cm LVIDs: 3.3 cm LVPWd: 1.0 cm IVC diam: 1.6 cm FS: 29.8 % LV mass(C)d: 149.0 grams LV mass(C)dI: 79.6 grams/m2 Ao root diam: 4.1 cm Ao root diam index Ht(cm/m): 2.4 Ao root diam index BSA (cm/m2): 2.2 LA Volume (BP): 47.3 ml LA Volume Index (BP): 25.3 ml/m2 RV Base: 3.8 cm RWT: 0.43 Doppler Measurements & Calculations MV E max daniela: 64.5 cm/sec MV A max daniela: 89.2 cm/sec MV E/A: 0.72 MV max P.9 mmHg MV mean P.7 mmHg MV V2 VTI: 16.0 cm MV dec time: 0.31 sec PA acc time: 0.11 sec E/E' av.7 Lateral E/e': 6.4 Medial E/e': 9.0 Report approved by: Juan David Molina MD on 01/19/2025 02:13 PM [facility] Gil Booker MD CV ECHO ORDERABLES Edited Result - Final * IR Port Removal Left (01/18/2025 8:51 AM DOOR PULLER) Anatomical Region Laterality Modality Chest Radio Fluoroscop y, Radio Fluoroscopy 01/18/2025 8:51 AM DOOR PULLER Impressions 01/18/2025 3:14 PM DOOR PULLER IMPRESSION: 1. Successful port removal. CPT Codes: Narrative 01/18/2025 3:14 PM DOOR PULLER [facility] EXAM: PORT REMOVAL LOCATION: [facility] CLINICAL HISTORY: The patient has completed chemotherapy and no longer needs the catheter. PROCEDURES PERFORMED: 1. Port dissected form surrounding soft tissues through chest wall incision. 2. Incision closed with absorbable suture. MODERATE SEDATION: 2 mg Versed and 100 mcg Fentanyl were administered intravenously for moderate sedation. Pulse oximetry, heart rate and blood pressure were continuously monitored by an independent trained observer. The physician spent 5 minutes of [id number] moderate sedation time with the patient. ADDITIONAL MEDICATIONS: see EMR CONTRAST: None FLUOROSCOPIC TIME: None CUMULATIVE AIR KERMA/DOSE: None STERILE BARRIER TECHNIQUE: Maximal Sterile Barrier Technique Utilized: Cap AND mask AND sterile gown AND sterile gloves AND sterile full body drape AND hand hygiene AND skin preparation 2% chlorhexidine for cutaneous antisepsis (or acceptable alternative antiseptics). Sterile Ultrasound Technique Utilized ?Sterile gel AND sterile probe covers. UNIVERSAL PROTOCOL: Standard universal protocol per facility guidelines was followed. See EMR for documentation. TECHNIQUE: Risks, benefits and alternatives were explained to the patient in detail. All questions were answered. Written, informed consent was given to proceed with the procedure. The patient was placed in the supine position on the angiography table. The chest was prepped and draped in the usual sterile fashion. One percent lidocaine was used for local anesthesia. A small skin incision was made over the chest wall port. The port and the catheter were dissected free from the surrounding soft tissues and removed in their entirety. Hemostasis was achieved with manual compression. The port was then removed from the pocket. The catheter tip was cut and sent to Microbiology. The incision was layered absorbable suture and surgical glue. FINDINGS: The port has been removed in its entirety. The port pocket is clean and dry. Procedure Note Rafita Solis MD - 01/18/2025 [facility] EXAM: PORT REMOVAL LOCATION: [facility] CLINICAL HISTORY: The patient has completed chemotherapy and no longerneeds the catheter. PROCEDURES PERFORMED: 1. Port dissected form surrounding soft tissues through chest wallincision. 2. Incision closed with absorbable suture. MODERATE SEDATION: 2 mg Versed and 100 mcg Fentanyl were administeredintravenously for moderate sedation. Pulse oximetry, heart rate and bloodpressure were continuously monitored by an independent trained observer.The physician spent 5 minutes of [id number] moderate sedation time with the patient. ADDITIONAL MEDICATIONS: see EMR CONTRAST: None FLUOROSCOPIC TIME: None CUMULATIVE AIR KERMA/DOSE: None STERILE BARRIER TECHNIQUE: Maximal Sterile Barrier Technique Utilized: CapAND mask AND sterile gown AND sterile gloves AND sterile full body drapeAND hand hygiene AND skin preparation 2% chlorhexidine for cutaneousantisepsis (or acceptable alternative antiseptics). Sterile Ultrasound Technique Utilized ?Sterile gel ANDsterile probe covers. UNIVERSAL PROTOCOL: Standard universal protocol per facility guidelineswas followed. See EMR for documentation. TECHNIQUE: Risks, benefits and alternatives were explained to the patientin detail. All questions were answered. Written, informed consent wasgiven to proceed with the procedure. The patient was placed in thesupine position on the angiography table. The chest was prepped and draped in the usual sterile fashion. Onepercent lidocaine was used for local anesthesia. A small skin incisionwas made over the chest wall port. The port and the catheter weredissected free from the surrounding soft tissues and removed in their entirety. Hemostasis was achieved with manualcompression. The port was then removed from the pocket. The catheter tipwas cut and sent to Microbiology. The incision was layered absorbablesuture and surgical glue. FINDINGS: The port has been removed in its entirety. The port pocket isclean and dry. IMPRESSION: 1. Successful port removal. CPT Codes: Dayton Mcgee MD IMG IR ORDERABLES Final Result * Anaerobic Bacterial Culture Routine (01/18/2025 8:43 AM DOOR PULLER) Culture No anaerobic organisms isolated MARKIE 01/25/2025 7:32 AM DOOR PULLER [facility] Foreign Body BONE STRUCTURE OF LEFT CLAVICLE / Unknown Non-blood Collection / Unknown 01/18/2025 8:43 AM DOOR PULLER 01/18/2025 9:06 AM DOOR PULLER Narrative [facility] - 01/25/2025 7:32 AM DOOR PULLER This specimen was not received in an anaerobic transport container, thus the absence or quantity of anaerobic organisms in this culture may not be mill representative of the anaerobic organisms present in the specimen. Rafita Solis MD LAB - MICRO GENERAL ORD ERABLES Final Result [facility] Inf. Diseases Diag. Lab [address], [address] [place] [address] * Ionized Calcium (01/17/2025 6:09 AM DOOR PULLER) Calcium Ionized Whole Blood 4.9 4.4 - 5.2 mg/dL 01/17/2025 6:27 AM DOOR PULLER LABORATORY Blood VENOUS LINE / Unknown IVAD (Port) / Unknown 01/17/2025 6:09 AM DOOR PULLER 01/17/2025 6:22 AM DOOR PULLER Dc Croft DO LAB - BLOOD ORDERABLES Fin al Result LABORATORY [facility] Acute Care Lab [address] Lab (1st floor, no room number) [place] [address], [facility] * XR Chest 2 Views (01/16/2025 1:41 PM DOOR PULLER) Anatomical Region Laterality Modality Chest Digital Radiogra phy 01/16/2025 1:41 PM DOOR PULLER Impressions 01/16/2025 5:38 PM DOOR PULLER IMPRESSION: Left chest port with catheter tip near the cavoatrial junction. Redemonstrated extensive bilateral pulmonary nodules. No definite new focal airspace disease. No pleural effusion or pneumothorax. Stable, nonenlarged cardiomediastinal silhouette. Narrative 01/16/2025 5:38 PM DOOR PULLER EXAM: XR CHEST 2 VIEWS LOCATION: [facility] DATE: 01/16/2025 INDICATION: leukocytosis COMPARISON: 10/28/2024 Procedure Note Jb Roth MD - 01/16/2025 EXAM: XR CHEST 2 VIEWS LOCATION: [facility] DATE: 01/16/2025 INDICATION: leukocytosis COMPARISON: 10/28/2024 IMPRESSION: Left chest port with catheter tip near the cavoatrial junction. Redemonstrated extensive bilateral pulmonary nodules. No definite new focal airspace disease. No pleural effusion orpneumothorax. Stable, nonenlarged cardiomediastinal silhouette. us Pawel Bernabe MD IMG DIAGNOSTIC IMAGING ORDERA BLES Final Result * Urine Culture (2025 7:48 PM DOOR PULLER) Culture No Growth 01/16/2025 11:25 PM DOOR PULLER [facility] Urine URINE SPECIMEN OBTAINED BY CLEAN CATCH PROCEDURE / Unknown Non-blood Collection / Unknown 2025 7:48 PM DOOR PULLER 2025 8:38 PM DOOR PULLER us Francis Abbott MD LAB - MICRO GENERAL ORD ERABLES Final Result [facility] Inf. Diseases Diag. Lab [address], [address] [place] [address], [facility] * Soft tissue neck CT w contrast (2025 6:13 PM DOOR PULLER) Anatomical Region Laterality Modality Neck, SUBRAD CT NEURO, SUBRA D CT NEURO, UMP CT NEURO, RAD CT Computed Tomography 2025 6:13 PM DOOR PULLER Impressions 2025 7:20 PM DOOR PULLER IMPRESSION: 1. Soft tissues of the neck are normal. No abscess. 2. Diffuse bilateral lung metastases have progressed in size and number when compared to previous CT scan of 10/28/2024. Narrative 2025 7:20 PM DOOR PULLER EXAM: CT SOFT TISSUE NECK W CONTRAST LOCATION: [facility] DATE: 2025 INDICATION: Sore throat, difficulty swallowing, white blood cell count 39,000, colorectal cancer, stage IV, on chemotherapy COMPARISON: CT chest 10/28/2024 CONTRAST: 100mL Isovue 370 TECHNIQUE: Routine CT Soft Tissue Neck with IV contrast. Multiplanar reformats. Dose reduction techniques were used. FINDINGS: MUCOSAL SPACES/SOFT TISSUES: Normal mucosal spaces of the upper aerodigestive tract. No mucosal mass or inflammation identified. Normal vocal cords and infraglottic trachea. Normal parapharyngeal space and subcutaneous soft tissues. Normal oral cavity, refrigerator glazier spaces, and floor of mouth structures. LYMPH NODES: No pathologic lymph nodes by size or morphology criteria. SALIVARY GLANDS: Normal parotid and submandibular glands. THYROID: Normal. VESSELS: Vascular structures of the neck are patent. VISUALIZED INTRACRANIAL/ORBITS/SINUSES: No abnormality of the visualized intracranial compartment or orbits. Visualized paranasal sinuses and mastoid air cells are clear. OTHER: No destructive osseous lesion. Diffuse bilateral lung metastases have progressed in size and number when compared to previous CT scan of 10/28/2024 Procedure Note Juan David Goff MD - 2025 EXAM: CT SOFT TISSUE NECK W CONTRAST LOCATION: [facility] DATE: 2025 INDICATION: Sore throat, difficulty swallowing, white blood cell count39,000, colorectal cancer, stage IV, on chemotherapy COMPARISON: CT chest 10/28/2024 CONTRAST: 100mL Isovue 370 TECHNIQUE: Routine CT Soft Tissue Neck with IV contrast. Multiplanarreformats. Dose reduction techniques were used. FINDINGS: MUCOSAL SPACES/SOFT TISSUES: Normal mucosal spaces of the upperaerodigestive tract. No mucosal mass or inflammation identified. Normalvocal cords and infraglottic trachea. Normal parapharyngeal space andsubcutaneous soft tissues. Normal oral cavity, refrigerator glazier spaces, and floor of mouth structures. LYMPH NODES: No pathologic lymph nodes by size or morphology criteria. SALIVARY GLANDS: Normal parotid and submandibular glands. THYROID: Normal. VESSELS: Vascular structures of the neck are patent. VISUALIZED INTRACRANIAL/ORBITS/SINUSES: No abnormality of the visualizedintracranial compartment or orbits. Visualized paranasal sinuses andmastoid air cells are clear. OTHER: No destructive osseous lesion. Diffuse bilateral lung metastaseshave progressed in size and number when compared to previous CT scan of10/28/2024 IMPRESSION: 1. Soft tissues of the neck are normal. No abscess. 2. Diffuse bilateral lung metastases have progressed in size and numberwhen compared to previous CT scan of 10/28/2024. us Francis Abbott MD IMG CT ORDERABLES Final Result * Head CT w/o contrast (2025 6:13 PM DOOR PULLER) Anatomical Region Laterality Modality Head, SUBRAD CT NEURO, SUBRA D CT NEURO, UMP CT NEURO, RAD CT Computed Tomography 2025 6:13 PM DOOR PULLER Impressions 2025 7:12 PM DOOR PULLER IMPRESSION: 1. No CT evidence for acute intracranial process. Mild chronic microvascular ischemic changes as above. Narrative 2025 7:12 PM DOOR PULLER EXAM: CT HEAD W/O CONTRAST LOCATION: [facility] DATE: 2025 INDICATION: Stage IV colorectal cancer, generalized weakness, increased fatigue and sleepiness,, multiple recent falls COMPARISON: None. TECHNIQUE: Routine CT Head without IV contrast. Multiplanar reformats. Dose reduction techniques were used. FINDINGS: INTRACRANIAL CONTENTS: No intracranial hemorrhage, extraaxial collection, or mass effect. No CT evidence of acute infarct. Mild presumed chronic small vessel ischemic changes. Normal ventricles and sulci. Nasopharynx is clear. Posterior fossa structures including cerebellar hemispheres, fourth ventricle and CP angle cisterns are clear. VISUALIZED ORBITS/SINUSES/MASTOIDS: No intraorbital abnormality. No paranasal sinus mucosal disease. No middle ear or mastoid effusion. BONES/SOFT TISSUES: No acute abnormality. Procedure Note Juan David Goff MD - 2025 EXAM: CT HEAD W/O CONTRAST LOCATION: [facility] DATE: 2025 INDICATION: Stage IV colorectal cancer, generalized weakness, increasedfatigue and sleepiness,, multiple recent falls COMPARISON: None. TECHNIQUE: Routine CT Head without IV contrast. Multiplanar reformats.Dose reduction techniques were used. FINDINGS: INTRACRANIAL CONTENTS: No intracranial hemorrhage, extraaxial collection,or mass effect. No CT evidence of acute infarct. Mild presumed chronicsmall vessel ischemic changes. Normal ventricles and sulci. Nasopharynx is clear. Posterior fossa structures including cerebellarhemispheres, fourth ventricle and CP angle cisterns are clear. VISUALIZED ORBITS/SINUSES/MASTOIDS: No intraorbital abnormality. Noparanasal sinus mucosal disease. No middle ear or mastoid effusion. BONES/SOFT TISSUES: No acute abnormality. IMPRESSION: 1. No CT evidence for acute intracranial process. Mild chronicmicrovascular ischemic changes as above. Francis Abbott MD IM CT ORDERABLES Final Result * (ABNORMAL) Verigene GP Panel (2025 5:36 PM DOOR PULLER) Staphylococcus aureus Detected(A) Not Detected 01/16/2025 3:42 PM DOOR PULLER [facility] Comment:Positive for Staphyl ococcus aureus and negative for the mecA gene (not resistant to methicillin) by Intronisigene multiplex nucleic acid test. Final identification and antimicrobial susceptibility testing will be verified by standard methods. Staphylococcus epidermidis Not Detected Not Detected 01/16/2025 3:42 PM DOOR PULLER [facility] Staphylococcus lugdunensis Not Detected Not Detected 01/16/2025 3:42 PM DOOR PULLER [facility] Enterococcus faecalis Not Detected Not Detected 01/16/2025 3:42 PM DOOR PULLER [facility] Enterococcus faecium Not Detected Not Detected 01/16/2025 3:42 PM DOOR PULLER [facility] Streptococcus species Not Detected Not Detected 01/16/2025 3:42 PM DOOR PULLER [facility] Streptococcus agalactiae Not Detected Not Detected 01/16/2025 3:42 PM DOOR PULLER [facility] Streptococcus anginosus group Not Detected Not Detected 01/16/2025 3:42 PM DOOR PULLER [facility] Streptococcus pneumoniae Not Detected Not Detected 01/16/2025 3:42 PM DOOR PULLER [facility] Streptococcus pyogenes Not Detected Not Detected 01/16/2025 3:42 PM DOOR PULLER [facility] Listeria species Not Detected Not Detected 01/16/2025 3:42 PM DOOR PULLER [facility] Blood BLOOD SPECIMEN / Unknown Venipuncture / Unknown 2025 5:36 PM DOOR PULLER 2025 5:51 PM DOOR PULLER Narrative [facility] - 01/16/2025 3:42 PM DOOR PULLER Specimen tested with Verigene multiplex, gram-positive blood culture nucleic acid test for the following targets: Staphylococcus aureus, Staphylococcus epidermidis, Staphylococcus lugdunensis, other Staphylococcus species, Enterococcus faecalis, Enterococcus faecium, Streptococcus species, Streptococcus agalactiae, Streptococcus anginosus group, Streptococcus pneumoniae, Streptococcus pyogenes, Listeria species, mecA (methicillin resistance), and Eloy/vanB (vancomycin resistance). us Francis Abbott MD LAB - MICRO GENERAL ORD ERABLES Final Result [facility] Inf. Diseases Diag. Lab [address] [facility] [address] [facility], [address] [place] [address], [facility] * Extra Green Top ([place] Heparin) ON ICE (2025 5:32 PM DOOR PULLER) Hold Specimen [facility] 2025 6:47 PM DOOR PULLER LABORATORY Blood BLOOD SPECIMEN / Unknown Venipuncture / Unknown 2025 5:32 PM DOOR PULLER 2025 5:44 PM DOOR PULLER Francis Abbott MD LAB - BLOOD ORDERABLES Final Result LABORATORY [facility] Lab [address] Lab (1st floor, no room number) [place] [address], [facility] * Extra Purple Top Tube (2025 5:32 PM DOOR PULLER) Hold Specimen [facility] 2025 6:47 PM DOOR PULLER [facility] LABORATORY Blood BLOOD SPECIMEN / Unknown Venipuncture / Unknown 2025 5:32 PM DOOR PULLER 2025 5:44 PM DOOR PULLER us Francis Abbott MD LAB - BLOOD ORDERABLES Final Result [facility] Lab [address] Lab (1st floor, no room number) [address] * Extra Red Top Tube (2025 5:32 PM DOOR PULLER) Hold Specimen [facility] 2025 6:47 PM DOOR PULLER RH LABORATORY Blood BLOOD SPECIMEN / Unknown Venipuncture / Unknown 2025 5:32 PM DOOR PULLER 2025 5:44 PM DOOR PULLER Francis Abbott MD LAB - BLOOD ORDERABLES Final Result Performing Organization Address City/[facility]/ZIP Co de Phone Number [facility] Lab [address] Lab (1st floor, no room number) [address] * Extra Blue Top Tube (2025 5:32 PM DOOR PULLER) Hold Specimen [facility] 2025 6:47 PM DOOR PULLER RH LABORATORY Blood BLOOD SPECIMEN / Unknown Venipuncture / Unknown 2025 5:32 PM DOOR PULLER 2025 5:44 PM DOOR PULLER us Francis Abbott MD LAB - BLOOD ORDERABLES Final Result [facility] [address] Lab (1st floor, no room number) [address] * (ABNORMAL) Procalcitonin (2025 5:32 PM DOOR PULLER) Procalcitonin 5.34(HH) <0.50 ng/mL 2025 6:51 PM DOOR PULLER LABORATORY Comment: Interpretation and Recommendations <0.5 ng/mL: Systemic bacterial infection unlikely. Local bacterial infection is possible. 0.5-1.99 ng/mL: Systemic bacterial infection possible, but various other conditions are known to induce PCT as well. >=2.00 ng/mL: Systemic bacterial infection likely, unless other causes are known. Decision to start antibiotics should not be based on procalcitonin level alone. See Procalcitonin Guidance document for more details. [email or web address] Factors that may affect PCT levels (not all-inclusive): - Increased PCT level Severe trauma/tristan Invasive surgery Cooling therapy after cardiac arrest/surgery Treatment with agents which stimulate cytokines Acute kidney injury Chronic kidney disease and end stage renal disease Acute graft vs host disease Non-specific shock causing decreased organ perfusion and/or infarction - Normal or unchanged PCT level Early in infections (if low and infection is suspected, repeating in 6-12 hours is recommended) Chronic infections (endocarditis, osteomyelitis, prosthetic device/graft infections) Localized infections (cellulitis, wound infections, intra-abdominal abscess) Note: PCT has not been extensively studied in /, pediatrics, severe immunosuppression, and cystic fibrosis. Blood BLOOD SPECIMEN / Unknown Venipuncture / Unknown 2025 5:32 PM DOOR PULLER 2025 5:44 PM DOOR PULLER Francis Abbott MD LAB - BLOOD ORDERABLES Final Result LABORATORY [facility] Lab [address] [facility] Lab (1st floor, no room number) [place] [address], [facility] * Lipase (2025 5:32 PM DOOR PULLER) [facility] Lipase 22 13 - 60 U/L 2025 6:29 PM DOOR PULLER LABORATORY Blood BLOOD SPECIMEN / Unknown Venipuncture / Unknown 2025 5:32 PM DOOR PULLER 2025 5:44 PM DOOR PULLER us Francis Abbott MD LAB - BLOOD ORDERABLES Final Result [facility] Acute Care Lab [address] Lab (1st floor, no room number) [place] [address], [facility] * COLONOSCOPY (06/12/2023 11:50 AM CDT) COLONOSCOPY [facility] Patient Name: Sherlyn Kulkarni Procedure Date: 06/12/2023 11:50 AM Date of : 1960 Admit Type: Inpatient Age: 63 Gender: Male Attending MD: HERMAN WAN MD, Total Sedation Time: Minutes of continuous bedside 1:1: 11 minutes Instrument Name: 218 - Pediatric Colonoscope Procedure: Colonoscopy Indications: Hematochezia Providers: HERMAN WAN MD (Doctor) Referring MD: Medicines: Midazolam 2 mg IV, Fentanyl 100 micrograms IV Complications: No immediate complications. Procedure: Pre-Anesthesia Assessment: - Prior to the procedure, a History and Physical was performed, and patient medications and allergies were reviewed. The patient is competent. The risks and benefits of the procedure and the sedation options and risks were discussed with the patient. All questions were answered and informed consent was obtained. Patient identification and proposed procedure were verified by the physician in the pre-procedure area. Mental Status Examination: alert and oriented. Airway Examination: normal oropharyngeal airway and neck mobility. Respiratory Examination: clear to auscultation. CV Examination: normal. Prophylactic Antibiotics: The patient does not require prophylactic antibiotics. Prior Anticoagulants: The patient has taken no anticoagulant or antiplatelet agents. ASA Grade Assessment: II - A patient with mild systemic disease. After reviewing the risks and benefits, the patient was deemed in satisfactory condition to undergo the procedure. The anesthesia plan was to use moderate sedation / analgesia (conscious sedation). Immediately prior to administration of medications, the patient was re-assessed for adequacy to receive sedatives. The heart rate, respiratory rate, oxygen saturations, blood pressure, adequacy of pulmonary ventilation, and response to care were monitored throughout the procedure. The physical status of the patient was re-assessed after the procedure. After obtaining informed consent, the colonoscope was passed under direct vision. Throughout the procedure, the patient's blood pressure, pulse, and oxygen saturations were monitored continuously. The Olympus, Pediatric Colonoscope, Model # [id number]-H190DL, Endora # 218, SN # [id number] was introduced through the anus and advanced to the cecum, identified by appendiceal orifice and ileocecal valve. After obtaining informed consent, the colonoscope was passed under direct vision. Throughout the procedure, the patient's blood pressure, pulse, and oxygen saturations were monitored continuously.The colonoscopy was performed without difficulty. The patient tolerated the procedure well. The quality of the bowel preparation was good. The ileocecal valve, appendiceal orifice, and rectum were photographed. Findings: A single medium-mouthed diverticulum was found in the sigmoid colon. External and internal hemorrhoids were found during perianal exam and during endoscopy. The hemorrhoids were large. The exam was otherwise without abnormality. No red blood or clots were found throughout the exam. There was dark brown liquid stool throughout the colon which was easily suctioned. Impression: - Diverticulosis in the sigmoid colon. - Large external and internal hemorrhoids. Likely cause of rectal bleeding (exacerbated by low platelets, Xarelto) - The examination was otherwise normal. - No specimens collected. Recommendation: - [facility]. - Continue supportive care and heme/onc management. Procedure Code(s): --- Professional --- 43263, Colonoscopy, flexible; diagnostic, including collection of specimen(s) by brushing or washing, when performed (separate procedure) Diagnosis Code(s): --- Professional --- K57.30, Diverticulosis of large intestine without perforation or abscess without bleeding K92.1, Melena (includes Hematochezia) K64.8, Other hemorrhoids CPT copyright 2021 [employer]. All rights reserved. The codes documented in this report are preliminary and upon special services supervisor review may be revised to meet current compliance requirements. Herman Wan M.D. ___ HERMAN WAN MD 06/12/2023 1:09:48 PM Number of Addenda: 0 Note Initiated On: 06/12/2023 11:50 AM Procedure Date: 06/12/2023 11:50:56 AM Scope Withdrawal Time: 0 hours 6 minutes 16 seconds Total Procedure Duration: 0 hours 9 minutes 57 seconds Estimated Blood Loss: Scope In: 12:46:59 PM Scope Out: 12:56:56 PM RADIOLOGY RESULTS 06/12/2023 11:5 0 AM CDT us Herman Wan MD PROCEDURES Final Resul t RADIOLOGY RESULTS from Last 3 Months or Most Recently Relevant to Health Maintenance Additional Health Concerns Infection Onset Date Last Indicated Resolved Time C-difficile 04/10/2025 04/10/2025 Insurance MEDICARE MEDICARE Advance Directives For more information, please contact: [phone] * Full Code (Latest Code Status on File) Date Activated Date Inactivated Comments 04/09/2025 9:22 PM All basic and advanced life-sustaining interventions are performed as appropriate Question Answer Comments Code status determined by: Discussion with patie nt/ legal decision maker * Full Code Date Activated Date Inactivated Comments 01/22/2025 10:07 AM 02/09/2025 4:52 PM Question Answer Comments Code status determined by: Discussion with patie nt/ legal decision maker * Full Code Date Activated Date Inactivated Comments 2025 10:53 PM 01/22/2025 10:07 AM All basic a nd advanced life-sustaining interventions are performed as appropriate Question Answer Comments Code status determined by: Discussion with patie nt/ legal decision maker * Full Code Date Activated Date Inactivated Comments 12/22/2024 11:47 PM 12/27/2024 2:27 PM All basic an d advanced life-sustaining interventions are performed as appropriate Question Answer Comments Code status determined by: Discussion with patie nt/ legal decision maker * Full Code Date Activated Date Inactivated Comments 11/25/2024 6:04 PM 12/02/2024 1:37 PM All basic and advanced life-sustaining interventions are performed as appropriate Question Answer Comments Code status determined by: Discussion with patie nt/ legal decision maker Care Teams Black Pickler Relationship Specialty Start Date End Date Todd Gibson MD [address] [place] [address] PCP - General Family Medicine 06/11/23 Jeff Bass MD [facility] [address] . [address] [place] [address] Home Infusion Following Provider Infectious Diseases 01/20/25
--- OUTSIDE RECORDS SUMMARY | 2025-04-10 17:27 | XMS_ITS | Encounter Summary ---
Author Organization [facility] Address [address] [place] [id number] Care Team Providers Care Teleprinter Installer Name Role Phone Todd Gibson MD Primary Care Provider [phone] Jeff Bass MD Unavailable [phone] Reason for Visit * Auth/Cert Specialty Diagnoses / Procedures Referred By Contac t Referred To Contact Med Surg Diagnoses Altered mental status [facility] [id number] [facility] [address] [place] [address] Phone: tel: fax: Referral ID Status Reason Start Date Expiration Date Visits Re quested Visits Authorized [id number] Encounter Details Date Type Department Care Team (Late st Contact Info) Description 04/09/2025 8:11 PM CDT - Present Hospital Encounter [facility] [id number] [facility] [address] [place] [address] Krzysztof Lovelace MD [address] [place], [place] [id number] Dell Mckay MD [address] [place] [address] Social History Tobacco Use Types Packs/Day Years Used Date Smoking Tobacco: Never Smokeless Tobacco: Never Alcohol Use Standard Drinks/Week Comments Never 0 [...] Answer Date Recorded Do you have housing? (Sher mishra is defined as stable permanent housing and does not include staying outside in a car, in a tent, in an abandoned building, in an overnight fpc, or couch-surfing.) Yes 04/09/2025 Are you worried [...] on file documented as of this encounter Last Filed Vital Signs Vital Sign Reading [...] oz) 04/10/2025 4:41 P M CDT Height - - Body Mass Index 26.51 02/09/2025 5:17 PM CDT documented in this encounter Progress Notes * Fabiano Portillo MD - 04/10/2025 10:43 AM CDT [facility] Hospitalist Progress Note Fabiano Portillo MD 04/10/2025 Reason for Stay (Diagnosis): FTT, metastatic colon ca Assessment and Plan: Summary of Stay: Fabiano Ham is a 65 year old male admitted on 04/09/2025 with confusion and failure to thrive in the setting of metastatic colon cancer. Per report, the patient is no longer a chemotherapy candidate (last received chemotherapy 12/2024). He was advised hospice care but was not yet ready to make that transition Plans today: -Oncology consult. Patient followed with Dr. Avalos of oncology previously -Palliative care consult to discuss CODE STATUS and goals of care -Continue NS IV fluids. - stop bicarbonate infusion -Continue current empiric antibiotics (Zosyn). If blood cultures remain negative and no signs of infection consider discontinuing within the next 48 hours - order UA/UC - cdiff ordered and pending - given hx of cdiff, start PO vanco for PPX in the setting of antibiotic administration - increase oral bicarbonate tabs to 1300 mg bid in the setting of acidosis Addendum: cdiff toxin is positive. Will increase vancomycin dosing to qid Addendum: I returned to the patient's room and updated the patient's spouse today. She would like to be present for palliative care consult tomorrow and will be able to be at the hospital by 11 AM AMS Failure to thrive SAVANNA on CKD with baseline creatinine near 1.5 Diarrhea with positive cdiff tox this admission hx of cdiff Ascites Poor PO intake Elevated ammonia level Metabolic acidosis, in part related to diarrhea - No longer a chemotherapy candidate. Last chemotherapy administered December 2024 - patient's oncologist had recommended enrollment in hospice and focus comfort care measures, but pt was not ready to transition to hospice - patient has been seen at an integrative medicine clinic and has been taking ivermectin and naltrexone as primary treatments for his cancer. - Will need to follow-up blood and ascites culture results at [place] daily (obtained prior to admission) - blood cx obtained in ER NGTD - UA/UC - continue IV Zosyn for now. Consider stopping in 48 hours if no signs of infection and cx remain neg - Recent hx of C. Difficile. Will administer ppx vanco while on IV Zosyn. cdiff was ordered and results pending - given current diarrhea and active cdiff infection, would not prescribe lactulose to treat elevated ammonia level - PT and OT evaluation - Oncology consultation - palliative care consult Metastatic colon cancer to liver and lung -followed by Dr. Avalos in oncology. - Has not received chemo since December and deemed no longer a candidate - hospice has been recommended previously MDD - continue venlafaxine Diet: Combination Diet Regular Diet Adult DVT Prophylaxis: Heparin SQ Crum Catheter: Not present Lines: None Cardiac Monitoring: None Code Status: Full Code Discharge Dispo: home vs LTC Medically Ready for Discharge: Anticipated in 2-4 Days Interval History (Subjective): No significant concerns or complaints this morning. Patient admitted with failure to thrive. Physical Exam: Last Vital Signs: BP 103/65 (BP Location: Right arm) Pulse 97 Temp 98 ??F (36.7 ??C) (Oral) Resp 16 SpO2 100% No intake or output data in the 24 hours ending 04/10/25 1059 Constitutional: Awake, alert, cooperative, no apparent distress Respiratory: Clear to auscultation bilaterally, no crackles or wheezing Cardiovascular: Regular rate and rhythm, normal S1 and S2, and no murmur noted Abdomen: Normal bowel sounds, soft, mildly distended, non-tender Skin: No rashes, no cyanosis, dry to touch Neuro: Alert and oriented x3, no weakness, numbness, memory loss Extremities: No edema, normal range of motion Other(s): All other systems: Negative Medications: All current medications were reviewed with changes reflected in problem list. Data: All new lab and imaging data was reviewed. Labs: Lab Results Component Value Date NA 137 04/10/2025 NA 139 04/09/2025 NA 135 02/09/2025 Lab Results Component Value Date CHLORIDE 110 04/10/2025 CHLORIDE 110 04/09/2025 CHLORIDE 102 02/09/2025 Lab Results Component Value Date BUN 34.2 04/10/2025 BUN 32.8 04/09/2025 BUN 51.6 02/09/2025 Lab Results Component Value Date POTASSIUM 3.9 04/10/2025 POTASSIUM 4.1 04/09/2025 POTASSIUM 4.1 02/09/2025 Lab Results Component Value Date CO2 12 04/10/2025 CO2 10 04/09/2025 CO2 20 02/09/2025 Lab Results Component Value Date CR 2.13 04/10/2025 CR 2.08 04/09/2025 CR 1.30 02/15/2025 Recent Labs Lab 04/10/25 0839 WBC 9.9 HGB 9.5* HCT 28.7* MCV 91 PLT 109* Imaging: No results found for this or any previous visit (from the past 24 hours). * Eddie Grullon MD - 04/10/2025 9:30 AM CDT [facility] / P [facility] On[facility] consult received. Patient follows w/ [facility] Please place consult to [facility]. Eddie Grullon MD. * Vicenta Jackson MD - 04/10/2025 12:03 AM CDT Notified by RN that patient's bicarb is low at 10. Earlier in the evening admitted with altered mental status, SAVANNA, possible C. difficile infection, failure to thrive and poor p.o. intake in the setting of metastatic colon cancer. Will get VBG's. Patient currently on normal saline will hold it for now. Will start patient on sodium bicarb drip (150 mEq of sodium bicarb and 1000 mL D5W) at a rate of 75 mL/h. Recheck BMP in the morning. * Emma Acosta RN - 04/09/2025 11:50 PM CDT 04/09/25 2348 Critical Test Results/Notification Critical Lab Result (Lab Name and Value) CO2 10 What Time Did The Lab Notify You? 2347 Provider Notified yes Date of Provider Notification 04/09/25 Time of Provider Notification 2348 Mechanism of Provider notification page What Provider Did You Notify? Jackson Response other (see comment) * Dell Mckay MD - 04/09/2025 11:13 PM CDT Lactate returned at 2.4. Ordered 500cc one time bolus in addition to ongoing maintenance. Dell Mckay MD documented in this encounter H&P Notes * Dell Mckay MD - 04/09/2025 9:24 PM CDT [facility] History and Physical - Hospitalist Service Date of Admission: 04/09/2025 Assessment & Plan Fabiano Ham is a 65 year old male admitted on 04/09/2025 with confusion and failure to thrive in the setting of metastatic colon cancer no longer chemo therapy candidate AMS Failure to thrive SAVANNA Possible C diff infection Ascites without evidence of SBP Poor PO intake -Fabiano's Kim states that Fabiano has never gotten his energy or strength back since the beginning of the year. She states that with the confusion of the last 2 days she figured hehad either an infection or low hemoglobin level. She notes that his oncologist had recommended enrollment in hospice and focus comfort care measures, but that Fabiano was not ready to accept that at this time. He has been seen at an integrative medicine clinic and has been taking ivermectin and naltrexone as primary treatments for his cancer as well. She denies any overt infectious symptoms but states he might have been having some increased bowel movements over the last few days. He was initiated on broad-spectrum antibiotics and found to have SAVANNA. Differential at this time includes infectiousversus worsening metastasis versus progression of his underlying known disease. Previously had MSSAbacteremia. - Will need to follow-up blood and ascites culture results at [place] daily, repeat blood cultures here - Reasonable to continue broad-spectrum antibiotics at this time is due for Zosyn now and will continue every 6 hours - Next dose of vancomycin would be due tomorrow, will defer ordering that at this time given concern for possible C. Difficile - Recent C. Difficile - Repeat BMP, CBC, LFTs, lactate, ammonia - Initiate normal saline at 100 mL/h - PT and OT evaluation - Oncology consultation - Given patient's overall prognosis palliative care consult would be appropriate but would like to discuss with oncology at first as it remains unclear if family is ready for that at this time. It may be prudent to give it 48 hours to rule out any overt source for acute decompensation before proceeding with palliative care consultation. - Confirm that patient has not been taking his morphine or BZD at home seems unlikely to be contributed due to polypharmacy although I do not know how his ivermectin and naltrexone complicate this picture - Confirmed with patient wishes to be full code at this time Metastatic colon cancer to liver and lung-followed by Dr. Avalos in oncology. Has not received chemosince December. MDD - continue venlafaxine Diet: Combination Diet Regular Diet Adult DVT Prophylaxis: Heparin SQ Crum Catheter: Not present Lines: None Cardiac Monitoring: None Code Status: Full Code Clinically Significant Risk Factors Present on Admission # Financial/Environmental Concerns: Disposition Plan Medically Ready for Discharge: Anticipated in 2-4 Days Dell Mckay MD Hospitalist Service [facility] Securely message with [employer] (more info) Text page via [employer] Paging/Directory Chief Complaint Failure to thrive History is primarily taken from his Kim who is at bedside. Fabiano is quite somnolent but ableto wake up enough to answer yes/no questions but not much beyond that. History of Present Illness Fabiano Ham is a 65 year old male who with past medical history of metastatic colon cancer with known metastasis to the lung and liver is followed by Dr. Avalos and oncology. He presents from [facility] in [place] after progressive confusion for the last 2 days and falling. His notes thathe was holding an empty plate stating he was going to the bathroom but was walking the wrong direction. His p.o. intake has been quite poor although he does an okay job drinking some fluids throughout the day. Kim denies that he had been complaining of any headache, cough, burning with urination, abdominalpain. He had a fall and she took him to the emergency room for evaluation. Fortunately his medical notes are not available to me at this time but call to the [facility]'s reviewed. It sounds as if they tapped about 100 cc of ascites from him, sent blood cultures stool culture, ascites for culture. Was initiated on broad-spectrum antibiotics with vancomycin which he received around 430 this afternoon and Zosyn which he received around 230 or 3:00 this afternoon. He was having some loose stools while in the emergency room and C. difficile was sent that was reportedly positive.He has a history of C. difficile in Kim is unsure of home or if he had been having increasing bowel movements over the last few days. He was noted to have acute kidney injury with creatinine of 2.2compared to his baseline of 1.6. Lactate was 2.1. LFTs were elevated. Unclear if he received any fluids and if so how much. Kim states that he is largely only been taking his iron, Tylenol, potassium supplements, sodium bicarb, venlafaxine. A lot of his usual as needed medications including the morphine he has not been requiring over the last several weeks. Of note he is been followed at an integrative health clinic and has been also taking ivermectin andnaltrexone as primary treatments for his cancer. He has not received any chemo since December of this year and Kim states that his oncologist last recommended comfort care and enrolling in hospice.Fabiano his decline that up to this point and they have an appointment to be seen in a couple of weeks to discuss again. Kim states that it is his wish to be resuscitated if he were to require it andthat he has told his family that he is not ready to and told his children that he wants to live another 20 years. Past Medical History Past Medical History: Diagnosis Date Benign essential hypertension Colon cancer (H) s/p partial resection. completed 12 cycles of FOLFOX with Avastin with good response. then relapsedwhile on 5-FU, avastin maintenance therapy. 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, Past Surgical History Past Surgical History: Procedure Laterality Date BOWEL RESECTION 2/2 abscess formation and perforation in the setting of colon cancer IR CHEST PORT PLACEMENT > 5 YRS OF AGE 0705/30/2021 IR CHEST PORT PLACEMENT > 5 YRS OF AGE 112/10/2024 IR PICC PLACEMENT > 5 YRS OF AGE 111/30/2024 IR PORT REMOVAL LEFT 01/18/2025 ORTHOPEDIC SURGERY REMOVE PORT VASCULAR ACCESS Right 11/28/2024 Procedure: Removal of vascular access port right chest; Surgeon: Willem Santos MD; Location: [facility] OR SIGMOIDOSCOPY FLEXIBLE N/A 06/12/2023 Procedure: Sigmoidoscopy flexible; Surgeon: Herman Wan MD; Location: GI Prior to Admission Medications Prior to Admission Medications Prescriptions Last Dose Informant Patient Reported? Taking? Elemental iron 65 mg Vitamin C 125 mg (VITRON C) 65-125 MG TABS tablet Yes No Sig: Take 1 tablet by mouth daily. LORazepam (ATIVAN) 1 MG tablet Yes No Sig: Take 1 mg by mouth daily as needed. acetaminophen (TYLENOL) 325 MG tablet No No Sig: Take 2 tablets (650 mg) by mouth every 4 hours as needed for mild pain or other (and adjunct with moderate or severe pain or per patient request). chlorproMAZINE (THORAZINE) 50 MG tablet Yes No Sig: Take 50 mg by mouth 3 times daily as needed for other or nausea (hiccups). cyclobenzaprine (FLEXERIL) 5 MG tablet Yes No Sig: Take 1-2 tablets by mouth every 12 hours as needed for muscle spasms. guaiFENesin-codeine (ROBITUSSIN AC) 100-10 MG/5ML solution Yes No Sig: Take 10 mLs by mouth every 4 hours as needed for cough. morphine (MSIR) 15 MG IR tablet Yes No Sig: Take 15 mg by mouth See Admin Instructions. Every 3 hours PRN potassium chloride ER (K-TAB) 20 MEQ CR tablet Yes No Sig: Take 20 mEq by mouth daily. sodium bicarbonate 325 MG tablet Yes No Sig: Take 650 mg by mouth every morning. traZODone (DESYREL) 50 MG tablet Yes No Sig: Take 50 mg by mouth at bedtime. venlafaxine (EFFEXOR XR) 150 MG 24 hr capsule Yes No Sig: Take 150 mg by mouth At Bedtime Facility-Administered Medications: None Review of Systems Fabiano is able to wake up and denies any subjective complaints at this time. Physical Exam Vital Signs: Weight: 0 lbs 0 oz General Appearance: Lying in bed, chronically ill-appearing Respiratory: Clear to auscultation bilaterally Cardiovascular: Regular rate and rhythm GI: Abdomen is mildly distended but soft. No tenderness is elicited. He has overlying Derm findingsconsistent with cirrhosis. Skin: +1-2 pitting edema bilateral lower extremities Other: He is alert and oriented to self and situation. He thought he was at [facility] Medical Decision Making 75 MINUTES SPENT BY ME on the date of service doing chart review, history, exam, documentation & further activities per the note. Data Imaging results reviewed over the past 24 hrs: No results found for this or any previous visit (from the past 24 hours). documented in this encounter Consult Notes * Margo Cali - 04/10/2025 11:41 AM CDTAssociated Order(s): CARE MANAGEMENT / SOCIAL WORK IP CONSULT Care Management Initial Consult General Information Assessment completed with: Patient, and spoke with Kim Type of CM/SW Visit: Initial Assessment Primary Care Provider verified and updated as needed: Readmission within the last 30 days: Reason for Consult: (Elevated risk score) Advance Care Planning: Communication Assessment Patient's communication style: spoken language (Bengali or Bilingual) Hearing Difficulty or Deaf: no Wear Glasses or Blind: no Cognitive Cognitive/Neuro/Behavioral: .WDL except Level of Consciousness: lethargic Arousal Level: arouses tovoice Orientation: disoriented to, situation, place, time Mood/Behavior: calm, cooperative Best Language: 0 - No aphasia Speech: spontaneous, hoarse Living Environment: People in home: spouse Current living Arrangements: house Able to return to prior arrangements: yes Family/Social Support: Care provided by: self, spouse/significant other Provides care for: no one Marital Status: Support system: Description of Support System: Supportive, Involved Current Resources: Patient receiving home care services: No Community Resources: None Equipment currently used at home: cane, straight Supplies currently used at home: Employment/Financial: Employment Status: retired Financial Concerns: Does the patient's insurance plan have a 3 day qualifying hospital stay waiver? No Lifestyle & Psychosocial Needs: Social Drivers of Health Food Insecurity: Low Risk (04/09/2025) Food Insecurity Within the past 12 months, did you worry that your food would run out before you got money to buy more?: No Within the past 12 months, did the food you bought just not last and you didn???t have money to getmore?: No Depression: Not on file Housing Stability: Low Risk (04/09/2025) Housing Stability Do you have housing? : Yes Are you worried about losing your housing?: No Recent Concern: Housing Stability - High Risk (2025) Housing Stability Do you have housing? : No Are you worried about losing your housing?: No Tobacco Use: Low Risk (03/16/2025) Received from [facility]up Patient History Smoking Tobacco Use: Never Smokeless Tobacco Use: Never Passive Exposure: Not on file Financial Resource Strain: Low Risk (04/09/2025) Financial Resource Strain Within the past 12 months, have you or your family members you live with been unable to get utilities (heat, electricity) when it was really needed?: No Alcohol Use: Not on file Transportation Needs: Low Risk (04/09/2025) Transportation Needs Within the past 12 months, has lack of transportation kept you from medical appointments, getting your medicines, non-medical meetings or appointments, work, or from getting things that you need?: No Physical Activity: Not on file Interpersonal Safety: Low Risk (04/09/2025) Interpersonal Safety Do you feel physically and emotionally safe where you currently live?: Yes Within the past 12 months, have you been hit, slapped, kicked or otherwise physically hurt by someone?: No Within the past 12 months, have you been humiliated or emotionally abused in other ways by your partner or ex-partner?: No Stress: Not on file Social Connections: Socially Integrated (01/30/2024) Received from [facility] Social Connections Do you often feel lonely or isolated from those around you?: 0 Health Literacy: Not on file Functional Status: Prior to admission patient needed assistance: Dependent ADLs:: Ambulation-cane Dependent IADLs:: Cleaning, Cooking, Laundry, Medication Management Mental Health Status: Mental Health Status: No Current Concerns Chemical Dependency Status: Chemical Dependency Status: No Current Concerns Values/Beliefs: Spiritual, Cultural Beliefs, Sabianism Practices, Values that affect care: Discussed ???Partnership in Safe Discharge Planning??? document with patient/family: No Additional Information: Consult received for elevated risk score 34%. Sw met with pt and spoke with Kim via phone. Pt reports he lives with his in a house. Pt reports he is retired but his still works. 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 Pt reports he still drives occasionally. He reports he uses a cane however, says he does not use any assistive devices. During pt's last hospitalization he was discharged home with home infusion through [facility]. Kim denies any current services. Next Steps: Will monitor for discharge needs. Pt has PT/OT and palliative consults. Margo Cali MAILER, SHOP TAILOR, [facility] Inpatient Care Coordination [facility] [phone] documented in this encounter Miscellaneous Notes * Pharmacy-Admission Medication History - Suzan Garrido [facility] - 04/10/2025 9:00 AM CDT Pharmacist Admission Medication History Admission medication history is complete. The information provided in this note is only as accurateas the sources available at the time of the update. Information Source(s): Family member and CareEverywhere/SureScripts via phone Pertinent Information: Confirmed medication list with patient's , Kim. She stated he has beentaking Ivermectin 20 mg capsules --> 3 capsules daily and naltrexone 0.5mg capsules --> 2 capsuls daily (1mg). Neither of these meds were in his pharmacy dispense records/Surescripts. Changes made to SYSTEMS DESIGN ENGINEER medication list: Added: Ivermectin, naltrexone Deleted: None Changed: None Allergies reviewed with patient and updates made in EHR: no Medication History Completed By: SUZAN GARRIDO RPH 04/10/2025 9:00 AM SYSTEMS DESIGN ENGINEER Med List Medication Sig Last Dose/Taking acetaminophen (TYLENOL) 325 MG tablet Take 2 tablets (650 mg) by mouth every 4 hours as needed for mild pain or other (and adjunct with moderate or severe pain or per patient request). Unknown benzonatate (TESSALON) 100 MG capsule Take 100 mg by mouth 2 times daily. 04/09/2025 Morning chlorproMAZINE (THORAZINE) 50 MG tablet Take 50 mg by mouth 3 times daily as needed for other or nausea (hiccups). Unknown cyclobenzaprine (FLEXERIL) 5 MG tablet Take 1-2 tablets by mouth every 12 hours as needed for muscle spasms. Unknown Elemental iron 65 mg Vitamin C 125 mg (VITRON C) 65-125 MG TABS tablet Take 1 tablet by mouth daily. 04/09/2025 Morning guaiFENesin-codeine (ROBITUSSIN AC) 100-10 MG/5ML solution Take 10 mLs by mouth every 4 hours as needed for cough. Unknown IVERMECTIN PO Take 60 mg by mouth daily. 04/09/2025 Morning LORazepam (ATIVAN) 1 MG tablet Take 1 mg by mouth daily as needed. Unknown morphine (MSIR) 15 MG IR tablet Take 15 mg by mouth See Admin Instructions. Every 3 hours PRN More than a month NALTREXONE HCL PO Take 1 mg by mouth daily. 04/09/2025 Morning potassium chloride ER (K-TAB) 20 MEQ CR tablet Take 20 mEq by mouth daily. 04/09/2025 Morning sodium bicarbonate 325 MG tablet Take 650 mg by mouth every morning. 04/09/2025 Morning traZODone (DESYREL) 50 MG tablet Take 50 mg by mouth at bedtime. 04/08/2025 Bedtime venlafaxine (EFFEXOR XR) 150 MG 24 hr capsule Take 150 mg by mouth At Bedtime 04/08/2025 Bedtime * Plan of Care - Emma Acosta RN - 04/10/2025 6:35 AM CDT Pertinent assessments: A&Ox4, lethargic. VSS on room air, afebrile. C/o int right sided pain, declined intervention. Abd rounded/distended. Pt having diarrhea, stool sample needed for r/o c-diff.Impulsive, alarms on for safety. Ax1 with GB & walker. Major Shift Events: Transfer from [place] Treatment Plan: Follow cx, zosyn, oncology consult, stool sample needed Bedside Nurse: Emma Acosta RN Goal Outcome Evaluation: Plan of Care Reviewed With: patient Overall Patient Progress: no changeOverall Patient Progress: no change Problem: Adult Inpatient Plan of Care Goal: Plan of Care Review Description: The Plan of Care Review/Shift note should be completed every shift. The Outcome Evaluation is a brief statement about your assessment that the patient is improving, declining, or no change. This information will be displayed automatically on your shiftnote. Outcome: Progressing Flowsheets (Taken 04/10/2025 0635) Plan of Care Reviewed With: patient Overall Patient Progress: no change Goal: Patient-Specific Goal (Individualized) Description: You can add care plan individualizations to a care plan. Examples of Individualizationmight be: Parent requests to be called daily at 9am for status, I have a hard time hearing out of my right ear, or Do not touch me to wake me up as it startlesme. Outcome: Progressing Goal: Absence of Hospital-Acquired Illness or Injury Outcome: Progressing Intervention: Identify and Manage Fall Risk Recent Flowsheet Documentation Taken 04/09/20252199 by Emma Acosta RN Safety Promotion/Fall Prevention: activity supervised assistive device/personal items within reach Intervention: Prevent Skin Injury Recent Flowsheet Documentation Taken 04/09/20252199 by Emma Acosta RN Body Position: position changed independently Intervention: Prevent and Manage VTE (Venous Thromboembolism) Risk Recent Flowsheet Documentation Taken 04/09/20252199 by Emma Acosta, RN VTE Prevention/Management: SCDs off (sequential compression devices) Intervention: Prevent Infection Recent Flowsheet Documentation Taken 04/09/20252199 by Dave, Emma M, RN Infection Prevention: cohorting utilized hand hygiene promoted personal protective equipment utilized rest/sleep promoted single patient room provided Goal: Optimal Comfort and Wellbeing Outcome: Progressing Goal: Readiness for Transition of Care Outcome: Progressing Intervention: Mutually Develop Transition Plan Recent Flowsheet Documentation Taken 04/09/20252299 by Emma Acosta, RN Equipment Currently Used at Home: none Problem: Delirium Goal: Optimal Coping Outcome: Progressing Goal: Improved Behavioral Control Outcome: Progressing Intervention: Minimize Safety Risk Recent Flowsheet Documentation Taken 04/09/20252199 by Emma Acosta RN Enhanced Safety Measures: room near unit station Goal: Improved Attention and Thought Clarity Outcome: Progressing Goal: Improved Sleep Outcome: Progressing documented in this encounter Plan of Treatment Upcoming Encounters Date Type Department Care Team (Late st Contact Info) Description 04/21/2025 9:30 AM CDT Appointment [facility] [address] [place] [address] Sekou Avalos MD OR ONCOLOGY [address] [facility] [address] [place] [address] 05/05/2025 9:30 AM CDT Appointment [facility] [address] [place] [address] Sekou Avalos MD OR ONCOLOGY [address] [facility] [address] [place] [address] Pending Results Name Type Priority Associated Diagnoses Date /Time Blood Culture Peripheral blood (BC) Arm, Right Microbiology STAT 04/10/2025 12:10 AM CDT Blood Culture Peripheral blood (BC) Arm, Right Microbiology STAT 04/09/2025 10:55 PM CDT Scheduled Orders Name Type Priority Associated Diagnoses Orde r Schedule Basic metabolic panel Lab Routine AM Draw for 2 Occurrences starting 04/10/2025 until 04/11/2025, 1 completed CBC with platelets Lab Routine AM Kavya w for 2 Occurrences starting 04/10/2025 until 04/11/2025, 1 completed Hepatic panel Lab Routine AM Draw for 2 Occurrences starting 04/10/2025 until 04/11/2025, 1 completed Platelet count Lab Routine Every 3 Da ys until discontinued starting 04/12/2025 Platelet count - Routine Lab Timed Every 72hr until discontinued starting 04/11/2025 Comprehensive metabolic panel Lab Routine AM Draw for 1 Occurrences starting 04/11/2025 until 04/11/2025 CBC with platelets Lab Routine AM Kavya w for 1 Occurrences starting 04/11/2025 until 04/11/2025 Magnesium Lab Routine Routine for 1 Occurrences starting 04/10/2025 until 04/10/2025 Phosphorus Lab Routine Routine for 1 Occurrences starting 04/10/2025 until 04/10/2025 documented as of this encounter Procedures * The patient is currently admitted. [...] 8:39 AM CDT HEPATIC FUNCTION PANEL Routine 04/10/2025 8:39 AM CDT BASIC METABOLIC PANEL Routine 04/10/2025 8:39 AM CDT CBC WITH PLATELETS Routine 04/10/2025 8: 39 AM CDT BLOOD GAS VENOUS STAT 04/10/2025 12:1 0 AM CDT BLOOD CULTURE STAT 04/10/2025 12:10 AM CDT LACTIC ACID WHOLE BLOOD Routine 04/09/2025 10:55 PM CDT HEPATIC FUNCTION PANEL Routine 04/09/2025 10:55 PM CDT BLOOD CULTURE STAT 04/09/2025 10:55 PM CDT AMMONIA Routine 04/09/2025 10:55 PM CDT BASIC METABOLIC PANEL Routine 04/09/2025 10:55 PM CDT CBC WITH PLATELETS Routine 04/09/2025 10 :55 PM CDT documented in this encounter Results * (ABNORMAL) UA with Microscopic reflex to Culture (04/10/2025 12:22 PM CDT) Color Urine Yellow Colorless, Straw, Light Yellow, Yellow 04/10/2025 12:58 PM CDT LABORATORY Appearance Urine Slightly Cloudy(A) Clear 04/10/2025 12:58 PM CDT LABORATORY Glucose Urine Negative Negative mg/dL 04/10/2025 12:58 PM CDT RH LABORATORY Bilirubin Urine Negative Negative 12:58 PM CDT RH LABORATORY Ketones Urine Trace(A) Negative mg/dL 04/10/2025 12:58 PM CDT RH LABORATORY Specific [place] Urine 1.020 1.003 - 1.035 04/10/2025 12:58 PM CDT RH LABORATORY Blood Urine Small(A) Negative 04/10/2025 12:58 PM CDT LABORATORY pH Urine 5.0 5.0 - 7.0 [...] 12:58 PM CDT Urine Culture not indicated Fabiano Portillo MD LAB - URINE ORDERABLES Fi nal Result RH LABORATORY [facility] Care Lab [address] Lab (1st floor, no room number) [place] [address], [facility] * (ABNORMAL) C. difficile Antigen [...] ORDERABL ES Final Result [facility]ORAT[facility] Inf. Diseases Diag. Lab [address] [facility], [address] [place] [address], [place] * (ABNORMAL) C. difficile Toxin B PCR [...] Xpert C. difficile Assay, performed on the [employer] Gene[employer], is a qualitative in vitro [...] an aid in the diagnosis of CDI. us Dell Mckay MD LAB - MICRO GENERAL ORDERABL ES Final Result [facility] Inf. Diseases Diag. Lab [address] [facility] [address] [place] [address] * Phosphorus (04/10/2025 8:39 AM CDT) Pathologist [facility] Phosphorus 3.9 2.5 - 4.5 mg/dL 04/10/2025 2:02 PM CDT RH LABORATORY Blood STRUCTURE OF RIGHT UPPER LIMB / Unknown Venipuncture / Unknown 04/10/2025 8:39 AM CDT 04/10/2025 8:47 AM CDT Fabiano Portillo MD LAB - BLOOD ORDERABLES Fi nal Result LABORATORY [facility] Lab [address] Lab (1st floor, no room number) [place] [address] * Magnesium (04/10/2025 8:39 AM CDT) [facility] Magnesium 1.8 1.7 - 2.3 mg/dL 04/10/2025 2:02 PM CDT LABORATORY Blood STRUCTURE OF RIGHT UPPER LIMB / Unknown Venipuncture / Unknown 04/10/2025 8:39 AM CDT 04/10/2025 8:47 AM CDT Fabiano Portillo MD LAB - BLOOD ORDERABLES Fi nal Result LABORATORY [facility] Care Lab [address] Lab (1st floor, no room number) [place] [address] * (ABNORMAL) Hepatic panel (04/10/2025 8:39 AM CDT) Protein Total 6.1(L) 6.4 - 8.3 g/dL 04/10/2025 9:10 AM CDT RH LABORATORY Albumin 2.3(L) 3.5 - 5.2 g/dL 04/10/2025 9:10 AM CDT RH LABORATORY Bilirubin Total 1.7(H) <=1.2 mg/dL 04/10/2025 9:10 AM CDT RH LABORATORY Alkaline Phosphatase 424(H) 40 - 150 U/L 04/10/2025 9:10 AM CDT RH LABORATORY AST 121(H) 0 - 45 U/L 04/10/2025 9:10 AM CDT RH LABORATORY ALT 23 0 - 70 U/L 04/10/2025 9:10 AM CDT RH LABORATORY Bilirubin Direct 1.23(H) 0.00 - 0.30 mg/dL 04/10/2025 9:10 AM CDT RH LABORATORY Comment:As of 25, refer ence ranges and trending lines may vary depending on the testing location. Blood STRUCTURE OF RIGHT UPPER LIMB / Unknown Venipuncture / Unknown 04/10/2025 8:39 AM CDT 04/10/2025 8:47 AM CDT us Dell Mckay MD LAB - BLOOD ORDERABLES Final Result RH LABORATORY [facility] Care Lab [address] [facility] Lab (1st floor, no room number) [place] [address] * (ABNORMAL) CBC with platelets (04/10/2025 8:39 AM CDT) WBC Count 9.9 4.0 - 11.0 10e3/uL [...] - 15.0 % 04/10/2025 8:49 AM CDT LABORATORY Platelet Count 109(L) 150 - 450 10e3/uL 04/10/2025 8:49 AM CDT LABORATORY Blood STRUCTURE OF RIGHT UPPER LIMB / Unknown Venipuncture / Unknown 04/10/2025 8:39 AM CDT 04/10/2025 8:47 AM CDT Dell Mckay MD LAB - BLOOD ORDERABLES Final Result LABORATORY [facility] Lab [address] Lab (1st floor, no room number) [place] [address] * (ABNORMAL) Basic metabolic panel (04/10/2025 8:39 AM CDT) Sodium 137 135 - 145 mmol/L 04/10/2025 9:10 AM CDT LABORATORY Potassium 3.9 3.4 - 5.3 mmol/L 04/10/2025 9:10 AM CDT LABORATORY Chloride 110(H) 98 - 107 mmol/L 04/10/2025 9:10 AM CDT LABORATORY Carbon Dioxide (CO2) 12(L) 22 - 29 mmol/L 04/10/2025 9:10 AM CDT LABORATORY Anion Gap 15 7 - 15 mmol/L 04/10/2025 9:10 AM T LABORATORY Urea Nitrogen 34.2(H) 8.0 - 23.0 mg/dL 04/10/2025 9:10 AM CDT LABORATORY Creatinine 2.13(H) 0.67 - 1.17 mg/dL 04/10/2025 9:10 AM CDT LABORATORY GFR Estimate 34(L) >60 mL/min/1.7 3m2 04/10/2025 9:10 AM CDT LABORATORY Comment:eGFR calculated usin 2020 CKD-EPI equation. Calcium 8.0(L) 8.8 - 10.4 mg/dL 04/10/2025 9:10 AM CDT LABORATORY Glucose 87 70 - 99 mg/dL 04/10/2025 9:10 AM CDT LABORATORY Blood STRUCTURE OF RIGHT UPPER LIMB / Unknown Venipuncture / Unknown 04/10/2025 8:39 AM CDT 04/10/2025 8:47 AM CDT us Dell Mckay MD LAB - BLOOD ORDERABLES Final Result RH LABORATORY [facility] Lab [address] Lab (1st floor, no room number) [place] [address], [facility] * (ABNORMAL) Blood gas venous (04/10/2025 12:10 [...] AM CDT 04/10/2025 12:13 AM CDT Narrative RH LABORATORY - 04/10/2025 12:23 AM CDT In healthy individuals, oxyhemoglobin (O2Hb) and oxygen saturation (SO2) are approximately equal. In the presence of dyshemoglobins, oxyhemoglobin can be considerably lower than oxygen saturation. us Vicenta Jackson MD LAB - BLOOD ORDERABLES Final Res ult LABORATORY [facility] Lab [address] Lab (1st floor, no room number) [place] [address] * (ABNORMAL) Ammonia (04/09/2025 10:55 PM CDT) Ammonia 70(H) 16 - 60 umol/L 04/09/2025 11:27 PM CDT RH LABORATORY Blood STRUCTURE OF RIGHT HAND / Unknown Venipuncture / Unknown 04/09/2025 10:55 PM CDT 04/09/2025 11:06 PM CDT Dell Mckay MD LAB - BLOOD ORDERABLES Final Result Performing Organization Address [facility]/ZIP Co de Phone Number LABORATORY [facility] Care Lab [address] Lab (1st floor, no room number) [place] [address] * (ABNORMAL) Lactic acid whole blood (04/09/2025 10:55 PM CDT) Lactic Acid 2.4(H) 0.7 - 2.0 mmol/L 04/09/2025 11:09 PM CDT LABORATORY Blood STRUCTURE OF RIGHT HAND / Unknown Venipuncture / Unknown 04/09/2025 10:55 PM CDT 04/09/2025 11:06 PM CDT Dell Mckay MD LAB - BLOOD ORDERABLES Final Result Performing Organization Address City/[facility]/ZIP Co de Phone Number LABORATORY [facility] Lab [address] Lab (1st floor, no room number) [place] [address] * (ABNORMAL) Hepatic panel (04/09/2025 10:55 PM CDT) Protein Total 6.6 6.4 - 8.3 g/dL 04/09/2025 11:28 PM CDT RH LABORATORY Albumin 2.7(L) 3.5 - 5.2 g/dL 04/09/2025 11:28 PM CDT RH LABORATORY Bilirubin Total 1.7(H) <=1.2 mg/dL 04/09/2025 11:28 PM CDT RH LABORATORY Alkaline Phosphatase 507(H) 40 - 150 U/L 04/09/2025 11:28 PM CDT RH LABORATORY AST 123(H) 0 - 45 U/L 04/09/2025 11:28 PM CDT RH LABORATORY ALT 25 0 - 70 U/L 04/09/2025 11:28 PM CDT RH LABORATORY Bilirubin Direct 1.19(H) 0.00 - 0.30 mg/dL 04/09/2025 11:28 PM CDT RH LABORATORY Comment:As of 25, refer ence ranges and trending lines may vary depending on the testing location. Blood STRUCTURE OF RIGHT HAND / Unknown Venipuncture / Unknown 04/09/2025 10:55 PM CDT 04/09/2025 11:05 PM CDT us Dell Mckay MD LAB - BLOOD ORDERABLES Final Result RH LABORATORY [facility] Lab [address] Lab (1st floor, no room number) [place] [address], [facility] * (ABNORMAL) CBC with platelets (04/09/2025 10:55 PM CDT) WBC Count 8.8 4.0 - 11.0 10e3/uL 04/09/2025 11:25 PM CDT RH LABORATORY RBC Count 3.17(L) 4.40 - 5.90 10e6/uL 04/09/2025 11:25 PM CDT RH LABORATORY Hemoglobin 9.3(L) 13.3 - 17.7 g/dL 04/09/2025 11:25 PM CDT RH LABORATORY Hematocrit 30.0(L) 40.0 - 53.0 % 04/09/2025 11:25 PM CDT RH LABORATORY MCV 95 78 - 100 fL 04/09/2025 11:25 PM CDT RH LABORATORY MCH 29.3 26.5 - 33.0 pg 04/09/2025 11:25 PM CDT RH LABORATORY MCHC 31.0(L) 31.5 - 36.5 g/dL 04/09/2025 11:25 PM CDT LABORATORY RDW 17.9(H) 10.0 - 15.0 % 04/09/2025 11:25 PM CDT LABORATORY Platelet Count 102(L) 150 - 450 10e3/uL 04/09/2025 11:25 PM CDT LABORATORY Blood STRUCTURE OF RIGHT HAND / Unknown Venipuncture / Unknown 04/09/2025 10:55 PM CDT 04/09/2025 11:05 PM CDT us Dell Mckay MD LAB - BLOOD ORDERABLES Final Result LABORATORY [facility] Lab [address] Lab (1st floor, no room number) [place] [address], [facility] * (ABNORMAL) Basic metabolic panel (04/09/2025 10:55 PM CDT) Sodium 139 135 - 145 mmol/L 04/09/2025 11:47 PM CDT LABORATORY Potassium 4.1 3.4 - 5.3 mmol/L 04/09/2025 11:47 PM CDT LABORATORY Chloride 110(H) 98 - 107 mmol/L 04/09/2025 11:47 PM CDT LABORATORY Carbon Dioxide (CO2) 10(LL) 22 - 29 mmol/L 04/09/2025 11:47 PM CDT LABORATORY Anion Gap 19(H) 7 - 15 mmol/L 04/09/2025 11:47 PM CDT LABORATORY Urea Nitrogen 32.8(H) 8.0 - 23.0 mg/dL 04/09/2025 11:47 PM CDT LABORATORY Creatinine 2.08(H) 0.67 - 1.17 mg/dL 04/09/2025 11:47 PM CDT LABORATORY GFR Estimate 35(L) >60 mL/min/1.7 3m2 04/09/2025 11:47 PM CDT LABORATORY Comment:eGFR calculated usin 2020 CKD-EPI equation. Calcium 8.3(L) 8.8 - 10.4 mg/dL 04/09/2025 11:47 PM CDT LABORATORY Glucose 59(L) 70 - 99 mg/dL 04/09/2025 11:47 PM CDT RH LABORATORY Blood STRUCTURE OF RIGHT HAND / Unknown Venipuncture / Unknown 04/09/2025 10:55 PM CDT 04/09/2025 11:05 PM CDT us Dell Mckay MD LAB - BLOOD ORDERABLES Final Result LABORATORY [facility] Lab [address] Lab (1st floor, no room number) [place] [address], [facility] documented in this encounter Visit Diagnoses Diagnosis AMS (altered mental status) documented in this encounter Admitting Diagnoses Diagnosis AMS (altered mental status) documented in this encounter Administered Medications Active Administered Medications - up to 3 most recent administrations Medication Order MAR Action Action Date Dose Rate Site calcium carbonate (TUMS) chewable tablet 1,000 mg 1,000 mg, Oral, 4 TIMES DAILY PRN, heartburn, Starting on 04/09/25 at 2118 Elemental iron 65 mg Vitamin C 125 mg (VITRON C) tablet 1 tablet 1 tablet, Oral, DAILY, First dose on 04/10/25 at 0900 $Given 04/10/2025 9:40 AM CDT 1 tablet heparin ANTICOAGULANT injection 5,000 Units 5,000 Units, Subcutaneous, EVERY 8 HOURS, First dose on 04/09/25 at 2200, Contact provider if platelet count drops by 50% or more after heparin initiation OR if platelet count falls below 50 x 10e3/uL High concentration heparin. Not for line flush or cath care. $Given 04/10/2025 3:41 PM CDT 5,000 Units $Given 04/10/2025 6:48 AM CDT 5,000 Units $Given 04/09/2025 10:11 PM CDT 5,000 Units lidocaine (LMX4) cream Topical, EVERY 1 HOUR PRN, pain, with VAD insertion, Starting on 04/09/25 at 2118, Apply at least 30 minutes prior to VAD insertion in divided doses as needed for size of site for insertion. MAX Dose: 2.5 g ( of 5 g tube) Do NOT give if patient has a history of allergy to any local anesthetic or any richard product. Do NOT use both lidocaine intradermal/subcutaneous injection and the lidocaine cream on the same site. lidocaine 1 % 0.1-1 mL 0.1-1 mL, Other, EVERY 1 HOUR PRN, mild pain with VAD insertion, Starting on 04/09/25 at 2118, MAX dose 1 mL subcutaneous OR intradermal along the side of the vein in divided doses as needed for VAD insertion. Do NOT give if patient has a history of allergy to any local anesthetic or any richard product. Do NOT use both lidocaine intradermal/subcutaneous injection and the lidocaine cream on the same site. piperacillin-tazobactam (ZOSYN) 3.375 g vial to attach to NS 100 mL bag Routine, 3.375 g, Intravenous, EVERY 6 HOURS, First dose on 04/09/25 at 2130, Lactated Ringer's solution is not compatible with piperacillin-tazobactam for injection., Indications: ImmunocompromisedIndications:Immunocompro mised $New Bag 04/10/2025 3:33 PM CDT 3.375 g $New Bag 04/10/2025 9:35 AM CDT 3.375 g $New Bag 04/10/2025 4:17 AM CDT 3.375 g potassium chloride courtney ER (KLOR-CON M20) CR tablet 20 mEq 20 mEq, Oral, DAILY, First dose on 04/10/25 at 0930, DO NOT CRUSH $Given 04/10/2025 9:37 AM CDT 20 mEq senna-docusate (SENOKOT-S/PERICOLACE) 8.6-50 MG per tablet 1 tablet 1 tablet, Oral, 2 TIMES DAILY PRN, constipation, Starting on 04/09/25 at 2118, If no bowel movement in 24 hours, increase to 2 tablets by mouth. IF more than 1 constipation PRN medication is ordered, administer step-españa as indicated, moving to the next step ONLY if prior step ineffective. Step 1: senna-docusate (SENOKOT-S; PERICOLACE) OR bisacodyl (DULCOLAX) EC tablet Step 2: polyethylene glycol (MIRALAX/GLYCOLAX) Step 3: bisacodyl (DULCOLAX) suppository Step 4: enema Hold for loose stools. senna-docusate (SENOKOT-S/PERICOLACE) 8.6-50 MG per tablet 2 tablet 2 tablet, Oral, 2 TIMES DAILY PRN, constipation, Starting on 04/09/25 at 2118, IF more than 1 constipation PRN medication is ordered, administer step-españa as indicated, moving to the next step ONLY if prior step ineffective. Step 1: senna-docusate (SENOKOT-S; PERICOLACE) OR bisacodyl (DULCOLAX) EC tablet Step 2: polyethylene glycol (MIRALAX/GLYCOLAX) Step 3: bisacodyl (DULCOLAX) suppository Step 4: enema Hold for loose stools. sodium bicarbonate tablet 1,300 mg 1,300 mg, Oral, 2 TIMES DAILY, First dose (after last modification) on [place] 04/10/25 at 2100 sodium chloride (PF) 0.9% PF flush 3 mL 3 mL, Intracatheter, EVERY 8 HOURS SCHEDULED, First dose on [facility] 04/09/25 at 2200, to lock peripheral IV dormant line $Given 04/09/2025 10:11 PM CDT 3 mLs sodium chloride (PF) 0.9% PF flush 3 mL 3 mL, Intracatheter, EVERY 1 MIN PRN, line flush, other, to ensure patency or to lock dormant line, Starting on 04/09/25 at 2118 sodium chloride 0.9 % infusion at 100 mL/hr, Intravenous, CONTINUOUS, Starting on 04/10/25 at 1100, Until 04/11/25 at 0659 $New Bag 04/10/2025 11:57 AM CDT 100 mL/hr vancomycin (VANCOCIN) capsule 125 mg Routine, 125 mg, Oral, 4 TIMES DAILY, First dose (after last modification) on [place] 04/10/25 at 1800, Use solution for feeding tube administration. Capsules should not be opened for FT administration., Indications: cdiff treatmentIndications:cdiff treatment Inactive Administered Medications - up to 3 most recent administrations Medication Order MAR Action Action Date Dose Rate Site sodium bicarbonate 150 mEq in D5W 1,000 mL infusion at 75 mL/hr, Intravenous, CONTINUOUS, Starting on 04/10/25 at 0030 $New Bag 04/10/2025 1:54 AM CDT 75 mL/hr sodium bicarbonate tablet 650 mg 650 mg, Oral, EVERY MORNING, First dose on 04/10/25 at 0930 $Given 04/10/2025 9:40 AM CDT 650 mg sodium chloride 0.9 % infusion at 100 mL/hr, Intravenous, CONTINUOUS, Starting on 04/09/25 at 2130, Until 04/10/25 at 1056 $New Bag 04/09/2025 10:11 PM CDT 100 mL/hr sodium chloride 0.9% BOLUS 500 mL Intravenous, 500 mL, ONCE, On 04/09/25 at 2330, For 1 dose $New Bag 04/09/2025 11:40 PM CDT 500 mLs vancomycin (VANCOCIN) capsule 125 mg Routine, 125 mg, Oral, 2 TIMES DAILY, First dose on 04/10/25 at 1130, Use solution for feeding tube administration. Capsules should not be opened for FT administration., Indications: cdiff ppxIndications:cdiff ppx $Given 04/10/2025 11:58 AM CDT 125 mg documented in this encounter Active and Recently Administered Medications Times are shown in CDT. Scheduled Medication Order 04/08/2025 04/09/2025 04/10/2025 Elemental iron 65 mg Vitamin C 125 mg (VITRON C) tablet 1 tablet 1 tablet, Oral, DAILY, First dose on 04/10/25 at 0900 0940 ($Given - Provider: Gene Sam RN) heparin ANTICOAGULANT injection 5,000 Units 5,000 Units, Subcutaneous, EVERY 8 HOURS, First dose on 04/09/25 at 2200, Contact provider if platelet count drops by 50% or more after heparin initiation OR if platelet count falls below 50 x 10e3/uL High concentration heparin. Not for line flush or cath care. 2211 ($Given - Provider: Emma Acosta RN) 0648 ($Given - Provider: Emma Acosta RN)1541 ($Given - Provider: Gene Sam RN)2200 (Due) piperacillin-tazobactam (ZOSYN) 3.375 g vial to attach to NS 100 mL bag Routine, 3.375 g, Intravenous, EVERY 6 HOURS, First dose on 04/09/25 at 2130, Lactated Ringer's solution is not compatible with piperacillin-tazobactam for injection., Indications: Immunocompromised 2211 ($New Bag - Provider: Emma Acosta RN) 0417 ($New Bag - Provider: Emma Acosta RN)0935 ($New Bag - Provider: Gene Sam RN)1533 ($New Bag - Provider: Gene Sam RN)2200 (Due - Provider: Emma Acosta RN) potassium chloride courtney ER (KLOR-CON M20) CR tablet 20 mEq 20 mEq, Oral, DAILY, First dose on 04/10/25 at 0930, DO NOT CRUSH 0937 ($Given - Provider: Gene Sam RN) sodium bicarbonate tablet 1,300 mg 1,300 mg, Oral, 2 TIMES DAILY, First dose (after last modification) on 04/10/25 at 2100 2100 (Due) sodium bicarbonate tablet 650 mg (CANCELED) 650 mg, Oral, EVERY MORNING, First dose on 04/10/25 at 0930 0940 ($Given - Provider: Gene Sam RN) sodium chloride (PF) 0.9% PF flush 3 mL 3 mL, Intracatheter, EVERY 8 HOURS SCHEDULED, First dose on 04/09/25 at 2200, to lock peripheral IV dormant line 2211 ($Given - Provider: Emma Acosta RN) 0524 (Not Given - Provider: Emma Acosta RN - Reason: IV Infusing)1400 (Canceled Entry - Provider: Gene Sam RN - Comment: infusing)2200 (Due) sodium chloride 0.9% BOLUS 500 mL (COMPLETED) Intravenous, 500 mL, ONCE, On 04/09/25 at 2330, For 1 dose 2340 ($New Bag - Provider: Emma Acosta RN) vancomycin (VANCOCIN) capsule 125 mg (CANCELED) Routine, 125 mg, Oral, 2 TIMES DAILY, First dose on 04/10/25 at 1130, Use solution for feeding tube administration. Capsules should not be opened for FT administration., Indications: cdiff ppx 1158 ($Given - Provider: Gene Sam RN) vancomycin (VANCOCIN) capsule 125 mg Routine, 125 mg, Oral, 4 TIMES DAILY, First dose (after last modification) on 04/10/25 at 1800, Use solution for feeding tube administration. Capsules should not be opened for FT administration., Indications: cdiff treatment 1800 (Due)2200 (Due) venlafaxine (EFFEXOR XR) 24 hr capsule 150 mg 150 mg, Oral, AT BEDTIME, First dose on 04/10/25 at 2200, DO NOT CRUSH. 2200 (Due) Continuous Medication Order 04/08/2025 04/09/2025 04/10/2025 sodium bicarbonate 150 mEq in D5W 1,000 mL infusion (CANCELED) at 75 mL/hr, Intravenous, CONTINUOUS, Starting on 04/10/25 at 0030 0154 ($New Bag - Provider: Emma Acosta RN) sodium chloride 0.9 % infusion (CANCELED) at 100 mL/hr, Intravenous, CONTINUOUS, Starting on 04/09/25 at 2130, Until 04/10/25 at 1056 2211 ($New Bag - Provider: Emma Acosta RN) sodium chloride 0.9 % infusion at 100 mL/hr, Intravenous, CONTINUOUS, Starting on 04/10/25 at 1100, Until 04/11/25 at 0659 1157 ($New Bag - Provider: Gene Sam RN) PRN Medication Order 04/08/2025 04/09/2025 04/10/2025 acetaminophen (TYLENOL) tablet 650 mg 650 mg, Oral, EVERY 4 HOURS PRN, mild pain, other, and adjunct with moderate or severe pain or per patient request, Starting on 04/09/25 at 2122, Maximum acetaminophen dose from all sources = 75 mg/kg/day not to exceed 4 grams/day. calcium carbonate (TUMS) chewable tablet 1,000 mg 1,000 mg, Oral, 4 TIMES DAILY PRN, heartburn, Starting on 04/09/25 at 2117 lidocaine (LMX4) cream Topical, EVERY 1 HOUR PRN, pain, with VAD insertion, Starting on 04/09/25 at 2117, Apply at least 30 minutes prior to VAD insertion in divided doses as needed for size of site for insertion. MAX Dose: 2.5 g ( of 5 g tube) Do NOT give if patient has a history of allergy to any local anesthetic or any richard product. Do NOT use both lidocaine intradermal/subcutaneous injection and the lidocaine cream on the same site. lidocaine 1 % 0.1-1 mL 0.1-1 mL, Other, EVERY 1 HOUR PRN, mild pain with VAD insertion, Starting on 04/09/25 at 2117, MAX dose 1 mL subcutaneous OR intradermal along the side of the vein in divided doses as needed for VAD insertion. Do NOT give if patient has a history of allergy to any local anesthetic or any richard product. Do NOT use both lidocaine intradermal/subcutaneous injection and the lidocaine cream on the same site. senna-docusate (SENOKOT-S/PERICOLACE) 8.6-50 MG per tablet 1 tablet(Linked Group 1) 1 tablet, Oral, 2 TIMES DAILY PRN, constipation, Starting on 04/09/25 at 2117, If no bowel movement in 24 hours, increase to 2 tablets by mouth. IF more than 1 constipation PRN medication is ordered, administer step-españa as indicated, moving to the next step ONLY if prior step ineffective. Step 1: senna-docusate (SENOKOT-S; PERICOLACE) OR bisacodyl (DULCOLAX) EC tablet Step 2: polyethylene glycol (MIRALAX/GLYCOLAX) Step 3: bisacodyl (DULCOLAX) suppository Step 4: enema Hold for loose stools. senna-docusate (SENOKOT-S/PERICOLACE) 8.6-50 MG per tablet 2 tablet(Linked Group 1) 2 tablet, Oral, 2 TIMES DAILY PRN, constipation, Starting on 04/09/25 at 2117, IF more than 1 constipation PRN medication is ordered, administer step-españa as indicated, moving to the next step ONLY if prior step ineffective. Step 1: senna-docusate (SENOKOT-S; PERICOLACE) OR bisacodyl (DULCOLAX) EC tablet Step 2: polyethylene glycol (MIRALAX/GLYCOLAX) Step 3: bisacodyl (DULCOLAX) suppository Step 4: enema Hold for loose stools. sodium chloride (PF) 0.9% PF flush 3 mL 3 mL, Intracatheter, EVERY 1 MIN PRN, line flush, other, to ensure patency or to lock dormant line, Starting on 04/09/25 at 2117 Linked Groups Order Group 1: senna-docusate (SENOKOT-S/PERICOLACE) 8.6-50 MG per tablet 1 tabletJump to med 1 tablet, Oral, 2 TIMES DAILY PRN, constipation, Starting on 04/09/25 at 2117, If no bowel movement in 24 hours, increase to 2 tablets by mouth. IF more than 1 constipation PRN medication is ordered, administer step-españa as indicated, moving to the next step ONLY if prior step ineffective. Step 1: senna-docusate (SENOKOT-S; PERICOLACE) OR bisacodyl (DULCOLAX) EC tablet Step 2: polyethylene glycol (MIRALAX/GLYCOLAX) Step 3: bisacodyl (DULCOLAX) suppository Step 4: enema Hold for loose stools. Or senna-docusate (SENOKOT-S/PERICOLACE) 8.6-50 MG per tablet 2 tabletJump to med 2 tablet, Oral, 2 TIMES DAILY PRN, constipation, Starting on 04/09/25 at 2117, IF more than 1 constipation PRN medication is ordered, administer step-españa as indicated, moving to the next step ONLY if prior step ineffective. Step 1: senna-docusate (SENOKOT-S; PERICOLACE) OR bisacodyl (DULCOLAX) EC tablet Step 2: polyethylene glycol (MIRALAX/GLYCOLAX) Step 3: bisacodyl (DULCOLAX) suppository Step 4: enema Hold for loose stools. 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 [place] [id number] Home Infusion Following Provider Infectious Diseases 01/20/25 documented as of this encounter
== END 2025-04-09 19:44 | disposition other institution (70) ==
PROVIDERS: Emergency Provider Emergency Medicine; PCP Family Medicine
DX: R41.82 Altered mental status, unspecified (principal); E87.20 Acidosis, unspecified; R94.5 Abnormal results of liver function studies; N17.9 Acute kidney failure, unspecified; C18.9 Malignant neoplasm of colon, unspecified; R18.8 Other ascites; R78.81 Bacteremia
CPT/HCPCS: 49083; 36415; 70450; 71250; 72125; 74176; 76604; 76705; 80048; 80076; 81001; 82140; 82565; 82803; 83605; 83690; 84484; 85025; 85610; 86850; 86900; 86901; 87040; 87045; 87046; 87070; 87427; 87493; 89051; 93005; 93308; 96365; 96366; 99285; J2543; J3372; J7030; J7120

== ENCOUNTER 2025-04-09 19:15 | Outpatient (CLI) | payer MEDICARE, SELFPAY | END 2025-04-09 19:16 | disposition home or self-care (01) | LOC: AMB 04-11 11:56 | PROVIDERS: PCP Family Medicine; Visit Provider Student in an Organized Health Care Education/Training Program | DX: R41.82 Altered mental status, unspecified (principal); R53.1 Weakness; E87.20 Acidosis, unspecified; R79.89 Other specified abnormal findings of blood chemistry | CPT/HCPCS: A0425; A0427 ==